=== PATIENT | male | born 1955 | race African-American/Black ===

== ENCOUNTER 2016-03-12 01:07 | Inpatient (IN) | payer BC, OTHER ==
[~2016-03-12] VITALS: Ht 170.2 cm; Wt 103.4 kg
[2016-03-12] VITALS (9 sets, daily range): BP systolic 147–172; BP diastolic 78–85; PULSE 75–93; TEMP 36.7–37.1; O2SAT 99–100; Ht 170.2 cm; Wt 103.4 kg
[~2016-03-12 01:07] MED LIST: B-COTAB18 PO; FLV1 PO; FRS/40 PO; LPT/40 PO; MAGN400T6 PO; NEBI10TA2 PO; NXM/40 PO; OMEG10007 PO; PLVUNK PO; THM100 PO; VTMD PO; vitamin b12 PO
[2016-03-12] MEDS ORDERED: DIAZEPAM 5MG TAB PO STA (01:30)
[2016-03-12] MEDS ORDERED: MULTI-VITAMIN INFUSION INJ 10 ML, THIAMINE HCL INJ 100 MG, FoLIC ACID INJ 1 MG in SODIU... IV ONE ×2 (01:45→03:34)
--- NOTE | 2016-03-12 01:51 | EMERGENCY ROOM VISIT NOTE ---
History Report prepared by Brian: Sumanth Duggan Under the Supervision of: Dr. Chantelle Almaguer M.D. First contact with patient: 01:16 Chief Complaint: HYPERGLYCEMIA Stated Complaint: BLOOD SUGAR OUT OF CONTROL -390 Nursing Triage Summary: Patient c/o hyperglycemia that began yesterday. States blood sugars have been in the 300's. Denies any recent illness. History of Present Illness The patient is a 60 year old male who presents to the Emergency Room with complaints of worsening hyperglycemia starting yesterday. The patient states that earlier in the day his glucose level was 219, and then prior to arrival it was around 319. The patient states that he feels shaky, cold, and he vomited. The patient denies any fevers or being sick recently. The patient states that yesterday he was drinking alcohol, and stopped to go to bed. He states that today he has not had any alcohol today. The patient states that he drinks every day and has for many years. The patient denies smoking. The patient states that his blood sugar is usually around 140 two hours after eating. The patient states that the last time he had an alcoholic beverage was yesterday afternoon. He states that he drinks about a fifth of vodka per day as well as some wine. The patient denies any history of seizures. Source of History: patient Onset: yesterday Position: other (global) Quality: other (hyperglycemia) Timing: worsening Associated Symptoms: + chills, + vomiting Note: Associated symptoms: Shaking Review of Systems See HPI for pertinent positives & negatives. A total of 10 systems reviewed and were otherwise negative. Past Medical & Surgical Medical Problems: (1) Atherosclerosis [place] Arteries Extremities Unspec (2) Diab Ayla Wo Compl, Type Ii Or Unspec Type, Uncontrolled (3) Hyperlipidemia Nec/Nos (4) Hypertension Nos Family History No pertinent family history Social History Smoking Status: Never Smoker Alcohol Use: heavy Drug Use: none Marital Status: Occupation Status: employed Current/Historical Medications Scheduled Atorvastatin (Lipitor), 40 MG PO DAILY B-Complex Vitamins (Vitamin B Complex), 1 TAB PO DAILY Chlordiazepoxide (Librium), 25 MG PO UD Clopidogrel (Plavix), 75 MG PO DAILY Cyanocobalamin (Vitamin B-12), 5,000 MCG PO DAILY Ergocalciferol (Vitamin D), 1 CAP PO WK Esomeprazole Magnesium (Nexium), 40 MG PO DAILY Folic Acid (Folic Acid), 1 MG PO QAM Krill Oil (Krill Oil [place]-3), 1 CAP PO DAILY Liraglutide (Victoza), 1.2 UNITS SQ DAILY Magnesium Oxide (Mag-Ox), 400 MG PO DAILY Nebivolol Hcl (Bystolic), 10 MG PO DAILY Nifedipine Ext Rel (Procardia Xl Ext Rel), 30 MG PO DAILY Pancrelipase (Lipase-Protease- (Creon), 1 CAP PO QID Pioglitazone Hcl (Pioglitazone Hcl), 15 MG PO DAILY Thiamine HCl (Vitamin B-1), 100 MG PO QAM Zinc Gluconate (Zinc Gluconate), 50 MGPE PO DAILY Allergies Coded Allergies: No Known Allergies (Verified , 03/12/16) Physical Exam Vital Signs Date Time Temp Pulse Resp B/P Pulse Ox O2 Delivery O2 Flow Rate FiO2 03/12/16 03:24 92 18 146/76 100 Room Air 03/12/16 02:17 95 16 146/77 100 Room Air 03/12/16 01:53 108 03/12/16 01:10 36.9 98 18 175/94 96 Room Air Physical Exam Vital signs reviewed. General: Overall Tremors. Well-appearing male, in no significant distress. HEENT: Dry Mucous membranes. No scleral icterus, PERRLA, neck supple. Atraumatic. Cardiovascular: Regular rate and rhythm, no extra sounds. Pulmonary: Clear to auscultation bilaterally, normal work of breathing. Abdomen: Soft, nontender, nondistended, positive bowel sounds. Musculoskeletal: Atraumatic, no peripheral edema. Neurologic: Patient awake alert and oriented x 3, full strength in all 4 extremities. Cranial nerves 2 through 12 grossly intact. Skin: Warm, dry, no rash Medical Decision & Procedures Laboratory Results Test 03/12/16 01:53 03/12/16 02:18 Prothrombin Time 12.0 SECONDS (9.0-12.0) Prothromb Time International Ratio 1.1 (0.9-1.1) Activated Partial Thromboplast Time 28.7 SECONDS (21.0-31.0) Partial Thromboplastin Ratio 1.1 Estimated Average Glucose 134 mg/dl Hemoglobin A1c 6.3 % (4.5-5.6) Hemoglobin A1c Pathologist Comment Direct Bilirubin 0.2 mg/dl (0-0.2) Ethyl Alcohol mg/dL < 3.0 mg/dl (0-3) Urine RBC 0-4 /hpf (0-4) Urine WBC 1-5 /hpf (0-5) Urine Epithelial Cells 5-10 /lpf (0-5) Urine Calcium Oxalate Crystals PRESENT (NONE PRSENT) Urine Bacteria NEG (NEG) Laboratory results per my review. Medications Administered Medications (Trade) Dose Ordered Sig/Giuseppe Route Start Time Stop Time Status Last Admin Dose Admin Diazepam 10 mg 10 mg NOW STAT PO 03/12/16 01:30 03/12/16 01:32 DC 03/12/16 01:40 10 MG Multivitamins 10 ml/Thiamine HCl 100 mg/Folic Acid 1 mg/Sodium Chloride 1,011.2 ml @ 300 mls/ hr Q3H23M ONCE IV 03/12/16 01:45 03/12/16 05:07 DC 03/12/16 01:54 300 MLS/HR Sodium Chloride (Nss 1000ml) 1,000 ml @ 125 mls/hr Q8H IV 03/12/16 03:34 03/13/16 16:11 DC 03/13/16 04:01 125 MLS/HR ECG Indication: other (hyperglycemia) Rate (beats per minute): 98 Rhythm: normal sinus Findings: no acute ischemic change, left axis deviation, no ectopy ED Course 0116: Past medical records reviewed. The patient was evaluated in room A2. A complete history and physical examination was performed. 0130: Diazepam 10mg PO 0145: Multivitamins 10 ml/ Thiamine HCl 100mg/ Folic Acid 1mg/ Sodium Chloride 0303: I discussed the patient's case with Dr. Mitchell. He is going to evaluate the patient for further treatment. Medical Decision Differential diagnosis: mood disorder, infection, hypoglycemia, electrolyte abnormalities, cardiac sources, intracerebral event, toxicologic, neurologic, as well as others were entertained. This pt was evaluated and lab work was drawn. 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 Pt indicates that he drinks alcohol heavily (>a fifth of vodka daily) and did not drink over the last 24 hours. He was found to be shaking and tachycardic/mildly hypertensive. He was given 10 mg of oral valium with some improvement. Given that the pt is withdrawing with severe symptoms, he was hydrated with a banana bag. Lab work reveals a hyperglycemia and renal insufficiency of 2.7. He was d/w the hospitalist for further management. Consults Time Called: [phone] Consulting Physician: Dr. Mitchell Returned Call: 030 I discussed the patient's case with Dr. Mitchell. He is going to evaluate the patient for further treatment. Impression Primary Impression: Alcohol withdrawal Additional Impressions: Hyperglycemia Renal insufficiency Scribe Attestation The scribe's documentation has been prepared under my direction and personally reviewed by me in its entirety. I confirm that the note above accurately reflects all work, treatment, procedures, and medical decision making performed by me. Departure Information Dispostion Being Evaluated By Hospitalist Prescriptions Chlordiazepoxide (Librium) 25 Mg Cap 25 MG PO UD, #21 CAP ONLY TO BE TAKEN IF NOT DRINKING!!! ONE PILL TWICE A DAY FOR ONE WEEK THEN ONE PILL A NIGHT UNTIL FINISHED Prov: Familia Brothers M.D. 03/13/16 Referrals Donavan Vera M.D. (PCP) Problem Qualifiers Primary Impression: Alcohol withdrawal Complication of substance-induced condition: uncomplicated Qualified Codes: F10.230 - Alcohol dependence with withdrawal, uncomplicated
[2016-03-12] MEDS ORDERED: CLOP1TAB15 PO (02:18)
[2016-03-12] MEDS ORDERED: KRIL1CAP7 PO (02:22)
[2016-03-12] MEDS ORDERED: CYAN10005 PO (02:23)
[2016-03-12 02:25] LABS: BASO % 0.4 %; BASO ABS # 0.04 K/uL (0-0.2); COMPLETE YES; EOS % 0.1 %; HEMATOCRIT 30.6 % (42-52); IG% 0.2 %; LYMPH % 16.1 %; LYMPH ABS # 1.58 K/uL (1.2-3.4); MEAN CELL VOLUME 94.7 fL (80-100); MEAN CORPUSCULAR HEMOGLOBIN 33.1 pg (25-34); MEAN PLATELET VOLUME 10.1 fL (7.4-10.4); MONO % 9.2 %; PLATELET COUNT 182 K/uL (130-400); RED BLOOD COUNT 3.23 M/uL (4.7-6.1); WHITE BLOOD COUNT 9.82 K/uL (4.8-10.8)
[2016-03-12] MEDS ORDERED: PIOG1TAB25 PO (02:25)
[2016-03-12] MEDS ORDERED: NIFE30TA83 PO (02:25)
[2016-03-12 02:26] LABS: MANUAL MICROSCOPIC REQUIRED? YES; URINE APPEARANCE SL CLOUDY (CLEAR); URINE BILIRUBIN NEG (NEG); URINE COLOR YELLOW; URINE NITRITE NEG (NEG); URINE SPECIFIC GRAVITY >= 1.030 (1.000-1.030); UROBILINOGEN NEG (NEG)
[2016-03-12] MEDS ORDERED: LIRA18IN SQ (02:27)
[2016-03-12] MEDS ORDERED: PANC24002 PO (02:27)
[2016-03-12 02:30] LABS: REVIEW REQ? NO
[2016-03-12] MEDS ORDERED: [UNRECOGNIZED DRUG - CODE] PO (02:30)
[2016-03-12] MEDS ORDERED: MAGN400T7 PO (02:30)
[2016-03-12] MEDS ORDERED: ZINC50TA4 PO (02:32)
[2016-03-12 02:33] LABS: URINE RBC 0-4 /hpf (0-4)
[2016-03-12 02:34] LABS: INR 1.1 (0.9-1.1); PARTIAL THROMBOPLASTIN RATIO 1.1
[2016-03-12 02:34] LABS: URINE BACTERIA NEG (NEG); ZZUR CULT IF INDIC CLEAN CATCH NO
[2016-03-12 02:44] LABS: BUN/CREATININE RATIO 13.7 (10-20); CALCIUM 9.3 mg/dl (8.5-10.1); CREATININE 2.7 mg/dl (0.60-1.40)
[2016-03-12] MEDS ORDERED: MAGN400T6 PO (02:44)
[2016-03-12] MEDS ORDERED: CYAN1SUB12 PO (02:46)
[2016-03-12] MEDS ORDERED: CHLORDIAZEPOXIDE 25 MG CAP PO ONE (03:45)
[2016-03-12] MEDS ORDERED: ONDANSETRON INJ 2 MG/ML 2 ML VIAL IV PRN (03:45)
[2016-03-12] MEDS ORDERED: LORAZEPAM 2 MG/ML 1 ML VIAL IV PRN (03:45)
[2016-03-12] MEDS ORDERED: POLYETHYLENE (MIRALAX) 17 GM PACK PO PRN (03:45)
[2016-03-12] MEDS ORDERED: ACETAMINOPHEN 325 MG TAB PO PRN (03:45)
[2016-03-12] MEDS ORDERED: ALUMINUM/MAGNESIUM/SIMETH (MAALOX MAX) 30 ML UDC PO PRN (03:45)
[2016-03-12] MEDS ORDERED: MAGNESIUM HYDROXIDE SUSP 30 ML UDC PO PRN (03:45)
--- NOTE | 2016-03-12 04:42 | History and Physical ---
History & Physical Date & Time of Service: Mar 12, 2016 at 04:24 Chief Complaint: Blood Sugar Out Of Control -390 Primary Care Physician: Donavan Vera M.D. History of Present Illness Source: patient Mr Mahesh Penny is a 60 year old male with type 2 diabetes mellitus and alcoholism who initially presented with hyperglycemia and alcohol withdrawal. He reports this has happened to him multiple times before and he is upset about how it is happening again. He reports he drinks a fifth of a pint of vodka daily , with occasional wine, and his last drink was the evening of 03/10/16. He reports after he stopped drinking his sugars were elevated, and throughout the day they were 319 and 390. This made him very anxious. He reports he thinks it may be because his diet is poor. He is only awake 4am-3pm on a general day and has about 2 meals per day. He feels that being on Victoza is dangerous for him since he does not eat enough for the medication to work effectively. He also reports in December he stayed indoors for 2 weeks and was not eating or drinking at all. He reports he is not good at speaking to people and so initially does not want to see psychiatry tonight. 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 Not and does not have children. Smoking Status: Never Smoker Drug Use: none Marital Status: Housing status: lives alone Occupational Status: retired Immunizations History of Tetanus Vaccine?: Unknown History of Pneumococcal: No History of Hepatitis B Vaccine: PT IS UNSURE OF DATE Multi-Drug Resistant Organisms History of MDRO: No Allergies Coded Allergies: No Known Allergies (Verified , 03/12/16) Home Medications Scheduled Atorvastatin (Lipitor), 40 MG PO DAILY B-Complex Vitamins (Vitamin B Complex), 1 TAB PO DAILY Clopidogrel (Plavix), 75 MG PO DAILY Cyanocobalamin (Vitamin B-12), 5,000 MCG PO DAILY Ergocalciferol (Vitamin D), 1 CAP PO WK Esomeprazole Magnesium (Nexium), 40 MG PO DAILY Folic Acid (Folic Acid), 1 MG PO QAM Furosemide (Lasix), 40 MG PO DAILY Krill Oil (Krill Oil [place]-3), 1 CAP PO DAILY Liraglutide (Victoza), 1.2 UNITS SQ DAILY Magnesium Oxide (Mag-Ox), 400 MG PO DAILY Nebivolol Hcl (Bystolic), 10 MG PO DAILY Nifedipine Ext Rel (Procardia Xl Ext Rel), 30 MG PO DAILY Pancrelipase (Lipase-Protease- (Creon), 1 CAP PO QID Pioglitazone Hcl (Pioglitazone Hcl), 15 MG PO DAILY Thiamine HCl (Vitamin B-1), 100 MG PO QAM Zinc Gluconate (Zinc Gluconate), 50 MGPE PO DAILY Review of Systems See HPI for pertinent positives & negatives. A total of 10 systems reviewed and were otherwise negative. Physical Exam Vital Signs Date Time Temp Pulse Resp B/P Pulse Ox O2 Delivery O2 Flow Rate FiO2 03/12/16 04:11 36.9 77 18 157/84 95 03/12/16 04:10 77 18 157/84 95 Room Air 03/12/16 03:24 92 18 146/76 100 Room Air 03/12/16 02:17 95 16 146/77 100 Room Air 03/12/16 01:53 108 03/12/16 01:10 36.9 98 18 175/94 96 Room Air General Appearance: WD/WN, + mild distress (tremulous, tearful) Head: normocephalic, atraumatic Eyes: PERRL ENT: hearing grossly normal Neck: supple, no JVD Respiratory/Chest: lungs clear, normal breath sounds, no respiratory distress Cardiovascular: regular rate, rhythm, no murmur, normal peripheral pulses Abdomen/GI: normal bowel sounds, non tender, soft Back: no CVA tenderness, no muscle spasm Extremities/Musculoskelatal: no calf tenderness, no pedal edema Neurologic/Psych: alert, + depressed affect Skin: no rash Diagnostics Laboratory Results Results Past 24 Hours Test 03/12/16 01:24 03/12/16 01:53 03/12/16 02:18 03/12/16 03:34 Range/Units Bedside Glucose 292 70-99 mg/dl White Blood Count 9.82 4.8-10.8 K/uL Red Blood Count 3.23 4.7-6.1 M/uL Hemoglobin 10.7 14.0-18.0 g/dL Hematocrit 30.6 42-52 % Mean Corpuscular Volume 94.7 80-100 fL Mean Corpuscular Hemoglobin 33.1 25-34 pg Mean Corpuscular Hemoglobin Concent 35.0 32-36 g/dl Platelet Count 182 130-400 K/uL Mean Platelet Volume 10.1 7.4-10.4 fL Neutrophils (%) (Auto) 74.0 % Lymphocytes (%) (Auto) 16.1 % Monocytes (%) (Auto) 9.2 % Eosinophils (%) (Auto) 0.1 % Basophils (%) (Auto) 0.4 % Neutrophils # (Auto) 7.27 1.4-6.5 K/uL Lymphocytes # (Auto) 1.58 1.2-3.4 K/uL Monocytes # (Auto) 0.90 0.11-0.59 K/uL Eosinophils # (Auto) 0.01 0-0.5 K/uL Basophils # (Auto) 0.04 0-0.2 K/uL RDW Standard Deviation 54.7 36.4-46.3 fL RDW Coefficient of Variation 15.7 11.5-14.5 % Immature Granulocyte % (Auto) 0.2 % Immature Granulocyte # (Auto) 0.02 0.00-0.02 K/uL Prothrombin Time 12.0 9.0-12.0 SECONDS Prothromb Time International Ratio 1.1 0.9-1.1 Activated Partial Thromboplast Time 28.7 21.0-31.0 SECONDS Partial Thromboplastin Ratio 1.1 Sodium Level 139 136-145 mmol/L Potassium Level 5.0 3.5-5.1 mmol/L Chloride Level 102 98-107 mmol/L Carbon Dioxide Level 23 21-32 mmol/L Anion Gap 14.0 3-11 mmol/L Blood Urea Nitrogen 37 7-18 mg/dl Creatinine 2.70 0.60-1.40 mg/dl Est Creatinine Clear Calc Drug Dose 33.0 ml/min Estimated GFR () 28.2 Estimated GFR (Non- 24.3 BUN/Creatinine Ratio 13.7 10-20 Random Glucose 274 70-99 mg/dl Calcium Level 9.3 8.5-10.1 mg/dl Total Bilirubin 0.7 0.2-1 mg/dl Direct Bilirubin 0.2 0-0.2 mg/dl Aspartate Amino Transf (AST/SGOT) 72 15-37 U/L Alanine Aminotransferase (ALT/SGPT) 48 12-78 U/L Alkaline Phosphatase 106 45-117 U/L Total Protein 8.5 6.4-8.2 gm/dl Albumin 4.2 3.4-5.0 gm/dl Ethyl Alcohol mg/dL < 3.0 0-3 mg/dl Urine Color YELLOW Urine Appearance SL CLOUDY CLEAR Urine pH 5.0 4.5-7.5 Urine Specific [place] >= 1.030 1.000-1.030 Urine Protein 2+ NEG Urine Glucose (UA) NEG NEG Urine Ketones TRACE NEG Urine Occult Blood NEG NEG Urine Nitrite NEG NEG Urine Bilirubin NEG NEG Urine Urobilinogen NEG NEG Urine Leukocyte Esterase NEG NEG Urine RBC 0-4 0-4 /hpf Urine WBC 1-5 0-5 /hpf Urine Epithelial Cells 5-10 0-5 /lpf Urine Calcium Oxalate Crystals PRESENT NONE PRSENT Urine Bacteria NEG NEG Impression Assessment and Plan 60 yo M with alcoholism who presents with mild hyperglycemia, and alcohol withdrawal. Alcohol withdrawal: - Librium 25mg now, then 25mg BID onwards - Banana bag and IV fluids - Ativan 1mg q4h for alcohol withdrawal symptoms Hyperglycemia - BSG AC & HS - Aim for glc 140-180, sliding scale - Hold pioglitazone and Victoza WILLIAM - Fluid rehydration - Monitor PRP Hyperlipidemia - Continue statin CAD - Continue aspirin Depression - Would consider referral to psych / outpatient therapy if pt agreeable to this. Seems depressed/has a social phobia. Level of Care Telemetry Resuscitation Status FULL RESUSCITATION VTE Prophylaxis VTE Risk Assessment Done? Y/N: Yes Risk Level: Moderate Given or contraindicated: SCD's Resident Tracking Resident Involvement: Resident Care Provided Care Provided: Adult [facility] Medicine Assessment and Plan Attending Addendum: I have seen and examined this patient, have directed their medical care, supervised the medical microbiologist ,and agree with the H&P as noted above. History of Present Illness: The patient is a 60-year-old male presents to the emergency department with elevated blood sugars up to a high of 390, and shakes to supplement to be able to use his Victoza. He reports that he usually drinks a pint of vodka daily, with occasional wine, but has not had anything to drink for 24 hours. This has happened to him in the past, and he is very anxious and shaky at this time. His eating pattern is irregular, and his awake time during the day is usually 4 AM to 3 PM. Review of Systems: The patient denies chest pain, palpitations, shortness of breath, cough, lower extremity swelling, vision change, hearing change, sore throat, fevers, chills, sweats, weight change, fatigue, nausea, vomiting, abdominal pain, pelvic pain, blood in urine or stool, lightheadedness, dizziness, headache, memory loss, rash, abnormal bruising or bleeding, imbalance, focal or generalized weakness, arthralgias or myalgias, back or neck pain, night sweats, or allergy symptoms. He does report dysuria and urinary frequency and urgency. The review of systems is otherwise negative other than for that already noted above, and at least 10 systems have been reviewed. Physical Exam: The patient is awake, well-developed and adequately nourished, alert and oriented 3, normocephalic and atraumatic, appears anxious and has tremors. HEENT--PERRL, EOMI, mucous membranes moist, and oropharynx normal. Neck--supple, no JVD or bruits, thyroid normal, trachea midline, no adenopathy. Heart--normal S1 and S2, no extra beats, no murmurs, rubs or gallops. Lungs--clear bilaterally with good air movement, no respiratory distress, no accessory muscle use. Abdomen--normal bowel sounds and soft, nontender and nondistended, no hernias or masses, no organomegaly. Extremities--no cyanosis, clubbing or edema. There are good distal pulses b/l. Dermatologic--normal skin turgor, normal color, warm and dry, no abnormal lymph nodes, no rash. Neurologic--cranial nerves II through XII grossly intact, motor and sensory examination normal, with intermittent shakes and tremors. Rheumatologic--normal range of motion, nontender, muscles and joints. Psychiatric--anxious. Assessment and Plan: Diabetes mellitus with hyperglycemia associated with alcohol withdrawal-- place patient on Accu-Cheks before meals and at bedtime with NovoLog coverage. Will hold both pioglitazone and Victoza. Alcohol withdrawal--give Librium 25 mg by mouth now, then 25 mg by mouth twice a day. Continue banana bag every a.m., follow with normal saline with potassium. Have Available Ativan 1 mg IV to 4 hours when necessary for significant alcohol withdrawal symptoms. Chronic renal failure--creatinine has been roughly this range for the past few years. We will review records to see if he has had a renal ultrasound done, and consider a 24-hour urine study done for protein at some point. As above will hold pioglitazone. We'll check a serial PRP and magnesium. Coronary artery disease/hypertension/CHF-- continue clopidogrel 75 mg by mouth daily, Bystolic 10 mg by mouth daily. Hold Lasix 40 mg by mouth daily. Hold nifedipine extended release 30 mg by mouth daily. Hyperlipidemia-- continue atorvastatin 40 mg by mouth daily. Depression--he is advised to allow us to contact psychiatry for him. Malabsorption syndrome/exocrine pancreatic insufficiency--continue Creon 2 capsules by mouth 4 times a day. GERD--change Nexium 40 mg by mouth daily to pantoprazole 40 mg by mouth daily.
[2016-03-12 04:46] LABS: URINE APPEARANCE CLEAR (CLEAR); URINE BILIRUBIN NEG (NEG); URINE COLOR YELLOW; URINE EPITHELIAL CELL AUTO 20-30 /lpf (0-5); URINE NITRITE NEG (NEG); URINE PH 5.5 (4.5-7.5); URINE SPECIFIC GRAVITY 1.011 (1.000-1.030); UROBILINOGEN NEG (NEG); ZZUR CULT IF INDIC CLEAN CATCH NO
[2016-03-12 04:48] LABS: MANUAL MICROSCOPIC REQUIRED? NO; REVIEW REQ? NO
[2016-03-12] MEDS ORDERED: GLUCOSE 10 TABS/TUBE PO PRN (05:00)
[2016-03-12] MEDS ORDERED: GLUCAGON FOR INJ 1 MG VIAL SQ PRN (05:00)
[2016-03-12] MEDS ORDERED: DEXTROSE 50% 50 ML SYR IV PRN (05:00)
[2016-03-12] MEDS ORDERED: GLUCOSE 40% GEL 15 GM TUBE PO PRN (05:00)
[2016-03-12] MEDS ORDERED: LORAZEPAM INJ 1 MG in SYRINGE 0.5 ML IV PRN (05:00)
[2016-03-12 05:14] LABS: BENZODIAZEPINE, URINE NEG (NEG); COCAINE,URINE NEG (NEG); PHENCYCLIDINE, URINE NEG (NEG)
[2016-03-12 06:33] LABS: ESTIMATED AVERAGE GLUCOSE 134 mg/dl
[2016-03-12 07:14] LABS: HA1C FLAG Variant Hgb (Normal)
[2016-03-12] MEDS: SODIUM CHLORIDE 0.9% 1000ML 1,000 ML IV SCH ×3 (07:42→20:25)
[2016-03-12] MEDS: CHLORDIAZEPOXIDE 25 MG CAP PO SCH ×2 (08:42→21:06)
[2016-03-12] MEDS: MAGNESIUM OXIDE 400 MG TAB PO SCH (08:42)
[2016-03-12] MEDS: CYANOCOBALAMIN 500 MCG TAB (VIT B-12) PO SCH (08:42)
[2016-03-12] MEDS: NEBIVOLOL HCL 5 MG TAB PO SCH (08:43)
[2016-03-12] MEDS: PANTOprazole SOD 40 MG TAB PO SCH (08:43)
[2016-03-12] MEDS: VITAMIN B COMPLEX TAB PO SCH (08:43)
[2016-03-12] MEDS: PANCREAZE (LIPASE 10,500U) CAP PO SCH ×4 (08:43→21:07)
[2016-03-12] MEDS: THIAMINE HCL 100 MG TAB PO SCH (08:43)
[2016-03-12] MEDS: OMEGA-3 (PURIFIED FISH OIL) 1 GM CAP PO SCH (08:43)
[2016-03-12] MEDS: CLOPIDOGREL BISULFATE 75 MG TAB PO SCH (08:43)
[2016-03-12] MEDS: INSULIN ASPART 100 UNITS/ML 3 ML PEN SC SCH ×4 (08:49→21:45)
[2016-03-12] MEDS ORDERED: ATORVASTATIN 20 MG TAB PO SCH (09:00)
[2016-03-12] MEDS ORDERED: FUROSEMIDE 40 MG TAB PO SCH (09:00)
[2016-03-12] MEDS ORDERED: NIFEdipine 30 MG CR TAB PO SCH (09:00)
[2016-03-12] MEDS ORDERED: NURSING VERBAL MED ORDER ONE (09:00)
--- NOTE | 2016-03-12 15:46 | Progress Note ---
Subjective Date of Service: Mar 12, 2016. Subjective pt is pleasant and less shakey, does not feel steady on his feet with librium and lives alone, does not feel ready to go home Problem List Medical Problems: (1) Alcohol withdrawal Status: Acute (2) Hyperglycemia Status: Acute (3) Renal insufficiency Status: Acute Review of Systems Constitutional: No chills, No fever Respiratory: No cough, No shortness of breath Cardiac: No chest pain, No edema Abdomen: No diarrhea, No nausea, No pain, No vomiting Male : No dysuria, No urinary frequency Neurologic: + balance problems, + weakness Psychiatric: + anxiety, + depression symptoms, + substance abuse Objective Vital Signs Date Time Temp Pulse Resp B/P Pulse Ox O2 Delivery O2 Flow Rate FiO2 03/12/16 07:11 36.7 81 20 149/78 100 Room Air 03/12/16 05:00 36.7 93 16 159/81 100 Room Air 03/12/16 04:11 36.9 77 18 157/84 95 03/12/16 04:10 77 18 157/84 95 Room Air 03/12/16 03:24 92 18 146/76 100 Room Air 03/12/16 02:17 95 16 146/77 100 Room Air 03/12/16 01:53 108 03/12/16 01:10 36.9 98 18 175/94 96 Room Air Physical Exam General Appearance: WD/WN, + mild distress Neck: supple, no JVD Respiratory/Chest: chest non-tender, lungs clear, normal breath sounds Cardiovascular: regular rate, rhythm, no murmur Abdomen: normal bowel sounds, non tender, soft Extremities: no pedal edema, no calf tenderness Neurologic/Psychiatric: alert, oriented x 3 Laboratory Results Last 24 Hours Test 03/12/16 01:24 03/12/16 01:53 03/12/16 02:18 03/12/16 04:15 Bedside Glucose 292 mg/dl White Blood Count 9.82 K/uL Red Blood Count 3.23 M/uL Hemoglobin 10.7 g/dL Hematocrit 30.6 % Mean Corpuscular Volume 94.7 fL Mean Corpuscular Hemoglobin 33.1 pg Mean Corpuscular Hemoglobin Concent 35.0 g/dl Platelet Count 182 K/uL Mean Platelet Volume 10.1 fL Neutrophils (%) (Auto) 74.0 % Lymphocytes (%) (Auto) 16.1 % Monocytes (%) (Auto) 9.2 % Eosinophils (%) (Auto) 0.1 % Basophils (%) (Auto) 0.4 % Neutrophils # (Auto) 7.27 K/uL Lymphocytes # (Auto) 1.58 K/uL Monocytes # (Auto) 0.90 K/uL Eosinophils # (Auto) 0.01 K/uL Basophils # (Auto) 0.04 K/uL RDW Standard Deviation 54.7 fL RDW Coefficient of Variation 15.7 % Immature Granulocyte % (Auto) 0.2 % Immature Granulocyte # (Auto) 0.02 K/uL Prothrombin Time 12.0 SECONDS Prothromb Time International Ratio 1.1 Activated Partial Thromboplast Time 28.7 SECONDS Partial Thromboplastin Ratio 1.1 Sodium Level 139 mmol/L Potassium Level 5.0 mmol/L Chloride Level 102 mmol/L Carbon Dioxide Level 23 mmol/L Anion Gap 14.0 mmol/L Blood Urea Nitrogen 37 mg/dl Creatinine 2.70 mg/dl Est Creatinine Clear Calc Drug Dose 33.0 ml/min Estimated GFR () 28.2 Estimated GFR (Non- 24.3 BUN/Creatinine Ratio 13.7 Random Glucose 274 mg/dl Estimated Average Glucose 134 mg/dl Hemoglobin A1c 6.3 % Calcium Level 9.3 mg/dl Total Bilirubin 0.7 mg/dl Direct Bilirubin 0.2 mg/dl Aspartate Amino Transf (AST/SGOT) 72 U/L Alanine Aminotransferase (ALT/SGPT) 48 U/L Alkaline Phosphatase 106 U/L Total Protein 8.5 gm/dl Albumin 4.2 gm/dl Ethyl Alcohol mg/dL < 3.0 mg/dl Urine Color YELLOW YELLOW Urine Appearance SL CLOUDY CLEAR Urine pH 5.0 5.5 Urine Specific [place] >= 1.030 1.011 Urine Protein 2+ TRACE Urine Glucose (UA) NEG NEG Urine Ketones TRACE NEG Urine Occult Blood NEG NEG Urine Nitrite NEG NEG Urine Bilirubin NEG NEG Urine Urobilinogen NEG NEG Urine Leukocyte Esterase NEG NEG Urine RBC 0-4 /hpf Urine WBC 1-5 /hpf Urine Epithelial Cells 5-10 /lpf Urine Calcium Oxalate Crystals PRESENT Urine Bacteria NEG Urine WBC (Auto) 1-5 /hpf Urine RBC (Auto) 0-4 /hpf Urine Hyaline Casts (Auto) 5-10 /lpf Urine Epithelial Cells (Auto) 20-30 /lpf Urine Bacteria (Auto) NEG Urine Opiates Screen NEG Urine Methadone, Qualitative NEG Urine Barbiturates NEG Urine Phencyclidine (PCP) Level NEG Ur Amphetamine/Methamphetamine NEG MDMA (Ecstasy) Screen NEG Urine Benzodiazepines Screen NEG Urine Cocaine Metabolite NEG Urine Marijuana (THC) NEG Test 03/12/16 05:13 Assessment and Plan 60 yo M with alcoholism who presents with alcohol withdrawal and poorly controlled diabetes, has significant psychiatrical social phobia and medicine misuse Alcohol withdrawal: 25mg BID onwards, consider CWSS protocol, prn ativan - Banana bag and IV fluids - will again offer psyche Poorly controlled diabetes - BSG AC & HS, SSI - Aim for glc 140-180, sliding scale - Hold pioglitazone and Victoza WILLIAM /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
[2016-03-12] MEDS ORDERED: ATORVASTATIN 40 MG TAB PO SCH (21:00)
[2016-03-13] VITALS (7 sets, daily range): BP systolic 147–167; BP diastolic 76–88; PULSE 66–72; TEMP 36.4–36.7; O2SAT 93–100
[2016-03-13] MEDS: SODIUM CHLORIDE 0.9% 1000ML 1,000 ML IV SCH ×2 (04:01→11:34)
[2016-03-13] MEDS: INSULIN ASPART 100 UNITS/ML 3 ML PEN SC SCH ×2 (06:30→12:54)
[2016-03-13 07:51] LABS: BASO % 0.5 %; BASO ABS # 0.02 K/uL (0-0.2); COMPLETE YES; EOS % 2.1 %; HEMATOCRIT 27.4 % (42-52); IG% 0.3 %; LYMPH ABS # 1.35 K/uL (1.2-3.4); MEAN CELL VOLUME 95.5 fL (80-100); MEAN CORPUSCULAR HEMOGLOBIN 32.8 pg (25-34); MEAN CORPUSCULAR HGB CONC 34.3 g/dl (32-36); MEAN PLATELET VOLUME 9.7 fL (7.4-10.4); MONO % 10.1 %; PLATELET COUNT 83 K/uL (130-400); PLT ESTIMATE DECREASED; RED BLOOD COUNT 2.87 M/uL (4.7-6.1); WHITE BLOOD COUNT 3.75 K/uL (4.8-10.8)
[2016-03-13 07:55] LABS: ALB/GLOB RATIO 0.9 (0.9-2); BUN/CREATININE RATIO 12.8 (10-20); CALCIUM 8.3 mg/dl (8.5-10.1); CREATININE 1.8 mg/dl (0.60-1.40); POTASSIUM 4.3 mmol/L (3.5-5.1)
[2016-03-13] MEDS: PANCREAZE (LIPASE 10,500U) CAP PO SCH ×2 (09:00→12:36)
[2016-03-13] MEDS ORDERED: PIOGLITAZONE TAB 15 MG TAB PO SCH (09:00)
[2016-03-13] MEDS: CLOPIDOGREL BISULFATE 75 MG TAB PO SCH (09:11)
[2016-03-13] MEDS: CYANOCOBALAMIN 500 MCG TAB (VIT B-12) PO SCH (09:11)
[2016-03-13] MEDS: THIAMINE HCL 100 MG TAB PO SCH (09:11)
[2016-03-13] MEDS: VITAMIN B COMPLEX TAB PO SCH (09:12)
[2016-03-13] MEDS: MAGNESIUM OXIDE 400 MG TAB PO SCH (09:12)
[2016-03-13] MEDS: OMEGA-3 (PURIFIED FISH OIL) 1 GM CAP PO SCH (09:12)
[2016-03-13] MEDS: NEBIVOLOL HCL 5 MG TAB PO SCH (09:13)
[2016-03-13] MEDS: PANTOprazole SOD 40 MG TAB PO SCH (09:14)
[2016-03-13] MEDS: CHLORDIAZEPOXIDE 25 MG CAP PO SCH (09:15)
[2016-03-13] MEDS ORDERED: CHLO25CA10 PO (09:20)
--- NOTE | 2016-03-13 09:22 | Discharge Instructions ---
Discharge Instructions Admission Reason for Admission: Alcohol Withdrawal Discharge Discharge Diagnosis / Problem: SHAKING, UNCONTROLLED DIABETES, ALCOHOL USE Discharge Goals Goal(s): Diagnostic testing, Therapeutic intervention Activity Recommendations Activity Limitations: resume your previous activity . Current Hospital Diet Patient's current hospital diet: Diabetes Type 2 Diet Discharge Diet Recommended Diet: Diabetes Type 2 Diet Pending Studies Studies pending at discharge: no Laboratory Results Hemoglobin A1c Test 03/12/16 01:53 Range/Units Estimated Average Glucose 134 mg/dl Hemoglobin A1c 6.3 H 4.5-5.6 % Medical Emergencies . Who to Call and When: Medical Emergencies: If at any time you feel your situation is an emergency, please call 911 immediately. . Non-Emergent Contact Non-Emergency issues call your: Primary Care Provider (DR CRUZ) Call Non-Emergent contact if: temperature is above 101 . . "Provider Documentation" section prepared by Familia Brothers. VTE Core Measure Inpt VTE Proph given/why not?: SCD's
--- NOTE | 2016-03-13 16:12 | Discharge Summary ---
Discharge Summary Admission Date: Mar 12, 2016 at 03:42 Discharge Date: Mar 13, 2016 Discharge Disposition: Home Principal Diagnosis: poor diabetic control, alcohol withdrawal Immunizations: History of Tetanus Vaccine?: Unknown History of Pneumococcal: No History of Hepatitis B Vaccine: PT IS UNSURE OF DATE Medication Reconciliation New Medications: Chlordiazepoxide (Librium) 25 Mg Cap 25 MG PO UD, #21 CAP ONLY TO BE TAKEN IF NOT DRINKING!!! ONE PILL TWICE A DAY FOR ONE WEEK THEN ONE PILL A NIGHT UNTIL FINISHED Continued Medications: Atorvastatin (Lipitor) 40 Mg Tab 40 MG PO DAILY, TAB B-Complex Vitamins (Vitamin B Complex) 1 Tab Tab 1 TAB PO DAILY Clopidogrel (Plavix) 75 Mg Tab 75 MG PO DAILY, TAB Cyanocobalamin (Vitamin B-12) 2,500 Mcg Sub 5000 MCG PO DAILY Ergocalciferol (Vitamin D) 50,000 Interunit Cap 1 CAP PO WK take on mondays Esomeprazole Magnesium (Nexium) 40 Mg Capcr 40 MG PO DAILY Folic Acid (Folic Acid) 1 Mg Tab 1 MG PO QAM, #30 TAB Krill Oil (Krill Oil [place]-3) 1 Cap Cap 1 CAP PO DAILY Liraglutide (Victoza) 18 Mg/3 Ml Inj 1.2 UNITS SQ DAILY Magnesium Oxide (Mag-Ox) 400 Mg Tab 400 MG PO DAILY Nebivolol Hcl (Bystolic) 10 Mg Tab 10 MG PO DAILY Nifedipine Ext Rel (Procardia Xl Ext Rel) 30 Mg Tabcr 30 MG PO DAILY Pancrelipase (Lipase-Protease- (Creon) 1 Cap Cap 1 CAP PO QID Pioglitazone Hcl (Pioglitazone Hcl) 15 Mg Tab 15 MG PO DAILY Thiamine HCl (Vitamin B-1) 100 Mg Tab 100 MG PO QAM, #30 TAB Zinc Gluconate (Zinc Gluconate) 50 Mg Tab 50 MGPE PO DAILY Discontinued Medications: Furosemide (Lasix) 40 Mg Tab 40 MG PO DAILY, TAB Discharge Exam Review of Systems: Constitutional: No chills, No fever Respiratory: No cough, No shortness of breath, No sputum Cardiovascular: No chest pain, No orthopnea Abdomen: No diarrhea, No nausea, No pain, No vomiting Genitourinary - Male: No dysuria, No hematuria Physical Exam: General Appearance: WD/WN, no apparent distress Neck: supple, no JVD Respiratory/Chest: chest non-tender, lungs clear, normal breath sounds Cardiovascular: regular rate, rhythm, no murmur Abdomen / GI: normal bowel sounds, non tender, soft Neurologic/Psychiatric: alert, oriented x 3 Hospital Course 60 yo M with alcoholism who presents with alcohol withdrawal and poorly controlled diabetes, has significant psychiatrical social phobia and medicine misuse Alcohol withdrawal: was councelled to stop, given taper of librium follow up appointment made with DR leonard 03/14 at 2 pm no further shaking Poorly controlled diabetes, more short term poor control as A1C is good at 6.3, counselled on need for good diet control also resume pioglitazone and Victoza WILLIAM /ckd 3-4 much improved will stop lasix CAD aspirin and statin for risk modification Total Time Spent: Greater than 30 minutes This includes examination of the patient, discharge planning, medication reconciliation, and communication with other providers. Discharge Instructions Please refer to the electronic Patient Visit Report (Discharge Instructions) for additional information.
== END 2016-03-13 16:11 | disposition home or self-care (01) | DRG 897 ==
LOC: ENRESERVTM → ENRESERVDT → C.EDB 01:09 → C.MED 03:42
PROVIDERS: ADMIT Hospitalist; ATTEND Internal Medicine
DX: F10.239 Alcohol dependence with withdrawal, unspecified (principal); N17.9 Acute kidney failure, unspecified; K90.9 Intestinal malabsorption, unspecified; E78.5 Hyperlipidemia, unspecified; E11.65 Type 2 diabetes mellitus with hyperglycemia; N18.3 Chronic kidney disease, stage 3 (moderate); I25.10 Atherosclerotic heart disease of native coronary artery without angina pectoris; F32.9 Major depressive disorder, single episode, unspecified; I10 Essential (primary) hypertension; I70.209 Unspecified atherosclerosis of native arteries of extremities, unspecified extremity; Z79.899 Other long term (current) drug therapy; Z79.02 Long term (current) use of antithrombotics/antiplatelets

== ENCOUNTER → 2016-03-21 | Outpatient (CLI) | payer OTHER ==
[~2016-03-21] MED LIST changes: +CHLO25CA10 PO; +CLOP1TAB15 PO; +CYAN1SUB12 PO; -FRS/40 PO; +KRIL1CAP7 PO; +LIRA18IN SQ; +NIFE30TA83 PO; -OMEG10007 PO; +PANC24002 PO; +PIOG1TAB25 PO; -PLVUNK PO; +ZINC50TA4 PO; -vitamin b12 PO
[2016-03-21 18:32] LABS: BLOOD UREA NITROGEN 26 mg/dl (7-18); BUN/CREATININE RATIO 15.1 (10-20); CALCIUM 9.2 mg/dl (8.5-10.1); CARBON DIOXIDE 23 mmol/L (21-32); CHLORIDE 110 mmol/L (98-107); GLUCOSE 85 mg/dl (70-99); POTASSIUM 4.2 mmol/L (3.5-5.1); SODIUM 144 mmol/L (136-145)
== END | disposition home or self-care (01) ==
LOC: C.LAB 16:52
PROVIDERS: ATTEND Family Medicine
DX: E11.9 Type 2 diabetes mellitus without complications (principal)

== ENCOUNTER → 2016-08-28 | Outpatient (CLI) | payer OTHER ==
[2016-08-28 18:44] LABS: BASO % 0.6 %; BASO ABS # 0.04 K/uL (0-0.2); COMPLETE YES; EOS % 0.6 %; HEMATOCRIT 30.9 % (42-52); IG% 0.2 %; LYMPH ABS # 1.59 K/uL (1.2-3.4); MEAN CELL VOLUME 95.4 fL (80-100); MEAN CORPUSCULAR HEMOGLOBIN 33.3 pg (25-34); MEAN PLATELET VOLUME 10.1 fL (7.4-10.4); MONO % 7.7 %; NEUT % 66.9 %; PLATELET COUNT 145 K/uL (130-400); RED BLOOD COUNT 3.24 M/uL (4.7-6.1); WHITE BLOOD COUNT 6.63 K/uL (4.8-10.8)
[2016-08-28 18:52] LABS: INR 1.1 (0.9-1.1); PARTIAL THROMBOPLASTIN RATIO 1.1; PROTHROMBIN TIME (PATIENT) 11.7 SECONDS (9.0-12.0)
[2016-08-28 19:03] LABS: ALT/SGPT 44 U/L (12-78); BLOOD UREA NITROGEN 47 mg/dl (7-18); BUN/CREATININE RATIO 21.5 (10-20); C-REACTIVE PROTEIN < 0.29 mg/dl (0-0.29); CALCIUM 9.4 mg/dl (8.5-10.1); CARBON DIOXIDE 18 mmol/L (21-32); CHLORIDE 107 mmol/L (98-107); CHOLESTEROL 170 mg/dl (0-200); CHOLESTEROL/HDL RATIO 1.3; GLUCOSE 116 mg/dl (70-99); HDL CHOLESTEROL 129 mg/dl; PHOSPHORUS 3.7 mg/dl (2.5-4.9); POTASSIUM 3.7 mmol/L (3.5-5.1); SODIUM 138 mmol/L (136-145); TRIGLYCERIDES 515 mg/dl (0-150); URIC ACID 9.2 mg/dl (2.6-7.2)
[2016-08-28 19:04] LABS: ESTIMATED AVERAGE GLUCOSE 126 mg/dl
[2016-08-28 19:09] LABS: HA1C FLAG Peak Unknown (Normal)
[2016-08-28 19:13] LABS: ALB/GLOB RATIO 0.8 (0.9-2); ALKALINE PHOSPHATASE 76 U/L (45-117); AST/SGOT 55 U/L (15-37)
== END | disposition home or self-care (01) ==
LOC: C.LAB 17:28
PROVIDERS: ATTEND Family Medicine
DX: R73.09 Other abnormal glucose (principal); E55.9 Vitamin D deficiency, unspecified; D51.9 Vitamin B12 deficiency anemia, unspecified; T14.8 Other injury of unspecified body region; X58.XXXA Exposure to other specified factors, initial encounter

== ENCOUNTER → 2016-09-04 | Outpatient (CLI) | payer OTHER ==
--- NOTE | 2016-09-04 09:57 | DIAGNOSTIC IMAGING REPORT ---
VENOUS DOPPLER LWR EXT BILA CLINICAL HISTORY: 60 years-old Male presenting with BILATERAL LEG SWELLING. TECHNIQUE: Real-time grayscale and color and spectral Doppler ultrasound imaging of the veins of the bilateral lower extremities was performed. Compression and augmentation were also utilized. COMPARISON: 2013. FINDINGS: Right: Common femoral vein: Patent. Femoral vein: Patent. Greater saphenous vein: Patent. Popliteal vein: Patent. Calf veins: Patent. Left: Common femoral vein: Patent. Femoral vein: Patent. Greater saphenous vein: Patent. Popliteal vein: Patent. Calf veins: Patent. Other: None. IMPRESSION: No evidence of deep venous thrombosis in the bilateral lower extremities. Electronically signed by: Artem Mendosa M.D. 09/04/2016 9:56 AM Dictated Date/Time: 09/04/2016 9:54 AM
== END | disposition home or self-care (01) ==
LOC: C.ULTR 09:17
PROVIDERS: ATTEND Family Medicine
DX: M79.89 Other specified soft tissue disorders (principal)

== ENCOUNTER → 2016-10-17 | Outpatient (CLI) | payer OTHER ==
[~2016-10-17] MED LIST changes: -CHLO25CA10 PO
--- NOTE | 2016-10-17 13:56 | DIAGNOSTIC IMAGING REPORT ---
ARTERIAL DOPPLER ULTRASOUND LOWER EXTREMITIES BILATERAL CLINICAL HISTORY: Peripheral vascular disease with foot pain. COMPARISON STUDY: 02/01/2009 FINDINGS: Brachial arm systolic pressures are 138 mmHg on the right and 1 year 45 mmHg on the left. Posterior tibial systolic pressures are 1 to 54 mmHg in the right and 1 to 57 mmHg on the left. Dorsalis pedis systolic pressures are 1 64 mmHg on the right and 1 to 53 mmHg on the left. These measurements indicate normal bilateral ankle arm indices of 1.1. There is triphasic flow within the right common femoral, superficial femoral, and popliteal arteries. There is triphasic flow within the proximal posterior tibial artery. There is triphasic flow within the peroneal artery. There is triphasic flow within the right anterior tibial artery. There is triphasic flow within the left common femoral, superficial femoral, and popliteal arteries. There is triphasic flow within the posterior tibial artery, peroneal artery, and anterior tibial artery. No high velocity jets are visualized within either lower extremity. IMPRESSION: No evidence of lower extremity arterial stenosis. Electronically signed by: Clint Nava M.D. 10/17/2016 1:55 PM Dictated Date/Time: 10/17/2016 1:52 PM
== END | disposition home or self-care (01) ==
LOC: C.ULTR 12:09
PROVIDERS: ATTEND Family Medicine
DX: I73.9 Peripheral vascular disease, unspecified (principal); M79.673 Pain in unspecified foot

== ENCOUNTER → 2017-02-05 | Outpatient (CLI) | payer OTHER ==
[2017-02-05 17:00] LABS: BASO % 0.3 %; BASO ABS # 0.02 K/uL (0-0.2); COMPLETE YES; EOS % 0.9 %; HEMATOCRIT 28.7 % (42-52); IG% 0.3 %; LYMPH % 20.1 %; LYMPH ABS # 1.38 K/uL (1.2-3.4); MEAN CORPUSCULAR HEMOGLOBIN 32.8 pg (25-34); MEAN CORPUSCULAR HGB CONC 32.8 g/dl (32-36); MEAN PLATELET VOLUME 10.5 fL (7.4-10.4); MONO % 7.7 %; NEUT % 70.7 %; PLATELET COUNT 148 K/uL (130-400); RED BLOOD COUNT 2.87 M/uL (4.7-6.1); WHITE BLOOD COUNT 6.85 K/uL (4.8-10.8)
[2017-02-05 17:32] LABS: ALT/SGPT 35 U/L (12-78); AST/SGOT 45 U/L (15-37); BLOOD UREA NITROGEN 19 mg/dl (7-18); BUN/CREATININE RATIO 10.1 (10-20); CALCIUM 9.1 mg/dl (8.5-10.1); CARBON DIOXIDE 21 mmol/L (21-32); CHLORIDE 111 mmol/L (98-107); CHOLESTEROL 180 mg/dl (0-200); CREATININE 1.84 mg/dl (0.60-1.40); GLUCOSE 114 mg/dl (70-99); POTASSIUM 4.1 mmol/L (3.5-5.1); SODIUM 139 mmol/L (136-145); TRIGLYCERIDES 141 mg/dl (0-150); URIC ACID 5.4 mg/dl (2.6-7.2); VERY LOW DENSITY LIPOPROT CALC 28 mg/dl
[2017-02-05 17:44] LABS: ALB/GLOB RATIO 0.8 (0.9-2); ALKALINE PHOSPHATASE 95 U/L (45-117); CHOLESTEROL/HDL RATIO 1.7; HDL CHOLESTEROL 104 mg/dl; LDL CHOLESTEROL CALCULATED 48 mg/dl; TOTAL IRON BINDING CAPACITY 292 mcg/dl (250-450)
[2017-02-06 06:27] LABS: ESTIMATED AVERAGE GLUCOSE 111 mg/dl
[2017-02-06 06:35] LABS: HA1C FLAG Peak Unknown (Normal)
== END ==
LOC: C.LAB 15:46
PROVIDERS: ATTEND Family Medicine
DX: E88.81 Metabolic syndrome and other insulin resistance (principal); E55.9 Vitamin D deficiency, unspecified; D51.9 Vitamin B12 deficiency anemia, unspecified; R53.83 Other fatigue

== ENCOUNTER 2018-11-19 13:27 | Inpatient (IN) ==
[2018-11-19 14:21] LABS: Basophils # (auto) 0.02 K/uL (0-0.2); Basophils % (auto) 0.2 %; Eosinophils # (auto) 0.03 K/uL (0-0.5); Eosinophils % (auto) 0.3 %; Hematocrit (blood only) 30.1 % (42-52); Hemoglobin 10.6 g/dL (14.0-18.0); Immature Granulocytes # (auto) 0.03 K/uL (0.00-0.02); Immature Granulocytes % (auto) 0.3 %; Lymphocytes # (auto) 0.69 K/uL (1.2-3.4); Lymphocytes % (auto) 7.9 %; Mean Corpuscular Hgb Conc 35.2 g/dL (32-36); Mean Corpuscular Volume 96.5 fL (80-100); Mean Platelet Volume 10.3 fL (7.4-10.4); Monocytes # (auto) 0.75 K/uL (0.11-0.59); Monocytes % (auto) 8.6 %; Neutrophils # (auto) 7.21 K/uL (1.4-6.5); Neutrophils % (auto) 82.7 %; Platelet Count 123 K/uL (130-400); RDW Coefficient of Variation 15.5 % (11.5-14.5); RDW Standard Deviation 54.2 fL (36.4-46.3); Red Blood Count 3.12 M/uL (4.7-6.1); White Blood Count 8.73 K/uL (4.8-10.8)
--- NOTE | 2018-11-19 14:29 | XRay Report ---
XR chest 1V portable CLINICAL HISTORY: weakness COMPARISON STUDY: Chest radiograph and chest CT October 25, 2018. FINDINGS: Lung volumes are normal. Lungs are clear. There is no pneumothorax or pleural effusion. Car diac size is normal. Mediastinal contours are normal. There is no evidence for pulmonary edema. Mild elevation of the right hemidiaphragm is unchanged. IMPRESSION: No acute cardiopulmonary findings. Electronically signed by: Geovani Rushing M.D. 11/19/2018 2:27 PM
[2018-11-19 14:37] LABS: Alanine Aminotransferase 41 U/L (12-78); Albumin Level 3.8 gm/dl (3.4-5.0); Aspartate Aminotransferase 51 U/L (15-37); BUN Creatinine Ratio 22.8 (10-20); Blood Urea Nitrogen 59 mg/dl (7-18); Calcium 9.7 mg/dl (8.5-10.1); Carbon Dioxide 19 mmol/L (21-32); Chloride 107 mmol/L (98-107); Est GFR (African American) 29.2; Est GFR (Non-African American) 25.2; Glucose 185 mg/dl (70-99); Magnesium 1.7 mg/dl (1.8-2.4); Potassium 4.7 mmol/L (3.5-5.1); Sodium 137 mmol/L (136-145)
[2018-11-19] MEDS ORDERED: MAGNESIUM SULFATE / D5W 1 GM/100 ML BAG IV ONE (14:39)
[2018-11-19 14:48] LABS: Albumin Globulin Ratio 0.8 (0.9-2); Alkaline Phosphatase 120 U/L (45-117); Globulin 4.6 gm/dl (2.5-4.0); Total Protein 8.4 gm/dl (6.4-8.2); Troponin I < 0.015 ng/ml (0-0.045)
[2018-11-19] MEDS ORDERED: SODIUM CHLORIDE 0.9% 1000ML 500 ML IV ONE (14:53)
[2018-11-19 15:01] LABS: T4 Free Thyroxine 1.02 ng/dl (0.8-1.6)
[2018-11-19 15:51] LABS: Appearance Urine Clear (Clear); Bilirubin Urine Negative (Negative); Blood Urine Negative (Negative); Color Urine Yellow; Glucose Urine UA Negative (Negative); Ketones Urine Trace (Negative); Leukocyte Esterase Urine Negative (Negative); Nitrite Urine Negative (Negative); Protein Urine Negative (Negative); Specific Gravity Urine 1.019 (1.000-1.030); Urobilinogen Urine Negative (Negative)
--- NOTE | 2018-11-19 16:01 | Magnetic Resonance Report ---
MR cervical spine wo con CLINICAL HISTORY: 63 years-old Male presenting with arm numbness, pain while bending the neck, electr ic shock sensations during movement, neg ct scan. TECHNIQUE: Multisequence, multiplanar MR imaging of the cervical spine was performed without the use of intravenous contrast. IV contrast: None. COMPARISON: CT from 10/25/2018. FINDINGS: Localizer images: Unremarkable. Straightening of normal cervical lordosis likely due to multilevel degenerative changes. Trace sixto listhesis of C3 on C4 and retrolisthesis of C4 on C5 and C5 on C6. Vertebral bodies maintain a normal bone marrow signal intensity. Mild height loss of C5 and C6 is likely on a degenerative and osteopen ic basis. Diffuse intervertebral disc desiccation with multilevel disc osteophyte complexes. Degenera tive changes further detail below: C2-3: No significant spinal canal and neural foraminal narrowing. C3-4: Disc osteophyte complex and ligamentum flavum thickening severely efface the ventral and dorsal thecal sac and flatten the spinal cord. The lateral recesses are slightly spared. Uncovertebral hype rtrophy results in moderate bilateral neural foraminal narrowing. C4-5: Disc osteophyte complex and ligamentum flavum thickening moderately effaces the ventral and alissa kristine thecal sac and mildly flatten the spinal cord. Lateral recesses are slightly spared. Uncovertebra l hypertrophy results in moderate right and moderate to severe left neural foraminal narrowing. C5-6: Disc osteophyte complex mildly effaces the ventral thecal sac and slightly contours the left an terolateral aspect of the spinal cord. Uncovertebral hypertrophy results in mild to moderate left mg ral foraminal narrowing. C6-7: Disc osteophyte complex minimally effaces the ventral thecal sac without impact on the spinal c ord. No significant neural foraminal narrowing. C7-T1: Mild left neural foraminal narrowing. No spinal canal narrowing. Spinal cord demonstrates abnormal signal subtly at C3-4 through C4-5. This is observed most focally a t C4. No evidence of myelomalacia. The cord is not significantly expanded. Craniocervical junction no rmal. No epidural collection. No paraspinal muscle edema. No prevertebral edema. Remaining visualized soft tissues within normal limits. IMPRESSION: 1. Severe spinal canal stenosis at C3-4 and moderate spinal canal stenosis at C4-5. 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 Neurosurgical or orthopedic consultation to be considered. 2. Multilevel degenerative changes with multilevel neural foraminal narrowing as detailed above most severe at C4-5. The report will be called/faxed according to standard departmental protocol. Electronically signed by: Artem Mendosa M.D. 11/19/2018 3:59 PM
--- NOTE | 2018-11-19 16:34 | Magnetic Resonance Report ---
LUMBAR SPINE MRI HISTORY: leg pain, legs numb, weak, falling TECHNIQUE: Multiplanar multisequence MRI of the lumbar spine was performed without the use of contras t. COMPARISON: None. FINDINGS: For the purpose of the report the L5-S1 disc space will be located on axial image 23 of 25. No fracture or subluxation. Disc spaces are relatively preserved. Mild disc desiccation at L5-S1. The conus terminates at the L1 level. Paraspinal soft tissues are unremarkable. Epidural lipomatosis at the L5 and S1 levels. L1-L2: No significant central canal or neural foraminal narrowing. L2-L3: No significant central canal or neural foraminal narrowing. L3-L4: No significant central canal or neural foraminal narrowing. L4-L5: Moderate to severe central canal narrowing due to the epidural lipomatosis. No significant mg ral foraminal narrowing. Mild facet osteoarthritis. L5-S1: Moderate to severe central canal narrowing due to the epidural lipomatosis. No significant mg ral foraminal narrowing. There are moderate facet degenerative changes at this level. IMPRESSION: 1. Epidural lipomatosis within the lower lumbar spine resulting in moderate to severe central canal n arrowing at L4-L5 and L5-S1. 2. No disc herniations. 3. Mild to moderate facet osteoarthritis within the lower lumbar spine. Electronically signed by: Hardik Vitale M.D. 11/19/2018 4:32 PM
[2018-11-19] MEDS ORDERED: DEXAMETHASONE **PF** INJ 10 MG/ML VIAL IV ONE (16:54)
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
[2018-11-19] MEDS ORDERED: SODIUM CHLORIDE 0.9% 1000ML 1,000 ML IV SCH (19:50)
[2018-11-19] MEDS ORDERED: LORazepam 1 MG/2 ML VIAL IV PRN (19:52)
[2018-11-19] MEDS ORDERED: LORazepam 1 MG TAB PO PRN (19:52)
[2018-11-19] MEDS ORDERED: MULTI-VITAMIN INFUSION 10 ML, THIAMINE HCL 100 MG, FOLIC ACID 1 MG in SODIUM CHLORIDE 0... IV ONE (20:15)
[2018-11-19] MEDS ORDERED: PHARMACY GLYCEMIC MGMT CONSULT PRN (20:41)
[2018-11-19 20:45] LABS: Partial Thromboplastin Ratio 0.9; Partial Thromboplastin Time 23.4 Seconds (21.0-31.0); Prothrombin Time 10.4 Seconds (9.0-12.0)
[2018-11-19] MEDS ORDERED: CARBOHYDRATES FOR HYPOGLYCEMIA PO PRN (20:45)
[2018-11-19] MEDS ORDERED: GLUCOSE 40% GEL 15 GM TUBE PO PRN (20:45)
[2018-11-19] MEDS ORDERED: GLUCAGON FOR INJ 1 MG VIAL IM PRN (20:45)
[2018-11-19] MEDS ORDERED: GLUCOSE 10 TABS/TUBE PO PRN (20:45)
[2018-11-19] MEDS ORDERED: INSULIN GLARGINE SOLOSTAR 100 UNITS/ML 3 ML PEN SC ONE (20:45)
[2018-11-19] MEDS ORDERED: PANTOprazole 40 MG TAB PO SCH (21:00)
[2018-11-19] MEDS: allopurinoL 100 MG TAB PO SCH (21:32)
[2018-11-19] MEDS: MAGNESIUM OXIDE 400 MG TAB PO SCH (21:32)
[2018-11-19] MEDS: FOLIC ACID 1 MG TAB PO SCH (21:32)
[2018-11-19] MEDS: NIFEdipine EXTENDED REL 30 MG TABCR PO SCH (21:32)
[2018-11-19] MEDS: THIAMINE HCL 100 MG TAB PO SCH (21:33)
[2018-11-19] MEDS: ZINC SULFATE 220 MG CAPSULE PO SCH (21:33)
[2018-11-19] MEDS: OMEGA-3 (PURIFIED FISH OIL) 1 GM CAP PO SCH (21:33)
[2018-11-19] MEDS: NEBIVOLOL HCL 5 MG TAB PO SCH (21:34)
[2018-11-19] MEDS: FERROUS SULFATE 325 MG TAB PO SCH (21:34)
[2018-11-19] MEDS: VITAMIN B COMPLEX TAB PO SCH (21:34)
[2018-11-19] MEDS: CYANOCOBALAMIN (VITAMIN B-12) 2,500 MCG TAB.SUBL SL SCH (21:34)
[2018-11-19] MEDS: FUROSEMIDE 40 MG TAB PO SCH (21:38)
[2018-11-19] MEDS: INSULIN ASPART 100 UNITS/ML 3 ML PEN SC SCH (21:44)
[2018-11-19] MEDS ORDERED: Nursing to Pharmacy Communication ONE (23:09)
[2018-11-20 00:20] LABS: Amphetamines+Metham, Urine Neg (Neg); Barbiturates, Urine Neg (Neg); Benzodiazepine, Urine Neg (Neg); Cocaine, Urine Neg (Neg); MDMA (Ecstacy), Urine Neg (Neg); Methadone, Urine Neg (Neg); Opiate, Urine Neg (Neg); Phencyclidine, Urine Neg (Neg)
[2018-11-20] MEDS: INSULIN ASPART 100 UNITS/ML 3 ML PEN SC SCH ×7 (00:36→21:12)
[2018-11-20] MEDS: DEXAMETHASONE SOD PHOSPHATE 6 MG in SYRINGE 0 ML IV SCH ×4 (00:55→17:26)
[2018-11-20] MEDS ORDERED: Nursing to Pharmacy Communication ONE (04:22)
[2018-11-20 06:50] LABS: Hemoglobin 9.8 g/dL (14.0-18.0); Immature Granulocytes # (auto) 0.01 K/uL (0.00-0.02); Immature Granulocytes % (auto) 0.3 %; Lymphocytes # (auto) 0.34 K/uL (1.2-3.4); Lymphocytes % (auto) 9.7 %; Mean Corpuscular Hemoglobin 33.1 pg (25-34); Mean Corpuscular Hgb Conc 33.8 g/dL (32-36); Mean Platelet Volume 10.3 fL (7.4-10.4); Monocytes # (auto) 0.04 K/uL (0.11-0.59); Monocytes % (auto) 1.1 %; Neutrophils # (auto) 3.13 K/uL (1.4-6.5); Neutrophils % (auto) 88.9 %; Platelet Count 86 K/uL (130-400); Platelet Estimate Decreased (Normal); RDW Coefficient of Variation 15.7 % (11.5-14.5); RDW Standard Deviation 55.4 fL (36.4-46.3); Red Blood Count 2.96 M/uL (4.7-6.1); White Blood Count 3.52 K/uL (4.8-10.8)
[2018-11-20 07:05] LABS: Albumin Level 3.4 gm/dl (3.4-5.0); BUN Creatinine Ratio 25.8 (10-20); Calcium 9.3 mg/dl (8.5-10.1); Creatinine Clr Calc Pharmacy 41.5 ml/min; Est GFR (African American) 38.3; Est GFR (Non-African American) 33.1; Magnesium 1.9 mg/dl (1.8-2.4); Potassium 4.4 mmol/L (3.5-5.1)
[2018-11-20 07:09] LABS: Albumin Globulin Ratio 0.8 (0.9-2); Bilirubin,Total 0.7 mg/dl (0.2-1); Globulin 4.4 gm/dl (2.5-4.0); Total Protein 7.8 gm/dl (6.4-8.2)
[2018-11-20 07:31] LABS: Estimated Average Glucose 120 mg/dl; Hemoglobin A1C 5.8 % (4.5-5.6)
[2018-11-20] MEDS ORDERED: INSULIN GLARGINE SOLOSTAR 100 UNITS/ML 3 ML PEN SC ONE ×4 (08:00→12:15)
[2018-11-20] MEDS ORDERED: LORazepam 1 MG TAB PO STA (08:31)
[2018-11-20] MEDS ORDERED: GABAPENTIN 1200MG ALCOHOL WITHDRAWAL LOAD PO STA (08:51)
[2018-11-20] MEDS ORDERED: LORazepam 0.5 MG TAB PO PRN (08:51)
[2018-11-20] MEDS ORDERED: GABAPENTIN 600 MG TAB PO SCH (09:00)
[2018-11-20] MEDS ORDERED: INFLUENZA ADMINISTRATION CHARGE ONE (09:00)
[2018-11-20] MEDS ORDERED: INFLUENZA VIRUS QUAD VACCINE 0.5 ML SYR IM ONE (09:00)
--- NOTE | 2018-11-20 10:52 | Pharmacy Report ---
Glycemic Control Consultation - Date of Service November 20, 2018 - Scope Scope: Glycemic Pharmacist consulted by Dr Arrieta on 11/19/18 for glycemic control and to write orders per [facility] inpatient glycemic control protocol - Objective Weight: 107 kg Accuchecks BSG (last 24hrs): 11/19/18 11/19/18 11/20/18 14:10 21:11 00:07 Glucose 185 H POC Glucose 201 H 234 H 11/20/18 11/20/18 11/20/18 03:58 05:47 08:02 Glucose 140 H POC Glucose 126 H 167 H Laboratory Data (last 24hrs): 11/19/18 11/20/18 14:10 05:47 Potassium 4.7 4.4 Carbon Dioxide 19 L 19 L Anion Gap 12.0 H 10.0 Creatinine 2.58 H 2.06 H D Est Cr Clr Drug Dosing Not Reportable 41.5 HbA1c: Hemoglobin A1c 5.8 % (4.5-5.6) H 11/20/18 05:47 * However, this result is likely somewhat unreliable d/t CKD and anemia (altered RBC turnover rate) - Recent Pertinent Medications Outpatient Anti-diabetic Regimen: * Actos Risk Factors for Insulin Resistance: * Steroids * Diet - Assessment & Plan Assessment & Plan: ASSESSMENT: * 63yo T2DM male admitted with spinal stenosis. * Pt initiated on high dose IV steroids with dexamethasone 6mg IV Q6hrs --> sevre steroid induced hyperglycemia likely to occur, especially once diet resumed (currently NPO) * Pt is maintained on oral antidiabetic agents as an outpatient * Oral agents are not recommended for inpatient use d/t drug interactions, changing PO intake, and difficulty titrating for acute hyper/hypoglycemia. ADA recommends re-initiating outpatient oral agents 1-2 days prior to discharge if/when appropriate if they were held on admission. * Will hold oral agents for admission and utilize SQ basal bolus insulin regimen which is the recommended regimen for inpatient glycemic control. * Will initiate moderate/high stress weight based insulin dosing for steroids and titrate based on BSG trends. PLAN FOR INPATIENT GLYCEMIC CONTROL: * Holding outpatient oral diabetes medications * Basal insulin * Lantus 26 units SQ x 1 dose given last evening, then Lantus 18 units SQ BID * Once diet resumed, may have to increase to 26 units SQ BID- will dose per scale for hyperglycemia * Bolus insulin * NovoLog per scale ACHS or Q6hrs while NPO * Goal Range: Low 110 mg/dL - High 140 mg/dL * Correction Factor: 20 mg/dL/unit * Nutritional / Prandial insulin per carb ratio of 1 unit per 7 grams CHO consumed * Please note that the plan above was derived based on current level of insulin resistance and hospital stress. These recommendations are appropriate for inpatient admission only. Plan of care upon discharge will need to be reassessed to avoid potential outpatient hypo/hyperglycemia. Thank you.
--- NOTE | 2018-11-20 13:41 | Hospitalist Progress Note ---
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 Gutierres for any recommendations (2) Upper extremity weakness: due to Cervical spine follow up Dr. Gutierres recommendation (3) Extremity numbness: As above (4) Lumbar spinal stenosis: c/o neuropathy in feet, difficulty walking due to the numbness no issues with strength continue Decadron IV will check Vitamin B12 level in the AM consult Dr Gutierres (5) Hypomagnesemia: resolved (6) Chronic renal insufficiency, stage IV (severe): Avoid nephrotoxic agents, and monitor daily creatinine and GFR. Cr stable at 2.0, dose medications appropriately electrolytes stable (7) Alcohol withdrawal: patient drinks 1 liter of hard liquor a day Neurontin loading dose and taper ordered Ativan 0.5mg PO PRN for anxiety/agitation (8) Diabetes: Glycemic control per pharmacy close monitoring of sugars given Decadron (9) Pancytopenia: most likely due to alcohol abuse monitor daily on folate and thiamine Subjective patient feeling anxious this morning admits to drinking at least a pint of hard liquour every night, goes through half a gallon every three days drinks every night, has rarely gone without drinking his strength is good in his upper and lower extremities this morning his main complaint is numbness in his hands, numbness in feet and legs, up to his knee on right side he is having difficult time ambulating due to the numbness reviewed labs, has pancytopenia Cr is 2.0 but stable, at baseline reviewed imaging, severe cervical spinal stenosis and some lumbar stenosis as well Review of Systems Review of Systems: All systems reviewed & are unremarkable except as noted in HPI & below Constitutional: no fever, no chills and no sweats Respiratory: no cough and no dyspnea Cardiovascular: no chest pain and no edema Gastrointestinal: no abdominal pain, no nausea, no vomiting, no constipation and no diarrhea/loose stools Genitourinary: no dysuria and no difficulty urinating Musculoskeletal: + joint pain (neck pain) Neurologic: + gait abnormality, + unsteadiness, + generalized weakness and + numbness (feet, fingers bilaterally, leg, more pronounced on the right side); no headache(s) and no confusion Psychiatric: + irritability, + anxiety and + substance abuse (alcohol) Physical Exam Constitutional: WD/WN, vitals as above Eyes: PERRL, conjunctivae normal, anicteric sclerae ENMT: external ear and nose normal, oropharynx normal Neck: trachea midline, no thyromegaly Respiratory: normal respiratory effort, lungs clear to auscultation Cardiovascular: RRR, no murmur, no edema Gastrointestinal (Abdomen): normal bowel sounds, soft, nontender, no hepatosplenomegaly Musculoskeletal: no cyanosis or clubbing, extremities motor strength 5/5 Skin: no rashes, warm and dry Neurologic: PERRL, EOMI, accommodation nl, no face palsy, no dysarthria CN's II-XI intact bilaterally and deep tendon reflexes 2+ bilaterally; no focal motor deficits Motor/Sensory: + sensory deficit (decreased sensation in feet, lower legs) Psychiatric: A+Ox3, euthymic affect Lymphatic: no cervical or axillary lymphadenopathy Results & Data Vital Signs (Past 12 Hours) Vital Signs Temp Pulse Pulse Resp BP Pulse Ox 11/20/18 11:26 36.8 C 63 19 126/60 100 11/20/18 09:16 58 L 11/20/18 07:09 36.8 C 60 18 138/72 100 11/20/18 03:59 36.9 C 56 L 18 144/72 H 100 Laboratory Results Laboratory Results - last 24 hr 11/19/18 11/19/18 11/19/18 14:10 14:10 14:10 WBC 8.73 RBC 3.12 L Hgb 10.6 L Hct 30.1 L MCV 96.5 MCH 34.0 MCHC 35.2 RDW Std Deviation 54.2 H RDW Coeff of [place] 15.5 H Plt Count 123 L MPV 10.3 Immature Gran % (Auto) 0.3 Neut % (Auto) 82.7 Lymph % (Auto) 7.9 Delta % (Auto) 8.6 Eos % (Auto) 0.3 Baso % (Auto) 0.2 Immature Gran # (Auto) 0.03 H Neut # (Auto) 7.21 H Lymph # (Auto) 0.69 L Delta # (Auto) 0.75 H Eos # (Auto) 0.03 Baso # (Auto) 0.02 Platelet Estimate PT INR APTT PTT Ratio Sodium 137 Potassium 4.7 Chloride 107 Carbon Dioxide 19 L Anion Gap 12.0 H BUN 59 H Creatinine 2.58 H Est Cr Clr Drug Dosing Not Reportable Est GFR ( Amer) 29.2 Est GFR (Non-Af Amer) 25.2 BUN/Creatinine Ratio 22.8 H Glucose 185 H POC Glucose Estimat Average Glucose Hemoglobin A1c Hgb A1c Pathologist Com Calcium 9.7 Magnesium 1.7 L Total Bilirubin 1.0 AST 51 H ALT 41 Alkaline Phosphatase 120 H Troponin I < 0.015 NT-Pro-B Natriuret Pep Total Protein 8.4 H Albumin 3.8 Globulin 4.6 H Albumin/Globulin Ratio 0.8 L Triglycerides Cholesterol LDL Cholesterol, Calc VLDL Cholesterol, Calc HDL Cholesterol Cholesterol/HDL Ratio Folate TSH 4.570 H Free T4 1.02 Urine Color Urine Appearance Urine pH Ur Specific [place] Urine Protein Urine Glucose (UA) Urine Ketones Urine Blood Urine Nitrite Urine Bilirubin Urine Urobilinogen Ur Leukocyte Esterase Urine Opiates Screen Ur Methadone, Qual Urine Barbiturates Ur Phencyclidine (PCP) U Amphetamin/Meth Scrn MDMA (Ecstasy) Screen U Benzodiazepines Scrn Ur Cocaine Metabolite U Marijuana (THC) Screen Ethyl Alcohol mg/dL < 3.0 11/19/18 11/19/18 11/19/18 15:00 20:12 20:12 WBC RBC Hgb Hct MCV MCH MCHC RDW Std Deviation RDW Coeff of [place] Plt Count MPV Immature Gran % (Auto) Neut % (Auto) Lymph % (Auto) Delta % (Auto) Eos % (Auto) Baso % (Auto) Immature Gran # (Auto) Neut # (Auto) Lymph # (Auto) Delta # (Auto) Eos # (Auto) Baso # (Auto) Platelet Estimate PT 10.4 INR 1.0 APTT 23.4 PTT Ratio 0.9 Sodium Potassium Chloride Carbon Dioxide Anion Gap BUN Creatinine Est Cr Clr Drug Dosing Est GFR ( Amer) Est GFR (Non-Af Amer) BUN/Creatinine Ratio Glucose POC Glucose Estimat Average Glucose Hemoglobin A1c Hgb A1c Pathologist Com Calcium Magnesium Total Bilirubin AST ALT Alkaline Phosphatase Troponin I NT-Pro-B Natriuret Pep Total Protein Albumin Globulin Albumin/Globulin Ratio Triglycerides Cholesterol LDL Cholesterol, Calc VLDL Cholesterol, Calc HDL Cholesterol Cholesterol/HDL Ratio Folate > 24.00 TSH Free T4 Urine Color Yellow Urine Appearance Clear Urine pH 5.0 Ur Specific [place] 1.019 Urine Protein Negative Urine Glucose (UA) Negative Urine Ketones Trace H Urine Blood Negative Urine Nitrite Negative Urine Bilirubin Negative Urine Urobilinogen Negative Ur Leukocyte Esterase Negative Urine Opiates Screen Ur Methadone, Qual Urine Barbiturates Ur Phencyclidine (PCP) U Amphetamin/Meth Scrn MDMA (Ecstasy) Screen U Benzodiazepines Scrn Ur Cocaine Metabolite U Marijuana (THC) Screen Ethyl Alcohol mg/dL 11/19/18 11/19/18 11/19/18 21:11 21:43 23:55 WBC RBC Hgb Hct MCV MCH MCHC RDW Std Deviation RDW Coeff of [place] Plt Count MPV Immature Gran % (Auto) Neut % (Auto) Lymph % (Auto) Delta % (Auto) Eos % (Auto) Baso % (Auto) Immature Gran # (Auto) Neut # (Auto) Lymph # (Auto) Delta # (Auto) Eos # (Auto) Baso # (Auto) Platelet Estimate PT INR APTT PTT Ratio Sodium Potassium Chloride Carbon Dioxide Anion Gap BUN Creatinine Est Cr Clr Drug Dosing Est GFR ( Amer) Est GFR (Non-Af Amer) BUN/Creatinine Ratio Glucose POC Glucose 201 H Estimat Average Glucose Hemoglobin A1c Hgb A1c Pathologist Com Calcium Magnesium Total Bilirubin AST ALT Alkaline Phosphatase Troponin I NT-Pro-B Natriuret Pep 1739 H Total Protein Albumin Globulin Albumin/Globulin Ratio Triglycerides Cholesterol LDL Cholesterol, Calc VLDL Cholesterol, Calc HDL Cholesterol Cholesterol/HDL Ratio Folate TSH Free T4 Urine Color Urine Appearance Urine pH Ur Specific [place] Urine Protein Urine Glucose (UA) Urine Ketones Urine Blood Urine Nitrite Urine Bilirubin Urine Urobilinogen Ur Leukocyte Esterase Urine Opiates Screen Neg Ur Methadone, Qual Neg Urine Barbiturates Neg Ur Phencyclidine (PCP) Neg U Amphetamin/Meth Scrn Neg MDMA (Ecstasy) Screen Neg U Benzodiazepines Scrn Neg Ur Cocaine Metabolite Neg U Marijuana (THC) Screen Neg Ethyl Alcohol mg/dL 11/20/18 11/20/18 11/20/18 00:07 03:58 05:47 WBC 3.52 L D RBC 2.96 L Hgb 9.8 L Hct 29.0 L MCV 98.0 MCH 33.1 MCHC 33.8 RDW Std Deviation 55.4 H RDW Coeff of [place] 15.7 H Plt Count 86 L MPV 10.3 Immature Gran % (Auto) 0.3 Neut % (Auto) 88.9 Lymph % (Auto) 9.7 Delta % (Auto) 1.1 Eos % (Auto) 0.0 Baso % (Auto) 0.0 Immature Gran # (Auto) 0.01 Neut # (Auto) 3.13 Lymph # (Auto) 0.34 L Delta # (Auto) 0.04 L Eos # (Auto) 0.00 Baso # (Auto) 0.00 Platelet Estimate Decreased L PT INR APTT PTT Ratio Sodium Potassium Chloride Carbon Dioxide Anion Gap BUN Creatinine Est Cr Clr Drug Dosing Est GFR ( Amer) Est GFR (Non-Af Amer) BUN/Creatinine Ratio Glucose POC Glucose 234 H 126 H Estimat Average Glucose Hemoglobin A1c Hgb A1c Pathologist Com Calcium Magnesium Total Bilirubin AST ALT Alkaline Phosphatase Troponin I NT-Pro-B Natriuret Pep Total Protein Albumin Globulin Albumin/Globulin Ratio Triglycerides Cholesterol LDL Cholesterol, Calc VLDL Cholesterol, Calc HDL Cholesterol Cholesterol/HDL Ratio Folate TSH Free T4 Urine Color Urine Appearance Urine pH Ur Specific [place] Urine Protein Urine Glucose (UA) Urine Ketones Urine Blood Urine Nitrite Urine Bilirubin Urine Urobilinogen Ur Leukocyte Esterase Urine Opiates Screen Ur Methadone, Qual Urine Barbiturates Ur Phencyclidine (PCP) U Amphetamin/Meth Scrn MDMA (Ecstasy) Screen U Benzodiazepines Scrn Ur Cocaine Metabolite U Marijuana (THC) Screen Ethyl Alcohol mg/dL 11/20/18 11/20/18 11/20/18 05:47 05:47 08:02 WBC RBC Hgb Hct MCV MCH MCHC RDW Std Deviation RDW Coeff of [place] Plt Count MPV Immature Gran % (Auto) Neut % (Auto) Lymph % (Auto) Delta % (Auto) Eos % (Auto) Baso % (Auto) Immature Gran # (Auto) Neut # (Auto) Lymph # (Auto) Delta # (Auto) Eos # (Auto) Baso # (Auto) Platelet Estimate PT INR APTT PTT Ratio Sodium 141 Potassium 4.4 Chloride 112 H Carbon Dioxide 19 L Anion Gap 10.0 BUN 53 H Creatinine 2.06 H D Est Cr Clr Drug Dosing 41.5 Est GFR ( Amer) 38.3 Est GFR (Non-Af Amer) 33.1 BUN/Creatinine Ratio 25.8 H Glucose 140 H POC Glucose 167 H Estimat Average Glucose 120 Hemoglobin A1c 5.8 H Hgb A1c Pathologist Com Calcium 9.3 Magnesium 1.9 Total Bilirubin 0.7 AST 43 H ALT 35 Alkaline Phosphatase 110 Troponin I NT-Pro-B Natriuret Pep Total Protein 7.8 Albumin 3.4 Globulin 4.4 H Albumin/Globulin Ratio 0.8 L Triglycerides 57 Cholesterol 189 LDL Cholesterol, Calc 67 VLDL Cholesterol, Calc 11 HDL Cholesterol 111 Cholesterol/HDL Ratio 2 Folate TSH Free T4 Urine Color Urine Appearance Urine pH Ur Specific [place] Urine Protein Urine Glucose (UA) Urine Ketones Urine Blood Urine Nitrite Urine Bilirubin Urine Urobilinogen Ur Leukocyte Esterase Urine Opiates Screen Ur Methadone, Qual Urine Barbiturates Ur Phencyclidine (PCP) U Amphetamin/Meth Scrn MDMA (Ecstasy) Screen U Benzodiazepines Scrn Ur Cocaine Metabolite U Marijuana (THC) Screen Ethyl Alcohol mg/dL 11/20/18 11/20/18 11:22 11:24 WBC RBC Hgb Hct MCV MCH MCHC RDW Std Deviation RDW Coeff of [place] Plt Count MPV Immature Gran % (Auto) Neut % (Auto) Lymph % (Auto) Delta % (Auto) Eos % (Auto) Baso % (Auto) Immature Gran # (Auto) Neut # (Auto) Lymph # (Auto) Delta # (Auto) Eos # (Auto) Baso # (Auto) Platelet Estimate PT INR APTT PTT Ratio Sodium Potassium Chloride Carbon Dioxide Anion Gap BUN Creatinine Est Cr Clr Drug Dosing Est GFR ( Amer) Est GFR (Non-Af Amer) BUN/Creatinine Ratio Glucose POC Glucose 321 H* 284 H Estimat Average Glucose Hemoglobin A1c Hgb A1c Pathologist Com Calcium Magnesium Total Bilirubin AST ALT Alkaline Phosphatase Troponin I NT-Pro-B Natriuret Pep Total Protein Albumin Globulin Albumin/Globulin Ratio Triglycerides Cholesterol LDL Cholesterol, Calc VLDL Cholesterol, Calc HDL Cholesterol Cholesterol/HDL Ratio Folate TSH Free T4 Urine Color Urine Appearance Urine pH Ur Specific [place] Urine Protein Urine Glucose (UA) Urine Ketones Urine Blood Urine Nitrite Urine Bilirubin Urine Urobilinogen Ur Leukocyte Esterase Urine Opiates Screen Ur Methadone, Qual Urine Barbiturates Ur Phencyclidine (PCP) U Amphetamin/Meth Scrn MDMA (Ecstasy) Screen U Benzodiazepines Scrn Ur Cocaine Metabolite U Marijuana (THC) Screen Ethyl Alcohol mg/dL Diagnostic Findings MRI cervical spine IMPRESSION: 1. Severe spinal canal stenosis at C3-4 and moderate spinal canal stenosis at C4-5. 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 Neurosurgical or orthopedic consultation to be considered. 2. Multilevel degenerative changes with multilevel neural foraminal narrowing as detailed above most severe at C4-5. MRI lumbar spine IMPRESSION: 1. Epidural lipomatosis within the lower lumbar spine resulting in moderate to severe central canal narrowing at L4-L5 and L5-S1. 2. No disc herniations. 3. Mild to moderate facet osteoarthritis within the lower lumbar spine. Medications Administered Current Inpatient Medications Allopurinol (Zyloprim) 100 mg PO HS [facility] Stop: 12/19/18 20:59 Last Admin: 11/19/18 21:32 Dose: 100 mg Documented by: Baclofen (Lioresal) 10 mg PO TID PRN PRN Reason: spasm Stop: 12/19/18 19:51 Last Admin: 11/20/18 00:00 Dose: 10 mg Documented by: Cyanocobalamin (Vitamin B-12) 5,000 mcg SL HS [facility] Stop: 12/19/18 20:59 Last Admin: 11/19/18 21:34 Dose: 5,000 mcg Documented by: Dextrose (Dextrose 50%) 25 - 50 ml IV UD PRN; Protocol PRN Reason: Hypoglycemia Protocol Stop: 12/19/18 20:44 Ferrous Sulfate (Feosol) 325 mg PO [facility] Stop: 12/19/18 20:59 Last Admin: 11/19/18 21:34 Dose: 325 mg Documented by: Fish Oil (Rake-3 (Purified Fish Oil)) 1 gm PO HS [facility] Stop: 12/19/18 20:59 Last Admin: 11/19/18 21:33 Dose: 1 gm Documented by: Folic Acid (Folvite) 1 mg PO [facility] Stop: 12/19/18 20:59 Last Admin: 11/19/18 21:32 Dose: 1 mg Documented by: Furosemide (Lasix) 40 mg PO [facility] Stop: 12/19/18 20:59 Last Admin: 11/19/18 21:38 Dose: 40 mg Documented by: Gabapentin (Neurontin) 600 mg PO Q12H [facility] Stop: 11/22/18 20:52 Gabapentin (Neurontin) 600 mg PO Q24H [facility] Stop: 11/23/18 20:52 Gabapentin (Neurontin) 600 mg PO Q6H [facility] Stop: 11/20/18 20:52 Gabapentin (Neurontin) 600 mg PO Q8H [facility] Stop: 11/21/18 20:52 Glucagon (Glucagen) 1 mg IM UD PRN; Protocol PRN Reason: Hypoglycemia Protocol Stop: 12/19/18 20:44 Glucose (Glucose 40%) 15 - 30 gm PO UD PRN; Protocol PRN Reason: Hypoglycemia Protocol Stop: 12/19/18 20:44 Glucose (Dex4 Glucose) 4 - 8 tabs PO UD PRN; Protocol PRN Reason: Hypoglycemia Protocol Stop: 12/19/18 20:44 Dexamethasone Sodium Phosphate (6 mg/ Syringe) 1.5 mls @ 1 mls/min IV Q6 [facility] Stop: 12/20/18 00:00 Last Admin: 11/20/18 12:26 Dose: 1 mls/min Documented by: Insulin Aspart (Novolog Flexpen) 0 units SC ACHS [facility]; Protocol Stop: 12/20/18 08:29 Last Admin: 11/20/18 12:25 Dose: 22 units Documented by: Insulin Aspart (Novolog Flexpen) 0 units SC TODAY@0000,0400 [facility]; Protocol Stop: 11/21/18 04:01 Insulin Glargine (Lantus Solostar Pen) 26 units SC BID [facility]; Protocol Stop: 12/20/18 20:59 Lorazepam (Ativan) 0.5 mg PO Q8 PRN PRN Reason: Anxiety Stop: 12/20/18 08:50 Magnesium Oxide (Mag-Ox) 400 mg PO HS [facility] Stop: 12/19/18 20:59 Last Admin: 11/19/18 21:32 Dose: 400 mg Documented by: Miscellaneous (Carbohydrates For Hypoglycemia) 15 - 30 gm PO UD PRN PRN Reason: Hypoglycemia Treatment Stop: 12/19/18 20:44 Miscellaneous Information (Consult Glycemic Management Pharmacy) 1 ea N/A UD PRN PRN Reason: Consult Stop: 12/19/18 20:40 Nebivolol (Bystolic) 10 mg PO HS [facility] Stop: 12/19/18 20:59 Last Admin: 11/19/18 21:34 Dose: 10 mg Documented by: Nifedipine (Procardia Xl) 30 mg PO HS [facility] Stop: 12/19/18 20:59 Last Admin: 11/19/18 21:32 Dose: 30 mg Documented by: Oxycodone/Acetaminophen (Percocet 5mg/325mg) 1 tab PO Q4H PRN PRN Reason: Pain Stop: 12/03/18 19:51 Last Admin: 11/20/18 00:00 Dose: 1 tab Documented by: Thiamine HCl (Vitamin B-1) 100 mg PO [facility] Stop: 12/19/18 20:59 Last Admin: 11/19/18 21:33 Dose: 100 mg Documented by: Vitamin B Complex (Vitamin B Complex) 1 tab PO [facility] Stop: 12/19/18 20:59 Last Admin: 11/19/18 21:34 Dose: 1 tab Documented by: Zinc Sulfate (Zinc Sulfate) 220 mg PO [facility] Stop: 12/19/18 20:59 Last Admin: 11/19/18 21:33 Dose: 220 mg Documented by: PG Care Time/CCT Total # of Minutes Spent Total Time Spent with Patient: Total time spent is greater than 50% in coordination of care (as documented) at patient's floor/unit and/or counseling patient: (1) Lumbar spinal stenosis Neurogenic claudication status: unspecified Qualified Code(s): M48.061 - Spinal stenosis, lumbar region without neurogenic claudication
[2018-11-20] MEDS: GABAPENTIN 600 MG TAB PO SCH ×2 (15:51→20:15)
[2018-11-20] MEDS ORDERED: INSULIN GLARGINE SOLOSTAR 100 UNITS/ML 3 ML PEN SC SCH ×2 (16:30→21:00)
[2018-11-20] MEDS: THIAMINE HCL 100 MG TAB PO SCH (20:13)
[2018-11-20] MEDS: MAGNESIUM OXIDE 400 MG TAB PO SCH (20:13)
[2018-11-20] MEDS: allopurinoL 100 MG TAB PO SCH (20:13)
[2018-11-20] MEDS: CYANOCOBALAMIN (VITAMIN B-12) 2,500 MCG TAB.SUBL SL SCH (20:13)
[2018-11-20] MEDS: ZINC SULFATE 220 MG CAPSULE PO SCH (20:13)
[2018-11-20] MEDS: FUROSEMIDE 40 MG TAB PO SCH (20:14)
[2018-11-20] MEDS: FOLIC ACID 1 MG TAB PO SCH (20:14)
[2018-11-20] MEDS: VITAMIN B COMPLEX TAB PO SCH (20:14)
[2018-11-20] MEDS: NIFEdipine EXTENDED REL 30 MG TABCR PO SCH (20:14)
[2018-11-20] MEDS: OMEGA-3 (PURIFIED FISH OIL) 1 GM CAP PO SCH (20:14)
[2018-11-20] MEDS: NEBIVOLOL HCL 5 MG TAB PO SCH (20:15)
[2018-11-20] MEDS: FERROUS SULFATE 325 MG TAB PO SCH (20:15)
[2018-11-20] MEDS ORDERED: INSULIN ASPART 100 UNITS/ML 3 ML PEN SC SCH (20:45)
[2018-11-20] MEDS: INSULIN GLARGINE SOLOSTAR 100 UNITS/ML 3 ML PEN SC SCH (21:11)
[2018-11-20] MEDS: BACLOFEN 10 MG TAB PO PRN ×2 (23:05)
[2018-11-20] MEDS: OXYCODONE/ACETAMINOPHEN 5mg/325mg TAB PO PRN ×2 (23:05)
[2018-11-21] MEDS: DEXAMETHASONE SOD PHOSPHATE 6 MG in SYRINGE 0 ML IV SCH ×5 (00:50→23:36)
[2018-11-21] MEDS: INSULIN ASPART 100 UNITS/ML 3 ML PEN SC SCH ×6 (00:54→21:16)
[2018-11-21] MEDS: GABAPENTIN 600 MG TAB PO SCH ×3 (04:41→21:10)
[2018-11-21 06:40] LABS: Hematocrit (blood only) 29.5 % (42-52); Hemoglobin 9.8 g/dL (14.0-18.0); Mean Corpuscular Hemoglobin 32.8 pg (25-34); Mean Corpuscular Hgb Conc 33.2 g/dL (32-36); Mean Corpuscular Volume 98.7 fL (80-100); RDW Coefficient of Variation 15.6 % (11.5-14.5); Red Blood Count 2.99 M/uL (4.7-6.1); White Blood Count 6.82 K/uL (4.8-10.8)
[2018-11-21 06:44] LABS: Mean Platelet Volume 10.4 fL (7.4-10.4); Platelet Count 88 K/uL (130-400)
[2018-11-21 07:13] LABS: Immature Granulocytes # (auto) 0.02 K/uL (0.00-0.02); Immature Granulocytes % (auto) 0.3 %; Lymphocytes # (auto) 0.43 K/uL (1.2-3.4); Lymphocytes % (auto) 6.3 %; Monocytes # (auto) 0.27 K/uL (0.11-0.59); Neutrophils % (auto) 89.4 %
[2018-11-21 07:17] LABS: Albumin Level 3.3 gm/dl (3.4-5.0); BUN Creatinine Ratio 27.4 (10-20); Calcium 9.1 mg/dl (8.5-10.1); Creatinine Clr Calc Pharmacy 42.7 ml/min; Est GFR (African American) 39.9; Est GFR (Non-African American) 34.5; Potassium 4.4 mmol/L (3.5-5.1)
[2018-11-21 07:20] LABS: Albumin Globulin Ratio 0.8 (0.9-2); Bilirubin,Total 0.6 mg/dl (0.2-1); Globulin 4.2 gm/dl (2.5-4.0); Total Protein 7.5 gm/dl (6.4-8.2)
[2018-11-21] MEDS: INSULIN GLARGINE SOLOSTAR 100 UNITS/ML 3 ML PEN SC SCH ×2 (08:23→21:16)
[2018-11-21] MEDS ORDERED: INSULIN GLARGINE SOLOSTAR 100 UNITS/ML 3 ML PEN SC SCH (09:00)
--- NOTE | 2018-11-21 10:47 | Pharmacy Report ---
Pharmacy Glycemic Short Note 2 - Date of Service November 21, 2018 - Glycemic Short BSG Results (Last 24 hours): 11/20/18 11/20/18 11/20/18 11:22 11:24 16:22 Glucose POC Glucose 321 H* 284 H 255 H 11/20/18 11/20/18 11/21/18 20:04 23:55 04:18 Glucose POC Glucose 195 H 76 151 H 11/21/18 11/21/18 06:04 07:23 Glucose 151 H POC Glucose 157 H OUTPATIENT ANTIDIABETIC REGIMEN: * Actos 15mg PO daily ASSESSMENT: * 63yo T2DM male admitted with spinal stenosis. * Pt initiated on high dose IV steroids with dexamethasone 6mg IV Q6hrs --> severe steroid induced hyperglycemia now that diet resumed * Holding outpatient Actos for admission and using weight based, high stress SQ basal bolus insulin regimen for steroid induced hyperglycemia * Pt received 128 units of insulin over the past 24hrs * 70 units of Lantus + 58 units of NovoLog * BSGs ranging 76-321 mg/dl * AM fasting BSG = 157 mg/dl this morning, Lantus should be at steady state today since patient has received 4+ doses. Additional loading dose of Lantus given yesterday to help cover RTC dosing of DXM. No additional loading dose needed today, therefore, will continue with Lantus 26 units SQ BID * Expect total daily dose today to be ~ 100-120 units/day. * Lantus will need DC and NovoLog parameters adjusted if/when DXM DC. PLAN FOR INPATIENT GLYCEMIC CONTROL: * Hold outpatient oral diabetes medications * Basal insulin * Lantus 26 units SQ BID * Bolus insulin * NovoLog per scale ACHS or Q6hrs while NPO * Goal Range: Low 110 mg/dL - High 140 mg/dL * Correction Factor: 15 mg/dL/unit * Nutritional / Prandial insulin per carb ratio of 1 unit per 5 grams CHO consumed
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
--- NOTE | 2018-11-21 11:55 | Anesthesiology Consultation ---
Date of Service November 21, 2018 Assessment & Plan (1) Encounter for pre-operative examination: Chart Review Chart Review: Pending: Refer to Additional Notes / Consult section (Pending medical clearance 2/2 DT precautions) Consults Requested none Proposed Anesthesia Risk / Benefits Reviewed With: PT / POA / Parent / Guardian, Accepts Plan and Informed Consent Obtained History Height/Weight Height: 5 ft 6 in Weight: 105.7 kg Allergies Allergy/AdvReac Type Severity Reaction Status Date / Time No Known Allergies Allergy Verified 11/19/18 14:43 Medications Home Medications Medication Instructions Recorded Confirmed Last Taken allopurinol [Zyloprim] 100 mg PO HS 02/03/18 11/19/18 11/18/18 clopidogrel [Plavix] 75 mg PO HS 02/03/18 11/19/18 11/18/18 cyanocobalamin (vitamin B-12) 5,000 mcg SUBLINGUAL HS 02/03/18 11/19/18 11/18/18 [Vitamin B-12] esomeprazole magnesium [Nexium] 40 mg PO HS 02/03/18 11/19/18 11/18/18 folic acid 1 mg PO HS 02/03/18 11/19/18 11/18/18 furosemide [Lasix] 40 mg PO HS 02/03/18 11/19/18 11/18/18 magnesium oxide 400 mg PO HS 02/03/18 11/19/18 11/18/18 nebivolol [Bystolic] 10 mg PO HS 02/03/18 11/19/18 11/18/18 nifedipine [Procardia XL] 30 mg PO HS 02/03/18 11/19/18 11/18/18 omega [id number]-fish oil [[place]-3] 1 tab PO HS 02/03/18 11/19/18 11/18/18 pioglitazone [Actos] 15 mg PO HS 02/03/18 11/19/18 11/18/18 thiamine HCl (vitamin B1) 100 mg PO HS 02/03/18 11/19/18 11/18/18 vitamin B complex 1 tab PO HS 02/03/18 11/19/18 11/18/18 zinc 50 mg PO HS 02/03/18 11/19/18 11/18/18 ferrous sulfate ER 250 mg (50 mg 250 mg PO HS tab 09/20/18 11/19/1819 iron) tablet,extended release ibuprofen 600 mg PO Q6H PRN 11/19/18 11/19/18 11/18/18 Active Medications Generic Name Dose Route Start Last Admin Trade Name Yonathan PRN Reason Stop Dose Admin Allopurinol 100 mg 11/19/18 21:00 11/20/18 20:13 Zyloprim PO 12/19/18 20:59 100 mg HS GUILLE Administration Baclofen 10 mg 11/19/18 19:52 11/20/18 23:05 Lioresal PO 12/19/18 19:51 10 mg TID PRN Administration spasm Cyanocobalamin 5,000 mcg 11/19/18 21:00 11/20/18 20:13 Vitamin B-12 SL 12/19/18 20:59 5,000 mcg HS GUILLE Administration Ferrous Sulfate 325 mg 11/19/18 21:00 11/20/18 20:15 Feosol PO 12/19/18 20:59 325 mg HS GUILLE Administration Fish Oil 1 gm 11/19/18 21:00 11/20/18 20:14 [place]-3 (Purified Fish Oil) PO 12/19/18 20:59 1 gm HS GUILLE Administration Folic Acid 1 mg 11/19/18 21:00 11/20/18 20:14 Folvite PO 12/19/18 20:59 1 mg HS GUILLE Administration Furosemide 40 mg 11/19/18 21:00 11/20/18 20:14 Lasix PO 12/19/18 20:59 40 mg HS GUILLE Administration Gabapentin 600 mg 11/21/18 04:51 11/21/18 04:41 Neurontin PO 11/21/18 20:52 600 mg Q8H GUILLE Administration Dexamethasone Sodium Phosphate 1.5 mls @ 1 mls/min 11/20/18 00:00 11/21/18 06:23 6 mg/ Syringe IV 12/20/18 00:00 1 mls/min Q6 GUILLE Administration Insulin Aspart 0 units 11/20/18 08:30 11/21/18 08:22 Novolog Flexpen SC 12/20/18 08:29 11 units ACHS GUILLE Administration Protocol Insulin Glargine 26 units 11/20/18 21:00 11/21/18 08:23 Lantus Solostar Pen SC 12/20/18 20:59 26 units BID GUILLE Administration Protocol Magnesium Oxide 400 mg 11/19/18 21:00 11/20/18 20:13 Mag-Ox PO 12/19/18 20:59 400 mg HS GUILLE Administration Nebivolol 10 mg 11/19/18 21:00 11/20/18 20:15 Bystolic PO 12/19/18 20:59 10 mg HS GUILLE Administration Nifedipine 30 mg 11/19/18 21:00 11/20/18 20:14 Procardia Xl PO 12/19/18 20:59 30 mg HS GUILLE Administration Oxycodone/Acetaminophen 1 tab 11/19/18 19:52 11/20/18 23:05 Percocet 5mg/325mg PO 12/03/18 19:51 1 tab Q4H PRN Administration Pain Thiamine HCl 100 mg 11/19/18 21:00 11/20/18 20:13 Vitamin B-1 PO 12/19/18 20:59 100 mg HS GUILLE Administration Vitamin B Complex 1 tab 11/19/18 21:00 11/20/18 20:14 Vitamin B Complex PO 12/19/18 20:59 1 tab HS GUILLE Administration Zinc Sulfate 220 mg 11/19/18 21:00 11/20/18 20:13 Zinc Sulfate PO 12/19/18 20:59 220 mg HS GUILLE Administration Past Medical History Medical History WILLIAM (acute kidney injury) (Resolved) Abdominal pain (Resolved) Alcohol withdrawal (Resolved) Ambulatory dysfunction (Resolved 02/14/14) Anemia (Resolved) Bilateral leg pain (Resolved) D-dimer, elevated (Resolved) Diabetes (Chronic) Diverticulitis (Resolved) Foot pain (Resolved) Hyperglycemia (Resolved) Hyperkalemia (Resolved) Renal failure (Resolved) Renal insufficiency (Resolved) Thrombocytopenia Exercise / Class Metabolic Activity III < 4 Walking/Shop/Light housework Past Family History Family History Other No pertinent family history Past Surgical History Surgical History History of esophagogastroduodenoscopy (EGD) S/P colonoscopy No pertinent past surgical history Past Anesthesia History No Hx of Anesthesia Complications and No Family Hx of Anesthesia Complications History of PONV No Hx of PONV and No Hx of Motion Sickness Social History Smoking Status: Former smoker Do You Dip or Chew Tobacco: No Hx Alcohol Use: Yes Alcohol type: beer, wine and hard liquor alcohol intake frequency: 3 or more drinks per day Hx Substance Use: No Physical Exam Vital Signs Last Vital Signs Temp 97.9 F 11/21/18 07:24 Pulse 57 L 11/21/18 07:26 Resp 18 11/21/18 07:24 BP 140/75 11/21/18 07:24 Pulse Ox 100 11/21/18 07:24 ENMT Mouth: no dentition abnormality Thyromental Distance: > or= 3.5 Finger Breadths Mallampati Class: III Neck + limited neck extension Respiratory normal respiratory effort Auscultation: lungs clear to auscultation bilaterally Cardiovascular Rate/Rhythm: regular rate and regular rhythm Testing Laboratory Results 11/21/18 06:04 11/21/18 06:04 PT 10.4 Seconds (9.0-12.0) 11/19/18 20:12 INR 1.0 (0.9-1.1) 11/19/18 20:12 APTT 23.4 Seconds (21.0-31.0) 11/19/18 20:12 Hemoglobin A1c 5.8 % (4.5-5.6) H 11/20/18 05:47 Urine Color Yellow 11/19/18 15:00 Urine Appearance Clear (Clear) 11/19/18 15:00 Urine pH 5.0 (4.5-7.5) 11/19/18 15:00 Ur Specific [place] 1.019 (1.000-1.030) 11/19/18 15:00 Urine Protein Negative (Negative) 11/19/18 15:00 Urine Glucose (UA) Negative (Negative) 11/19/18 15:00 Urine Ketones Trace (Negative) H 11/19/18 15:00 Urine Nitrite Negative (Negative) 11/19/18 15:00 Ur Leukocyte Esterase Negative (Negative) 11/19/18 15:00 11/21/18 11/21/18 11/20/18 07:23 04:18 23:55 POC Glucose 157 H 151 H 76 Electrocardiogram Date: 11/19/18 Normal sinus rhythm, rat 61 bpm Left axis deviation Abnormal ECG When compared with ECG of 25-OCT-2018 09:31, No significant change was found Confirmed by Сергей Lua ([id number]) on 11/19/2018 6:48:47 PM Chest X-Ray Date: 11/19/18 Findings: + NAD Other Testing Cervical MRI 11/19/18 IMPRESSION: 1. Severe spinal canal stenosis at C3-4 and moderate spinal canal stenosis at C4-5. 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 Neurosurgical or orthopedic consultation to be considered. 2. Multilevel degenerative changes with multilevel neural foraminal narrowing as detailed above most severe at C4-5.
--- NOTE | 2018-11-21 12:03 | Hospitalist Progress Note ---
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 Gutierres, he needs C4 corpectomy during this admission and then rehab will take some time to determine how much function he will regain plan for OR on Thursday 11/23 risk stratification for surgery two big risk factors are CKD stage IV and alcohol abuse Cr is at baseline for him at 1.9, has been stable for three days drinks 1 pint a day, no signs of DT's at this time, on Neurontin taper EKG with normal sinus rhythm, no known heart history, will check routine echo tomorrow CXR normal no arrhythmia on monitor, plan to move to surgical floor tomorrow will consult anesthesia to see him pre-operatively to plan for proper management (2) Upper extremity weakness: due to C4 spinal stenosis plan for OR on Thursday for corpectomy (3) Extremity numbness: As above (4) Alcohol withdrawal: patient drinks 1 liter of hard liquor a day Neurontin loading dose and taper ordered Ativan 0.5mg PO PRN for anxiety/agitation patient is doing well thus far, no signs of severe withdrawal, no DT's mental status is clear today, minimal agitation should observe today and tomorrow to ensure he does not go into DT's would be safe for OR on Thursday (5) Lumbar spinal stenosis: c/o neuropathy in feet, difficulty walking due to the numbness no issues with strength continue Decadron IV Vitamin B12 level is > 2000 no immediate needs for lumbar surgery at this time, C4 level is priority (6) Chronic renal insufficiency, stage IV (severe): Avoid nephrotoxic agents, and monitor daily creatinine and GFR. Cr stable at 1.9, dose medications appropriately electrolytes stable (7) Pancytopenia: most likely due to alcohol abuse monitor daily on folate and thiamine WBC is 6, Hb 9.8 and platelets acceptable for surgery at 88k (8) Diabetes: Glycemic control per pharmacy close monitoring of sugars given Decadron (9) Hypomagnesemia: resolved Subjective patient feeling more rested and "better nourished" this morning still no change in his neck pain, arm weakness, numbness in hands and feet/legs long talk about symptoms and how surgery will likely be indicated d/w Dr. Gutierres, patient needs corpectomy at C4 level, his spinal cord is showing edema discussed timing of surgery given his heavy alcohol use patient did well yesterday and is stable this morning, feel like we should observe him today and tomorrow if no full blown DT's by tomorrow then could likely get anesthesia and surgery on Thursday patient is tolerating Neurontin taper, using Ativan PRN reviewed labs, WBC normal 6k, Hb 9.8, platelets 88k Cr stable at 1.99, electrolytes normal vitamin B12 is > 2000 Review of Systems Review of Systems: All systems reviewed & are unremarkable except as noted in HPI & below Musculoskeletal: + joint pain (neck pain) Neurologic: + gait abnormality, + unsteadiness, + generalized weakness and + numbness (feet, fingers bilaterally, leg, more pronounced on the right side); no headache(s) and no confusion Psychiatric: + irritability, + anxiety and + substance abuse (alcohol) Physical Exam Constitutional: WD/WN, vitals as above Eyes: PERRL, conjunctivae normal, anicteric sclerae ENMT: external ear and nose normal, oropharynx normal Neck: trachea midline, no thyromegaly Respiratory: normal respiratory effort, lungs clear to auscultation Cardiovascular: RRR, no murmur, no edema Gastrointestinal (Abdomen): normal bowel sounds, soft, nontender, no hepatosplenomegaly Musculoskeletal: no cyanosis or clubbing, extremities motor strength 5/5 Skin: no rashes, warm and dry Neurologic: PERRL, EOMI, accommodation nl, no face palsy, no dysarthria CN's II-XI intact bilaterally and deep tendon reflexes 2+ bilaterally; no focal motor deficits Motor/Sensory: + sensory deficit (decreased sensation in feet, lower legs) Psychiatric: A+Ox3, euthymic affect Lymphatic: no cervical or axillary lymphadenopathy Results & Data Vital Signs (Past 12 Hours) Vital Signs Temp Pulse Pulse Resp BP Pulse Ox 11/21/18 07:26 57 L 11/21/18 07:24 36.6 C 69 18 140/75 100 11/21/18 04:27 36.7 C 56 L 19 148/76 H 99 Laboratory Results Laboratory Results - last 24 hr 11/20/18 11/20/18 11/20/18 16:22 20:04 23:55 WBC RBC Hgb Hct MCV MCH MCHC RDW Std Deviation RDW Coeff of [place] Plt Count MPV Immature Gran % (Auto) Neut % (Auto) Lymph % (Auto) [place] % (Auto) Eos % (Auto) Baso % (Auto) Immature Gran # (Auto) Neut # (Auto) Lymph # (Auto) [place] # (Auto) Eos # (Auto) Baso # (Auto) Sodium Potassium Chloride Carbon Dioxide Anion Gap BUN Creatinine Est Cr Clr Drug Dosing Est GFR ( Amer) Est GFR (Non-Af Amer) BUN/Creatinine Ratio Glucose POC Glucose 255 H 195 H 76 Calcium Total Bilirubin AST ALT Alkaline Phosphatase Total Protein Albumin Globulin Albumin/Globulin Ratio Vitamin B12 11/21/18 11/21/18 11/21/18 04:18 06:04 06:04 WBC 6.82 RBC 2.99 L Hgb 9.8 L Hct 29.5 L MCV 98.7 MCH 32.8 MCHC 33.2 RDW Std Deviation 56.0 H RDW Coeff of [place] 15.6 H Plt Count 88 L MPV 10.4 Immature Gran % (Auto) 0.3 Neut % (Auto) 89.4 Lymph % (Auto) 6.3 [place] % (Auto) 4.0 Eos % (Auto) 0.0 Baso % (Auto) 0.0 Immature Gran # (Auto) 0.02 Neut # (Auto) 6.10 Lymph # (Auto) 0.43 L [place] # (Auto) 0.27 Eos # (Auto) 0.00 Baso # (Auto) 0.00 Sodium 139 Potassium 4.4 Chloride 110 H Carbon Dioxide 20 L Anion Gap 9.0 BUN 55 H Creatinine 1.99 H Est Cr Clr Drug Dosing 42.7 Est GFR ( Amer) 39.9 Est GFR (Non-Af Amer) 34.5 BUN/Creatinine Ratio 27.4 H Glucose 151 H POC Glucose 151 H Calcium 9.1 Total Bilirubin 0.6 AST 41 H ALT 35 Alkaline Phosphatase 101 Total Protein 7.5 Albumin 3.3 L Globulin 4.2 H Albumin/Globulin Ratio 0.8 L Vitamin B12 11/21/18 11/21/18 06:04 07:23 WBC RBC Hgb Hct MCV MCH MCHC RDW Std Deviation RDW Coeff of [place] Plt Count MPV Immature Gran % (Auto) Neut % (Auto) Lymph % (Auto) [place] % (Auto) Eos % (Auto) Baso % (Auto) Immature Gran # (Auto) Neut # (Auto) Lymph # (Auto) [place] # (Auto) Eos # (Auto) Baso # (Auto) Sodium Potassium Chloride Carbon Dioxide Anion Gap BUN Creatinine Est Cr Clr Drug Dosing Est GFR ( Amer) Est GFR (Non-Af Amer) BUN/Creatinine Ratio Glucose POC Glucose 157 H Calcium Total Bilirubin AST ALT Alkaline Phosphatase Total Protein Albumin Globulin Albumin/Globulin Ratio Vitamin B12 > 2000 H Medications Administered Current Inpatient Medications Allopurinol (Zyloprim) 100 mg PO [facility] Stop: 12/19/18 20:59 Last Admin: 11/20/18 20:13 Dose: 100 mg Documented by: Baclofen (Lioresal) 10 mg PO TID PRN PRN Reason: spasm Stop: 12/19/18 19:51 Last Admin: 11/20/18 23:05 Dose: 10 mg Documented by: Cyanocobalamin (Vitamin B-12) 5,000 mcg SL GUILLE Stop: 12/19/18 20:59 Last Admin: 11/20/18 20:13 Dose: 5,000 mcg Documented by: Dextrose (Dextrose 50%) 25 - 50 ml IV UD PRN; Protocol PRN Reason: Hypoglycemia Protocol Stop: 12/19/18 20:44 Ferrous Sulfate (Feosol) 325 mg PO [facility] Stop: 12/19/18 20:59 Last Admin: 11/20/18 20:15 Dose: 325 mg Documented by: Fish Oil ([place]-3 (Purified Fish Oil)) 1 gm PO GUILLE Stop: 12/19/18 20:59 Last Admin: 11/20/18 20:14 Dose: 1 gm Documented by: Folic Acid (Folvite) 1 mg PO [facility] Stop: 12/19/18 20:59 Last Admin: 11/20/18 20:14 Dose: 1 mg Documented by: Furosemide (Lasix) 40 mg PO [facility] Stop: 12/19/18 20:59 Last Admin: 11/20/18 20:14 Dose: 40 mg Documented by: Gabapentin (Neurontin) 600 mg PO Q12H GUILLE Stop: 11/22/18 20:52 Gabapentin (Neurontin) 600 mg PO Q24H GUILLE Stop: 11/23/18 20:52 Gabapentin (Neurontin) 600 mg PO Q8H GUILLE Stop: 11/21/18 20:52 Last Admin: 11/21/18 04:41 Dose: 600 mg Documented by: Glucagon (Glucagen) 1 mg IM UD PRN; Protocol PRN Reason: Hypoglycemia Protocol Stop: 12/19/18 20:44 Glucose (Glucose 40%) 15 - 30 gm PO UD PRN; Protocol PRN Reason: Hypoglycemia Protocol Stop: 12/19/18 20:44 Glucose (Dex4 Glucose) 4 - 8 tabs PO UD PRN; Protocol PRN Reason: Hypoglycemia Protocol Stop: 12/19/18 20:44 Dexamethasone Sodium Phosphate (6 mg/ Syringe) 1.5 mls @ 1 mls/min IV Q6 GUILLE Stop: 12/20/18 00:00 Last Admin: 11/21/18 06:23 Dose: 1 mls/min Documented by: Insulin Aspart (Novolog Flexpen) 0 units SC ACHS [facility]; Protocol Stop: 12/20/18 08:29 Last Admin: 11/21/18 08:22 Dose: 11 units Documented by: Insulin Glargine (Lantus Solostar Pen) 26 units SC BID GUILLE; Protocol Stop: 12/20/18 20:59 Last Admin: 11/21/18 08:23 Dose: 26 units Documented by: Lorazepam (Ativan) 0.5 mg PO Q8 PRN PRN Reason: Anxiety Stop: 12/20/18 08:50 Magnesium Oxide (Mag-Ox) 400 mg PO [facility] Stop: 12/19/18 20:59 Last Admin: 11/20/18 20:13 Dose: 400 mg Documented by: Miscellaneous (Carbohydrates For Hypoglycemia) 15 - 30 gm PO UD PRN PRN Reason: Hypoglycemia Treatment Stop: 12/19/18 20:44 Miscellaneous Information (Consult Glycemic Management Pharmacy) 1 ea N/A UD PRN PRN Reason: Consult Stop: 12/19/18 20:40 Nebivolol (Bystolic) 10 mg PO HS [facility] Stop: 12/19/18 20:59 Last Admin: 11/20/18 20:15 Dose: 10 mg Documented by: Nifedipine (Procardia Xl) 30 mg PO HS [facility] Stop: 12/19/18 20:59 Last Admin: 11/20/18 20:14 Dose: 30 mg Documented by: Oxycodone/Acetaminophen (Percocet 5mg/325mg) 1 tab PO Q4H PRN PRN Reason: Pain Stop: 12/03/18 19:51 Last Admin: 11/20/18 23:05 Dose: 1 tab Documented by: Thiamine HCl (Vitamin B-1) 100 mg PO HS [facility] Stop: 12/19/18 20:59 Last Admin: 11/20/18 20:13 Dose: 100 mg Documented by: Vitamin B Complex (Vitamin B Complex) 1 tab PO [facility] Stop: 12/19/18 20:59 Last Admin: 11/20/18 20:14 Dose: 1 tab Documented by: Zinc Sulfate (Zinc Sulfate) 220 mg PO [facility] Stop: 12/19/18 20:59 Last Admin: 11/20/18 20:13 Dose: 220 mg Documented by: PG Care Time/CCT Total # of Minutes Spent Total Time Spent with Patient: Total time spent is greater than 50% in coordination of care (as documented) at patient's floor/unit and/or counseling patient: (1) Lumbar spinal stenosis Neurogenic claudication status: unspecified Qualified Code(s): M48.061 - Spinal stenosis, lumbar region without neurogenic claudication
[2018-11-21] MEDS ORDERED: PERFLUTREN LIPID MICROSPHERE (DEFINITY) IV ONE (14:44)
[2018-11-21] MEDS: NEBIVOLOL HCL 5 MG TAB PO SCH (21:10)
[2018-11-21] MEDS: FUROSEMIDE 40 MG TAB PO SCH (21:11)
[2018-11-21] MEDS: FOLIC ACID 1 MG TAB PO SCH (21:11)
[2018-11-21] MEDS: MAGNESIUM OXIDE 400 MG TAB PO SCH (21:11)
[2018-11-21] MEDS: FERROUS SULFATE 325 MG TAB PO SCH (21:11)
[2018-11-21] MEDS: NIFEdipine EXTENDED REL 30 MG TABCR PO SCH (21:12)
[2018-11-21] MEDS: VITAMIN B COMPLEX TAB PO SCH (21:12)
[2018-11-21] MEDS: OMEGA-3 (PURIFIED FISH OIL) 1 GM CAP PO SCH (21:12)
[2018-11-21] MEDS: THIAMINE HCL 100 MG TAB PO SCH (21:13)
[2018-11-21] MEDS: allopurinoL 100 MG TAB PO SCH (21:13)
[2018-11-21] MEDS: ZINC SULFATE 220 MG CAPSULE PO SCH (21:13)
[2018-11-21] MEDS: CYANOCOBALAMIN (VITAMIN B-12) 2,500 MCG TAB.SUBL SL SCH (21:13)
[2018-11-21] MEDS: OXYCODONE/ACETAMINOPHEN 5mg/325mg TAB PO PRN (21:13)
[2018-11-21] MEDS: BACLOFEN 10 MG TAB PO PRN (21:46)
[2018-11-22] MEDS: BACLOFEN 10 MG TAB PO PRN ×2 (03:43→21:36)
[2018-11-22] MEDS: OXYCODONE/ACETAMINOPHEN 5mg/325mg TAB PO PRN ×2 (03:43→21:36)
[2018-11-22 05:39] LABS: Hematocrit (blood only) 32.1 % (42-52); Hemoglobin 10.7 g/dL (14.0-18.0); Immature Granulocytes # (auto) 0.03 K/uL (0.00-0.02); Immature Granulocytes % (auto) 0.4 %; Lymphocytes # (auto) 0.53 K/uL (1.2-3.4); Lymphocytes % (auto) 7.1 %; Mean Corpuscular Hemoglobin 32.9 pg (25-34); Mean Corpuscular Hgb Conc 33.3 g/dL (32-36); Mean Corpuscular Volume 98.8 fL (80-100); Mean Platelet Volume 10.8 fL (7.4-10.4); Monocytes # (auto) 0.34 K/uL (0.11-0.59); Monocytes % (auto) 4.6 %; Neutrophils # (auto) 6.54 K/uL (1.4-6.5); Neutrophils % (auto) 87.9 %; Platelet Count 104 K/uL (130-400); RDW Coefficient of Variation 15.5 % (11.5-14.5); Red Blood Count 3.25 M/uL (4.7-6.1); White Blood Count 7.44 K/uL (4.8-10.8)
[2018-11-22] MEDS: DEXAMETHASONE SOD PHOSPHATE 6 MG in SYRINGE 0 ML IV SCH ×3 (05:52→18:42)
[2018-11-22 06:07] LABS: Albumin Level 3.2 gm/dl (3.4-5.0); BUN Creatinine Ratio 29.2 (10-20); Calcium 8.8 mg/dl (8.5-10.1); Est GFR (African American) 42.5; Est GFR (Non-African American) 36.7; Potassium 4.8 mmol/L (3.5-5.1)
[2018-11-22 06:09] LABS: Albumin Globulin Ratio 0.7 (0.9-2); Bilirubin,Total 0.7 mg/dl (0.2-1); Globulin 4.4 gm/dl (2.5-4.0); Total Protein 7.6 gm/dl (6.4-8.2)
[2018-11-22] MEDS: GABAPENTIN 600 MG TAB PO SCH ×2 (08:15→21:32)
[2018-11-22] MEDS ORDERED: INSULIN GLARGINE SOLOSTAR 100 UNITS/ML 3 ML PEN SC ONE (09:00)
--- NOTE | 2018-11-22 09:32 | Hospitalist Progress Note ---
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 Numbness in right hand, digits 3-5 * MRI shows severe spinal stenosis with cord edema at level of C4 * Decadron 6mg IV q6 * Risk Stratification- CKD IV and EtOH abuse- patient states last drink would have been last thursday (11/19)- typically drinks 1 pint/day hard liquor. No DTs currently. EKG with NSR. ECHO LVEF 55-60%, no wall motion abnormalities or evidence of right heart strain * Dr. Gutierres to take patient to OR tomorrow or Thursday (11/24) for C4 corpectomy and then rehab following (2) Lumbar spinal stenosis: * Neuropathy in feet, difficulty walking due to the numbness. No decreased strength. * Continue Decadron IV * Vitamin B12 level is > 2000 * No immediate needs for lumbar surgery at this time, C4 level is priority (3) Upper extremity weakness: * See above- due to C4 spinal stenosis * Plan for OR on Thursday/Thursday for corpectomy with Dr. Gutierres (4) Alcohol withdrawal: * patient drinks 1 liter of hard liquor a day * Neurontin loading dose and taper ordered- 600mg BID currently, will transition to 600mg Q24 on 11/23 * Ativan 0.5mg PO PRN for anxiety/agitation * Patient is doing well thus far, no signs of severe withdrawal, no DT's- mental status is clear, without agitation--> may proceed to OR. (5) Extremity numbness: * As above (6) Chronic renal insufficiency, stage IV (severe): * Avoid nephrotoxic agents, and monitor daily creatinine and GFR. * Cr stable at 1.89, dose medications appropriately * Without electrolyte abnormality on BMP this AM * Will continue to monitor (7) Pancytopenia: * Improving- most likely due to alcohol abuse * monitor daily * on folate and thiamine * WBC is 7.4, Hb 10.7, platelets 189--> acceptable for surgery (8) Diabetes: * Excellent control as outpatient- most recent A1c this admission of 5.8 * Close monitoring of sugars given Decadron--> glycemic control per pharmacy (9) Hypomagnesemia: * Resolved (10) DVT prophylaxis: SCDs Dispo: OR tomorrow or Thursday with Dr. Gutierres--> then rehab Supervising Physician Co-Signing Physician Notes Attending Attestation: Chart reviewed in detail, care plan d/w PA Dariana Moreland. I agree w/ the adan components of her documentation. 63yo male with C4 myelopathy. Presented with b/l upper extremity weakness as well as b/l LE weakness and numbness. Seen by Dr Gutierres - plan for OR tomorrow for corpectomy at C4. From cardiopulmonary standpoint he appears optimized for the OR. Continue IV steroids in meantime. Has h/o significant etoh intake - alcohol withdrawal precautions in place. Pancytopenia could be 2nd to etoh intake. NPO after MN tonight for likely OR tomorrow. Nelson Rodrigues MD Subjective Patient evaluated at bedside this morning. Patient resting comfortably in bed, eating breakfast. He states he continues to have lower extremitity numbness, tingling and pain that he describes as "fireworks fizzling out." He states the pain is a little less than yesterday after receiving Neurotin. He continues to have neck and arm pain, and states he is unable to raise his arms above his head. He states he was seen over the weekend by Dr. Gutierres and Dr. Edmondson and was told he will have surgery this week and will be on clear liquids after surgery. On admission, he admits he did have some agitation when he was NPO for 24 hours initially. He has not been able to have a bowel movement since thursday, and he states he typically has 2-3 loose stools per day at home. He has been passing flatus. No loss of bowel or bladder function. He denies any diaphoresis, palpitations, increased anxiety or agitation. Denies chest pain, shortness of breath, headache, blurred vision, fever, chills, dysuria. Review of Systems Review of Systems: All systems reviewed & are unremarkable except as noted in HPI & below Musculoskeletal: + joint pain (neck pain) Neurologic: + gait abnormality, + unsteadiness, + generalized weakness and + numbness (feet, fingers bilaterally, leg, more pronounced on the right side); no headache(s) and no confusion Psychiatric: + anxiety (decreasing) and + substance abuse (alcohol) Physical Exam Constitutional: WD/WN, vitals as above well developed Eyes: PERRL, conjunctivae normal, anicteric sclerae ENMT: external ear and nose normal, oropharynx normal Neck: trachea midline, no thyromegaly Respiratory: normal respiratory effort, lungs clear to auscultation Cardiovascular: RRR, no murmur, no edema Vessels: no JVD Gastrointestinal (Abdomen): normal bowel sounds, soft, nontender, no hepatosplenomegaly Musculoskeletal: no cyanosis or clubbing, extremities motor strength 5/5 Skin: no rashes, warm and dry Neurologic: PERRL, EOMI, accommodation nl, no face palsy, no dysarthria CN's II-XI intact bilaterally, deep tendon reflexes 2+ bilaterally and moves all extremities; no focal motor deficits Motor/Sensory: + sensory deficit (decreased sensation in feet, lower legs. ) Also, decreased sensation R hand digits 3-5 Psychiatric: A+Ox3, euthymic affect Lymphatic: no cervical or axillary lymphadenopathy Results & Data Vital Signs (Past 12 Hours) Vital Signs Temp Pulse Resp BP Pulse Ox 11/22/18 06:54 36.6 C 51 L 18 155/81 H 99 11/22/18 03:40 36.8 C 53 L 16 150/80 H 98 11/22/18 00:12 36.9 C 51 L 16 159/87 H 100 Laboratory Results 11/22/18 11/22/18 11/22/18 Range/Units 08:09 04:56 04:56 WBC 7.44 (4.8-10.8) K/uL RBC 3.25 L (4.7-6.1) M/uL Hgb 10.7 L (14.0-18.0) g/dL Hct 32.1 L (42-52) % MCV 98.8 (80-100) fL MCH 32.9 (25-34) pg MCHC 33.3 (32-36) g/dL RDW Std Deviation 56.0 H (36.4-46.3) fL RDW Coeff of Clyde 15.5 H (11.5-14.5) % Plt Count 104 L (130-400) K/uL MPV 10.8 H (7.4-10.4) fL Immature Gran % (Auto) 0.4 % Neut % (Auto) 87.9 % Lymph % (Auto) 7.1 % Person % (Auto) 4.6 % Eos % (Auto) 0.0 % Baso % (Auto) 0.0 % Immature Gran # (Auto) 0.03 H (0.00-0.02) K/uL Neut # (Auto) 6.54 H (1.4-6.5) K/uL Lymph # (Auto) 0.53 L (1.2-3.4) K/uL Person # (Auto) 0.34 (0.11-0.59) K/uL Eos # (Auto) 0.00 (0-0.5) K/uL Baso # (Auto) 0.00 (0-0.2) K/uL Sodium 138 (136-145) mmol/L Potassium 4.8 (3.5-5.1) mmol/L Chloride 107 (98-107) mmol/L Carbon Dioxide 21 (21-32) mmol/L Anion Gap 10.0 (3-11) BUN 55 H (7-18) mg/dl Creatinine 1.89 H (0.6-1.4) mg/dl Est Cr Clr Drug Dosing 45.0 ml/min Est GFR ( Amer) 42.5 Est GFR (Non-Af Amer) 36.7 BUN/Creatinine Ratio 29.2 H (10-20) Glucose 189 H (70-99) mg/dl POC Glucose 145 H (70-99) Calcium 8.8 (8.5-10.1) mg/dl Total Bilirubin 0.7 (0.2-1) mg/dl AST 62 H (15-37) U/L ALT 49 (12-78) U/L Alkaline Phosphatase 100 (45-117) U/L Total Protein 7.6 (6.4-8.2) gm/dl Albumin 3.2 L (3.4-5.0) gm/dl Globulin 4.4 H (2.5-4.0) gm/dl Albumin/Globulin Ratio 0.7 L (0.9-2) Vitamin B12 (211-911) pg/ml 11/21/18 11/21/18 11/21/18 Range/Units 20:28 17:12 12:44 WBC (4.8-10.8) K/uL RBC (4.7-6.1) M/uL Hgb (14.0-18.0) g/dL Hct (42-52) % MCV (80-100) fL MCH (25-34) pg MCHC (32-36) g/dL RDW Std Deviation (36.4-46.3) fL RDW Coeff of Clyde (11.5-14.5) % Plt Count (130-400) K/uL MPV (7.4-10.4) fL Immature Gran % (Auto) % Neut % (Auto) % Lymph % (Auto) % Person % (Auto) % Eos % (Auto) % Baso % (Auto) % Immature Gran # (Auto) (0.00-0.02) K/uL Neut # (Auto) (1.4-6.5) K/uL Lymph # (Auto) (1.2-3.4) K/uL Person # (Auto) (0.11-0.59) K/uL Eos # (Auto) (0-0.5) K/uL Baso # (Auto) (0-0.2) K/uL Sodium (136-145) mmol/L Potassium (3.5-5.1) mmol/L Chloride (98-107) mmol/L Carbon Dioxide (21-32) mmol/L Anion Gap (3-11) BUN (7-18) mg/dl Creatinine (0.6-1.4) mg/dl Est Cr Clr Drug Dosing ml/min Est GFR ( Amer) Est GFR (Non-Af Amer) BUN/Creatinine Ratio (10-20) Glucose (70-99) mg/dl POC Glucose 127 H 108 H 91 (70-99) Calcium (8.5-10.1) mg/dl Total Bilirubin (0.2-1) mg/dl AST (15-37) U/L ALT (12-78) U/L Alkaline Phosphatase (45-117) U/L Total Protein (6.4-8.2) gm/dl Albumin (3.4-5.0) gm/dl Globulin (2.5-4.0) gm/dl Albumin/Globulin Ratio (0.9-2) Vitamin B12 (211-911) pg/ml 11/21/18 Range/Units 06:04 WBC (4.8-10.8) K/uL RBC (4.7-6.1) M/uL Hgb (14.0-18.0) g/dL Hct (42-52) % MCV (80-100) fL MCH (25-34) pg MCHC (32-36) g/dL RDW Std Deviation (36.4-46.3) fL RDW Coeff of Clyde (11.5-14.5) % Plt Count (130-400) K/uL MPV (7.4-10.4) fL Immature Gran % (Auto) % Neut % (Auto) % Lymph % (Auto) % Person % (Auto) % Eos % (Auto) % Baso % (Auto) % Immature Gran # (Auto) (0.00-0.02) K/uL Neut # (Auto) (1.4-6.5) K/uL Lymph # (Auto) (1.2-3.4) K/uL Person # (Auto) (0.11-0.59) K/uL Eos # (Auto) (0-0.5) K/uL Baso # (Auto) (0-0.2) K/uL Sodium (136-145) mmol/L Potassium (3.5-5.1) mmol/L Chloride (98-107) mmol/L Carbon Dioxide (21-32) mmol/L Anion Gap (3-11) BUN (7-18) mg/dl Creatinine (0.6-1.4) mg/dl Est Cr Clr Drug Dosing ml/min Est GFR ( Amer) Est GFR (Non-Af Amer) BUN/Creatinine Ratio (10-20) Glucose (70-99) mg/dl POC Glucose (70-99) Calcium (8.5-10.1) mg/dl Total Bilirubin (0.2-1) mg/dl AST (15-37) U/L ALT (12-78) U/L Alkaline Phosphatase (45-117) U/L Total Protein (6.4-8.2) gm/dl Albumin (3.4-5.0) gm/dl Globulin (2.5-4.0) gm/dl Albumin/Globulin Ratio (0.9-2) Vitamin B12 > 2000 H (211-911) pg/ml PG Care Time/CCT Total # of Minutes Spent Total Time Spent with Patient: Total time spent is greater than 50% in coordination of care (as documented) at patient's floor/unit and/or counseling patient: (1) Lumbar spinal stenosis Neurogenic claudication status: unspecified Qualified Code(s): M48.061 - Spinal stenosis, lumbar region without neurogenic claudication
[2018-11-22] MEDS: INSULIN ASPART 100 UNITS/ML 3 ML PEN SC SCH ×4 (09:40→21:43)
[2018-11-22] MEDS: INSULIN GLARGINE SOLOSTAR 100 UNITS/ML 3 ML PEN SC SCH ×2 (09:41→21:42)
[2018-11-22] MEDS ORDERED: DOCUSATE SODIUM 100 MG CAP PO ONE (11:13)
--- NOTE | 2018-11-22 11:51 | Pharmacy Report ---
Pharmacy Glycemic Short Note 2 - Date of Service November 22, 2018 - Glycemic Short BSG Results (Last 24 hours): 11/21/18 11/21/18 11/21/18 12:44 17:12 20:28 Glucose POC Glucose 91 108 H 127 H 11/22/18 11/22/18 04:56 08:09 Glucose 189 H POC Glucose 145 H OUTPATIENT ANTIDIABETIC REGIMEN: * Actos 15mg PO daily ASSESSMENT: 11/22 * Mr. Penny received 78 units of insulin yesterday * 44 units of basal * 34 units of bolus * This is compared to the prior day in which he received 128 units of insulin * He remains on Decadron 6 mg IV q6h, with plans for OR tomorrow for a cervical corpectomy of C4 * Est TDD remains at ~100 units/day. His fasting BSG was elevated this AM due to a reduced dose of Lantus given last evening for BSG below ordered goal. * Will plan to add back the 6 units of missed Lantus this AM and then resume scheduled BID dosing tonight. Will adjust parameters to provide lower dose for NPO status tomorrow, but allow for full dose if BSGs remain elevated by this evening. Goal is for perioperative BSG control, with BSGs < 150 mg/dL. * Pre-lunch BSG today is artificially high, as AM Novolog not given until 0940 11/21 * 63yo T2DM male admitted with spinal stenosis. * Pt initiated on high dose IV steroids with dexamethasone 6mg IV Q6hrs --> severe steroid induced hyperglycemia now that diet resumed * Holding outpatient Actos for admission and using weight based, high stress SQ basal bolus insulin regimen for steroid induced hyperglycemia * Pt received 128 units of insulin over the past 24hrs * 70 units of Lantus + 58 units of NovoLog * BSGs ranging 76-321 mg/dl * AM fasting BSG = 157 mg/dl this morning, Lantus should be at steady state today since patient has received 4+ doses. Additional loading dose of Lantus given yesterday to help cover RTC dosing of DXM. No additional loading dose needed today, therefore, will continue with Lantus 26 units SQ BID * Expect total daily dose today to be ~ 100-120 units/day. * Lantus will need DC and NovoLog parameters adjusted if/when DXM DC. PLAN FOR INPATIENT GLYCEMIC CONTROL: * Continue to hold outpatient oral diabetes medications * Basal insulin * Lantus 34 units x 1 this AM (adding total short from last night's dose to estimated requirement of 26 units), then * Lantus BID per the following scale: * 12 units for BSG < 110 (50% reduction for NPO status) * 18 units for BSG 110 - 180 (30% reduction for NPO status) * 26 units for BSG > 180 (full dose if BSGs remain elevated) * Bolus insulin - no change but add overnight check * NovoLog per scale ACHS or Q6hrs while NPO + 0200 check * Goal Range: Low 110 mg/dL - High 140 mg/dL * Correction Factor: 15 mg/dL/unit * Nutritional / Prandial insulin per carb ratio of 1 unit per 5 grams CHO consumed Discharge Recommendations: * Patient's A1c = 5.8% on 11/20/18 * However, this result is likely somewhat unreliable in ESRD patients d/t interactions between the A1c analyzing technique and high levels of urea in ESRD, reduced RBC life span, iron deficiency anemia, and EPO administration. HbA1c > 7.5% in ESRD patient may overestimate the extent of hyperglycemia in ESRD patients. * Recommend to continue oral agent on discharge, unless patient experiencing hypoglycemia as an outpatient
--- NOTE | 2018-11-22 14:06 | Orthopedic Progress Note ---
Date of Service November 22, 2018 Assessment & Plan (1) Myelopathy concurrent with and due to spinal stenosis of cervical region: At this time we will make him n.p.o. at midnight and plan for surgery tomorrow morning. He appears not to be going through any signs or symptoms of alcohol withdrawal. Subsequently feel it is safe to proceed. Patient understands and agrees. Present on Admission?: Yes Subjective Patient still struggling with significant weakness affecting upper and lower extremities as well as numbness and tingling. Not gotten worse since his visit. He feels that he is not struggling with any symptoms of alcohol withdrawal at this time. Physical Exam Physical Exam: Physical exam essentially unchanged. He is alert and oriented. Does not appear to be having any tremors. Results & Data Vital Signs (Past 12 Hours) Vital Signs Temp Pulse Resp BP Pulse Ox 11/22/18 10:56 36.6 C 52 L 18 158/75 H 100 11/22/18 06:54 36.6 C 51 L 18 155/81 H 99 11/22/18 03:40 36.8 C 53 L 16 150/80 H 98
[2018-11-22] MEDS: FERROUS SULFATE 325 MG TAB PO SCH (21:32)
[2018-11-22] MEDS: NEBIVOLOL HCL 5 MG TAB PO SCH (21:32)
[2018-11-22] MEDS: allopurinoL 100 MG TAB PO SCH (21:32)
[2018-11-22] MEDS: FOLIC ACID 1 MG TAB PO SCH (21:33)
[2018-11-22] MEDS: OMEGA-3 (PURIFIED FISH OIL) 1 GM CAP PO SCH (21:34)
[2018-11-22] MEDS: FUROSEMIDE 40 MG TAB PO SCH (21:34)
[2018-11-22] MEDS: MAGNESIUM OXIDE 400 MG TAB PO SCH (21:34)
[2018-11-22] MEDS: VITAMIN B COMPLEX TAB PO SCH (21:35)
[2018-11-22] MEDS: CYANOCOBALAMIN (VITAMIN B-12) 2,500 MCG TAB.SUBL SL SCH (21:35)
[2018-11-22] MEDS: NIFEdipine EXTENDED REL 30 MG TABCR PO SCH (21:35)
[2018-11-22] MEDS: ZINC SULFATE 220 MG CAPSULE PO SCH (21:35)
[2018-11-22] MEDS: THIAMINE HCL 100 MG TAB PO SCH (21:35)
[2018-11-23] MEDS: DEXAMETHASONE SOD PHOSPHATE 6 MG in SYRINGE 0 ML IV SCH ×3 (00:02→22:37)
[2018-11-23] MEDS ORDERED: INSULIN ASPART 100 UNITS/ML 3 ML PEN SC ONE (02:00)
[2018-11-23] MEDS: DEXTROSE 50% 50 ML SYRINGE IV PRN ×2 (02:10→06:30)
[2018-11-23] MEDS ORDERED: Nursing to Pharmacy Communication ONE (02:28)
[2018-11-23] MEDS: D5NSS + 20MEQ KCL 20 MEQ/1,000 ML BAG IV SCH ×2 (04:01→16:30)
[2018-11-23] MEDS: OXYCODONE/ACETAMINOPHEN 5mg/325mg TAB PO PRN (04:06)
[2018-11-23] MEDS: BACLOFEN 10 MG TAB PO PRN (04:06)
[2018-11-23] MEDS: INSULIN ASPART 100 UNITS/ML 3 ML PEN SC SCH ×4 (06:14→22:59)
[2018-11-23 06:32] LABS: Hematocrit (blood only) 34.6 % (42-52); Mean Corpuscular Hemoglobin 33.8 pg (25-34); Mean Corpuscular Hgb Conc 34.7 g/dL (32-36); Mean Corpuscular Volume 97.5 fL (80-100); Mean Platelet Volume 10.6 fL (7.4-10.4); Platelet Count 113 K/uL (130-400); RDW Coefficient of Variation 15.1 % (11.5-14.5); Red Blood Count 3.55 M/uL (4.7-6.1); White Blood Count 10.93 K/uL (4.8-10.8)
[2018-11-23 07:07] LABS: BUN Creatinine Ratio 30.2 (10-20); Calcium 8.8 mg/dl (8.5-10.1); Creatinine Clr Calc Pharmacy 43.2 ml/min; Est GFR (African American) 40.4; Est GFR (Non-African American) 34.9; Potassium 4.5 mmol/L (3.5-5.1)
[2018-11-23 08:42] LABS: Albumin Level 3.4 gm/dl (3.4-5.0); Bilirubin Direct 0.2 mg/dl (0-0.2); Bilirubin,Total 0.5 mg/dl (0.2-1); Total Protein 7.9 gm/dl (6.4-8.2)
--- NOTE | 2018-11-23 09:55 | Hospitalist Progress Note ---
Date of Service November 23, 2018 Assessment & Plan (1) Cervical spinal stenosis: * POD #0 s/p C4 corpectomy with Dr. Gutierres- patient with extended length of anethesia, narcan x 4, ABG with evidence of CO2 narcosis related to prolonged anesthesia/procedure * BP stable, 121/81, HR stable at 57. Patient currently requiring diya hugger for hypothermia s/p surgery, T 34.7 * EBL 50cc * Will continue to monitor labs, electrolyte, monitor for DTs, etc * Cervical spine pain- patient with intact bank sales and service manager strength bilaterally, however is only able to abduct bilateral arms to shoulder height, without ability to raise above head. Numbness in right hand, digits 3-5 * MRI shows severe spinal stenosis with cord edema at level of C4 * Decadron 6mg IV q6 * Risk Stratification- CKD IV and EtOH abuse- patient states last drink would have been last thursday (11/19)- typically drinks 1 pint/day hard liquor. No DTs currently. * EKG with NSR. * ECHO LVEF 55-60%, no wall motion abnormalities or evidence of right heart strain * Post-op and pain management per ortho (2) Lumbar spinal stenosis: * Neuropathy in feet, difficulty walking due to the numbness. * Continue Decadron IV * Vitamin B12 level is > 2000 * No immediate needs for lumbar surgery at this time, C4 level is priority at this time. (3) Upper extremity weakness: * See above- due to C4 spinal stenosis (4) Alcohol withdrawal: * Patient drinks 1 liter of hard liquor a day * Neurontin loading dose and taper ordered- 600mg BID initially--> transitioned to 600mg Q24 on 11/23 * Ativan 0.5mg PO PRN for anxiety/agitation * Patient is doing well thus far, no signs of severe withdrawal, no DT's- mental status is clear, without agitation (5) Extremity numbness: * As above (6) Chronic renal insufficiency, stage IV (severe): * Avoid nephrotoxic agents, and monitor daily creatinine and GFR. * Cr stable at 1.97, dose medications appropriately * Without electrolyte abnormality on BMP this AM * Will continue to monitor (7) Pancytopenia: * Improving- most likely due to alcohol abuse * monitor daily * on folate and thiamine * WBC is 10.93, Hb 12.0, platelets 113--> acceptable for surgery * WBC elevated likely from Decadron 6mg IV Q6 (8) Diabetes: * Well controlled as outpatient, however patient with CKD- most recent A1c this admission of 5.8 * Close monitoring of sugars given Decadron--> glycemic control per pharmacy (9) Hypomagnesemia: * Resolved * Mag 1.7 on admission 11/19. Replaced and repeat mag 1.9 on 11/20 (10) DVT prophylaxis: SCDs Supervising Physician Co-Signing Physician Notes Attending Attestation: Pt seen/examined, chart reviewed (including post-op events in PACU), care plan d/w KANDACE Moreland. I agree w/ the adan components of her documentation. I saw the patient post-op on the orthopedic floor. He was very sedated. He would wake briefly to his name being called, utter a few incomprehensible words, and then quickly fall back asleep. BSG was checked and was high. STAT VBG with significant acidosis. During my assessment he was having apneas. I discussed his care with Ms Moreland - we transferred him to PCU, gave fluid bolus, placed him on BIPAP, and obtained serial labs. Night-time MD was made aware of this situation and status. exam: gen - obese, lethargic, altered pupils - 2mm b/l and reactive neck - in c-collar heart - RRR, s1 s2 lungs - decreased BS bases, apneas at times abd - mildly distended, BS+, NT ext - no edema blood gases from today reviewed pH 7.19 (ABG, done in PACU prior to transfer to floor) pH 7.26 (VBG - done on ortho floor) Cr 2.1 Hb 10.3 A/P: 1. new-onset encephalopathy - metabolic (acidosis), toxic (narcotics, anesthesia, etc) etiologies. 2. acute hypoxic and hypercarbic post-op pulmonary insufficiency - multifactorial - place on BIPAP, serial VBG. This should improve with resolution of his acidosis. Likely has underlying CHANDLER. 3. C4 cervical spine stenosis with myelopathy - s/p C4 corpectomy (see full op note). 4. metabolic acidosis in setting of surgery today - moderate/severe acidosis. Pt's apneas will make this worse. BIPAP will assist with ventilatory status. Serial labs. 5. hypotension - fluid bolus now, place on PCU/telemetry. 6. h/o alcohol abuse 7. obesity with BMI >35 8. minimal acute kidney injury in setting of CKD stage 3 - perioperative WILLIAM - fluids, supportive care, fix acidosis. critical care time - 60 minutes, including treatment of #1, #2, #4, #5, #8 (BIPAP institution, fluid bolus, serial labs, etc) - multiple issues that were life-threatening patient transferred to PCU due to these post-op issues Nelson Rodrigues MD Subjective Attempted to see patient this morning, however patient was already taken to OR by 8am. Attempted to see patient at noon, however patient still in OR. Attempted to see patient upon return from PACU, however patient extremely sedated and unable to answer questions at this time. Of note, patient was given Narcan x 4 after anethesia. Review of Systems Review of Systems: Unobtainable due to reduced consciousness Physical Exam Constitutional: WD/WN, vitals as above well developed Eyes: PERRL, conjunctivae normal, anicteric sclerae ENMT: external ear and nose normal, oropharynx normal Neck: trachea midline, no thyromegaly Respiratory: normal respiratory effort, lungs clear to auscultation Cardiovascular: Rate/Rhythm: + bradycardic Heart Sounds: normal S1, normal S2 and + gallop (S4) Vessels: no JVD Gastrointestinal (Abdomen): Inspection/Auscultation: abdomen normal to inspection and + hypoactive bowel sounds Skin: no rashes, warm and dry Neurologic: PERRL, EOMI, accommodation nl, no face palsy, no dysarthria CN's II-XI intact bilaterally, deep tendon reflexes 2+ bilaterally and moves all extremities; no focal motor deficits Motor/Sensory: + sensory deficit (decreased sensation in feet, lower legs. ) Decreased bank sales and service manager strength b/l UE. Decreased strength b/l LE, R>L. Sensory deficit of b/l UE and LE. B/l Raul signs Psychiatric: A+Ox3, euthymic affect Lymphatic: no cervical or axillary lymphadenopathy Results & Data Vital Signs (Past 12 Hours) Vital Signs Temp Pulse Resp BP Pulse Ox 11/23/18 08:06 36.3 C L 48 L 18 153/85 H 100 11/23/18 00:07 36.5 C 51 L 16 124/75 100 Laboratory Results 11/23/18 11/23/18 11/23/18 Range/Units 06:51 06:24 06:21 WBC (4.8-10.8) K/uL RBC (4.7-6.1) M/uL Hgb (14.0-18.0) g/dL Hct (42-52) % MCV (80-100) fL MCH (25-34) pg MCHC (32-36) g/dL RDW Std Deviation (36.4-46.3) fL RDW Coeff of Clyde (11.5-14.5) % Plt Count (130-400) K/uL MPV (7.4-10.4) fL Sodium (136-145) mmol/L Potassium (3.5-5.1) mmol/L Chloride (98-107) mmol/L Carbon Dioxide (21-32) mmol/L Anion Gap (3-11) BUN (7-18) mg/dl Creatinine (0.6-1.4) mg/dl Est Cr Clr Drug Dosing ml/min Est GFR ( Amer) Est GFR (Non-Af Amer) BUN/Creatinine Ratio (10-20) Glucose (70-99) mg/dl POC Glucose 107 H 62 L* (70-99) Calcium (8.5-10.1) mg/dl Total Bilirubin 0.5 (0.2-1) mg/dl Direct Bilirubin 0.2 (0-0.2) mg/dl AST 95 H (15-37) U/L ALT 70 (12-78) U/L Alkaline Phosphatase 108 (45-117) U/L Total Protein 7.9 (6.4-8.2) gm/dl Albumin 3.4 (3.4-5.0) gm/dl 11/23/18 11/23/18 11/23/18 Range/Units 06:21 06:21 05:52 WBC 10.93 H (4.8-10.8) K/uL RBC 3.55 L (4.7-6.1) M/uL Hgb 12.0 L (14.0-18.0) g/dL Hct 34.6 L (42-52) % MCV 97.5 (80-100) fL MCH 33.8 (25-34) pg MCHC 34.7 (32-36) g/dL RDW Std Deviation 54.0 H (36.4-46.3) fL RDW Coeff of [place]de 15.1 H (11.5-14.5) % Plt Count 113 L (130-400) K/uL MPV 10.6 H (7.4-10.4) fL Sodium 138 (136-145) mmol/L Potassium 4.5 (3.5-5.1) mmol/L Chloride 107 (98-107) mmol/L Carbon Dioxide 22 (21-32) mmol/L Anion Gap 9.0 (3-11) BUN 60 H (7-18) mg/dl Creatinine 1.97 H (0.6-1.4) mg/dl Est Cr Clr Drug Dosing 43.2 ml/min Est GFR ( Amer) 40.4 Est GFR (Non-Af Amer) 34.9 BUN/Creatinine Ratio 30.2 H (10-20) Glucose 73 (70-99) mg/dl POC Glucose 65 L* (70-99) Calcium 8.8 (8.5-10.1) mg/dl Total Bilirubin (0.2-1) mg/dl Direct Bilirubin (0-0.2) mg/dl AST (15-37) U/L ALT (12-78) U/L Alkaline Phosphatase (45-117) U/L Total Protein (6.4-8.2) gm/dl Albumin (3.4-5.0) gm/dl 11/23/18 11/23/18 11/23/18 Range/Units 05:51 03:14 02:25 WBC (4.8-10.8) K/uL RBC (4.7-6.1) M/uL Hgb (14.0-18.0) g/dL Hct (42-52) % MCV (80-100) fL MCH (25-34) pg MCHC (32-36) g/dL RDW Std Deviation (36.4-46.3) fL RDW Coeff of [place]de (11.5-14.5) % Plt Count (130-400) K/uL MPV (7.4-10.4) fL Sodium (136-145) mmol/L Potassium (3.5-5.1) mmol/L Chloride (98-107) mmol/L Carbon Dioxide (21-32) mmol/L Anion Gap (3-11) BUN (7-18) mg/dl Creatinine (0.6-1.4) mg/dl Est Cr Clr Drug Dosing ml/min Est GFR ( Amer) Est GFR (Non-Af Amer) BUN/Creatinine Ratio (10-20) Glucose (70-99) mg/dl POC Glucose 63 L* 85 148 H (70-99) Calcium (8.5-10.1) mg/dl Total Bilirubin (0.2-1) mg/dl Direct Bilirubin (0-0.2) mg/dl AST (15-37) U/L ALT (12-78) U/L Alkaline Phosphatase (45-117) U/L Total Protein (6.4-8.2) gm/dl Albumin (3.4-5.0) gm/dl 11/23/18 11/23/18 11/22/18 Range/Units 02:07 02:05 20:57 WBC (4.8-10.8) K/uL RBC (4.7-6.1) M/uL Hgb (14.0-18.0) g/dL Hct (42-52) % MCV (80-100) fL MCH (25-34) pg MCHC (32-36) g/dL RDW Std Deviation (36.4-46.3) fL RDW Coeff of Clyde (11.5-14.5) % Plt Count (130-400) K/uL MPV (7.4-10.4) fL Sodium (136-145) mmol/L Potassium (3.5-5.1) mmol/L Chloride (98-107) mmol/L Carbon Dioxide (21-32) mmol/L Anion Gap (3-11) BUN (7-18) mg/dl Creatinine (0.6-1.4) mg/dl Est Cr Clr Drug Dosing ml/min Est GFR ( Amer) Est GFR (Non-Af Amer) BUN/Creatinine Ratio (10-20) Glucose (70-99) mg/dl POC Glucose 30 L* 30 L* 263 H (70-99) Calcium (8.5-10.1) mg/dl Total Bilirubin (0.2-1) mg/dl Direct Bilirubin (0-0.2) mg/dl AST (15-37) U/L ALT (12-78) U/L Alkaline Phosphatase (45-117) U/L Total Protein (6.4-8.2) gm/dl Albumin (3.4-5.0) gm/dl 11/22/18 11/22/18 11/22/18 Range/Units 17:20 12:01 11:59 WBC (4.8-10.8) K/uL RBC (4.7-6.1) M/uL Hgb (14.0-18.0) g/dL Hct (42-52) % MCV (80-100) fL MCH (25-34) pg MCHC (32-36) g/dL RDW Std Deviation (36.4-46.3) fL RDW Coeff of Clyde (11.5-14.5) % Plt Count (130-400) K/uL MPV (7.4-10.4) fL Sodium (136-145) mmol/L Potassium (3.5-5.1) mmol/L Chloride (98-107) mmol/L Carbon Dioxide (21-32) mmol/L Anion Gap (3-11) BUN (7-18) mg/dl Creatinine (0.6-1.4) mg/dl Est Cr Clr Drug Dosing ml/min Est GFR ( Amer) Est GFR (Non-Af Amer) BUN/Creatinine Ratio (10-20) Glucose (70-99) mg/dl POC Glucose 208 H 248 H 242 H (70-99) Calcium (8.5-10.1) mg/dl Total Bilirubin (0.2-1) mg/dl Direct Bilirubin (0-0.2) mg/dl AST (15-37) U/L ALT (12-78) U/L Alkaline Phosphatase (45-117) U/L Total Protein (6.4-8.2) gm/dl Albumin (3.4-5.0) gm/dl Diagnostic Findings ECHO 11/21/18 Interpretation Summary Study was technically difficult There is mild concentric left ventricular hypertrophy Left ventricular systolic function is normal (Ejection Fraction 55-60%) No significant valvular disease Compared to echocardiogram from 2013, no significant change PG Care Time/CCT Total # of Minutes Spent Total Time Spent with Patient: Total time spent is greater than 50% in coordination of care (as documented) at patient's floor/unit and/or counseling patient: Critical Care Time: Yes Total Critical Care Time: 60 (1) Lumbar spinal stenosis Neurogenic claudication status: unspecified Qualified Code(s): M48.061 - Spinal stenosis, lumbar region without neurogenic claudication
--- NOTE | 2018-11-23 10:03 | History & Physical Bridge Note ---
Date of Service November 23, 2018 History & Physical Bridge Note I have examined the patient, reviewed the History & Physical and in the interval since the performance of the History & Physical I have noted the following changes of clinical significance: no changes noted
[2018-11-23] MEDS ORDERED: GLYCOPYRROLATE 0.2 MG/ML VIAL ONE (10:09)
[2018-11-23] MEDS ORDERED: NEOSTIGMINE METHYLSULFATE 1 MG/ML 10ML VIAL ONE (10:09)
[2018-11-23] MEDS ORDERED: LIDOCAINE HCL 2% 2 ML VIAL/AMP(20MG/ML) INFIL ONE (10:09)
[2018-11-23] MEDS ORDERED: ONDANSETRON INJ 2 MG/ML 2 ML VIAL ONE (10:09)
[2018-11-23] MEDS ORDERED: DEXAMETHASONE SOD INJ 4 MG/ML VIAL ONE (10:09)
[2018-11-23] MEDS ORDERED: PROPOFOL IV EMULSION 10 MG/ML 20 ML VIAL IV ONE (10:09)
[2018-11-23] MEDS ORDERED: fentaNYL citrate 100 MCG/2 ML VIAL ONE ×2 (10:11→12:40)
[2018-11-23] MEDS ORDERED: MIDAZOLAM HCL 1 MG/ML 2ML VIAL ONE (10:11)
[2018-11-23] MEDS ORDERED: BACITRACIN INJ 50,000 UNIT VIAL ONE (10:12)
[2018-11-23] MEDS ORDERED: CEFAZOLIN 2000MG 2,000 MG/15 ML SYR IV ONE (10:32)
[2018-11-23] MEDS ORDERED: CEFAZOLIN 2,000 MG/15 ML IV PUSH IV ONE (10:37)
[2018-11-23] MEDS ORDERED: ONDANSETRON INJ 2 MG/ML 2 ML VIAL IV PRN ×2 (10:40→12:49)
[2018-11-23] MEDS ORDERED: ATROPINE SULFATE 0.1 MG/ML 10ML SYR IV PRN (10:40)
[2018-11-23] MEDS ORDERED: ePHEDrine sulfate 50 MG/ML AMP IV PRN (10:40)
[2018-11-23] MEDS ORDERED: fentaNYL citrate 100 MCG/2 ML VIAL IV PRN (10:40)
[2018-11-23] MEDS ORDERED: HYDROmorphone INJ 2 MG/ML SYR/VIAL ONE (11:07)
[2018-11-23] MEDS ORDERED: FLOSEAL HEMOSTATIC MATRIX 10ML TOP ONE (11:31)
[2018-11-23] MEDS ORDERED: SUGAMMADEX SODIUM 200 MG/2 ML VIAL IV ONE (12:34)
--- NOTE | 2018-11-23 12:47 | Operative Report ---
Post Operative Report Pre & Post Diagnosis Operation Date: 11/22/18 07:50 <No data on this case meets the specified criteria> Operation Date: 11/23/18 10:00 Pre-Op Diagnosis: Cervical spinal stenosis with cord edema and myeloradiculopathy. Post-Op Diagnosis: Same I personally identified the patient: Yes Procedure Operation Date: 11/22/18 07:50 <No data on this case meets the specified criteria> Operation Date: 11/23/18 10:00 Actual Procedures #1 anterior cervical corpectomy of C4 with bilateral foraminotomies. #2 anterior cervical arthrodesis C3-C5. #3 placement of peek cage 27 mm in height from C3-C5. #4 placement of locally harvested morselized autograft combined with DBM in the interbody cage. #5 application of petit plate and screws from C3-C5. Surgeon Gautam Gutierres, Bar Helper None Estimated Blood Loss 50 Findings See Below The patient is 5 foot 6 inches tall weighing over 105 kg with a BMI in excess of 37. The patient's significant body habitus did add marked technical difficulty both with patient positioning and surgical procedure adding at least 50% increase in operative time. Specimens None Indications This is a 63-year-old male who presents the hospital with the above-mentioned diagnosis. Due to his alcohol abuse history we had to postpone surgery at least 3 days to ensure you did not go into withdrawal. Once he was cleared from medicine we underwent proceed with surgery. Description of Procedure Patient was met with identified and informed consent obtained. Patient was then taken to the operative suite underwent intubation placed in supine position Brody kson table with head Small ingot header. All bony prominences well-padded eyes inspected to ensure no external pressure placed upon them. Anterior cervical spine was then prepped and draped in normal sterile fashion. The assistance of fluoroscopy identified the C4 vertebral body and a transverse incision was placed along the right anterior aspect of the cervical spine overlying this region. Sharp dissection with the assistance of bipolar electrocautery was performed down to and exposing the anterior cervical spine from C3-C5. Self-retaining retractors placed. Then performed a complete discectomy C3-4 out to the uncovertebral joints bilaterally followed by C4-5. [place] distracting pins were then placed in C3 and C5 distract across the see for vertebral body. A complete corpectomy was then performed including removal of all posterior annular fibers longitudinal ligament bilateral foraminotomies performed at each level. After addressing severe stenosis the endplates were burred to subcortical bleeding bone and a 27 mm peek cage filled with locally harvested morselized autograft and DBM tapped in position. Distraction apparatus was removed and a petit plate and screws applied with the assistance of fluoroscopy. The incision was then copiously irrigated explored to ensure no damage to surrounding structures remaining bleeding. A 10 round NATALIA drain inserted. Incision was then closed with 2 Vicryl in a fashion of 4 Monocryl for final skin closure. Steri-Strip sterile dressing was placed. Patient will continue PACU stable condition. Please note spinal cord monitoring was utilized that the procedure no changes noted. I attest to the content of the Intraoperative Record and any orders documented therein. Any exceptions are noted below.
[2018-11-23] MEDS ORDERED: DO NOT ADMINISTER PNEUMOCOCCAL VACCINE PRN (12:49)
[2018-11-23] MEDS ORDERED: TRAMADOL HCL 50 MG TABLET PO PRN (12:49)
[2018-11-23] MEDS ORDERED: FAMOTIDINE 20 MG TAB PO PRN (12:49)
[2018-11-23] MEDS ORDERED: LORazepam 0.5 MG TAB PO PRN (12:49)
[2018-11-23] MEDS ORDERED: SOD PHOSPHATE/SOD BIPHOSPHATE ENEMA 132 ML BTL PR PRN (12:49)
[2018-11-23] MEDS ORDERED: LORazepam 0.5 MG/1 ML VIAL IV PRN (12:49)
[2018-11-23] MEDS ORDERED: PROMETHAZINE HCL 12.5 MG in SODIUM CHLORIDE 0.9% 50 ML IV PRN (12:49)
[2018-11-23] MEDS ORDERED: MAGNESIUM HYDROXIDE SUSP 30 ML UDC PO PRN (12:49)
[2018-11-23] MEDS ORDERED: ACETAMINOPHEN 1,000 MG/100 ML VIAL IV PRN (12:49)
[2018-11-23] MEDS ORDERED: ACETAMINOPHEN 500 MG TAB PO PRN (12:49)
[2018-11-23] MEDS ORDERED: DEXAMETHASONE SOD PHOSPHATE 8 MG in SYRINGE 0 ML IV PRN (12:49)
[2018-11-23] MEDS ORDERED: ALUMINUM/MAGNESIUM SUSP 30 ML UDC PO PRN (12:49)
[2018-11-23] MEDS ORDERED: DO NOT ADMINISTER FLU VACCINE PRN (12:49)
[2018-11-23] MEDS ORDERED: METOCLOPRAMIDE HCL INJ 5 MG/ML 2 ML VIAL IV PRN (12:49)
[2018-11-23] MEDS ORDERED: RACEPINEPHRINE 2.25% NEBU SOLN 0.5 ML VIAL INH PRN (12:49)
[2018-11-23] MEDS ORDERED: HYDROmorphone INJ 0.5 MG/0.5 ML SYR IV PRN (12:49)
[2018-11-23] MEDS ORDERED: ONDANSETRON 4 MG TAB PO PRN (12:49)
[2018-11-23] MEDS ORDERED: DEXAMETHASONE SOD PHOSPHATE 6 MG in SYRINGE 0 ML IV SCH (13:00)
--- NOTE | 2018-11-23 13:41 | Fluoroscopy Report ---
FL cervical 2-3V CLINICAL HISTORY: ACDF C4 CORPECTOMY COMPARISON STUDY: None FLUOROSCOPY TIME: 8 seconds. NUMBER OF FLUOROSCOPIC IMAGES: 2 FINDINGS: 2 intraoperative fluoroscopic spot images reveal postsurgical changes of a C4 corpectomy wi th anterior metallic plate fixation. IMPRESSION: Intraoperative fluoroscopic spot images revealing postsurgical changes of a C4 corpectom y and anterior fixation. Electronically signed by: Clint Nava M.D. 11/23/2018 1:40 PM
[2018-11-23] MEDS ORDERED: NALOXONE HCL IV STA (14:36)
[2018-11-23] MEDS ORDERED: SODIUM CHLORIDE 0.9% IV STA (14:36)
[2018-11-23] MEDS: NALOXONE HCL 0.4 MG/1 ML VIAL/CARP IV PRN ×4 (14:39→14:57)
--- NOTE | 2018-11-23 15:14 | Pharmacy Report ---
Pharmacy Glycemic Short Note 2 - Date of Service November 23, 2018 - Glycemic Short BSG Results (Last 24 hours): 11/22/18 11/22/18 11/23/18 17:20 20:57 02:05 Glucose POC Glucose 208 H 263 H 30 L* 11/23/18 11/23/18 11/23/18 02:07 02:25 03:14 Glucose POC Glucose 30 L* 148 H 85 11/23/18 11/23/18 11/23/18 05:51 05:52 06:21 Glucose 73 POC Glucose 63 L* 65 L* 11/23/18 11/23/18 11/23/18 06:24 06:51 10:09 Glucose POC Glucose 62 L* 107 H 138 H 11/23/18 13:04 Glucose POC Glucose 143 H OUTPATIENT ANTIDIABETIC REGIMEN: * Actos 15mg PO daily ASSESSMENT: 11/23 * Patient received a total of 114 units of insulin yesterday; 60 units basal and 54 units bolus. * Overnight, patient was found unresponsive by nurse; 0200 BSG check was only 30. Patient was treated per hypoglycemia protocol and BSGs were upto 73 with AM labs. Unclear reason for this hypoglycemic episode since patient had been trending high all of yesterday. Yesterday, fasting BSG was at 145 and post- prandial BSGs all above 200. * Patient was ordered NPO after midnight for spine surgery this AM. BSGs have slowly trended up to 143 this afternoon. * Lantus dose was put on hold today AM and will be resumed at HS based on a scale. * Clear liquid diet ordered post-op; therefore CR loosened to 7 (based on weight and stress of 2). * Patient continues on Decadron 6 mg IV q6h, but he received an 8 mg IV dose in the OR today and did not get the noon dose of 6 mg. 11/22 * Mr. Penny received 78 units of insulin yesterday * 44 units of basal * 34 units of bolus * This is compared to the prior day in which he received 128 units of insulin * He remains on Decadron 6 mg IV q6h, with plans for OR tomorrow for a cervical corpectomy of C4 * Est TDD remains at ~100 units/day. His fasting BSG was elevated this AM due to a reduced dose of Lantus given last evening for BSG below ordered goal. * Will plan to add back the 6 units of missed Lantus this AM and then resume scheduled BID dosing tonight. Will adjust parameters to provide lower dose for NPO status tomorrow, but allow for full dose if BSGs remain elevated by this evening. Goal is for perioperative BSG control, with BSGs < 150 mg/dL. * Pre-lunch BSG today is artificially high, as AM Novolog not given until 0940 11/21 * 63yo T2DM male admitted with spinal stenosis. * Pt initiated on high dose IV steroids with dexamethasone 6mg IV Q6hrs --> severe steroid induced hyperglycemia now that diet resumed * Holding outpatient Actos for admission and using weight based, high stress SQ basal bolus insulin regimen for steroid induced hyperglycemia * Pt received 128 units of insulin over the past 24hrs * 70 units of Lantus + 58 units of NovoLog * BSGs ranging 76-321 mg/dl * AM fasting BSG = 157 mg/dl this morning, Lantus should be at steady state today since patient has received 4+ doses. Additional loading dose of Lantus given yesterday to help cover RTC dosing of DXM. No additional loading dose needed today, therefore, will continue with Lantus 26 units SQ BID * Expect total daily dose today to be ~ 100-120 units/day. * Lantus will need DC and NovoLog parameters adjusted if/when DXM DC. PLAN FOR INPATIENT GLYCEMIC CONTROL: * Continue to hold outpatient oral diabetes medications * Basal insulin * Lantus held this AM due to hypoglycemia. * Lantus HS per the following scale: * 12 units for BSG < 110 * 18 units for BSG 110 - 180 * 26 units for BSG > 180 * Bolus insulin - loosened CR, and add overnight check * NovoLog per scale ACHS or Q6hrs while NPO + 0200 check * Goal Range: Low 110 mg/dL - High 140 mg/dL * Correction Factor: 15 mg/dL/unit * Nutritional / Prandial insulin per carb ratio of 1 unit per 7 grams CHO consumed Discharge Recommendations: * Patient's A1c = 5.8% on 11/20/18 * However, this result is likely somewhat unreliable in ESRD patients d/t interactions between the A1c analyzing technique and high levels of urea in ESRD, reduced RBC life span, iron deficiency anemia, and EPO administration. HbA1c > 7.5% in ESRD patient may overestimate the extent of hyperglycemia in ESRD patients. * Recommend to continue oral agent on discharge, unless patient experiencing hypoglycemia as an outpatient
[2018-11-23 15:27] LABS: Base Excess ABG -9.2 mEq/L (-9-1.8); HCO3 ABG 19 mmol/L (19-24); PCO2 ABG 51 mmHg (35-46); PO2 ABG 62 mm/Hg (80-95)
--- NOTE | 2018-11-23 15:32 | Anesthesiology Progress Note ---
Date of Service November 23, 2018 Subjective Pt had prolonged recover in PACU. pt was not responding to stimuli and requirin g an oral airway for over an hour, Pt was breathing at 6 times a minute. pupils were dialated and sluggish. VSS. pt give four doses of narcan for a total of .16 of narcan. on the fourth dose, pt awoke and was responsive. pt has progressed in his responses to Physical Exam Vital Signs: Last Vital Signs Temp 36.3 C L 11/23/18 13:03 Pulse 58 L 11/23/18 15:20 Resp 16 11/23/18 15:20 BP 122/78 11/23/18 15:20 Pulse Ox 100 11/23/18 15:20 Results & Data Medications Administered Allopurinol (Zyloprim) 100 mg PO [facility] Stop: 12/19/18 20:59 Last Admin: 11/22/18 21:32 Dose: 100 mg Documented by: [id number] Admin: 11/21/18 21:13 Dose: 100 mg Documented by: [id number] Admin: 11/20/18 20:13 Dose: 100 mg Documented by: [id number] Admin: 11/19/18 21:32 Dose: 100 mg Documented by: [id number] Baclofen (Lioresal) 10 mg PO TID PRN PRN Reason: spasm Stop: 12/19/18 19:51 Last Admin: 11/23/18 04:06 Dose: 10 mg Documented by: [id number] Admin: 11/22/18 21:36 Dose: 10 mg Documented by: [id number] Admin: 11/22/18 03:43 Dose: 10 mg Documented by: [id number] Admin: 11/21/18 21:46 Dose: 10 mg Documented by: [id number] Admin: 11/20/18 23:05 Dose: 10 mg Documented by: [id number] Admin: 11/20/18 00:00 Dose: 10 mg Documented by: [id number] Cyanocobalamin (Vitamin B-12) 5,000 mcg SL [facility] Stop: 12/19/18 20:59 Last Admin: 11/22/18 21:35 Dose: 5,000 mcg Documented by: [id number] Admin: 11/21/18 21:13 Dose: 5,000 mcg Documented by: [id number] Admin: 11/20/18 20:13 Dose: 5,000 mcg Documented by: [id number] Admin: 11/19/18 21:34 Dose: 5,000 mcg Documented by: [id number] Dextrose (Dextrose 50%) 25 - 50 ml IV UD PRN; Protocol PRN Reason: Hypoglycemia Protocol Stop: 12/19/18 20:44 Last Admin: 11/23/18 06:30 Dose: 25 ml Documented by: [id number] Admin: 11/23/18 02:10 Dose: 50 ml Documented by: [id number] Ferrous Sulfate (Feosol) 325 mg PO [facility] Stop: 12/19/18 20:59 Last Admin: 11/22/18 21:32 Dose: 325 mg Documented by: [id number] Admin: 11/21/18 21:11 Dose: 325 mg Documented by: [id number] Admin: 11/20/18 20:15 Dose: 325 mg Documented by: [id number] Admin: 11/19/18 21:34 Dose: 325 mg Documented by: [id number] Fish Oil (Grampian-3 (Purified Fish Oil)) 1 gm PO [facility] Stop: 12/19/18 20:59 Last Admin: 11/22/18 21:34 Dose: 1 gm Documented by: [id number] Admin: 11/21/18 21:12 Dose: 1 gm Documented by: [id number] Admin: 11/20/18 20:14 Dose: 1 gm Documented by: [id number] Admin: 11/19/18 21:33 Dose: 1 gm Documented by: [id number] Folic Acid (Folvite) 1 mg PO [facility] Stop: 12/19/18 20:59 Last Admin: 11/22/18 21:33 Dose: 1 mg Documented by: [id number] Admin: 11/21/18 21:11 Dose: 1 mg Documented by: [id number] Admin: 11/20/18 20:14 Dose: 1 mg Documented by: [id number] Admin: 11/19/18 21:32 Dose: 1 mg Documented by: [id number] Furosemide (Lasix) 40 mg PO [facility] Stop: 12/19/18 20:59 Last Admin: 11/22/18 21:34 Dose: 40 mg Documented by: [id number] Admin: 11/21/18 21:11 Dose: 40 mg Documented by: [id number] Admin: 11/20/18 20:14 Dose: 40 mg Documented by: [id number] Admin: 11/19/18 21:38 Dose: 40 mg Documented by: [id number] Glucose (Glucose 40%) 15 - 30 gm PO UD PRN; Protocol PRN Reason: Hypoglycemia Protocol Stop: 12/19/18 20:44 Last Admin: 11/23/18 06:03 Dose: 15 gm Documented by: [id number] Dexamethasone Sodium Phosphate (6 mg/ Syringe) 1.5 mls @ 1 mls/min IV Q6 [facility] Stop: 12/20/18 00:00 Last Admin: 11/23/18 06:03 Dose: 1 mls/min Documented by: [id number] Admin: 11/23/18 00:02 Dose: 1 mls/min Documented by: [id number] Admin: 11/22/18 18:42 Dose: 1 mls/min Documented by: [id number] Admin: 11/22/18 12:23 Dose: 1 mls/min Documented by: [id number] Admin: 11/22/18 05:52 Dose: 1 mls/min Documented by: [id number] Admin: 11/21/18 23:36 Dose: 1 mls/min Documented by: [id number] Admin: 11/21/18 18:42 Dose: 1 mls/min Documented by: [id number] Admin: 11/21/18 12:52 Dose: 1 mls/min Documented by: [id number] Admin: 11/21/18 06:23 Dose: 1 mls/min Documented by: [id number] Admin: 11/21/18 00:50 Dose: 1 mls/min Documented by: [id number] Admin: 11/20/18 17:26 Dose: 1 mls/min Documented by: [id number] Admin: 11/20/18 12:26 Dose: 1 mls/min Documented by: [id number] Admin: 11/20/18 06:34 Dose: 1 mls/min Documented by: [id number] Admin: 11/20/18 00:55 Dose: 1 mls/min Documented by: [id number] Potassium Chloride/Dextrose/Sod Cl (D5nss + 20meq Kcl) 20 meq in 1,000 mls @ 100 mls/hr IV .Q10H [facility] Stop: 11/24/18 03:59 Last Admin: 11/23/18 04:01 Dose: 100 mls/hr Documented by: [id number] Magnesium Oxide (Mag-Ox) 400 mg PO HS [facility] Stop: 12/19/18 20:59 Last Admin: 11/22/18 21:34 Dose: 400 mg Documented by: [id number] Admin: 11/21/18 21:11 Dose: 400 mg Documented by: [id number] Admin: 11/20/18 20:13 Dose: 400 mg Documented by: [id number] Admin: 11/19/18 21:32 Dose: 400 mg Documented by: [id number] Naloxone HCl (Narcan) 0.1 mg IV Q5M PRN PRN Reason: Oversedation/respiratory dep Stop: 12/23/18 12:48 Last Admin: 11/23/18 14:57 Dose: 0.04 mg Documented by: [id number] Admin: 11/23/18 14:47 Dose: 0.04 mg Documented by: [id number] Admin: 11/23/18 14:43 Dose: 0.04 mg Documented by: [id number] Admin: 11/23/18 14:39 Dose: 0.04 mg Documented by: [id number] Nebivolol (Bystolic) 10 mg PO [facility] Stop: 12/19/18 20:59 Last Admin: 11/22/18 21:32 Dose: 10 mg Documented by: [id number] Admin: 11/21/18 21:10 Dose: 10 mg Documented by: [id number] Admin: 11/20/18 20:15 Dose: 10 mg Documented by: [id number] Admin: 11/19/18 21:34 Dose: 10 mg Documented by: [id number] Nifedipine (Procardia Xl) 30 mg PO [facility] Stop: 12/19/18 20:59 Last Admin: 11/22/18 21:35 Dose: 30 mg Documented by: [id number] Admin: 11/21/18 21:12 Dose: 30 mg Documented by: [id number] Admin: 11/20/18 20:14 Dose: 30 mg Documented by: [id number] Admin: 11/19/18 21:32 Dose: 30 mg Documented by: [id number] Oxycodone/Acetaminophen (Percocet 5mg/325mg) 1 tab PO Q4H PRN PRN Reason: Pain Stop: 12/03/18 19:51 Last Admin: 11/23/18 04:06 Dose: 1 tab Documented by: [id number] Admin: 11/22/18 21:36 Dose: 1 tab Documented by: [id number] Admin: 11/22/18 03:43 Dose: 1 tab Documented by: [id number] Admin: 11/21/18 21:13 Dose: 1 tab Documented by: [id number] Admin: 11/20/18 23:05 Dose: 1 tab Documented by: [id number] Admin: 11/20/18 00:00 Dose: 1 tab Documented by: [id number] Thiamine HCl (Vitamin B-1) 100 mg PO HS [facility] Stop: 12/19/18 20:59 Last Admin: 11/22/18 21:35 Dose: 100 mg Documented by: [id number] Admin: 11/21/18 21:13 Dose: 100 mg Documented by: [id number] Admin: 11/20/18 20:13 Dose: 100 mg Documented by: [id number] Admin: 11/19/18 21:33 Dose: 100 mg Documented by: [id number] Vitamin B Complex (Vitamin B Complex) 1 tab PO HS [facility] Stop: 12/19/18 20:59 Last Admin: 11/22/18 21:35 Dose: 1 tab Documented by: [id number] Admin: 11/21/18 21:12 Dose: 1 tab Documented by: [id number] Admin: 11/20/18 20:14 Dose: 1 tab Documented by: [id number] Admin: 11/19/18 21:34 Dose: 1 tab Documented by: [id number] Zinc Sulfate (Zinc Sulfate) 220 mg PO HS [facility] Stop: 12/19/18 20:59 Last Admin: 11/22/18 21:35 Dose: 220 mg Documented by: [id number] Admin: 11/21/18 21:13 Dose: 220 mg Documented by: [id number] Admin: 11/20/18 20:13 Dose: 220 mg Documented by: [id number] Admin: 11/19/18 21:33 Dose: 220 mg Documented by: [id number]
[2018-11-23 15:35] LABS: Allen Test POS (Pos); pH ABG 7.19 (7.35-7.45)
--- NOTE | 2018-11-23 15:36 | Anesthesiology Progress Note ---
Date of Service November 23, 2018 Anesthesia Post Procedure Vital Signs Vital Signs: Temp Pulse Pulse Resp BP Pulse Ox 11/23/18 15:20 58 L 16 122/78 100 11/23/18 15:10 55 L 16 127/77 100 11/23/18 15:00 71 15 111/77 98 11/23/18 14:50 59 L 14 117/63 96 11/23/18 14:40 59 L 14 113/61 97 11/23/18 14:30 54 L 14 105/56 L 99 11/23/18 14:20 53 L 14 109/57 L 99 11/23/18 14:10 55 L 14 104/55 L 95 11/23/18 14:00 54 L 15 105/56 L 95 11/23/18 13:50 53 L 15 108/50 L 96 11/23/18 13:40 52 L 15 100/52 L 94 11/23/18 13:30 52 L 15 101/52 L 93 11/23/18 13:20 52 L 14 102/55 L 94 11/23/18 13:10 51 L 12 113/61 94 11/23/18 13:03 36.3 C L 56 L 12 120/71 95 11/23/18 10:34 36.6 C 50 L 20 131/83 100 11/23/18 08:06 36.3 C L 48 L 18 153/85 H 100 11/23/18 00:07 36.5 C 51 L 16 124/75 100 Pain Intensity Neck: Pain Intensity: 6 Bilateral Foot: Pain Intensity: 6 Transfer of Care Handoff Completed per policy Notes Mental Status: alert / awake / arousable, participated in evaluation and see notes below Patient Amnestic to Procedure: Yes Nausea / Vomiting: adequately controlled Pain: adequately controlled Airway Patency, RR, SpO2: stable & adequate BP & HR: stable & adequate Hydration State: stable & adequate Anesthetic Complications: no major complications apparent and Pt Satisfied with anesthetic care Notes: pt had prolonged sedation in pacu. he required narcan four doses for a total of .16 mg. pt is alert an answering questions. pt can feel every extremity. Blood gas revealed elevated CO2. pt was CO2 narcosis. pt ok to go to floor
[2018-11-23] MEDS: LACTATED RINGER'S 1,000 ML IV SCH ×2 (18:56→22:12)
[2018-11-23 19:54] LABS: Base Excess VBG -7.9 mEq/L; Oxygen Saturation VBG 95.7 %; pH VBG 7.26 (7.36-7.41)
[2018-11-23 20:01] LABS: Hematocrit (blood only) 30.9 % (42-52); Hemoglobin 10.3 g/dL (14.0-18.0); Mean Corpuscular Hemoglobin 32.8 pg (25-34); Mean Corpuscular Hgb Conc 33.3 g/dL (32-36); Mean Corpuscular Volume 98.4 fL (80-100); Mean Platelet Volume 10.7 fL (7.4-10.4); Platelet Count 130 K/uL (130-400); RDW Coefficient of Variation 15.1 % (11.5-14.5); RDW Standard Deviation 54.1 fL (36.4-46.3); Red Blood Count 3.14 M/uL (4.7-6.1); White Blood Count 13.01 K/uL (4.8-10.8)
[2018-11-23 20:06] LABS: BUN Creatinine Ratio 26.5 (10-20); Calcium 8.1 mg/dl (8.5-10.1); Creatinine Clr Calc Pharmacy 39.2 ml/min; Magnesium 1.8 mg/dl (1.8-2.4); Potassium 4.8 mmol/L (3.5-5.1)
[2018-11-23] MEDS: CEFAZOLIN 2000MG 2,000 MG/15 ML SYR IV SCH (20:15)
[2018-11-23] MEDS ORDERED: SODIUM CHLORIDE 0.9% 1000ML 500 ML IV ONE (20:15)
[2018-11-23] MEDS ORDERED: GABAPENTIN 600 MG TAB PO SCH (20:51)
[2018-11-23] MEDS ORDERED: INSULIN GLARGINE SOLOSTAR 100 UNITS/ML 3 ML PEN SC SCH (21:00)
[2018-11-23 22:38] LABS: Oxygen Saturation VBG 87.3 %; pH VBG 7.33 (7.36-7.41)
[2018-11-23] MEDS: FUROSEMIDE 40 MG TAB PO SCH (22:50)
[2018-11-23] MEDS: NIFEdipine EXTENDED REL 30 MG TABCR PO SCH (22:50)
[2018-11-23] MEDS: NEBIVOLOL HCL 5 MG TAB PO SCH (22:51)
[2018-11-23] MEDS: DOCUSATE SODIUM/SENNA 50/8.6MG TAB PO SCH (22:56)
[2018-11-23] MEDS: ZINC SULFATE 220 MG CAPSULE PO SCH (22:56)
[2018-11-23] MEDS: allopurinoL 100 MG TAB PO SCH (22:56)
[2018-11-23] MEDS: VITAMIN B COMPLEX TAB PO SCH (22:57)
[2018-11-23] MEDS: CYANOCOBALAMIN (VITAMIN B-12) 2,500 MCG TAB.SUBL SL SCH (22:57)
[2018-11-23] MEDS: OMEGA-3 (PURIFIED FISH OIL) 1 GM CAP PO SCH (22:57)
[2018-11-23] MEDS: THIAMINE HCL 100 MG TAB PO SCH (22:58)
[2018-11-23] MEDS: FOLIC ACID 1 MG TAB PO SCH (22:58)
[2018-11-23] MEDS: FERROUS SULFATE 325 MG TAB PO SCH (22:58)
[2018-11-23] MEDS: MAGNESIUM OXIDE 400 MG TAB PO SCH (22:58)
[2018-11-24] MEDS ORDERED: INSULIN ASPART 100 UNITS/ML 3 ML PEN SC SCH (02:00)
[2018-11-24] MEDS: CEFAZOLIN 2000MG 2,000 MG/15 ML SYR IV SCH (03:00)
[2018-11-24 06:23] LABS: Eosinophils # (auto) 0.01 K/uL (0-0.5); Eosinophils % (auto) 0.1 %; Hematocrit (blood only) 31.3 % (42-52); Hemoglobin 10.3 g/dL (14.0-18.0); Immature Granulocytes # (auto) 0.02 K/uL (0.00-0.02); Immature Granulocytes % (auto) 0.2 %; Lymphocytes # (auto) 1.03 K/uL (1.2-3.4); Mean Corpuscular Hemoglobin 32.4 pg (25-34); Mean Corpuscular Hgb Conc 32.9 g/dL (32-36); Mean Corpuscular Volume 98.4 fL (80-100); Mean Platelet Volume 10.5 fL (7.4-10.4); Monocytes # (auto) 1.28 K/uL (0.11-0.59); Monocytes % (auto) 11.2 %; Neutrophils # (auto) 9.08 K/uL (1.4-6.5); Neutrophils % (auto) 79.5 %; Platelet Count 107 K/uL (130-400); RDW Coefficient of Variation 15.2 % (11.5-14.5); RDW Standard Deviation 54.6 fL (36.4-46.3); Red Blood Count 3.18 M/uL (4.7-6.1); White Blood Count 11.42 K/uL (4.8-10.8)
[2018-11-24 06:31] LABS: INR 1.1 (0.9-1.1); Prothrombin Time 10.9 Seconds (9.0-12.0)
[2018-11-24 07:01] LABS: BUN Creatinine Ratio 24.2 (10-20); Bilirubin Direct 0.2 mg/dl (0-0.2); Creatinine Clr Calc Pharmacy 32.4 ml/min; Est GFR (Non-African American) 24.2; Magnesium 1.9 mg/dl (1.8-2.4); Potassium 4.1 mmol/L (3.5-5.1)
[2018-11-24 07:03] LABS: Bilirubin,Total 0.3 mg/dl (0.2-1); Total Protein 6.7 gm/dl (6.4-8.2)
[2018-11-24] MEDS: INSULIN ASPART 100 UNITS/ML 3 ML PEN SC SCH ×4 (08:56→20:47)
[2018-11-24] MEDS: OXYCODONE HCL IR 5 MG TAB (IMMEDIATE RELEASE) PO PRN ×2 (09:06→23:33)
[2018-11-24] MEDS: POLYETHYLENE (MIRALAX) 17 GM PACK PO SCH ×3 (09:07→23:28)
--- NOTE | 2018-11-24 09:16 | Orthopedic Progress Note ---
Date of Service November 24, 2018 Assessment & Plan (1) Cervical spinal stenosis: Patient's leg symptoms could very much be due to his significant spinal stenosis in the lumbar region. Very pleased with the progress of his upper extremities. We will allow him to remove the collar when eating. I encouraged him to get to the chair as much as possible and will initiate occupational and physical therapy today. Hopefully he will be able to get to the orthopedic floor when medically stable. Present on Admission?: Yes Subjective Patient feels his arm symptoms are improved. Describing continued numbness and tingling to the bilateral lower extremities. He feels he is swallowing well. He does has no hoarseness. Physical Exam Physical Exam: On exam he is in bed. He has improved strength testing upper extremities. He appears comfortable. Results & Data Vital Signs (Past 12 Hours) Vital Signs Temp Pulse Pulse Resp BP BP Pulse Ox 11/24/18 08:00 36.2 C L 53 L 19 135/76 98 11/24/18 07:23 54 L 16 100 11/24/18 05:19 36.6 C 57 L 18 125/63 100 11/24/18 03:46 36.6 C 61 20 119/69 98 11/24/18 03:00 64 18 96 11/24/18 01:30 36.5 C 64 20 125/62 100 11/24/18 00:05 67 11/23/18 23:19 36.4 C L 51 L 18 123/75 100 11/23/18 23:10 63 16 100 11/23/18 21:19 36.5 C 83 16 138/80 100
--- NOTE | 2018-11-24 11:50 | Hospitalist Progress Note ---
Date of Service November 24, 2018 Assessment & Plan (1) Cervical spinal stenosis: * POD #1 s/p C4 corpectomy with Dr. Gutierres- MRI with evidence of sever spinal stenosis with cord edema at C4 on admission--> patient with extended length of anesthesia, Narcan x 4, ABG with evidence of CO2 narcosis related to prolonged anesthesia/procedure. EBL 50cc. Improving turning machine set up operator strength UE bilaterally. Improved sensation in digits 3-5, and increased ROM b/l UE * Telemetry transfer last night for metabolic acidosis, lethargic after procedure- abg * telemetry unremarkable overnight/today- NSR 50-70s * BPs borderline last evening- evening bystolic, nifedipine and lasix were held * Patient with WILLIAM this morning- CKD IV- Nephrology consult- appreciate input- patient with hx prerenal azotemia * Weight increase 8lb since yesterday- patient without dyspnea, increased extremity edema - patient weighed in bed on third floor, ?accuracy, also- output decreased recorded, however not consistently measured * Decadron 6mg IV q6 * Post-op and pain management per ortho * Patient to be transferred back to Med/Surg this afternoon (2) [id number] kidney injury: * WILLIAM following surgery- creatinine now increased to 2.97 * Patient sees Dr. Murphy as an outpatient for CKD IV, GFR typically ~33-40 at baseline, currently 28.0 on morning labs--> consult Nephrology- appreciate input * Avoid nephrotoxic agents, and monitor daily creatinine and GFR. Renally dose medications * Urine studies pending- UA, Urine Osm, Urine Na * Repeat chemistry in AM to continue to monitor (3) Metabolic acidosis: * Upon re-evaluation after surgery evening of 11/23, patient hypothemic- improved with bear hugger. Patient continuing to be lethargic, borderline hypotensive, with periods of apnea. Patient with CO2 narcosis post- operatively, with pCO2 elevated at 51 on ABG in PACU. Received Narcan x 4. Per conversation last evening with Dr. Gutierres, patient able to be placed on BiPAP if deemed necessary s/p ACDF. * Patient transferred to Telemetry for monitoring last evening (11/23) * Stat vBG, BMP, CBC, Mag - pH 7.26, pCO2 42, pO2 85, O2 sat 95.7, hemoglobin 12-->10.3, chloride 109, creat bumped from 1.97 to 2.17, Mag 1.8. 500cc bolus given for borderline BP. Lasix, BP meds held last night. * Repeat VBG improved- pH 7.33, pCO2 36, HCO3 18---> patient did not end up needing to be placed on BiPAP * Lactic 1.8- could possibly have been elevated prior and trending down * Labs this morning with WILLIAM- Creat increased to 2.97 * Will continue to monitor labs in AM (4) Lumbar spinal stenosis: * Neuropathy in feet, difficulty walking due to the numbness. * Continue Decadron IV * Vitamin B12 level is > 2000 * No immediate needs for lumbar surgery at this time, C4 level is priority at this time. * Still has significant deficits- may be permanent at this point (5) Chronic renal insufficiency, stage IV (severe): * See above * Baseline GFR over the past year between 32-42 * Nephrology Consult- appreciate input (6) Upper extremity weakness: * Improving strength and ROM * See above- due to C4 spinal stenosis (7) Alcohol withdrawal: * Stable * Patient drinks 1 liter of hard liquor a day * Neurontin loading dose and taper ordered- 600mg BID initially--> transitioned to 600mg Q24 on 11/23- continued at this time * Ativan 0.5mg PO PRN for anxiety/agitation * Patient is doing well thus far, no signs of severe withdrawal, no DT's- mental status is clear, without agitation * Patient with increasing tingling/numbness b/l LE-- due to acute kidney injury, patient will remain on daily vs BID dosing at this time (8) Extremity numbness: * As above (9) Pancytopenia: * Stable- most likely due to alcohol abuse * monitor daily * on folate and thiamine * WBC 11.42, Hb 10.3, platelets 108 * WBC elevated likely from Decadron 6mg IV Q6 (10) Diabetes: * Well controlled as outpatient, however patient with CKD- most recent A1c this admission of 5.8 * Close monitoring of sugars given Decadron--> glycemic control per pharmacy (11) Hypomagnesemia: * Resolved * Mag 1.7 on admission 11/19. Replaced and repeat mag 1.9 on 11/20 * Repeat mag wnl (12) DVT prophylaxis: Thigh SCDs Supervising Physician Co-Signing Physician Notes Attending Attestation: Pt seen/examined, chart reviewed, care plan d/w KANDACE Moreland. I agree w/ the adan components of her documentation. Patient doing MUCH better today. Awake, alert, no dyspnea/cough/chest pain/abd pain. Tele stable overnight. Has improved strength in arms today. VSS, afebrile gen - obese, a/o x 3 neck - in c-collar heart - RRR, s1 s2, no murmur lungs - CTA b/l abd - soft ext - no edema neuro - b/l arm abduction modestly improved from preop exams; ankle dorsiflexion/plantarflexion also improved Cr now 2.67 A/P: 1. toxic/metabolic encephalopathy - resolved. 2. acute hypoxic and hypercarbic post-op pulmonary insufficiency - multifactorial - resolved with BIPAP overnight. 3. C4 cervical spine stenosis with myelopathy - POD #1, s/p C4 corpectomy - management per Dr Gutierres. 4. metabolic acidosis - resolved. 5. hypotension - resolved. 6. h/o alcohol abuse - no evidence of DTs. 7. obesity with BMI >35 8. acute kidney injury in setting of CKD stage 3 - agree with nephrology consultation. supportive care. avoid nephrotoxic agents. serial BMPs. Nelson Rodrigues MD Subjective Patient evaluated this morning at bedside. Concerns regarding not receiving all of his medication last night, as nifedipine, nebivolol and lasix were held last night for hypotension. Denies any difficulty swallowing. Tolerating diet. No BM today, however had one with colace Thursday. No abdominal pain. Passing flatus. Did have some yellow sputum production this morning, which is new since his hospitalization. Still having pain in bilateral lower extremities, described as "it feels like I'm wearing a glove and you're touching the outside." Denies any difficulty breathing, shortness of breath, chest pain, dizziness, fever, chills, dysuria, n/v/d. Review of Systems Review of Systems: All systems reviewed & are unremarkable except as noted in HPI & below Eyes: no diplopia and no eye pain Respiratory: + change in sputum (yellow); no cough and no wheezing Cardiovascular: no chest pain, no dyspnea on exertion, no palpitations and no edema Gastrointestinal: no abdominal pain, no nausea, no vomiting and no constipation Genitourinary: no dysuria, no urinary frequency and no hematuria Neurologic: + gait abnormality, + unsteadiness, + generalized weakness and + numbness (feet and legs bilaterally, more pronounced on the right side); no headache(s) and no confusion ROM improved UE bilaterally. Shoulder abduction and flexion to ninety degrees. [employer]icer [employer] strength improved bilaterally. Decreased strength bilateral LE, dorsiflexion/plantar flexion, decreased sensation to sharp, pressure. Psychiatric: + substance abuse (alcohol) Physical Exam Constitutional: WD/WN, vitals as above well developed Eyes: PERRL, conjunctivae normal, anicteric sclerae ENMT: external ear and nose normal, oropharynx normal Neck: trachea midline, no thyromegaly Respiratory: normal respiratory effort, lungs clear to auscultation Cardiovascular: RRR, no murmur, no edema Rate/Rhythm: + bradycardic Heart Sounds: normal S1 and normal S2 Vessels: no JVD Gastrointestinal (Abdomen): normal bowel sounds, soft, nontender, no hepatosplenomegaly Inspection/Auscultation: abdomen normal to inspection and + hypoactive bowel sounds Musculoskeletal: no cyanosis or clubbing, extremities motor strength 5/5 Skin: no rashes, warm and dry Neurologic: PERRL, EOMI, accommodation nl, no face palsy, no dysarthria CN's II-XI intact bilaterally, deep tendon reflexes 2+ bilaterally and moves all extremities; no focal motor deficits Motor/Sensory: + sensory deficit (decreased sensation in feet, lower legs. ) Psychiatric: A+Ox3, euthymic affect Lymphatic: no cervical or axillary lymphadenopathy Results & Data Vital Signs (Past 12 Hours) Vital Signs Temp Pulse Pulse Resp BP Pulse Ox 11/24/18 10:57 54 L 16 100 11/24/18 10:22 36.5 C 56 L 18 127/68 100 11/24/18 10:11 55 L 11/24/18 08:00 36.2 C L 53 L 19 135/76 98 11/24/18 07:23 54 L 16 100 11/24/18 05:19 36.6 C 57 L 18 125/63 100 11/24/18 03:46 36.6 C 61 20 119/69 98 11/24/18 03:00 64 18 96 11/24/18 01:30 36.5 C 64 20 125/62 100 11/24/18 00:05 67 Laboratory Results 11/24/18 11/24/18 11/24/18 Range/Units 11:28 07:28 05:52 WBC 11.42 H (4.8-10.8) K/uL RBC 3.18 L (4.7-6.1) M/uL Hgb 10.3 L (14.0-18.0) g/dL Hct 31.3 L (42-52) % MCV 98.4 (80-100) fL MCH 32.4 (25-34) pg MCHC 32.9 (32-36) g/dL RDW Std Deviation 54.6 H (36.4-46.3) fL RDW Coeff of Clyde 15.2 H (11.5-14.5) % Plt Count 107 L (130-400) K/uL MPV 10.5 H (7.4-10.4) fL Immature Gran % (Auto) 0.2 % Neut % (Auto) 79.5 % Lymph % (Auto) 9.0 % [place] % (Auto) 11.2 % Eos % (Auto) 0.1 % Baso % (Auto) 0.0 % Immature Gran # (Auto) 0.02 (0.00-0.02) K/uL Neut # (Auto) 9.08 H (1.4-6.5) K/uL Lymph # (Auto) 1.03 L (1.2-3.4) K/uL [place] # (Auto) 1.28 H (0.11-0.59) K/uL Eos # (Auto) 0.01 (0-0.5) K/uL Baso # (Auto) 0.00 (0-0.2) K/uL PT (9.0-12.0) Seconds INR (0.9-1.1) ABG pH (7.35-7.45) ABG pCO2 (35-46) mmHg ABG pO2 (80-95) mm/Hg ABG HCO3 (19-24) mmol/L ABG O2 Saturation (90-95) % ABG Base Excess (-9-1.8) mEq/L Frank Test (Pos) VBG pH (7.36-7.41) VBG pCO2 (38-50) mmHg VBG pO2 mmHg VBG HCO3 mmol/L VBG O2 Saturation % VBG Base Excess mEq/L Barometric Pressure mm/Hg Oxygen Given Sodium (136-145) mmol/L Potassium (3.5-5.1) mmol/L Chloride (98-107) mmol/L Carbon Dioxide (21-32) mmol/L Anion Gap (3-11) BUN (7-18) mg/dl Creatinine (0.6-1.4) mg/dl Est Cr Clr Drug Dosing ml/min Est GFR ( Amer) Est GFR (Non-Af Amer) BUN/Creatinine Ratio (10-20) Glucose (70-99) mg/dl POC Glucose 92 73 (70-99) Lactate (0.4-2.0) mmol/L Calcium (8.5-10.1) mg/dl Magnesium (1.8-2.4) mg/dl Total Bilirubin (0.2-1) mg/dl Direct Bilirubin (0-0.2) mg/dl AST (15-37) U/L ALT (12-78) U/L Alkaline Phosphatase (45-117) U/L Total Protein (6.4-8.2) gm/dl Albumin (3.4-5.0) gm/dl 11/24/18 11/24/18 11/24/18 Range/Units 05:52 05:52 01:54 WBC (4.8-10.8) K/uL RBC (4.7-6.1) M/uL Hgb (14.0-18.0) g/dL Hct (42-52) % MCV (80-100) fL MCH (25-34) pg MCHC (32-36) g/dL RDW Std Deviation (36.4-46.3) fL RDW Coeff of Clyde (11.5-14.5) % Plt Count (130-400) K/uL MPV (7.4-10.4) fL Immature Gran % (Auto) % Neut % (Auto) % Lymph % (Auto) % [place] % (Auto) % Eos % (Auto) % Baso % (Auto) % Immature Gran # (Auto) (0.00-0.02) K/uL Neut # (Auto) (1.4-6.5) K/uL Lymph # (Auto) (1.2-3.4) K/uL [place] # (Auto) (0.11-0.59) K/uL Eos # (Auto) (0-0.5) K/uL Baso # (Auto) (0-0.2) K/uL PT 10.9 (9.0-12.0) Seconds INR 1.1 (0.9-1.1) ABG pH (7.35-7.45) ABG pCO2 (35-46) mmHg ABG pO2 (80-95) mm/Hg ABG HCO3 (19-24) mmol/L ABG O2 Saturation (90-95) % ABG Base Excess (-9-1.8) mEq/L Frank Test (Pos) VBG pH (7.36-7.41) VBG pCO2 (38-50) mmHg VBG pO2 mmHg VBG HCO3 mmol/L VBG O2 Saturation % VBG Base Excess mEq/L Barometric Pressure mm/Hg Oxygen Given Sodium 138 (136-145) mmol/L Potassium 4.1 (3.5-5.1) mmol/L Chloride 109 H (98-107) mmol/L Carbon Dioxide 18 L (21-32) mmol/L Anion Gap 10.0 (3-11) BUN 65 H (7-18) mg/dl Creatinine 2.67 H D (0.6-1.4) mg/dl Est Cr Clr Drug Dosing 32.4 ml/min Est GFR ( Amer) 28.0 Est GFR (Non-Af Amer) 24.2 BUN/Creatinine Ratio 24.2 H (10-20) Glucose 108 H (70-99) mg/dl POC Glucose 95 (70-99) Lactate (0.4-2.0) mmol/L Calcium 8.0 L (8.5-10.1) mg/dl Magnesium 1.9 (1.8-2.4) mg/dl Total Bilirubin 0.3 (0.2-1) mg/dl Direct Bilirubin 0.2 (0-0.2) mg/dl AST 59 H (15-37) U/L ALT 52 (12-78) U/L Alkaline Phosphatase 91 (45-117) U/L Total Protein 6.7 (6.4-8.2) gm/dl Albumin 3.0 L (3.4-5.0) gm/dl 11/23/18 11/23/18 11/23/18 Range/Units 22:28 22:16 20:30 WBC (4.8-10.8) K/uL RBC (4.7-6.1) M/uL Hgb (14.0-18.0) g/dL Hct (42-52) % MCV (80-100) fL MCH (25-34) pg MCHC (32-36) g/dL RDW Std Deviation (36.4-46.3) fL RDW Coeff of Clyde (11.5-14.5) % Plt Count (130-400) K/uL MPV (7.4-10.4) fL Immature Gran % (Auto) % Neut % (Auto) % Lymph % (Auto) % [place] % (Auto) % Eos % (Auto) % Baso % (Auto) % Immature Gran # (Auto) (0.00-0.02) K/uL Neut # (Auto) (1.4-6.5) K/uL Lymph # (Auto) (1.2-3.4) K/uL [place] # (Auto) (0.11-0.59) K/uL Eos # (Auto) (0-0.5) K/uL Baso # (Auto) (0-0.2) K/uL PT (9.0-12.0) Seconds INR (0.9-1.1) ABG pH (7.35-7.45) ABG pCO2 (35-46) mmHg ABG pO2 (80-95) mm/Hg ABG HCO3 (19-24) mmol/L ABG O2 Saturation (90-95) % ABG Base Excess (-9-1.8) mEq/L Frank Test (Pos) VBG pH 7.33 L (7.36-7.41) VBG pCO2 36 L (38-50) mmHg VBG pO2 54 mmHg VBG HCO3 18 mmol/L VBG O2 Saturation 87.3 % VBG Base Excess -7.0 mEq/L Barometric Pressure 738.3 mm/Hg Oxygen Given Sodium (136-145) mmol/L Potassium (3.5-5.1) mmol/L Chloride (98-107) mmol/L Carbon Dioxide (21-32) mmol/L Anion Gap (3-11) BUN (7-18) mg/dl Creatinine (0.6-1.4) mg/dl Est Cr Clr Drug Dosing ml/min Est GFR ( Amer) Est GFR (Non-Af Amer) BUN/Creatinine Ratio (10-20) Glucose (70-99) mg/dl POC Glucose 164 H (70-99) Lactate 1.8 (0.4-2.0) mmol/L Calcium (8.5-10.1) mg/dl Magnesium (1.8-2.4) mg/dl Total Bilirubin (0.2-1) mg/dl Direct Bilirubin (0-0.2) mg/dl AST (15-37) U/L ALT (12-78) U/L Alkaline Phosphatase (45-117) U/L Total Protein (6.4-8.2) gm/dl Albumin (3.4-5.0) gm/dl 11/23/18 11/23/18 11/23/18 Range/Units 19:35 19:35 19:35 WBC 13.01 H (4.8-10.8) K/uL RBC 3.14 L (4.7-6.1) M/uL Hgb 10.3 L (14.0-18.0) g/dL Hct 30.9 L (42-52) % MCV 98.4 (80-100) fL MCH 32.8 (25-34) pg MCHC 33.3 (32-36) g/dL RDW Std Deviation 54.1 H (36.4-46.3) fL RDW Coeff of Clyde 15.1 H (11.5-14.5) % Plt Count 130 (130-400) K/uL MPV 10.7 H (7.4-10.4) fL Immature Gran % (Auto) % Neut % (Auto) % Lymph % (Auto) % [place] % (Auto) % Eos % (Auto) % Baso % (Auto) % Immature Gran # (Auto) (0.00-0.02) K/uL Neut # (Auto) (1.4-6.5) K/uL Lymph # (Auto) (1.2-3.4) K/uL [place] # (Auto) (0.11-0.59) K/uL Eos # (Auto) (0-0.5) K/uL Baso # (Auto) (0-0.2) K/uL PT (9.0-12.0) Seconds INR (0.9-1.1) ABG pH (7.35-7.45) ABG pCO2 (35-46) mmHg ABG pO2 (80-95) mm/Hg ABG HCO3 (19-24) mmol/L ABG O2 Saturation (90-95) % ABG Base Excess (-9-1.8) mEq/L Frank Test (Pos) VBG pH 7.26 L (7.36-7.41) VBG pCO2 42 (38-50) mmHg VBG pO2 85 mmHg VBG HCO3 19 mmol/L VBG O2 Saturation 95.7 % VBG Base Excess -7.9 mEq/L Barometric Pressure 737.8 mm/Hg Oxygen Given Sodium 139 (136-145) mmol/L Potassium 4.8 (3.5-5.1) mmol/L Chloride 109 H (98-107) mmol/L Carbon Dioxide 19 L (21-32) mmol/L Anion Gap 11.0 (3-11) BUN 58 H (7-18) mg/dl Creatinine 2.17 H (0.6-1.4) mg/dl Est Cr Clr Drug Dosing 39.2 ml/min Est GFR ( Amer) 36.0 Est GFR (Non-Af Amer) 31.0 BUN/Creatinine Ratio 26.5 H (10-20) Glucose 254 H (70-99) mg/dl POC Glucose (70-99) Lactate (0.4-2.0) mmol/L Calcium 8.1 L (8.5-10.1) mg/dl Magnesium 1.8 (1.8-2.4) mg/dl Total Bilirubin (0.2-1) mg/dl Direct Bilirubin (0-0.2) mg/dl AST (15-37) U/L ALT (12-78) U/L Alkaline Phosphatase (45-117) U/L Total Protein (6.4-8.2) gm/dl Albumin (3.4-5.0) gm/dl 11/23/18 11/23/18 Range/Units 18:12 15:08 WBC (4.8-10.8) K/uL RBC (4.7-6.1) M/uL Hgb (14.0-18.0) g/dL Hct (42-52) % MCV (80-100) fL MCH (25-34) pg MCHC (32-36) g/dL RDW Std Deviation (36.4-46.3) fL RDW Coeff of Clyde (11.5-14.5) % Plt Count (130-400) K/uL MPV (7.4-10.4) fL Immature Gran % (Auto) % Neut % (Auto) % Lymph % (Auto) % [place] % (Auto) % Eos % (Auto) % Baso % (Auto) % Immature Gran # (Auto) (0.00-0.02) K/uL Neut # (Auto) (1.4-6.5) K/uL Lymph # (Auto) (1.2-3.4) K/uL [place] # (Auto) (0.11-0.59) K/uL Eos # (Auto) (0-0.5) K/uL Baso # (Auto) (0-0.2) K/uL PT (9.0-12.0) Seconds INR (0.9-1.1) ABG pH 7.19 L* (7.35-7.45) ABG pCO2 51 H (35-46) mmHg ABG pO2 62 L (80-95) mm/Hg ABG HCO3 19 (19-24) mmol/L ABG O2 Saturation 87.0 L (90-95) % ABG Base Excess -9.2 L (-9-1.8) mEq/L Frank Test POS (Pos) VBG pH (7.36-7.41) VBG pCO2 (38-50) mmHg VBG pO2 mmHg VBG HCO3 mmol/L VBG O2 Saturation % VBG Base Excess mEq/L Barometric Pressure 737.6 mm/Hg Oxygen Given ROOM AIR Sodium (136-145) mmol/L Potassium (3.5-5.1) mmol/L Chloride (98-107) mmol/L Carbon Dioxide (21-32) mmol/L Anion Gap (3-11) BUN (7-18) mg/dl Creatinine (0.6-1.4) mg/dl Est Cr Clr Drug Dosing ml/min Est GFR ( Amer) Est GFR (Non-Af Amer) BUN/Creatinine Ratio (10-20) Glucose (70-99) mg/dl POC Glucose 241 H (70-99) Lactate (0.4-2.0) mmol/L Calcium (8.5-10.1) mg/dl Magnesium (1.8-2.4) mg/dl Total Bilirubin (0.2-1) mg/dl Direct Bilirubin (0-0.2) mg/dl AST (15-37) U/L ALT (12-78) U/L Alkaline Phosphatase (45-117) U/L Total Protein (6.4-8.2) gm/dl Albumin (3.4-5.0) gm/dl PG Care Time/CCT Total # of Minutes Spent Total Time Spent with Patient: Total time spent is greater than 50% in coordination of care (as documented) at patient's floor/unit and/or counseling patient: (1) Lumbar spinal stenosis Neurogenic claudication status: unspecified Qualified Code(s): M48.061 - Spinal stenosis, lumbar region without neurogenic claudication
--- NOTE | 2018-11-24 12:39 | Pharmacy Report ---
Pharmacy Glycemic Short Note 2 - Date of Service November 24, 2018 - Glycemic Short BSG Results (Last 24 hours): 11/23/18 11/23/18 11/23/18 13:04 15:18 18:12 Glucose POC Glucose 143 H 212 H 241 H 11/23/18 11/23/18 11/24/18 19:35 22:16 01:54 Glucose 254 H POC Glucose 164 H 95 11/24/18 11/24/18 11/24/18 05:52 07:28 11:28 Glucose 108 H POC Glucose 73 92 OUTPATIENT ANTIDIABETIC REGIMEN: * Actos 15mg PO daily ASSESSMENT: 11/24 * Patient received only 9 units of insulin yesterday, with fasting and post prandial BSGs extremely well controlled today * Of note, dextrose containing fluids were discontinued in addition to steroids. It appears the patient received a total of 14 mg of dex yesterday * Patient's renal function significantly declined today and may be further contributing to lower blood sugars * No basal insulin was given this morning and will place a conservative lantus scale on for this evening. 11/23 * Patient received a total of 114 units of insulin yesterday; 60 units basal and 54 units bolus. * Overnight, patient was found unresponsive by nurse; 0200 BSG check was only 30. Patient was treated per hypoglycemia protocol and BSGs were upto 73 with AM labs. Unclear reason for this hypoglycemic episode since patient had been trending high all of yesterday. Yesterday, fasting BSG was at 145 and post- prandial BSGs all above 200. * Patient was ordered NPO after midnight for spine surgery this AM. BSGs have slowly trended up to 143 this afternoon. * Lantus dose was put on hold today AM and will be resumed at HS based on a scale. * Clear liquid diet ordered post-op; therefore CR loosened to 7 (based on weight and stress of 2). * Patient continues on Decadron 6 mg IV q6h, but he received an 8 mg IV dose in the OR today and did not get the noon dose of 6 mg. 11/22 * Mr. Penny received 78 units of insulin yesterday * 44 units of basal * 34 units of bolus * This is compared to the prior day in which he received 128 units of insulin * He remains on Decadron 6 mg IV q6h, with plans for OR tomorrow for a cervical corpectomy of C4 * Est TDD remains at ~100 units/day. His fasting BSG was elevated this AM due to a reduced dose of Lantus given last evening for BSG below ordered goal. * Will plan to add back the 6 units of missed Lantus this AM and then resume scheduled BID dosing tonight. Will adjust parameters to provide lower dose for NPO status tomorrow, but allow for full dose if BSGs remain elevated by this evening. Goal is for perioperative BSG control, with BSGs < 150 mg/dL. * Pre-lunch BSG today is artificially high, as AM Novolog not given until 0940 11/21 * 63yo T2DM male admitted with spinal stenosis. * Pt initiated on high dose IV steroids with dexamethasone 6mg IV Q6hrs --> severe steroid induced hyperglycemia now that diet resumed * Holding outpatient Actos for admission and using weight based, high stress SQ basal bolus insulin regimen for steroid induced hyperglycemia * Pt received 128 units of insulin over the past 24hrs * 70 units of Lantus + 58 units of NovoLog * BSGs ranging 76-321 mg/dl * AM fasting BSG = 157 mg/dl this morning, Lantus should be at steady state today since patient has received 4+ doses. Additional loading dose of Lantus given yesterday to help cover RTC dosing of DXM. No additional loading dose needed today, therefore, will continue with Lantus 26 units SQ BID * Expect total daily dose today to be ~ 100-120 units/day. * Lantus will need DC and NovoLog parameters adjusted if/when DXM DC. PLAN FOR INPATIENT GLYCEMIC CONTROL: * Continue to hold outpatient oral diabetes medications * Basal insulin * Lantus held this AM * Lantus HS per the following scale: * 0 units if BSG 180 or less * 10 units for BSG > 180 * Bolus insulin - loosened CR, and add overnight check * NovoLog per scale ACHS or Q6hrs while NPO + 0200 check * Goal Range: Low 110 mg/dL - High 140 mg/dL * Correction Factor: 20 mg/dL/unit * Nutritional / Prandial insulin per carb ratio of 1 unit per 7 grams CHO consumed Discharge Recommendations: * Patient's A1c = 5.8% on 11/20/18 * However, this result is likely somewhat unreliable in ESRD patients d/t interactions between the A1c analyzing technique and high levels of urea in ESRD, reduced RBC life span, iron deficiency anemia, and EPO administration. HbA1c > 7.5% in ESRD patient may overestimate the extent of hyperglycemia in ESRD patients. * Recommend to continue oral agent on discharge, unless patient experiencing hypoglycemia as an outpatient
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
--- NOTE | 2018-11-24 14:43 | Anesthesiology Progress Note ---
Date of Service November 24, 2018 Anesthesia Post Procedure Vital Signs Vital Signs: Temp Pulse Pulse Pulse Resp BP BP 11/24/18 13:19 58 L 58 L 19 11/24/18 12:34 36.8 C 57 L 18 137/78 11/24/18 10:57 54 L 16 11/24/18 10:22 36.5 C 56 L 18 127/68 11/24/18 10:11 55 L 11/24/18 08:00 36.2 C L 53 L 19 135/76 11/24/18 07:23 54 L 16 11/24/18 05:19 36.6 C 57 L 18 125/63 11/24/18 03:46 36.6 C 61 20 119/69 11/24/18 03:00 64 18 11/24/18 01:30 36.5 C 64 20 125/62 11/24/18 00:05 67 11/23/18 23:19 36.4 C L 51 L 18 123/75 11/23/18 23:10 63 16 11/23/18 21:19 36.5 C 83 16 138/80 11/23/18 20:25 36.6 C 71 14 103/67 11/23/18 19:45 73 18 11/23/18 19:23 36.5 C 65 16 98/56 L 11/23/18 19:11 36.5 C 11/23/18 19:08 36.5 C 11/23/18 18:25 35.9 C L 66 12 101/64 11/23/18 17:02 34.7 C L 57 L 14 121/81 11/23/18 16:45 34.7 C L 11/23/18 16:30 34.7 C L 60 16 131/74 11/23/18 16:15 51 L 16 123/63 11/23/18 16:00 55 L 16 109/62 11/23/18 15:50 36.4 C L 52 L 16 119/69 11/23/18 15:40 57 L 16 142/78 H 11/23/18 15:30 59 L 16 121/76 11/23/18 15:20 58 L 16 122/78 11/23/18 15:10 55 L 16 127/77 11/23/18 15:00 71 15 111/77 11/23/18 14:50 59 L 14 117/63 Pulse Ox 11/24/18 13:19 98 11/24/18 12:34 100 11/24/18 10:57 100 11/24/18 10:22 100 11/24/18 10:11 11/24/18 08:00 98 11/24/18 07:23 100 11/24/18 05:19 100 11/24/18 03:46 98 11/24/18 03:00 96 11/24/18 01:30 100 11/24/18 00:05 11/23/18 23:19 100 11/23/18 23:10 100 11/23/18 21:19 100 11/23/18 20:25 98 11/23/18 19:45 98 11/23/18 19:23 97 11/23/18 19:11 11/23/18 19:08 11/23/18 18:25 96 11/23/18 17:02 100 11/23/18 16:45 11/23/18 16:30 94 11/23/18 16:15 95 11/23/18 16:00 97 11/23/18 15:50 100 11/23/18 15:40 99 11/23/18 15:30 97 11/23/18 15:20 100 11/23/18 15:10 100 11/23/18 15:00 98 11/23/18 14:50 96 Pain Intensity Neck: Pain Intensity: 6 Bilateral Foot: Pain Intensity: 6 Notes Mental Status: alert / awake / arousable and participated in evaluation Patient Amnestic to Procedure: Yes Nausea / Vomiting: adequately controlled Pain: adequately controlled Airway Patency, RR, SpO2: stable & adequate BP & HR: stable & adequate Hydration State: stable & adequate Anesthetic Complications: no major complications apparent
[2018-11-24] MEDS: ZINC SULFATE 220 MG CAPSULE PO SCH (20:38)
[2018-11-24] MEDS: NIFEdipine EXTENDED REL 30 MG TABCR PO SCH (20:39)
[2018-11-24] MEDS: CYANOCOBALAMIN (VITAMIN B-12) 2,500 MCG TAB.SUBL SL SCH (20:39)
[2018-11-24] MEDS: VITAMIN B COMPLEX TAB PO SCH (20:39)
[2018-11-24] MEDS: FUROSEMIDE 40 MG TAB PO SCH (20:40)
[2018-11-24] MEDS: OMEGA-3 (PURIFIED FISH OIL) 1 GM CAP PO SCH (20:40)
[2018-11-24] MEDS: NEBIVOLOL HCL 5 MG TAB PO SCH (20:40)
[2018-11-24] MEDS: THIAMINE HCL 100 MG TAB PO SCH (20:40)
[2018-11-24] MEDS: FERROUS SULFATE 325 MG TAB PO SCH (20:40)
[2018-11-24] MEDS: MAGNESIUM OXIDE 400 MG TAB PO SCH (20:40)
[2018-11-24] MEDS: FOLIC ACID 1 MG TAB PO SCH (20:40)
[2018-11-24] MEDS: DOCUSATE SODIUM/SENNA 50/8.6MG TAB PO SCH (20:41)
[2018-11-24] MEDS: allopurinoL 100 MG TAB PO SCH (20:42)
[2018-11-24] MEDS ORDERED: INSULIN GLARGINE SOLOSTAR 100 UNITS/ML 3 ML PEN SC SCH (21:00)
[2018-11-24] MEDS: BACLOFEN 10 MG TAB PO PRN (23:33)
[2018-11-25 03:00] LABS: Appearance Urine Clear (Clear); Bilirubin Urine Negative (Negative); Blood Urine Negative (Negative); Color Urine Yellow; Glucose Urine UA Negative (Negative); Ketones Urine Negative (Negative); Leukocyte Esterase Urine Negative (Negative); Nitrite Urine Negative (Negative); Protein Urine Negative (Negative); Specific Gravity Urine 1.013 (1.000-1.030); Urobilinogen Urine Negative (Negative)
[2018-11-25 05:35] LABS: Hematocrit (blood only) 30.7 % (42-52); Hemoglobin 10.4 g/dL (14.0-18.0); Mean Corpuscular Hemoglobin 33.5 pg (25-34); Mean Corpuscular Hgb Conc 33.9 g/dL (32-36); Mean Platelet Volume 10.6 fL (7.4-10.4); Nucleated RBC # (auto) 0.02 K/uL (0-0); Nucleated RBC % (auto) 0.2 %; Platelet Count 101 K/uL (130-400); RDW Coefficient of Variation 15.4 % (11.5-14.5); RDW Standard Deviation 55.4 fL (36.4-46.3); White Blood Count 8.55 K/uL (4.8-10.8)
[2018-11-25 05:56] LABS: Calcium 8.3 mg/dl (8.5-10.1); Creatinine Clr Calc Pharmacy 33.6 ml/min; Est GFR (African American) 29.2; Est GFR (Non-African American) 25.2; Magnesium 2.1 mg/dl (1.8-2.4); Potassium 4.7 mmol/L (3.5-5.1)
[2018-11-25 05:59] LABS: Albumin Globulin Ratio 0.8 (0.9-2); Bilirubin,Total 0.6 mg/dl (0.2-1); Globulin 3.9 gm/dl (2.5-4.0); Total Protein 6.9 gm/dl (6.4-8.2)
[2018-11-25] MEDS: OXYCODONE HCL IR 5 MG TAB (IMMEDIATE RELEASE) PO PRN (06:27)
[2018-11-25] MEDS: BACLOFEN 10 MG TAB PO PRN (06:28)
[2018-11-25] MEDS: POLYETHYLENE (MIRALAX) 17 GM PACK PO SCH ×2 (06:33→12:32)
[2018-11-25] MEDS: INSULIN ASPART 100 UNITS/ML 3 ML PEN SC SCH ×4 (08:53→20:33)
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
--- NOTE | 2018-11-25 10:05 | Pharmacy Report ---
Pharmacy Glycemic Short Note 2 - Date of Service November 25, 2018 - Glycemic Short BSG Results (Last 24 hours): 11/24/18 11/24/18 11/24/18 11:28 17:32 20:37 Glucose POC Glucose 92 153 H 104 H 11/25/18 11/25/18 05:02 08:20 Glucose 83 POC Glucose 71 OUTPATIENT ANTIDIABETIC REGIMEN: * Actos 15mg PO daily ASSESSMENT: 11/25 * Mr. Penny received NO basal and only 6 units of prandial insulin yesterday. Last dose of basal was 11/22 PM. * BSGs have ranged from 71-153 mg/dL * SCr remains elevated, so this most likely explains reduced insulin needs without the Decadron and IVF on board as well * Diet has been advanced so anticipating that BSGs may increase with this * In light of BSGs remaining on lower end of goal range and significant low a few days ago, will loosen Novolog parameters. These were loosened this AM and pre-lunch remains at only 83 mg/dL. Will plan to loosen further. * Since he has gone without basal for a few days and bolus requirements are so low, will remove basal dose altogether 11/24 * Patient received only 9 units of insulin yesterday, with fasting and post prandial BSGs extremely well controlled today * Of note, dextrose containing fluids were discontinued in addition to steroids. It appears the patient received a total of 14 mg of dex yesterday * Patient's renal function significantly declined today and may be further contributing to lower blood sugars * No basal insulin was given this morning and will place a conservative lantus scale on for this evening. 11/23 * Patient received a total of 114 units of insulin yesterday; 60 units basal and 54 units bolus. * Overnight, patient was found unresponsive by nurse; 0200 BSG check was only 30. Patient was treated per hypoglycemia protocol and BSGs were upto 73 with AM labs. Unclear reason for this hypoglycemic episode since patient had been trending high all of yesterday. Yesterday, fasting BSG was at 145 and post- prandial BSGs all above 200. * Patient was ordered NPO after midnight for spine surgery this AM. BSGs have slowly trended up to 143 this afternoon. * Lantus dose was put on hold today AM and will be resumed at HS based on a scale. * Clear liquid diet ordered post-op; therefore CR loosened to 7 (based on weight and stress of 2). * Patient continues on Decadron 6 mg IV q6h, but he received an 8 mg IV dose in the OR today and did not get the noon dose of 6 mg. 11/22 * Mr. Penny received 78 units of insulin yesterday * 44 units of basal * 34 units of bolus * This is compared to the prior day in which he received 128 units of insulin * He remains on Decadron 6 mg IV q6h, with plans for OR tomorrow for a cervical corpectomy of C4 * Est TDD remains at ~100 units/day. His fasting BSG was elevated this AM due to a reduced dose of Lantus given last evening for BSG below ordered goal. * Will plan to add back the 6 units of missed Lantus this AM and then resume scheduled BID dosing tonight. Will adjust parameters to provide lower dose for NPO status tomorrow, but allow for full dose if BSGs remain elevated by this evening. Goal is for perioperative BSG control, with BSGs < 150 mg/dL. * Pre-lunch BSG today is artificially high, as AM Novolog not given until 0940 11/21 * 63yo T2DM male admitted with spinal stenosis. * Pt initiated on high dose IV steroids with dexamethasone 6mg IV Q6hrs --> severe steroid induced hyperglycemia now that diet resumed * Holding outpatient Actos for admission and using weight based, high stress SQ basal bolus insulin regimen for steroid induced hyperglycemia * Pt received 128 units of insulin over the past 24hrs * 70 units of Lantus + 58 units of NovoLog * BSGs ranging 76-321 mg/dl * AM fasting BSG = 157 mg/dl this morning, Lantus should be at steady state today since patient has received 4+ doses. Additional loading dose of Lantus given yesterday to help cover RTC dosing of DXM. No additional loading dose needed today, therefore, will continue with Lantus 26 units SQ BID * Expect total daily dose today to be ~ 100-120 units/day. * Lantus will need DC and NovoLog parameters adjusted if/when DXM DC. PLAN FOR INPATIENT GLYCEMIC CONTROL: * Continue to hold outpatient oral diabetes medications * Discontinue basal insulin order * Bolus insulin - loosen all parameters * NovoLog per scale ACHS or Q6hrs while NPO * Goal Range: Low 120 mg/dL - High 150 mg/dL * Correction Factor: 30 mg/dL/unit * Nutritional / Prandial insulin per carb ratio of 1 unit per 10 grams CHO consumed Discharge Recommendations: * Patient's A1c = 5.8% on 11/20/18 * However, this result is likely somewhat unreliable in ESRD patients d/t interactions between the A1c analyzing technique and high levels of urea in ESRD, reduced RBC life span, iron deficiency anemia, and EPO administrat ion. HbA1c > 7.5% in ESRD patient may overestimate the extent of hyperglycemia in ESRD patients. * Recommend to continue oral agent on discharge, unless patient experiencing hypoglycemia as an outpatient
[2018-11-25] MEDS ORDERED: bisacodyL 10 MG SUPP PR PRN (12:49)
--- NOTE | 2018-11-25 13:00 | Orthopedic Progress Note ---
Date of Service November 25, 2018 Assessment & Plan (1) Cervical spinal stenosis: This time we will continue physical therapy and hope for rehab placement the next day or so. Present on Admission?: Yes Subjective Arm and leg symptoms improving. He is swallowing well. Pain well controlled. Physical Exam Physical Exam: Exam is in the chair at the bedside. He has improved grasp bilaterally. Still weakness to the deltoids and biceps. He has been ambulating with assistance. Results & Data Vital Signs (Past 12 Hours) Vital Signs Temp Pulse Resp BP Pulse Ox 11/25/18 07:34 36.4 C L 60 15 135/80 100 11/25/18 07:26 56 L 16 95 11/25/18 03:50 68 16 96 11/25/18 03:30 36.9 C 144/82 H
--- NOTE | 2018-11-25 15:42 | Nephrology Progress Note ---
Date of Service November 25, 2018 Assessment & Plan (1) Dugvh-wh-hftrjon kidney injury: Nonoliguric. Clinically consistent with ATN. Urine studies bland and acellular. Baseline creatinine 1.7-2. creatinine slightly improved today. Metabolic profile is otherwise acceptable. Patient's volume status Remained euvolemic. Medications are appropriate for kidney function. We will continue with close perspective monitoring. Document accurate I/O's. Repeat metabolic profile tomorrow morning. Additional renal imaging deferred at this time pending follow-up evaluation. (2) Alcohol withdrawal: Is being maintained on thiamine and folate. Diet is being advanced as tolerated. Metabolic profile will be closely monitored including magnesium and phosphorus. Patient is on a protocol with benzodiazepines as needed for evidence of withdrawal. He states his last drink was on November 19. (3) Hypomagnesemia: (4) Cervical spinal stenosis: (5) Lumbar spinal stenosis: (6) Pancytopenia: Subjective No acute events overnight. Mahesh was seen and evaluated in his hospital room this morning. He was out of bed ambulating to the bathroom. Overall felt well. He is swallowing without difficulty. Appetite is reported as good. He is drinking plenty of fluids. He denies significant pain Review of Systems Review of Systems: All systems reviewed & are unremarkable except as noted in HPI & below Physical Exam Constitutional: + obese; no acute distress Eyes: no conjunctival abnormality and no scleral abnormality ENMT: Mouth: no oral mucosal abnormality and oral mucous membranes not dry Neck: trachea midline and + thick neck Respiratory: normal respiratory effort Auscultation: lungs clear to auscultation bilaterally Cardiovascular: Rate/Rhythm: + bradycardic Heart Sounds: normal S1 and normal S2 Extremities: + edema (Trace dependent) Gastrointestinal (Abdomen): Percussion/Palpation: abdomen soft; abdomen nontender Musculoskeletal: Extremities: no cyanosis and no clubbing Skin: normal turgor; no rashes Neurologic: Motor/Sensory: no tremor and no asterixis Results & Data Vital Signs (Past 12 Hours) Vital Signs Temp Pulse Pulse Resp BP Pulse Ox 11/25/18 15:35 36.4 C L 58 L 16 152/83 H 100 11/25/18 11:15 58 L 16 98 11/25/18 07:34 36.4 C L 60 15 135/80 100 11/25/18 07:26 56 L 16 95 11/25/18 03:50 68 16 96 Laboratory Results Laboratory Results - last 24 hr 11/24/18 11/24/18 11/25/18 17:32 20:37 02:44 WBC RBC Hgb Hct MCV MCH MCHC RDW Std Deviation RDW Coeff of Clyde Plt Count MPV Absolute Nucleated RBC Nucleated RBC % (auto) Sodium Potassium Chloride Carbon Dioxide Anion Gap BUN Creatinine Est Cr Clr Drug Dosing Est GFR ( Amer) Est GFR (Non-Af Amer) BUN/Creatinine Ratio Glucose POC Glucose 153 H 104 H Calcium Phosphorus Magnesium Total Bilirubin AST ALT Alkaline Phosphatase Total Protein Albumin Globulin Albumin/Globulin Ratio Urine Color Urine Appearance Urine pH Ur Specific [place] Urine Protein Urine Glucose (UA) Urine Ketones Urine Blood Urine Nitrite Urine Bilirubin Urine Urobilinogen Ur Leukocyte Esterase Urine Osmolality 353 L Ur Random Sodium 11/25/18 11/25/18 11/25/18 02:44 02:44 05:02 WBC 8.55 RBC 3.10 L Hgb 10.4 L Hct 30.7 L MCV 99.0 MCH 33.5 MCHC 33.9 RDW Std Deviation 55.4 H RDW Coeff of Clyde 15.4 H Plt Count 101 L MPV 10.6 H Absolute Nucleated RBC 0.02 H Nucleated RBC % (auto) 0.2 Sodium Potassium Chloride Carbon Dioxide Anion Gap BUN Creatinine Est Cr Clr Drug Dosing Est GFR ( Amer) Est GFR (Non-Af Amer) BUN/Creatinine Ratio Glucose POC Glucose Calcium Phosphorus Magnesium Total Bilirubin AST ALT Alkaline Phosphatase Total Protein Albumin Globulin Albumin/Globulin Ratio Urine Color Yellow Urine Appearance Clear Urine pH 5.0 Ur Specific [place] 1.013 Urine Protein Negative Urine Glucose (UA) Negative Urine Ketones Negative Urine Blood Negative Urine Nitrite Negative Urine Bilirubin Negative Urine Urobilinogen Negative Ur Leukocyte Esterase Negative Urine Osmolality Ur Random Sodium 80 11/25/18 11/25/18 11/25/18 05:02 05:02 08:20 WBC RBC Hgb Hct MCV MCH MCHC RDW Std Deviation RDW Coeff of Clyde Plt Count MPV Absolute Nucleated RBC Nucleated RBC % (auto) Sodium 139 Potassium 4.7 Chloride 110 H Carbon Dioxide 22 Anion Gap 7.0 BUN 65 H Creatinine 2.58 H Est Cr Clr Drug Dosing 33.6 Est GFR ( Amer) 29.2 Est GFR (Non-Af Amer) 25.2 BUN/Creatinine Ratio 25.0 H Glucose 83 POC Glucose 71 Calcium 8.3 L Phosphorus 4.1 Magnesium 2.1 Total Bilirubin 0.6 AST 77 H ALT 47 Alkaline Phosphatase 92 Total Protein 6.9 Albumin 3.0 L Globulin 3.9 Albumin/Globulin Ratio 0.8 L Urine Color Urine Appearance Urine pH Ur Specific [place] Urine Protein Urine Glucose (UA) Urine Ketones Urine Blood Urine Nitrite Urine Bilirubin Urine Urobilinogen Ur Leukocyte Esterase Urine Osmolality Ur Random Sodium 11/25/18 12:26 WBC RBC Hgb Hct MCV MCH MCHC RDW Std Deviation RDW Coeff of Clyde Plt Count MPV Absolute Nucleated RBC Nucleated RBC % (auto) Sodium Potassium Chloride Carbon Dioxide Anion Gap BUN Creatinine Est Cr Clr Drug Dosing Est GFR ( Amer) Est GFR (Non-Af Amer) BUN/Creatinine Ratio Glucose POC Glucose 83 Calcium Phosphorus Magnesium Total Bilirubin AST ALT Alkaline Phosphatase Total Protein Albumin Globulin Albumin/Globulin Ratio Urine Color Urine Appearance Urine pH Ur Specific [place] Urine Protein Urine Glucose (UA) Urine Ketones Urine Blood Urine Nitrite Urine Bilirubin Urine Urobilinogen Ur Leukocyte Esterase Urine Osmolality Ur Random Sodium PG Care Time/CCT Total # of Minutes Spent Total Time Spent with Patient: Total time spent is greater than 50% in coordination of care (as documented) at patient's floor/unit and/or counseling patient: (1) Lumbar spinal stenosis Neurogenic claudication status: unspecified Qualified Code(s): M48.061 - Spinal stenosis, lumbar region without neurogenic claudication
[2018-11-25] MEDS: FOLIC ACID 1 MG TAB PO SCH (20:26)
[2018-11-25] MEDS: FERROUS SULFATE 325 MG TAB PO SCH (20:26)
[2018-11-25] MEDS: NEBIVOLOL HCL 5 MG TAB PO SCH (20:26)
[2018-11-25] MEDS: NIFEdipine EXTENDED REL 30 MG TABCR PO SCH (20:27)
[2018-11-25] MEDS: FUROSEMIDE 40 MG TAB PO SCH (20:27)
[2018-11-25] MEDS: CYANOCOBALAMIN (VITAMIN B-12) 2,500 MCG TAB.SUBL SL SCH (20:27)
[2018-11-25] MEDS: THIAMINE HCL 100 MG TAB PO SCH (20:27)
[2018-11-25] MEDS: allopurinoL 100 MG TAB PO SCH (20:27)
[2018-11-25] MEDS: MAGNESIUM OXIDE 400 MG TAB PO SCH (20:27)
[2018-11-25] MEDS: ZINC SULFATE 220 MG CAPSULE PO SCH (20:27)
[2018-11-25] MEDS: VITAMIN B COMPLEX TAB PO SCH (20:28)
[2018-11-25] MEDS: DOCUSATE SODIUM/SENNA 50/8.6MG TAB PO SCH (20:28)
[2018-11-25] MEDS: OMEGA-3 (PURIFIED FISH OIL) 1 GM CAP PO SCH (20:28)
[2018-11-26] MEDS: BACLOFEN 10 MG TAB PO PRN (05:39)
[2018-11-26] MEDS: OXYCODONE HCL IR 5 MG TAB (IMMEDIATE RELEASE) PO PRN (05:39)
[2018-11-26 05:58] LABS: Hematocrit (blood only) 29.8 % (42-52); Mean Corpuscular Hgb Conc 33.6 g/dL (32-36); Mean Corpuscular Volume 98.3 fL (80-100); Mean Platelet Volume 10.9 fL (7.4-10.4); Platelet Count 103 K/uL (130-400); RDW Coefficient of Variation 15.3 % (11.5-14.5); Red Blood Count 3.03 M/uL (4.7-6.1); White Blood Count 7.91 K/uL (4.8-10.8)
[2018-11-26 06:33] LABS: BUN Creatinine Ratio 25.8 (10-20); Calcium 8.3 mg/dl (8.5-10.1); Creatinine Clr Calc Pharmacy 37.7 ml/min; Est GFR (African American) 33.7; Est GFR (Non-African American) 29.1; Magnesium 1.9 mg/dl (1.8-2.4); Potassium 4.6 mmol/L (3.5-5.1)
[2018-11-26 06:38] LABS: Albumin Globulin Ratio 0.8 (0.9-2); Bilirubin,Total 0.8 mg/dl (0.2-1); Globulin 3.8 gm/dl (2.5-4.0); Phosphorus 2.9 mg/dl (2.5-4.9); Total Protein 6.8 gm/dl (6.4-8.2)
[2018-11-26] MEDS: INSULIN ASPART 100 UNITS/ML 3 ML PEN SC SCH ×4 (08:35→20:48)
[2018-11-26] MEDS ORDERED: INSULIN GLARGINE SOLOSTAR 100 UNITS/ML 3 ML PEN SC SCH (09:00)
--- NOTE | 2018-11-26 10:06 | Pharmacy Report ---
Pharmacy Glycemic Short Note 2 - Date of Service November 26, 2018 - Glycemic Short BSG Results (Last 24 hours): 11/25/18 11/25/18 11/25/18 12:26 17:07 20:32 Glucose POC Glucose 83 90 188 H 11/26/18 04:48 Glucose 194 H POC Glucose OUTPATIENT ANTIDIABETIC REGIMEN: * Actos 15mg PO daily ASSESSMENT: 11/26 * Patient received 11 units of insulin yesterday, all of this being prandial/correctional insulin * BSGs stayed < 100 mg/dL until HS and then increased to > 180 mg/dL at HS and on PRP this AM. Surprisingly, his POC before breakfast was down to 133 mg/dL withOUT any basal or additional correction given overnight. His body's production of basal insulin remains adequate. * Postprandial BSGs well controlled for the most part yesterday but has dropped to 68 mg/dL after breakfast covered this AM. * He continues to require minimal insulin, even with increased po intake and slowly improving renal function 11/25 * Mr. Penny received NO basal and only 6 units of prandial insulin yesterday. Last dose of basal was 11/22 PM. * BSGs have ranged from 71-153 mg/dL * SCr remains elevated, so this most likely explains reduced insulin needs without the Decadron and IVF on board as well * Diet has been advanced so anticipating that BSGs may increase with this * In light of BSGs remaining on lower end of goal range and significant low a few days ago, will loosen Novolog parameters. These were loosened this AM and pre-lunch remains at only 83 mg/dL. Will plan to loosen further. * Since he has gone without basal for a few days and bolus requirements are so low, will remove basal dose altogether 11/24 * Patient received only 9 units of insulin yesterday, with fasting and post prandial BSGs extremely well controlled today * Of note, dextrose containing fluids were discontinued in addition to steroids. It appears the patient received a total of 14 mg of dex yesterday * Patient's renal function significantly declined today and may be further contributing to lower blood sugars * No basal insulin was given this morning and will place a conservative lantus scale on for this evening. 11/23 * Patient received a total of 114 units of insulin yesterday; 60 units basal and 54 units bolus. * Overnight, patient was found unresponsive by nurse; 0200 BSG check was only 30. Patient was treated per hypoglycemia protocol and BSGs were upto 73 with AM labs. Unclear reason for this hypoglycemic episode since patient had been trending high all of yesterday. Yesterday, fasting BSG was at 145 and post- prandial BSGs all above 200. * Patient was ordered NPO after midnight for spine surgery this AM. BSGs have slowly trended up to 143 this afternoon. * Lantus dose was put on hold today AM and will be resumed at HS based on a scale. * Clear liquid diet ordered post-op; therefore CR loosened to 7 (based on weight and stress of 2). * Patient continues on Decadron 6 mg IV q6h, but he received an 8 mg IV dose in the OR today and did not get the noon dose of 6 mg. 11/22 * Mr. Penny received 78 units of insulin yesterday * 44 units of basal * 34 units of bolus * This is compared to the prior day in which he received 128 units of insulin * He remains on Decadron 6 mg IV q6h, with plans for OR tomorrow for a cervical corpectomy of C4 * Est TDD remains at ~100 units/day. His fasting BSG was elevated this AM due to a reduced dose of Lantus given last evening for BSG below ordered goal. * Will plan to add back the 6 units of missed Lantus this AM and then resume scheduled BID dosing tonight. Will adjust parameters to provide lower dose for NPO status tomorrow, but allow for full dose if BSGs remain elevated by this evening. Goal is for perioperative BSG control, with BSGs < 150 mg/dL. * Pre-lunch BSG today is artificially high, as AM Novolog not given until 0940 11/21 * 63yo T2DM male admitted with spinal stenosis. * Pt initiated on high dose IV steroids with dexamethasone 6mg IV Q6hrs --> severe steroid induced hyperglycemia now that diet resumed * Holding outpatient Actos for admission and using weight based, high stress SQ basal bolus insulin regimen for steroid induced hyperglycemia * Pt received 128 units of insulin over the past 24hrs * 70 units of Lantus + 58 units of NovoLog * BSGs ranging 76-321 mg/dl * AM fasting BSG = 157 mg/dl this morning, Lantus should be at steady state today since patient has received 4+ doses. Additional loading dose of Lantus given yesterday to help cover RTC dosing of DXM. No additional loading dose needed today, therefore, will continue with Lantus 26 units SQ BID * Expect total daily dose today to be ~ 100-120 units/day. * Lantus will need DC and NovoLog parameters adjusted if/when DXM DC. PLAN FOR INPATIENT GLYCEMIC CONTROL: * Continue to hold outpatient oral diabetes medications * Continue to hold off on resuming any basal until BSGs consistently > 180 mg/dL * Bolus insulin - loosen CF/CR * NovoLog per scale ACHS or Q6hrs while NPO * Goal Range: Low 120 mg/dL - High 150 mg/dL * Correction Factor: 35 mg/dL/unit * Nutritional / Prandial insulin per carb ratio of 1 unit per 15 grams CHO consumed Discharge Recommendations: * Patient's A1c = 5.8% on 11/20/18 * However, this result is likely somewhat unreliable in ESRD patients d/t interactions between the A1c analyzing technique and high levels of urea in ESRD, reduced RBC life span, iron deficiency anemia, and EPO administration. HbA1c > 7.5% in ESRD patient may overestimate the extent of hyperglycemia in ESRD patients. * Recommend to continue oral agent on discharge, unless patient experiencing hypoglycemia as an outpatient
--- NOTE | 2018-11-26 12:08 | Hospitalist Progress Note ---
Date of Service November 26, 2018 Assessment & Plan (1) Cervical spinal stenosis: * POD #3 s/p C4 corpectomy with Dr. Gutierres- MRI with evidence of sever spinal stenosis with cord edema at C4 on admission--> patient with extended length of anesthesia, Narcan x 4, ABG with evidence of CO2 narcosis related to prolonged anesthesia/procedure. EBL 50cc. 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 Improved sensation in digits 3-5, and increased ROM b/l UE * Strength & ROM Improving- pain management per ortho * PT/OT- rec SNF * CM - PASSR sent to [facility] --> Patient possible discharge tomorrow (2) Zjlni-bj-agrrglj kidney injury: * Improving - Creat 2.29 today *Baseline Cr 1.7-2.0 * WILLIAM following surgery with creatinine 2.97, 2.67, 2.58. Nephrotoxic agents avoided. Medications renally dosed when appropriate.- Follows with Dr. Jeffrey mendez for CKD IV. * Nephrology on consult- Likely ATN postoperatively in the setting of patient with underlying CKD IV. Volume status stable at this time. * Sodium, potassium, mag, phos wnl -- phos did drop to 2.9 though, will continue to monitor * Urine studies pending- UA without signs of infection, blood. Urine OSM 353. Urine sodium 80. * Repeat chemistry in AM (3) Metabolic acidosis: * Resolved - Likely ATN postoperatively in the setting of patient with underlying CKD IV * Will continue to monitor electrolytes Course: * Evening of 11/23 (POD #0) patient hypothemic- improved with bear hugger. Patient continuing to be lethargic, borderline hypotensive, with periods of apnea. Patient with CO2 narcosis post-operatively, with pCO2 elevated at 51 on ABG in PACU. Received Narcan x 4. * Patient transferred to Telemetry for monitoring 11/23: Stat vBG, BMP, CBC, Mag - pH 7.26, pCO2 42, pO2 85, O2 sat 95.7, hemoglobin 12-->10.3, chloride 109, creat bumped from 1.97 to 2.17, Mag 1.8. 500cc bolus given for borderline BP. Lasix, BP meds held at that time. Repeat VBG improved- pH 7.33, pCO2 36, HCO3 18---> patient did not end up needing to be placed on BiPAP. Lactic 1.8- could possibly have been elevated prior and trending down (4) Lumbar spinal stenosis: * Stable- symptoms improving-- patient with decreased numbness/tingling of b/l LE * Neuropathy in feet, improved ability to walk with walker- will need rehab at discharge * Vitamin B12 level is > 2000 * No immediate needs for lumbar surgery at this time (5) Chronic renal insufficiency, stage IV (severe): * See above * Baseline creatinine 1.7-2. (6) Alcohol withdrawal: * Stable * Patient drinks 1 liter of hard liquor a day- last drink November 19 * Neurontin loading dose and taper ordered- 600mg BID initially--> transitioned to 600mg Q24 on 11/23- continued at this time * Ativan 0.5mg PO PRN for anxiety/agitation * Patient is doing well thus far, no signs of severe withdrawal, no DT's- mental status is clear, without agitation * Patient with decreased tingling/numbness b/l LE-- due to acute kidney injury, patient will remain on daily vs BID dosing at this time (7) Pancytopenia: * Stable--> likely secondary to alcohol abuse. Continue thiamine and folate. * WBC 7.91, H/H 10.0/29.8, platelets 103 * Repeat CBC in AM (8) Diabetes: * Well controlled as outpatient, however patient with CKD- most recent A1c this admission of 5.8 * Outpatient pioglitazone held during admission, patient's sugars continue to be managed by pharmacy * SSI (9) Hypomagnesemia: * Stable * Mag 1.7 on admission 11/19. Replaced. repeat mag 1.9 on 11/20 * Repeat mag wnl today, 2.9- lower end of normal-- will continue to monitor (10) Hypertension: * Stable * Patient's BP meds held x 1 for borderline hypotension s/p surgery * Slightly elevated at 158/82 * Continue bystolic, nifedipine, lasix * Will continue to monitor (11) DVT prophylaxis: Thigh SCDs Dispo: per CM, patient accepted at [facility] ===> d/c Thursday or Thursday pending insurance authorization via wheelchair van Supervising Physician Co-Signing Physician Notes Attending Attestation: Chart reviewed in detail, care plan d/w KANDACE Moreland. I agree w/ the adan components of her documentation. POD #3 - C4 corpectomy for C4 myelopathy. Vitals and labs stable. Creatinine continues to improve. PT, OT. Dispo planning - excellent rehab candidate. Still no evidence of etoh withdrawal. Nelson Rodrigues MD Subjective Patient evaluated this morning in chair. Appetite good. Decreased discomfort with swallowing. Occasional sputum production, however less in quantity and is now more clear in color. Patient states he is upset with overnight staff due to whether he was allowed to have his MJ collar off or not and per patient, nursing refused to call Dr. Gutierres. After conversation with Dr. Gutierres this morning, patient feels much better. Improved sensation and mobility in his feet today. Review of Systems Review of Systems: Constitutional: Denies fever, weight loss, cold or heat intolerance, weakness. HEENT: Denies headaches, lightheadedness, acute visual changes, double vision, light sensitivity or syncope, tinnitus, epistaxis, hoarseness, or dysphagia. Pulmonary: Cough+ Sputum- clear. Denies shortness of breath, dyspnea on exertion, pain with inspiration, or hemoptysis. Cardiovascular: Denies chest pain, palpitations, syncope, edema. GI: + BM yesterday morning, normal in color and consistency. Denies abdominal pain, nausea, vomiting, diarrhea, melena, hematochezia. : Denies urgency, frequency, hematuria. MSK/Neuro: Some numbness and tingling b/l LE, however improved from yesterday. Feet continue to have numbness bilaterally. ROM improving b/l UE. 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 Skin: Warm and dry. Psychiatric: + substance abuse (alcohol- last drink Nov 19) Physical Exam Constitutional: WD/WN, vitals as above well developed Eyes: PERRL, conjunctivae normal, anicteric sclerae ENMT: external ear and nose normal, oropharynx normal Neck: trachea midline, no thyromegaly Respiratory: normal respiratory effort, lungs clear to auscultation Cardiovascular: Rate/Rhythm: regular rhythm and + bradycardic Heart Sounds: normal S1 and normal S2 Vessels: no JVD Gastrointestinal (Abdomen): normal bowel sounds, soft, nontender, no hepatosplenomegaly Inspection/Auscultation: abdomen normal to inspection and + hypoactive bowel sounds Musculoskeletal: no cyanosis or clubbing, extremities motor strength 5/5 Skin: no rashes, warm and dry Neurologic: PERRL, EOMI, accommodation nl, no face palsy, no dysarthria CN's II-XI intact bilaterally, deep tendon reflexes 2+ bilaterally and moves all extremities; no focal motor deficits Motor/Sensory: + sensory deficit (decreased sensation in feet, lower legs. ) Psychiatric: A+Ox3, euthymic affect Lymphatic: no cervical or axillary lymphadenopathy Results & Data Vital Signs (Past 12 Hours) Vital Signs Temp Pulse Pulse Resp BP Pulse Ox 11/26/18 11:29 58 L 16 98 11/26/18 07:32 36.5 C 53 L 16 158/82 H 100 11/26/18 07:30 56 L 16 100 11/26/18 02:07 36.8 C 87 20 144/71 H 96 Laboratory Results 11/26/18 11/26/18 11/26/18 Range/Units 12:40 04:48 04:48 WBC 7.91 (4.8-10.8) K/uL RBC 3.03 L (4.7-6.1) M/uL Hgb 10.0 L (14.0-18.0) g/dL Hct 29.8 L (42-52) % MCV 98.3 (80-100) fL MCH 33.0 (25-34) pg MCHC 33.6 (32-36) g/dL RDW Std Deviation 54.0 H (36.4-46.3) fL RDW Coeff of Clyde 15.3 H (11.5-14.5) % Plt Count 103 L (130-400) K/uL MPV 10.9 H (7.4-10.4) fL Sodium 137 (136-145) mmol/L Potassium 4.6 (3.5-5.1) mmol/L Chloride 108 H (98-107) mmol/L Carbon Dioxide 21 (21-32) mmol/L Anion Gap 8.0 (3-11) BUN 59 H (7-18) mg/dl Creatinine 2.29 H (0.6-1.4) mg/dl Est Cr Clr Drug Dosing 37.7 ml/min Est GFR ( Amer) 33.7 Est GFR (Non-Af Amer) 29.1 BUN/Creatinine Ratio 25.8 H (10-20) Glucose 194 H (70-99) mg/dl POC Glucose 80 (70-99) Calcium 8.3 L (8.5-10.1) mg/dl Phosphorus 2.9 D (2.5-4.9) mg/dl Magnesium 1.9 (1.8-2.4) mg/dl Total Bilirubin 0.8 (0.2-1) mg/dl AST 71 H (15-37) U/L ALT 49 (12-78) U/L Alkaline Phosphatase 108 (45-117) U/L Total Protein 6.8 (6.4-8.2) gm/dl Albumin 3.0 L (3.4-5.0) gm/dl Globulin 3.8 (2.5-4.0) gm/dl Albumin/Globulin Ratio 0.8 L (0.9-2) 11/25/18 11/25/18 Range/Units 20:32 17:07 WBC (4.8-10.8) K/uL RBC (4.7-6.1) M/uL Hgb (14.0-18.0) g/dL Hct (42-52) % MCV (80-100) fL MCH (25-34) pg MCHC (32-36) g/dL RDW Std Deviation (36.4-46.3) fL RDW Coeff of Clyde (11.5-14.5) % Plt Count (130-400) K/uL MPV (7.4-10.4) fL Sodium (136-145) mmol/L Potassium (3.5-5.1) mmol/L Chloride (98-107) mmol/L Carbon Dioxide (21-32) mmol/L Anion Gap (3-11) BUN (7-18) mg/dl Creatinine (0.6-1.4) mg/dl Est Cr Clr Drug Dosing ml/min Est GFR ( Amer) Est GFR (Non-Af Amer) BUN/Creatinine Ratio (10-20) Glucose (70-99) mg/dl POC Glucose 188 H 90 (70-99) Calcium (8.5-10.1) mg/dl Phosphorus (2.5-4.9) mg/dl Magnesium (1.8-2.4) mg/dl Total Bilirubin (0.2-1) mg/dl AST (15-37) U/L ALT (12-78) U/L Alkaline Phosphatase (45-117) U/L Total Protein (6.4-8.2) gm/dl Albumin (3.4-5.0) gm/dl Globulin (2.5-4.0) gm/dl Albumin/Globulin Ratio (0.9-2) PG Care Time/CCT Total # of Minutes Spent Total Time Spent with Patient: Total time spent is greater than 50% in coord ination of care (as documented) at patient's floor/unit and/or counseling patient: (1) Lumbar spinal stenosis Neurogenic claudication status: unspecified Qualified Code(s): M48.061 - Spinal stenosis, lumbar region without neurogenic claudication
--- NOTE | 2018-11-26 13:32 | Orthopedic Progress Note ---
Date of Service November 26, 2018 Assessment & Plan (1) Myelopathy concurrent with and due to spinal stenosis of cervical region: Plan at this time patient is allowed to remove his collar when eating and when in bed. All other times he must have in place. We are hoping for rehab/snf placement soon. Present on Admission?: Yes Subjective Patient's arm symptoms and leg symptoms are improving. He is swallowing without difficulty. He is somewhat agitated today regarding the events that occurred last evening regarding his cervical collar. Physical Exam Physical Exam: On exam he is in the chair at the bedside. Collar is in place. He has reasonable grasp bilaterally but weakness to the biceps and deltoids bilaterally. Results & Data Vital Signs (Past 12 Hours) Vital Signs Temp Pulse Pulse Resp BP Pulse Ox 11/26/18 11:29 58 L 16 98 11/26/18 07:32 36.5 C 53 L 16 158/82 H 100 11/26/18 07:30 56 L 16 100 11/26/18 02:07 36.8 C 87 20 144/71 H 96
--- NOTE | 2018-11-26 18:39 | Nephrology Progress Note ---
Date of Service November 26, 2018 Assessment & Plan (1) [id number]-[id number] kidney injury: Nonoliguric. Clinically consistent with ATN. Urine studies bland and acellular. Baseline creatinine 1.7-2. creatinine slightly improved today. Metabolic profile is otherwise acceptable. Patient's volume status remains euvolemic. Medications are appropriate for kidney function. We will continue with close perspective monitoring. Document accurate I/O's. Repeat metabolic profile tomorrow morning. Additional renal imaging deferred at this time pending follow-up evaluation. (2) Alcohol withdrawal: (3) Hypomagnesemia: (4) Cervical spinal stenosis: (5) Lumbar spinal stenosis: (6) Pancytopenia: Subjective No acute events overnight. He is drinking plenty of fluids. He denies significant pain Review of Systems Review of Systems: All systems reviewed & are unremarkable except as noted in HPI & below Physical Exam Constitutional: + obese; no acute distress Eyes: no conjunctival abnormality and no scleral abnormality ENMT: Mouth: no oral mucosal abnormality and oral mucous membranes not dry Neck: trachea midline and + thick neck Respiratory: normal respiratory effort Auscultation: lungs clear to auscultation bilaterally Cardiovascular: Rate/Rhythm: + bradycardic Heart Sounds: normal S1 and normal S2 Extremities: + edema (Trace dependent) Gastrointestinal (Abdomen): Percussion/Palpation: abdomen soft; abdomen nontender Musculoskeletal: Extremities: no cyanosis and no clubbing Skin: normal turgor; no rashes Neurologic: Motor/Sensory: no tremor and no asterixis Results & Data Vital Signs (Past 12 Hours) Vital Signs Temp Pulse Pulse Resp BP Pulse Ox 11/26/18 15:56 78 18 97 11/26/18 15:22 36.6 C 61 16 137/79 100 11/26/18 15:17 61 61 H 98 11/26/18 11:29 58 L 16 98 11/26/18 07:32 36.5 C 53 L 16 158/82 H 100 11/26/18 07:30 56 L 16 100 Laboratory Results Laboratory Results - last 24 hr 11/25/18 11/26/18 11/26/18 20:32 04:48 04:48 WBC 7.91 RBC 3.03 L Hgb 10.0 L Hct 29.8 L MCV 98.3 MCH 33.0 MCHC 33.6 RDW Std Deviation 54.0 H RDW Coeff of Clyde 15.3 H Plt Count 103 L MPV 10.9 H Sodium 137 Potassium 4.6 Chloride 108 H Carbon Dioxide 21 Anion Gap 8.0 BUN 59 H Creatinine 2.29 H Est Cr Clr Drug Dosing 37.7 Est GFR ( Amer) 33.7 Est GFR (Non-Af Amer) 29.1 BUN/Creatinine Ratio 25.8 H Glucose 194 H POC Glucose 188 H Calcium 8.3 L Phosphorus 2.9 D Magnesium 1.9 Total Bilirubin 0.8 AST 71 H ALT 49 Alkaline Phosphatase 108 Total Protein 6.8 Albumin 3.0 L Globulin 3.8 Albumin/Globulin Ratio 0.8 L 11/26/18 11/26/18 11/26/18 08:24 12:24 12:40 WBC RBC Hgb Hct MCV MCH MCHC RDW Std Deviation RDW Coeff of Clyde Plt Count MPV Sodium Potassium Chloride Carbon Dioxide Anion Gap BUN Creatinine Est Cr Clr Drug Dosing Est GFR ( Amer) Est GFR (Non-Af Amer) BUN/Creatinine Ratio Glucose POC Glucose 133 H 68 L* 80 Calcium Phosphorus Magnesium Total Bilirubin AST ALT Alkaline Phosphatase Total Protein Albumin Globulin Albumin/Globulin Ratio 11/26/18 17:10 WBC RBC Hgb Hct MCV MCH MCHC RDW Std Deviation RDW Coeff of Clyde Plt Count MPV Sodium Potassium Chloride Carbon Dioxide Anion Gap BUN Creatinine Est Cr Clr Drug Dosing Est GFR ( Amer) Est GFR (Non-Af Amer) BUN/Creatinine Ratio Glucose POC Glucose 163 H Calcium Phosphorus Magnesium Total Bilirubin AST ALT Alkaline Phosphatase Total Protein Albumin Globulin Albumin/Globulin Ratio PG Care Time/CCT Total # of Minutes Spent Total Time Spent with Patient: Total time spent is greater than 50% in coordination of care (as documented) at patient's floor/unit and/or counseling patient: (1) Lumbar spinal stenosis Neurogenic claudication status: unspecified Qualified Code(s): M48.061 - Spinal stenosis, lumbar region without neurogenic claudication
[2018-11-26] MEDS: OMEGA-3 (PURIFIED FISH OIL) 1 GM CAP PO SCH (20:40)
[2018-11-26] MEDS: allopurinoL 100 MG TAB PO SCH (20:40)
[2018-11-26] MEDS: NIFEdipine EXTENDED REL 30 MG TABCR PO SCH (20:40)
[2018-11-26] MEDS: NEBIVOLOL HCL 5 MG TAB PO SCH (20:40)
[2018-11-26] MEDS: CYANOCOBALAMIN (VITAMIN B-12) 2,500 MCG TAB.SUBL SL SCH (20:40)
[2018-11-26] MEDS: THIAMINE HCL 100 MG TAB PO SCH (20:41)
[2018-11-26] MEDS: FOLIC ACID 1 MG TAB PO SCH (20:41)
[2018-11-26] MEDS: ZINC SULFATE 220 MG CAPSULE PO SCH (20:41)
[2018-11-26] MEDS: VITAMIN B COMPLEX TAB PO SCH (20:41)
[2018-11-26] MEDS: MAGNESIUM OXIDE 400 MG TAB PO SCH (20:41)
[2018-11-26] MEDS: FUROSEMIDE 40 MG TAB PO SCH (20:42)
[2018-11-26] MEDS: FERROUS SULFATE 325 MG TAB PO SCH (20:43)
[2018-11-26] MEDS: DOCUSATE SODIUM/SENNA 50/8.6MG TAB PO SCH (20:44)
[2018-11-27] MEDS: BACLOFEN 10 MG TAB PO PRN ×2 (01:48→21:01)
[2018-11-27] MEDS: OXYCODONE HCL IR 5 MG TAB (IMMEDIATE RELEASE) PO PRN ×2 (01:48→20:50)
[2018-11-27 07:06] LABS: Hematocrit (blood only) 30.3 % (42-52); Hemoglobin 10.3 g/dL (14.0-18.0); Mean Corpuscular Volume 97.1 fL (80-100); Mean Platelet Volume 10.8 fL (7.4-10.4); Platelet Count 125 K/uL (130-400); RDW Coefficient of Variation 15.1 % (11.5-14.5); RDW Standard Deviation 53.4 fL (36.4-46.3); Red Blood Count 3.12 M/uL (4.7-6.1); White Blood Count 9.98 K/uL (4.8-10.8)
[2018-11-27 08:02] LABS: BUN Creatinine Ratio 25.9 (10-20); Calcium 8.7 mg/dl (8.5-10.1); Creatinine Clr Calc Pharmacy 46.8 ml/min; Est GFR (African American) 44.8; Est GFR (Non-African American) 38.6; Magnesium 1.9 mg/dl (1.8-2.4); Phosphorus 2.8 mg/dl (2.5-4.9)
[2018-11-27] MEDS: INSULIN ASPART 100 UNITS/ML 3 ML PEN SC SCH ×4 (08:28→20:50)
--- NOTE | 2018-11-27 09:20 | Hospitalist Progress Note ---
Date of Service November 27, 2018 Assessment & Plan (1) Cervical spinal stenosis: * POD #4 s/p C4 corpectomy with Dr. Guteirres- MRI with evidence of sever spinal stenosis with cord edema at C4 on admission--> patient with extended length of anesthesia, Narcan x 4, ABG with evidence of CO2 narcosis related to prolonged anesthesia/procedure. EBL 50cc. Improving field hand strength UE bilaterally. Improved sensation in digits 3-5, and increased ROM b/l UE * Strength & ROM Improving- pain management per ortho * PT/OT- rec SNF * CM - PASSR sent to [facility] --> insurance auth denied- [id number] requested for appeal-- awaiting return call * patient with significant myelopathy, unsafe at home alone, unsteady gait d/t lower extremity numbness/tingling secondary to lumbar stenosis (2) Fizom-qh-ggjtqve kidney injury: * Resolved - Creat 1.81 * Baseline Cr 1.7-2.0 * Course: WILLIAM following surgery with creatinine 2.97, 2.67, 2.58. Nephrotoxic agents avoided. Medications renally dosed when appropriate.- Follows with Dr. Jeffrey mendez for CKD IV. Likely ATN postoperatively in the setting of patient with underlying CKD IV. Volume status stable at this time. Sodium, potassium, mag, phos wnl. * Urine studies pending- UA without signs of infection, blood. Urine OSM 353. Urine sodium 80. * Continue to monitor (3) Hypertension: * Stable * Patient's BP meds held x 1 for borderline hypotension s/p surgery * Currently slightly elevated at 156/76 * Continue bystolic, nifedipine, lasix for now- - may need to consider increasing nifedipine, given patient on bystolic and HRs bradycardic, or change scheduling of medications as patient takes all three in the evening * Will continue to monitor (4) Lumbar spinal stenosis: * Stable- symptoms improving-- patient with decreased numbness/tingling of b/l LE * Neuropathy in feet, improved ability to walk with walker AND assistance- will need rehab at discharge * Vitamin B12 level is > 2000 * No immediate needs for lumbar surgery at this time (5) Metabolic acidosis: * Resolved - Likely ATN postoperatively in the setting of patient with underlying CKD IV * Will continue to monitor electrolytes Course: * Evening of 11/23 (POD #0) patient hypothemic- improved with bear hugger. Patient continuing to be lethargic, borderline hypotensive, with periods of apnea. Patient with CO2 narcosis post-operatively, with pCO2 elevated at 51 on ABG in PACU. Received Narcan x 4. * Patient transferred to Telemetry for monitoring 11/23: Stat vBG, BMP, CBC, Mag - pH 7.26, pCO2 42, pO2 85, O2 sat 95.7, hemoglobin 12-->10.3, chloride 109, creat bumped from 1.97 to 2.17, Mag 1.8. 500cc bolus given for borderline BP. Lasix, BP meds held at that time. Repeat VBG improved- pH 7.33, pCO2 36, HCO3 18---> patient did not end up needing to be placed on BiPAP. Lactic 1.8- could possibly have been elevated prior and trending down (6) Chronic renal insufficiency, stage IV (severe): * See above * Baseline creatinine 1.7-2. (7) Alcohol withdrawal: * Stable * Patient drinks 1 liter of hard liquor a day- last drink November 19 * Neurontin loading dose and taper ordered- 600mg BID initially--> transitioned to 600mg Q24 on 11/23- continued at this time * Ativan 0.5mg PO PRN for anxiety/agitation * Patient is doing well thus far, no signs of severe withdrawal, no DT's- mental status is clear, without agitation * Patient with decreased tingling/numbness b/l LE-- due to acute kidney injury, patient will remain on daily vs BID dosing at this time (8) Pancytopenia: * Improved * Likely secondary to alcohol abuse - continue thiamine and folate. * WBC 9.98, H/H 10.3/30.3, platelets 178 (9) Diabetes: * Stable * Controlled as outpatient, however patient with CKD- most recent A1c this admission of 5.8 * Outpatient pioglitazone held during admission, patient's sugars continue to be managed by pharmacy * SSI (10) Hypomagnesemia: * Stable * Mag 1.7 on admission 11/19. Replaced. repeat mag 1.9 on 11/20 * Mag continues to be stable at 1.9 (11) DVT prophylaxis: Thigh SCDs Dispo: per CM, patient accepted at [facility] ===> insurance authorization denied-- [id number] requested as patient stable for discharge (12) Acute pulmonary insufficiency following nonthoracic surgery: (13) Acute kidney injury: Supervising Physician Co-Signing Physician Notes Attending Attestation: Pt seen/examined, chart reviewed in detail, care plan d/w KANDACE Moreland. I agree w/ the adan components of her documentation. POD #4 - C4 corpectomy for C4 myelopathy. He had no complaints during my visit today. Feeling good. vitals stable creatinine 1.8 today gen - NAD neck - c-collar in place heart - RRR lungs - CTA b/l abd - soft ext - no edema neuro - strength abduction and extension of arms/shoulders IMPROVED from my prior exam; dorsiflexion/plantarflexion of feet/ankles also improved Overall patient is stable and improving. Unfortunately patient was DENIED SNF placement for rehab. I believe patient is UNSAFE to return home at this time. Ms Moreland requested [id number] with medical laboratory technicians at insurance co - awaiting call back. Of note- PT documentation from 11/27 showing 40% functional disability at this time. Nelson Rodrigues MD Subjective Patient evaluated at bedside this morning. He states he is doing much better. Swallowing well, good appetite. Moving bowels. Numbness/tingling in lower extremities still present, but improving. States he is tolerating ambulation with walker, but requiring assistance for gait instability. Discussion with patient had regarding need for [id number] with his insurance company due to denied insurance auth for SNF. Review of Systems Review of Systems: Constitutional: Denies fever, weight loss, cold or heat intolerance, weakness. HEENT: Denies headaches, lightheadedness, acute visual changes, double vision, light sensitivity or syncope, tinnitus, epistaxis, hoarseness, or dysphagia. Pulmonary: Minimal cough, improved. Occasional clear sputum. Denies shortness of breath, dyspnea on exertion, pain with inspiration, or hemoptysis. Cardiovascular: Denies chest pain, palpitations, syncope, edema. GI: Denies abdominal pain, n/v/d, melena, hematochezia. : Denies urgency, frequency, hematuria. MSK/Neuro: Some numbness and tingling b/l LE, tolerable. Able to ambulate with walker and assistance. ROM improving b/l UE. Film Composer strength 5/5. Skin: Warm and dry. Psychiatric: + substance abuse (alcohol- last drink Nov 19) Physical Exam Constitutional: WD/WN, vitals as above well developed Eyes: PERRL, conjunctivae normal, anicteric sclerae ENMT: external ear and nose normal, oropharynx normal Neck: trachea midline, no thyromegaly Respiratory: normal respiratory effort, lungs clear to auscultation Cardiovascular: Rate/Rhythm: regular rhythm and + bradycardic Heart Sounds: normal S1 and normal S2 Vessels: no JVD Extremities: + edema (trace) Gastrointestinal (Abdomen): normal bowel sounds, soft, nontender, no hepatosplenomegaly Inspection/Auscultation: abdomen normal to inspection and + hypoactive bowel sounds Musculoskeletal: no cyanosis or clubbing, extremities motor strength 5/5 Skin: no rashes, warm and dry Neurologic: PERRL, EOMI, accommodation nl, no face palsy, no dysarthria CN's II-XI intact bilaterally, deep tendon reflexes 2+ bilaterally and moves all extremities; no focal motor deficits Motor/Sensory: + sensory deficit (decreased sensation in feet) Psychiatric: A+Ox3, euthymic affect Lymphatic: no cervical or axillary lymphadenopathy Results & Data Vital Signs (Past 12 Hours) Vital Signs Temp Pulse Pulse Resp BP Pulse Ox 11/27/18 07:50 36.8 C 57 L 15 156/76 H 100 11/27/18 07:38 81 19 96 11/27/18 03:57 54 L 157/80 H 11/27/18 03:31 60 18 99 11/27/18 01:52 54 L 164/82 H 11/26/18 23:10 36.6 C 55 L 18 166/90 H 100 11/26/18 23:04 67 16 100 Laboratory Results 11/27/18 11/27/18 11/27/18 Range/Units 08:09 05:04 05:04 WBC 9.98 (4.8-10.8) K/uL RBC 3.12 L (4.7-6.1) M/uL Hgb 10.3 L (14.0-18.0) g/dL Hct 30.3 L (42-52) % MCV 97.1 (80-100) fL MCH 33.0 (25-34) pg MCHC 34.0 (32-36) g/dL RDW Std Deviation 53.4 H (36.4-46.3) fL RDW Coeff of Clyde 15.1 H (11.5-14.5) % Plt Count 125 L (130-400) K/uL MPV 10.8 H (7.4-10.4) fL Sodium 136 (136-145) mmol/L Potassium 5.0 (3.5-5.1) mmol/L Chloride 107 (98-107) mmol/L Carbon Dioxide 22 (21-32) mmol/L Anion Gap 7.0 (3-11) BUN 47 H (7-18) mg/dl Creatinine 1.81 H D (0.6-1.4) mg/dl Est Cr Clr Drug Dosing 46.8 ml/min Est GFR ( Amer) 44.8 Est GFR (Non-Af Amer) 38.6 BUN/Creatinine Ratio 25.9 H (10-20) Glucose 178 H (70-99) mg/dl POC Glucose 166 H (70-99) Calcium 8.7 (8.5-10.1) mg/dl Phosphorus 2.8 (2.5-4.9) mg/dl Magnesium 1.9 (1.8-2.4) mg/dl Specimen Hemolysis 11/26/18 11/26/18 11/26/18 Range/Units 20:13 17:10 12:40 WBC (4.8-10.8) K/uL RBC (4.7-6.1) M/uL Hgb (14.0-18.0) g/dL Hct (42-52) % MCV (80-100) fL MCH (25-34) pg MCHC (32-36) g/dL RDW Std Deviation (36.4-46.3) fL RDW Coeff of Clyde (11.5-14.5) % Plt Count (130-400) K/uL MPV (7.4-10.4) fL Sodium (136-145) mmol/L Potassium (3.5-5.1) mmol/L Chloride (98-107) mmol/L Carbon Dioxide (21-32) mmol/L Anion Gap (3-11) BUN (7-18) mg/dl Creatinine (0.6-1.4) mg/dl Est Cr Clr Drug Dosing ml/min Est GFR ( Amer) Est GFR (Non-Af Amer) BUN/Creatinine Ratio (10-20) Glucose (70-99) mg/dl POC Glucose 191 H 163 H 80 (70-99) Calcium (8.5-10.1) mg/dl Phosphorus (2.5-4.9) mg/dl Magnesium (1.8-2.4) mg/dl Specimen Hemolysis 11/26/18 11/26/18 Range/Units 12:24 08:24 WBC (4.8-10.8) K/uL RBC (4.7-6.1) M/uL Hgb (14.0-18.0) g/dL Hct (42-52) % MCV (80-100) fL MCH (25-34) pg MCHC (32-36) g/dL RDW Std Deviation (36.4-46.3) fL RDW Coeff of Clyde (11.5-14.5) % Plt Count (130-400) K/uL MPV (7.4-10.4) fL Sodium (136-145) mmol/L Potassium (3.5-5.1) mmol/L Chloride (98-107) mmol/L Carbon Dioxide (21-32) mmol/L Anion Gap (3-11) BUN (7-18) mg/dl Creatinine (0.6-1.4) mg/dl Est Cr Clr Drug Dosing ml/min Est GFR ( Amer) Est GFR (Non-Af Amer) BUN/Creatinine Ratio (10-20) Glucose (70-99) mg/dl POC Glucose 68 L* 133 H (70-99) Calcium (8.5-10.1) mg/dl Phosphorus (2.5-4.9) mg/dl Magnesium (1.8-2.4) mg/dl Specimen Hemolysis PG Care Time/CCT Total # of Minutes Spent Total Time Spent with Patient: Total time spent is greater than 50% in coordination of care (as documented) at patient's floor/unit and/or counseling patient: (1) Lumbar spinal stenosis Neurogenic claudication status: unspecified Qualified Code(s): M48.061 - Spinal stenosis, lumbar region without neurogenic claudication
--- NOTE | 2018-11-27 12:05 | Nephrology Progress Note ---
Date of Service November 27, 2018 Assessment & Plan (1) [id number] kidney injury: Nonoliguric. Clinically consistent with ATN. Urine studies bland and acellular. Baseline creatinine 1.7-2. Creatinine has improved to 1.8 milligram/deciliter today. Metabolic profile is otherwise acceptable. Patient's volume status remains euvolemic. Medications are appropriate for kidney function. We will continue with close perspective monitoring. Repeat metabolic profile tomorrow morning. Additional renal imaging deferred at this time pending follow-up evaluation. (2) Alcohol withdrawal: (3) Hypomagnesemia: (4) Cervical spinal stenosis: (5) Lumbar spinal stenosis: (6) Pancytopenia: Subjective No acute events overnight. He is drinking plenty of fluids. He denies significant pain. Mahesh was seen and evaluated while resting in his bedside chair this morning. He continues to hope that there will be availability for discharge to rehab. In the interim, he is eating and drinking well. His pain is under reasonable control. Kidney function continues to improve. Review of Systems Review of Systems: All systems reviewed & are unremarkable except as noted in HPI & below Physical Exam Constitutional: + obese; no acute distress Eyes: no conjunctival abnormality and no scleral abnormality ENMT: Mouth: no oral mucosal abnormality and oral mucous membranes not dry Neck: trachea midline and + thick neck Respiratory: normal respiratory effort Auscultation: lungs clear to auscultation bilaterally Cardiovascular: Rate/Rhythm: + bradycardic Heart Sounds: normal S1 and normal S2 Extremities: + edema (Trace dependent) Gastrointestinal (Abdomen): Percussion/Palpation: abdomen soft; abdomen nontender Musculoskeletal: Extremities: no cyanosis and no clubbing Skin: normal turgor; no rashes Neurologic: Motor/Sensory: no tremor and no asterixis Results & Data Vital Signs (Past 12 Hours) Vital Signs Temp Pulse Pulse Resp BP Pulse Ox 11/27/18 11:48 71 97 11/27/18 07:50 36.8 C 57 L 15 156/76 H 100 11/27/18 07:38 81 19 96 11/27/18 03:57 54 L 157/80 H 11/27/18 03:31 60 18 99 11/27/18 01:52 54 L 164/82 H Laboratory Results Laboratory Results - last 24 hr 11/26/18 11/26/18 11/26/18 08:24 12:24 12:40 WBC RBC Hgb Hct MCV MCH MCHC RDW Std Deviation RDW Coeff of Clyde Plt Count MPV Sodium Potassium Chloride Carbon Dioxide Anion Gap BUN Creatinine Est Cr Clr Drug Dosing Est GFR ( Amer) Est GFR (Non-Af Amer) BUN/Creatinine Ratio Glucose POC Glucose 133 H 68 L* 80 Calcium Phosphorus Magnesium Specimen Hemolysis 11/26/18 11/26/18 11/27/18 17:10 20:13 05:04 WBC 9.98 RBC 3.12 L Hgb 10.3 L Hct 30.3 L MCV 97.1 MCH 33.0 MCHC 34.0 RDW Std Deviation 53.4 H RDW Coeff of Clyde 15.1 H Plt Count 125 L MPV 10.8 H Sodium Potassium Chloride Carbon Dioxide Anion Gap BUN Creatinine Est Cr Clr Drug Dosing Est GFR ( Amer) Est GFR (Non-Af Amer) BUN/Creatinine Ratio Glucose POC Glucose 163 H 191 H Calcium Phosphorus Magnesium Specimen Hemolysis 11/27/18 11/27/18 05:04 08:09 WBC RBC Hgb Hct MCV MCH MCHC RDW Std Deviation RDW Coeff of Clyde Plt Count MPV Sodium 136 Potassium 5.0 Chloride 107 Carbon Dioxide 22 Anion Gap 7.0 BUN 47 H Creatinine 1.81 H D Est Cr Clr Drug Dosing 46.8 Est GFR ( Amer) 44.8 Est GFR (Non-Af Amer) 38.6 BUN/Creatinine Ratio 25.9 H Glucose 178 H POC Glucose 166 H Calcium 8.7 Phosphorus 2.8 Magnesium 1.9 Specimen Hemolysis PG Care Time/CCT Total # of Minutes Spent Total Time Spent with Patient: Total time spent is greater than 50% in coordination of care (as documented) at patient's floor/unit and/or counseling patient: (1) Lumbar spinal stenosis Neurogenic claudication status: unspecified Qualified Code(s): M48.061 - Spinal stenosis, lumbar region without neurogenic claudication
[2018-11-27] MEDS: FERROUS SULFATE 325 MG TAB PO SCH (20:46)
[2018-11-27] MEDS: NEBIVOLOL HCL 5 MG TAB PO SCH (20:46)
[2018-11-27] MEDS: MAGNESIUM OXIDE 400 MG TAB PO SCH (20:47)
[2018-11-27] MEDS: FUROSEMIDE 40 MG TAB PO SCH (20:47)
[2018-11-27] MEDS: FOLIC ACID 1 MG TAB PO SCH (20:47)
[2018-11-27] MEDS: OMEGA-3 (PURIFIED FISH OIL) 1 GM CAP PO SCH (20:48)
[2018-11-27] MEDS: NIFEdipine EXTENDED REL 30 MG TABCR PO SCH (20:48)
[2018-11-27] MEDS: DOCUSATE SODIUM/SENNA 50/8.6MG TAB PO SCH (20:48)
[2018-11-27] MEDS: VITAMIN B COMPLEX TAB PO SCH (20:49)
[2018-11-27] MEDS: THIAMINE HCL 100 MG TAB PO SCH (20:49)
[2018-11-27] MEDS: ZINC SULFATE 220 MG CAPSULE PO SCH (20:49)
[2018-11-27] MEDS: allopurinoL 100 MG TAB PO SCH (20:49)
[2018-11-27] MEDS: CYANOCOBALAMIN (VITAMIN B-12) 2,500 MCG TAB.SUBL SL SCH (20:49)
[2018-11-28 05:42] LABS: Hematocrit (blood only) 29.9 % (42-52); Mean Corpuscular Hemoglobin 32.8 pg (25-34); Mean Corpuscular Hgb Conc 33.4 g/dL (32-36); Mean Platelet Volume 10.8 fL (7.4-10.4); Platelet Count 139 K/uL (130-400); RDW Coefficient of Variation 15.1 % (11.5-14.5); RDW Standard Deviation 53.7 fL (36.4-46.3); Red Blood Count 3.05 M/uL (4.7-6.1); White Blood Count 9.15 K/uL (4.8-10.8)
[2018-11-28] MEDS: OXYCODONE HCL IR 5 MG TAB (IMMEDIATE RELEASE) PO PRN (06:05)
[2018-11-28 06:16] LABS: Albumin Level 2.9 gm/dl (3.4-5.0); BUN Creatinine Ratio 24.1 (10-20); Calcium 8.6 mg/dl (8.5-10.1); Creatinine Clr Calc Pharmacy 48.1 ml/min; Est GFR (African American) 46.3; Magnesium 1.9 mg/dl (1.8-2.4); Potassium 4.4 mmol/L (3.5-5.1)
[2018-11-28 06:17] LABS: Phosphorus 2.7 mg/dl (2.5-4.9)
[2018-11-28] MEDS: INSULIN ASPART 100 UNITS/ML 3 ML PEN SC SCH ×4 (08:27→21:12)
--- NOTE | 2018-11-28 09:36 | Hospitalist Progress Note ---
Date of Service November 28, 2018 Assessment & Plan (1) Cervical spinal stenosis: * Improving * POD #5 s/p C4 corpectomy with Dr. Gutierres- MRI with evidence of sever spinal stenosis with cord edema at C4 on admission--> patient with extended length of anesthesia, Narcan x 4, ABG with evidence of CO2 narcosis related to prolonged anesthesia/procedure. EBL 50cc. Improving chair mender strength UE bilaterally. Improved sensation in digits 3-5, and increased ROM b/l UE * Strength & ROM Improving- pain management per ortho * PT/OT- rec SNF placement * CM - PASSR sent to [facility] --> insurance auth denied- [id number] requested for appeal -->patient with significant myelopathy, unsafe at home, lives alone, unsteady gait d/t lower extremity numbness/tingling secondary to lumbar stenosis-- still awaiting [id number] at this time, likely will not hear back until Thursday. Patient unsafe to return home. (2) Xkfiq-uc-ojwjmsw kidney injury: * Resolved - Creat 1.76 today * Baseline Cr 1.7-2.0 * Course: WILLIAM following surgery with creatinine 2.97, 2.67, 2.58. Nephrotoxic agents avoided. Medications renally dosed when appropriate.- Follows with Dr. Jeffrey mendez for CKD IV. Likely ATN postoperatively in the setting of patient with underlying CKD IV. Volume status stable at this time. Sodium, potassium, mag, phos wnl. * Urine studies pending- UA without signs of infection, blood. Urine OSM 353. Urine sodium 80. (3) Hypertension: * Elevated currently-- * Patient's BP meds held x 1 for borderline hypotension s/p surgery. * BP 145/79 last evening--> elevated at 163/77 this morning, asymptomatic -- may need to consider increasing nifedipine, given patient on bystolic and HRs bradycardic, or change scheduling of medications as patient takes all three in the evening * Will continue to monitor (4) Lumbar spinal stenosis: * Stable- symptoms improving-- patient with decreased numbness/tingling of b/l LE * Neuropathy in feet, improved ability to walk with walker AND assistance- will need rehab at discharge * Vitamin B12 level is > 2000 * No immediate needs for lumbar surgery at this time (5) Metabolic acidosis: * Resolved - Likely ATN postoperatively in the setting of patient with underlying CKD IV- will continue to monitor electrolytes Course: * Evening of 11/23 (POD #0) patient hypothermic- improved with bear hugger. Patient continuing to be lethargic, borderline hypotensive, with periods of apnea. Patient with CO2 narcosis post-operatively, with pCO2 elevated at 51 on ABG in PACU. Received Narcan x 4. * Patient transferred to Telemetry for monitoring 11/23: Stat vBG, BMP, CBC, Mag - pH 7.26, pCO2 42, pO2 85, O2 sat 95.7, hemoglobin 12-->10.3, chloride 109, creat bumped from 1.97 to 2.17, Mag 1.8. 500cc bolus given for borderline BP. Lasix, BP meds held at that time. Repeat VBG improved- pH 7.33, pCO2 36, HCO3 18---> patient did not end up needing to be placed on BiPAP. Lactic 1.8- could possibly have been elevated prior and trending down (6) Chronic renal insufficiency, stage IV (severe): * See above * Baseline creatinine 1.7-2. (7) Alcohol withdrawal: * Stable * Patient drinks 1 liter of hard liquor a day- last drink November 19 * Neurontin loading dose and taper ordered- 600mg BID initially--> transitioned to 600mg Q24 on 11/23- continued at this time * Ativan 0.5mg PO PRN for anxiety/agitation * Patient is doing well thus far, no signs of severe withdrawal, no DT's- mental status is clear, without agitation * Patient with decreased tingling/numbness b/l LE-- due to acute kidney injury, patient will remain on daily vs BID dosing at this time (8) Pancytopenia: * Improved * Likely secondary to alcohol abuse - continue thiamine and folate. * WBC 9.15, H/H 10.0/29.9, platelets 139 (9) Diabetes: * Stable- SSI insulin while inpatient. On pioglitazone as outpatient, with most recent A1c 5.8 this admission. (10) Hypomagnesemia: * Resolved -- Mag 1.7 on admission 11/19. Replaced. repeat mag 1.9 on 11/20 * Mag continues to be stable at 1.9 (11) DVT prophylaxis: Thigh SCDs Dispo: per CM, patient accepted at [facility] ===> insurance authorization denied-- [id number] requested 11/27 as patient requiring inpatient rehab to safely become more independent prior to return home-- likely no return call until Thursday Supervising Physician Co-Signing Physician Notes Attending Attestation: Chart reviewed in detail, care plan d/w PA Dariana Moreland. I agree w/ the adan components of her documentation. POD #5 - C4 corpectomy for C4 myelopathy. Vitals/labs stable. Cr 1.7 -- WILLIAM resolved. Unfortunately patient was DENIED SNF placement for rehab. I agree with Merly and Dr Gutierres that patient is UNSAFE to return home at this time. Ms Moreland requested [id number] with medical device sales at insurance co - STILL awaiting call back. PT/OT notes continue to document functional losses that are large, and patient himself does not feel comfortable being at home alone (he has no children or family that could help him). Await return call from insurance company to discuss [id number]. Nelson Rodrigues MD Subjective Patient evaluated at bedside this morning. States he is feeling well, still has unsteadiness with walking, but continues to use a walker with some improvement. He states he has been drinking and eating without difficulty and would like to try a more regular diet at this time. He states he had two formed BM since yesterday, normal color and consistency. He denies any chest pain, shortness of breath, abdominal pain, n/v/d, fever, chills. Discussion with patient about awaiting call for [id number] to appeal insurance denial for inpatient rehab. Patient is hopeful for inpatient rehab to work on increasing strength and gait upon discharge as he is unable to ambulate without assistance to perform his daily activities. Discussed elevated BP with patient- he denies any headache, visual changes, chest pain, urinary symptoms at this time. Review of Systems Review of Systems: Constitutional: Denies fever, weight loss, cold or heat intolerance, weakness. HEENT: Denies headaches, lightheadedness, acute visual changes, double vision, light sensitivity or syncope, tinnitus, epistaxis, hoarseness, or dysphagia. Pulmonary: Minimal cough, improved. Occasional clear sputum. Denies shortness of breath, dyspnea on exertion, pain with inspiration, or hemoptysis. Cardiovascular: Denies chest pain, palpitations, syncope, edema. GI: Denies abdominal pain, n/v/d, melena, hematochezia. BM x 2 , normal color and consistency : Denies urgency, frequency, hematuria. MSK/Neuro: Some numbness and tingling b/l LE, tolerable. Able to ambulate with walker and assistance, still unsteady gait. ROM improving b/l UE. Metal Miner strength 5/5. Skin: Warm and dry. Physical Exam Physical Exam: Constitutional: WD/WN, vitals as above Eyes :PERRL, conjunctivae normal, anicteric sclerae ENMT: external ear and nose normal, oropharynx normal. MJ Collar in place. Trachea midline. Respiratory: Normal respiratory effort, lungs clear to auscultation bilaterally. Cardiovascular: No JVD noted. Bradycardic, regular rhythm. S1S2, without murmur. Trace edema b/l LE GI: +BS, abdomen obese, soft, nontender to palpation. No hepatosplenomegaly noted. Musculoskeletal: no cyanosis or clubbing. Metal Miner strength 5/5. Decreased but improving strength b/l deltoids/bicep/triceps Neurologic: PERRL, EOMI, accommodation nl, no face palsy, no dysarthria. CN's II-XI intact bilaterally, deep tendon reflexes 2+ bilaterally and moves all extremities; no focal motor deficits Motor/Sensory: + sensory deficit (decreased sensation in feet) Psychiatric: A+Ox3, cooperative Results & Data Vital Signs (Past 12 Hours) Vital Signs Temp Pulse Pulse Resp BP Pulse Ox 11/28/18 07:50 53 L 16 95 11/28/18 07:37 36.8 C 58 L 16 163/77 H 100 11/28/18 03:15 56 L 16 100 11/28/18 00:00 64 16 100 11/27/18 23:10 36.8 C 63 18 163/61 H 100 Laboratory Results 11/28/18 11/28/18 11/28/18 Range/Units 08:01 05:25 05:25 WBC 9.15 (4.8-10.8) K/uL RBC 3.05 L (4.7-6.1) M/uL Hgb 10.0 L (14.0-18.0) g/dL Hct 29.9 L (42-52) % MCV 98.0 (80-100) fL MCH 32.8 (25-34) pg MCHC 33.4 (32-36) g/dL RDW Std Deviation 53.7 H (36.4-46.3) fL RDW Coeff of Clyde 15.1 H (11.5-14.5) % Plt Count 139 (130-400) K/uL MPV 10.8 H (7.4-10.4) fL Sodium 137 (136-145) mmol/L Potassium 4.4 (3.5-5.1) mmol/L Chloride 108 H (98-107) mmol/L Carbon Dioxide 21 (21-32) mmol/L Anion Gap 8.0 (3-11) BUN 42 H (7-18) mg/dl Creatinine 1.76 H (0.6-1.4) mg/dl Est Cr Clr Drug Dosing 48.1 ml/min Est GFR ( Amer) 46.3 Est GFR (Non-Af Amer) 40.0 BUN/Creatinine Ratio 24.1 H (10-20) Glucose 139 H (70-99) mg/dl POC Glucose 132 H (70-99) Calcium 8.6 (8.5-10.1) mg/dl Phosphorus 2.7 (2.5-4.9) mg/dl Magnesium 1.9 (1.8-2.4) mg/dl Albumin 2.9 L (3.4-5.0) gm/dl 11/27/18 11/27/18 11/27/18 Range/Units 20:17 17:17 12:28 WBC (4.8-10.8) K/uL RBC (4.7-6.1) M/uL Hgb (14.0-18.0) g/dL Hct (42-52) % MCV (80-100) fL MCH (25-34) pg MCHC (32-36) g/dL RDW Std Deviation (36.4-46.3) fL RDW Coeff of Clyde (11.5-14.5) % Plt Count (130-400) K/uL MPV (7.4-10.4) fL Sodium (136-145) mmol/L Potassium (3.5-5.1) mmol/L Chloride (98-107) mmol/L Carbon Dioxide (21-32) mmol/L Anion Gap (3-11) BUN (7-18) mg/dl Creatinine (0.6-1.4) mg/dl Est Cr Clr Drug Dosing ml/min Est GFR ( Amer) Est GFR (Non-Af Amer) BUN/Creatinine Ratio (10-20) Glucose (70-99) mg/dl POC Glucose 184 H 205 H 118 H (70-99) Calcium (8.5-10.1) mg/dl Phosphorus (2.5-4.9) mg/dl Magnesium (1.8-2.4) mg/dl Albumin (3.4-5.0) gm/dl PG Care Time/CCT Total # of Minutes Spent Total Time Spent with Patient: Total time spent is greater than 50% in coordination of care (as documented) at patient's floor/unit and/or counseling patient: (1) Lumbar spinal stenosis Neurogenic claudication status: unspecified Qualified Code(s): M48.061 - Spinal stenosis, lumbar region without neurogenic claudication
--- NOTE | 2018-11-28 10:55 | Orthopedic Progress Note ---
Date of Service November 28, 2018 Assessment & Plan (1) Myelopathy concurrent with and due to spinal stenosis of cervical region: Patient is doing steadily improving. He is swallowing well. No hoarseness. He is obviously neurologically limited. He had significant compression of the spinal cord with edema. He clearly would benefit from inpatient rehab for both occupational and physical therapy as he does live alone. This is the only way to safely allow him to become independent to return to his home. Present on Admission?: Yes Subjective Patient is more more comfortable. He is improving steadily with his ambulation but still requires assistance and a walker. Physical Exam Physical Exam: On exam he is in a chair at the bedside. Still significant weakness to bilateral deltoids biceps and triceps. Manager Research improving. Results & Data Vital Signs (Past 12 Hours) Vital Signs Temp Pulse Pulse Resp BP Pulse Ox 11/28/18 07:50 53 L 16 95 11/28/18 07:37 36.8 C 58 L 16 163/77 H 100 11/28/18 03:15 56 L 16 100 11/28/18 00:00 64 16 100 11/27/18 23:10 36.8 C 63 18 163/61 H 100
--- NOTE | 2018-11-28 13:00 | Nephrology Progress Note ---
Date of Service November 28, 2018 Assessment & Plan (1) Wknxc-jq-[id number] kidney injury: Nonoliguric. Clinically consistent with ATN. Urine studies bland and acellular. Baseline creatinine 1.7-2. Creatinine has improved to 1.8 milligram/deciliter today and remains stable. Metabolic profile is otherwise acceptable. Patient's volume status remains euvolemic. Medications are appropriate for kidney function. No additional recommendations at this time. Nephrology will sign off. Please arrange outpatient follow-up with me in the nephrology clinic within 2 weeks of hospital discharge. (2) Alcohol withdrawal: (3) Hypomagnesemia: (4) Cervical spinal stenosis: (5) Lumbar spinal stenosis: (6) Pancytopenia: Subjective No acute events overnight. Pain well controlled. Ambulating in his hospital room. Denies any lightheadedness or dizziness. No chest pain or palpitations. Breathing comfortably. Appetite is good. Review of Systems Review of Systems: All systems reviewed & are unremarkable except as noted in HPI & below Physical Exam Constitutional: well developed; no acute distress Eyes: no scleral abnormality and no corneal abnormality ENMT: Mouth: no oral mucosal abnormality and oral mucous membranes not dry Neck: Cervical collar Respiratory: normal respiratory effort Auscultation: lungs clear to auscultation bilaterally Cardiovascular: Rate/Rhythm: regular rate Heart Sounds: normal S1 and normal S2 Extremities: no edema Musculoskeletal: Extremities: no cyanosis and no clubbing Skin: normal turgor; no lesions Neurologic: Motor/Sensory: no tremor and no asterixis Psychiatric: Orientation: alert and oriented x 3 Results & Data Vital Signs (Past 12 Hours) Vital Signs Temp Pulse Resp BP Pulse Ox 11/28/18 10:59 56 L 16 99 11/28/18 07:50 53 L 16 95 11/28/18 07:37 36.8 C 58 L 16 163/77 H 100 11/28/18 03:15 56 L 16 100 Laboratory Results Laboratory Results - last 24 hr 11/27/18 11/27/18 11/28/18 17:17 20:17 05:25 WBC RBC Hgb Hct MCV MCH MCHC RDW Std Deviation RDW Coeff of Clyde Plt Count MPV Sodium 137 Potassium 4.4 Chloride 108 H Carbon Dioxide 21 Anion Gap 8.0 BUN 42 H Creatinine 1.76 H Est Cr Clr Drug Dosing 48.1 Est GFR ( Amer) 46.3 Est GFR (Non-Af Amer) 40.0 BUN/Creatinine Ratio 24.1 H Glucose 139 H POC Glucose 205 H 184 H Calcium 8.6 Phosphorus 2.7 Magnesium 1.9 Albumin 2.9 L 11/28/18 11/28/18 11/28/18 05:25 08:01 11:55 WBC 9.15 RBC 3.05 L Hgb 10.0 L Hct 29.9 L MCV 98.0 MCH 32.8 MCHC 33.4 RDW Std Deviation 53.7 H RDW Coeff of Clyde 15.1 H Plt Count 139 MPV 10.8 H Sodium Potassium Chloride Carbon Dioxide Anion Gap BUN Creatinine Est Cr Clr Drug Dosing Est GFR ( Amer) Est GFR (Non-Af Amer) BUN/Creatinine Ratio Glucose POC Glucose 132 H 141 H Calcium Phosphorus Magnesium Albumin PG Care Time/CCT Total # of Minutes Spent Total Time Spent with Patient: Total time spent is greater than 50% in coordination of care (as documented) at patient's floor/unit and/or counseling patient: (1) Lumbar spinal stenosis Neurogenic claudication status: unspecified Qualified Code(s): M48.061 - Spinal stenosis, lumbar region without neurogenic claudication
[2018-11-28] MEDS: NEBIVOLOL HCL 5 MG TAB PO SCH (21:04)
[2018-11-28] MEDS: FERROUS SULFATE 325 MG TAB PO SCH (21:04)
[2018-11-28] MEDS: DOCUSATE SODIUM/SENNA 50/8.6MG TAB PO SCH (21:04)
[2018-11-28] MEDS: NIFEdipine EXTENDED REL 30 MG TABCR PO SCH (21:05)
[2018-11-28] MEDS: OMEGA-3 (PURIFIED FISH OIL) 1 GM CAP PO SCH (21:05)
[2018-11-28] MEDS: FUROSEMIDE 40 MG TAB PO SCH (21:05)
[2018-11-28] MEDS: MAGNESIUM OXIDE 400 MG TAB PO SCH (21:06)
[2018-11-28] MEDS: THIAMINE HCL 100 MG TAB PO SCH (21:06)
[2018-11-28] MEDS: CYANOCOBALAMIN (VITAMIN B-12) 2,500 MCG TAB.SUBL SL SCH (21:06)
[2018-11-28] MEDS: VITAMIN B COMPLEX TAB PO SCH (21:07)
[2018-11-28] MEDS: ZINC SULFATE 220 MG CAPSULE PO SCH (21:07)
[2018-11-28] MEDS: allopurinoL 100 MG TAB PO SCH (21:07)
[2018-11-28] MEDS: FOLIC ACID 1 MG TAB PO SCH (21:07)
[2018-11-29 06:28] LABS: BUN Creatinine Ratio 22.8 (10-20); Calcium 8.9 mg/dl (8.5-10.1); Creatinine Clr Calc Pharmacy 49.5 ml/min; Est GFR (Non-African American) 41.4; Magnesium 1.9 mg/dl (1.8-2.4); Potassium 4.5 mmol/L (3.5-5.1)
[2018-11-29] MEDS: OXYCODONE HCL IR 5 MG TAB (IMMEDIATE RELEASE) PO PRN (06:36)
--- NOTE | 2018-11-29 09:38 | Pharmacy Report ---
Pharmacy Glycemic Short Note 2 - Date of Service November 29, 2018 - Glycemic Short BSG Results (Last 24 hours): 11/28/18 11/28/18 11/28/18 11:55 17:10 20:39 Glucose POC Glucose 141 H 144 H 264 H 11/29/18 11/29/18 04:38 07:54 Glucose 133 H POC Glucose 134 H OUTPATIENT ANTIDIABETIC REGIMEN: * Actos 15mg PO daily ASSESSMENT: * 63yo T2DM male admitted with spinal stenosis s/p POD#6 spinal surgery * Pt has required minimal insulin since high dose IV steroids with dexamethasone 6mg IV Q6hrs d/c * Pt has been receiving ~ 11-14 units of insulin per day * 0 units of basal insulin --> not needed based on AM fasting BSGs in goal range * 11-14 units of prandial insulin only * BSGs in goal range except for HS--> suspect in between meal snacking? Hesitant to tighten regimen for one isolated event as it may be too much for other times of the day when he is in goal range. Will wait 24hrs and see if patterns develop. PLAN FOR INPATIENT GLYCEMIC CONTROL: * Continue to hold outpatient oral diabetes medications * Continue to hold off on resuming any basal until BSGs consistently > 180 mg/dL * Bolus insulin - No change * NovoLog per scale ACHS or Q6hrs while NPO * Goal Range: Low 110 mg/dL - High 150 mg/dL * Correction Factor: 35 mg/dL/unit * Nutritional / Prandial insulin per carb ratio of 1 unit per 15 grams CHO consumed Discharge Recommendations: * Patient's A1c = 5.8% on 11/20/18 * However, this result is likely somewhat unreliable in ESRD patients d/t interactions between the A1c analyzing technique and high levels of urea in ESRD, reduced RBC life span, iron deficiency anemia, and EPO administration. HbA1c > 7.5% in ESRD patient may overestimate the extent of hyperglycemia in ESRD patients. * Recommend to continue oral agent on discharge, unless patient experiencing hypoglycemia as an outpatient
[2018-11-29] MEDS: INSULIN ASPART 100 UNITS/ML 3 ML PEN SC SCH ×4 (09:41→20:52)
--- NOTE | 2018-11-29 17:57 | Hospitalist Progress Note ---
Date of Service November 29, 2018 Assessment & Plan (1) Cervical spinal stenosis: * Improving * 11/23 - s/p C4 corpectomy with Dr. Gutierres- MRI with evidence of sever spinal stenosis with cord edema at C4 on admission--> patient with extended length of anesthesia, Narcan x 4, ABG with evidence of CO2 narcosis related to prolonged anesthesia/procedure. EBL 50cc. Improving gut dropper strength UE bilaterally. Improved sensation in digits 3-5, and increased ROM b/l UE * Strength & ROM Improving- pain management per ortho * PT/OT- rec SNF placement * CM - PASSR sent to [facility] --> insurance auth denied- [id number] requested for appeal - peer to peer completed and again denied - patient appealing -->patient with significant myelopathy, unsafe at home, lives alone, unsteady gait d/t lower extremity numbness/tingling secondary to lumbar stenosis (2) [id number]-[id number]-[id number] kidney injury: * Resolved - at baseline * Baseline Cr 1.7-2.0 * Course: WILLIAM following surgery with creatinine 2.97, 2.67, 2.58. Nephrotoxic agents avoided. Medications renally dosed when appropriate.- Follows with Dr. Jeffrey mendez for CKD IV. Likely ATN postoperatively in the setting of patient with underlying CKD IV. Volume status stable at this time. Sodium, potassium, mag, phos wnl. * Urine studies- UA without signs of infection, blood. Urine OSM 353. Urine sodium 80. (3) Hypertension: * Intermittently elevated - may need to consider increasing nifedipine, given patient on bystolic and HRs bradycardic * Will continue to monitor (4) Lumbar spinal stenosis: * Stable- symptoms improving-- patient with decreased numbness/tingling of b/l LE * Neuropathy in feet, improved ability to walk with walker AND assistance- will need rehab at discharge * Vitamin B12 level is > 2000 * No immediate needs for lumbar surgery at this time (5) Metabolic acidosis: * Resolved - Likely ATN postoperatively in the setting of patient with underlying CKD IV- will continue to monitor electrolytes Course: * Evening of 11/23 (POD #0) patient hypothermic- improved with bear hugger. Patient continuing to be lethargic, borderline hypotensive, with periods of apnea. Patient with CO2 narcosis post-operatively, with pCO2 elevated at 51 on ABG in PACU. Received Narcan x 4. * Patient transferred to Telemetry for monitoring 11/23: Stat vBG, BMP, CBC, Mag - pH 7.26, pCO2 42, pO2 85, O2 sat 95.7, hemoglobin 12-->10.3, chloride 109, creat bumped from 1.97 to 2.17, Mag 1.8. 500cc bolus given for borderline BP. Lasix, BP meds held at that time. Repeat VBG improved- pH 7.33, pCO2 36, HCO3 18---> patient did not end up needing to be placed on BiPAP. Lactic 1.8- could possibly have been elevated prior and trending down (6) Chronic renal insufficiency, stage IV (severe): * See above * Baseline creatinine 1.7-2. (7) Alcohol withdrawal: * Stable * Patient drinks 1 liter of hard liquor a day- last drink November 19 * Neurontin loading dose and taper ordered- 600mg BID initially--> transitioned to 600mg Q24 on 11/23- continued at this time * Ativan 0.5mg PO PRN for anxiety/agitation * Patient is doing well thus far, no signs of severe withdrawal, no DT's- mental status is clear, without agitation * Patient with decreased tingling/numbness b/l LE-- due to acute kidney injury, patient will remain on daily vs BID dosing at this time (8) Pancytopenia: * Improved * Likely secondary to alcohol abuse - continue thiamine and folate. * WBC 9.15, H/H 10.0/29.9, platelets 139 (9) Diabetes: * Stable- SSI insulin while inpatient. On pioglitazone as outpatient, with most recent A1c 5.8 this admission. (10) Hypomagnesemia: * Resolved (11) DVT prophylaxis: Thigh SCDs Dispo: per CM, patient accepted at [facility] ===> insurance authorization denied-- [id number] 11/29 - denied - patient appealing Subjective Mr. Penny is concerned about discharge he feels he should have rehab before going home. He is having some pain in his neck and arms but otherwise has no complaints. ROS Constitutional: no chills, aches, sweats or fever Respiratory: no sob,cough, sputum, or wheezing Cardiac: no chest pain, palpitations, edema, orthopnea or lightheadedness GI: no abdominal pain, nausea, vomiting, diarrhea or constipation : no dysuria or hesitancy Extremities: no joint pain or weakness Skin: no rash All other systems reviewed and negative Physical Exam Physical Exam: General: no distress Eyes: normal inspection, PERLL Respiratory: chest non tender, clear to auscultation, normal breath sounds, no respiratory distress, no accessory muscle use Cardiac: regular rate and rhythm, no rub or gallop, no murmur, no edema, no jvd GI/: active bowel sounds, no abd pain or tenderness, soft, non distended Extremities: normal range of motion, generalized weakness in arms and legs bilaterally Neuro/Psych: alert and oriented x 3, normal mood and affect Skin: normal color, dry Results & Data Vital Signs (Past 12 Hours) Vital Signs Temp Pulse Resp BP Pulse Ox 11/29/18 16:42 36.8 C 59 L 18 138/66 100 11/29/18 15:38 56 L 16 96 11/29/18 11:01 57 L 16 97 11/29/18 07:43 58 L 16 97 11/29/18 07:01 36.9 C 54 L 16 143/79 H 100 PG Care Time/CCT Total # of Minutes Spent Total Time Spent with Patient: Total time spent is greater than 50% in coordination of care (as documented) at patient's floor/unit and/or counseling patient: (1) Lumbar spinal stenosis Neurogenic claudication status: unspecified Qualified Code(s): M48.061 - Spinal stenosis, lumbar region without neurogenic claudication
[2018-11-29] MEDS: CYANOCOBALAMIN (VITAMIN B-12) 2,500 MCG TAB.SUBL SL SCH (20:42)
[2018-11-29] MEDS: allopurinoL 100 MG TAB PO SCH (20:42)
[2018-11-29] MEDS: ZINC SULFATE 220 MG CAPSULE PO SCH (20:42)
[2018-11-29] MEDS: THIAMINE HCL 100 MG TAB PO SCH (20:42)
[2018-11-29] MEDS: NIFEdipine EXTENDED REL 30 MG TABCR PO SCH (20:42)
[2018-11-29] MEDS: FERROUS SULFATE 325 MG TAB PO SCH (20:43)
[2018-11-29] MEDS: DOCUSATE SODIUM/SENNA 50/8.6MG TAB PO SCH (20:43)
[2018-11-29] MEDS: NEBIVOLOL HCL 5 MG TAB PO SCH (20:43)
[2018-11-29] MEDS: VITAMIN B COMPLEX TAB PO SCH (20:43)
[2018-11-29] MEDS: FUROSEMIDE 40 MG TAB PO SCH (20:43)
[2018-11-29] MEDS: OMEGA-3 (PURIFIED FISH OIL) 1 GM CAP PO SCH (20:43)
[2018-11-29] MEDS: FOLIC ACID 1 MG TAB PO SCH (20:43)
[2018-11-29] MEDS: MAGNESIUM OXIDE 400 MG TAB PO SCH (20:43)
[2018-11-30] MEDS: OXYCODONE HCL IR 5 MG TAB (IMMEDIATE RELEASE) PO PRN ×2 (05:50→21:15)
[2018-11-30] MEDS: INSULIN ASPART 100 UNITS/ML 3 ML PEN SC SCH ×5 (09:24→22:33)
--- NOTE | 2018-11-30 15:36 | Hospitalist Progress Note ---
Date of Service November 30, 2018 Assessment & Plan (1) Cervical spinal stenosis: * Improving * 11/23 - s/p C4 corpectomy with Dr. Gtuierres- MRI with evidence of sever spinal stenosis with cord edema at C4 on admission--> patient with extended length of anesthesia, Narcan x 4, ABG with evidence of CO2 narcosis related to prolonged anesthesia/procedure. EBL 50cc. * Strength & ROM Improving- pain management per ortho * PT/OT- rec SNF placement * CM - PASSR sent to [facility] --> insurance auth denied- [id number] requested for appeal - peer to peer completed and again denied - patient appealing -->patient with significant myelopathy, unsafe at home, lives alone, unsteady gait d/t lower extremity numbness/tingling secondary to lumbar stenosis (2) Xnqvy-jr-iuihvcn kidney injury: * Resolved - at baseline * Baseline Cr 1.7-2.0 * Course: WILLIAM following surgery with creatinine 2.97, 2.67, 2.58. Nephrotoxic agents avoided. Medications renally dosed when appropriate.- Follows with Dr. Jeffrey mendez for CKD IV. Likely ATN postoperatively in the setting of patient with underlying CKD IV. Volume status stable at this time. Sodium, potassium, mag, phos wnl. * nephrology signed off (3) Hypertension: * Intermittently elevated, no symptoms * Will continue to monitor (4) Lumbar spinal stenosis: * Stable- symptoms improving-- patient with decreased numbness/tingling of b/l LE * Neuropathy in feet, improved ability to walk with walker AND assistance- will need rehab at discharge * Vitamin B12 level is > 2000 * No immediate needs for lumbar surgery at this time (5) Metabolic acidosis: * Resolved - Likely ATN postoperatively in the setting of patient with underlying CKD IV- will continue to monitor electrolytes Course: * Evening of 11/23 (POD #0) patient hypothermic- improved with bear hugger. Patient continuing to be lethargic, borderline hypotensive, with periods of apnea. Patient with CO2 narcosis post-operatively, with pCO2 elevated at 51 on ABG in PACU. Received Narcan x 4. * Patient transferred to Telemetry for monitoring 11/23: Stat vBG, BMP, CBC, Mag - pH 7.26, pCO2 42, pO2 85, O2 sat 95.7, hemoglobin 12-->10.3, chloride 109, creat bumped from 1.97 to 2.17, Mag 1.8. 500cc bolus given for borderline BP. Lasix, BP meds held at that time. Repeat VBG improved- pH 7.33, pCO2 36, HCO3 18---> patient did not end up needing to be placed on BiPAP. Lactic 1.8- could possibly have been elevated prior and trending down (6) Chronic renal insufficiency, stage IV (severe): * See above * Baseline creatinine 1.7-2. (7) Alcohol withdrawal: * Stable * Patient drinks 1 liter of hard liquor a day- last drink November 19 * Neurontin loading dose and taper ordered- 600mg BID initially--> transitioned to 600mg Q24 on 11/23- continued at this time * Ativan 0.5mg PO PRN for anxiety/agitation * Patient is doing well thus far, no signs of severe withdrawal, no DT's- mental status is clear, without agitation * Patient with decreased tingling/numbness b/l LE-- due to acute kidney injury, patient will remain on daily vs BID dosing at this time (8) Pancytopenia: * Improved * Likely secondary to alcohol abuse - continue thiamine and folate. * WBC 9.15, H/H 10.0/29.9, platelets 139 (9) Diabetes: * Stable- SSI insulin while inpatient. On pioglitazone as outpatient, with most recent A1c 5.8 this admission. (10) Hypomagnesemia: * Resolved (11) DVT prophylaxis: Thigh SCDs Dispo: per CM, patient accepted at [facility] ===> insurance authorization denied-- [id number] 11/29 - denied - patient appeal still processing Subjective Mr. Penny's pain is tolerable. He denies problems swallowing, eating and drinking ok. No sob or cp. ROS Constitutional: no chills, aches, sweats or fever Respiratory: no sob,cough, sputum, or wheezing Cardiac: no chest pain, palpitations, edema, orthopnea or lightheadedness GI: no abdominal pain, nausea, vomiting, diarrhea or constipation : no dysuria or hesitancy Extremities: generalized weakness Skin: no rash All other systems reviewed and negative Physical Exam Physical Exam: General: no distress Eyes: normal inspection, PERLL Respiratory: chest non tender, clear to auscultation, normal breath sounds, no respiratory distress, no accessory muscle use Cardiac: regular rate and rhythm, no rub or gallop, no murmur, no edema, no jvd GI/: active bowel sounds, no abd pain or tenderness, soft, non distended Extremities: normal range of motion, mild bilateral weakness, non tender Neuro/Psych: alert and oriented x 3, normal mood and affect Skin: normal color, dry Results & Data Vital Signs (Past 12 Hours) Vital Signs Temp Pulse Pulse Resp BP Pulse Ox 11/30/18 11:10 80 20 90 11/30/18 08:17 36.5 C 55 L 16 147/81 H 100 11/30/18 08:00 79 20 97 PG Care Time/CCT Total # of Minutes Spent Total Time Spent with Patient: Total time spent is greater than 50% in coordination of care (as documented) at patient's floor/unit and/or counseling patient: (1) Lumbar spinal stenosis Neurogenic claudication status: unspecified Qualified Code(s): M48.061 - Spinal stenosis, lumbar region without neurogenic claudication
[2018-11-30] MEDS: FERROUS SULFATE 325 MG TAB PO SCH (21:14)
[2018-11-30] MEDS: FOLIC ACID 1 MG TAB PO SCH (21:14)
[2018-11-30] MEDS: VITAMIN B COMPLEX TAB PO SCH (21:14)
[2018-11-30] MEDS: NEBIVOLOL HCL 5 MG TAB PO SCH (21:14)
[2018-11-30] MEDS: CYANOCOBALAMIN (VITAMIN B-12) 2,500 MCG TAB.SUBL SL SCH (21:14)
[2018-11-30] MEDS: THIAMINE HCL 100 MG TAB PO SCH (21:14)
[2018-11-30] MEDS: FUROSEMIDE 40 MG TAB PO SCH (21:14)
[2018-11-30] MEDS: OMEGA-3 (PURIFIED FISH OIL) 1 GM CAP PO SCH (21:14)
[2018-11-30] MEDS: allopurinoL 100 MG TAB PO SCH (21:14)
[2018-11-30] MEDS: NIFEdipine EXTENDED REL 30 MG TABCR PO SCH (21:14)
[2018-11-30] MEDS: MAGNESIUM OXIDE 400 MG TAB PO SCH (21:14)
[2018-11-30] MEDS: ZINC SULFATE 220 MG CAPSULE PO SCH (21:15)
[2018-11-30] MEDS: DOCUSATE SODIUM/SENNA 50/8.6MG TAB PO SCH (21:15)
[2018-12-01] MEDS: OXYCODONE HCL IR 5 MG TAB (IMMEDIATE RELEASE) PO PRN ×2 (03:40→13:59)
[2018-12-01] MEDS: INSULIN ASPART 100 UNITS/ML 3 ML PEN SC SCH ×2 (09:21→13:48)
--- NOTE | 2018-12-01 09:40 | Pharmacy Report ---
Pharmacy Glycemic Short Note 2 - Date of Service December 01, 2018 - Glycemic Short BSG Results (Last 24 hours): 11/30/18 11/30/18 11/30/18 11:59 17:10 21:05 POC Glucose 181 H 152 H 249 H 11/30/18 12/01/18 22:19 08:07 POC Glucose 237 H 174 H OUTPATIENT ANTIDIABETIC REGIMEN: * Actos 15mg PO daily ASSESSMENT: * 63yo T2DM male admitted with spinal stenosis s/p POD#8 spinal surgery * Pt has required minimal insulin since high dose IV steroids with dexamethasone 6mg IV Q6hrs d/c * Pt has been receiving ~ 12-16 units of insulin per day * 0 units of basal insulin --> AM fasting BSGs slightly above goal range, but likely d/t needing tighter CF and CR * Tighten CF and CR (continue tighter CR at dinnertime as highest blood sugars are before bedtime). PLAN FOR INPATIENT GLYCEMIC CONTROL: * Continue to hold outpatient oral diabetes medications * Continue to hold off on resuming any basal until BSGs consistently > 180 mg/dL * Bolus insulin - No change * NovoLog per scale ACHS or Q6hrs while NPO * Goal Range: Low 110 mg/dL - High 150 mg/dL * tighten: Correction Factor: 30 mg/dL/unit * tighten: Nutritional / Prandial insulin per carb ratio of 1 unit per 12 grams CHO consumed at all times except 1 unit per 10 grams CHO at dinnertime Discharge Recommendations: * Patient's A1c = 5.8% on 11/20/18 * However, this result is likely somewhat unreliable in ESRD patients d/t interactions between the A1c analyzing technique and high levels of urea in ESRD, reduced RBC life span, iron deficiency anemia, and EPO administration. HbA1c > 7.5% in ESRD patient may overestimate the extent of hyperglycemia in ESRD patients. * Recommend to continue oral agent on discharge, unless patient experiencing hypoglycemia as an outpatient
[2018-12-01 09:46] LABS: Hemoglobin 9.7 g/dL (14.0-18.0); Mean Corpuscular Hemoglobin 32.6 pg (25-34); Mean Corpuscular Hgb Conc 33.4 g/dL (32-36); Mean Corpuscular Volume 97.3 fL (80-100); Mean Platelet Volume 10.6 fL (7.4-10.4); Platelet Count 151 K/uL (130-400); RDW Coefficient of Variation 14.7 % (11.5-14.5); RDW Standard Deviation 52.3 fL (36.4-46.3); Red Blood Count 2.98 M/uL (4.7-6.1); White Blood Count 9.29 K/uL (4.8-10.8)
[2018-12-01 10:19] LABS: Calcium 9.2 mg/dl (8.5-10.1); Creatinine Clr Calc Pharmacy 39.6 ml/min; Est GFR (African American) 36.6; Est GFR (Non-African American) 31.6; Potassium 4.7 mmol/L (3.5-5.1)
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
== END 2018-12-01 16:00 | disposition home health service (06) | DRG 453 ==
LOC: ED 13:27 → SUATTDRO 19:03 → 2E 19:03 → 3E 11-21 10:49 → 2S 11-23 19:13 → 3E 11-24 15:23

== ENCOUNTER 2018-12-04 16:21 | Inpatient (IN) ==
[2018-12-04] MEDS ORDERED: SODIUM CHLORIDE 0.9% 500 ML IV SCH (16:30)
[2018-12-04 16:45] LABS: Hematocrit (blood only) 33.3 % (42-52); Hemoglobin 11.3 g/dL (14.0-18.0); Immature Granulocytes # (auto) 0.02 K/uL (0.00-0.02); Immature Granulocytes % (auto) 0.2 %; Lymphocytes # (auto) 0.48 K/uL (1.2-3.4); Lymphocytes % (auto) 5.2 %; Mean Corpuscular Hemoglobin 32.6 pg (25-34); Mean Corpuscular Hgb Conc 33.9 g/dL (32-36); Mean Platelet Volume 11.4 fL (7.4-10.4); Monocytes # (auto) 0.37 K/uL (0.11-0.59); Neutrophils # (auto) 8.33 K/uL (1.4-6.5); Neutrophils % (auto) 90.6 %; Platelet Count 119 K/uL (130-400); RDW Coefficient of Variation 14.2 % (11.5-14.5); RDW Standard Deviation 49.3 fL (36.4-46.3); Red Blood Count 3.47 M/uL (4.7-6.1)
[2018-12-04] MEDS ORDERED: PIPERACILL/TAZOBAC CONSULT ACTIVE PRN ×2 (16:50→18:51)
[2018-12-04] MEDS ORDERED: SODIUM CHLORIDE 0.9% 1000ML 2,000 ML IV ONE (16:50)
[2018-12-04 16:58] LABS: Appearance Urine Clear (Clear); Bilirubin Urine Negative (Negative); Blood Urine Trace (Negative); Color Urine Yellow; Glucose Urine UA 3+ (Negative); Ketones Urine 1+ (Negative); Leukocyte Esterase Urine Negative (Negative); Nitrite Urine Negative (Negative); Protein Urine 1+ (Negative); Specific Gravity Urine 1.015 (1.000-1.030); Urobilinogen Urine Negative (Negative); pH Urine 5.5 (4.5-7.5)
[2018-12-04 16:59] LABS: INR 1.3 (0.9-1.1); Prothrombin Time 12.8 Seconds (9.0-12.0)
[2018-12-04] MEDS: PIPERACILLIN/TAZOBACTAM 4.5 GM/120 ML BAG IV ONE ×2 (16:59→17:55)
[2018-12-04 17:03] LABS: Bacteria Urine Negative (Negative); Hyaline Casts Urine 0-5 /lpf (0-5); RBC Urine 0-4 /hpf (0-4); WBC Urine 0-5 /hpf (0-5)
[2018-12-04 17:06] LABS: Alanine Aminotransferase 71 U/L (12-78); Albumin Level 2.9 gm/dl (3.4-5.0); Aspartate Aminotransferase 78 U/L (15-37); BUN Creatinine Ratio 29.8 (10-20); Blood Urea Nitrogen 36 mg/dl (7-18); Calcium 9.5 mg/dl (8.5-10.1); Carbon Dioxide 17 mmol/L (21-32); Chloride 109 mmol/L (98-107); Est GFR (African American) 72.2; Est GFR (Non-African American) 62.3; Glucose 299 mg/dl (70-99); Magnesium 2.1 mg/dl (1.8-2.4); Sodium 139 mmol/L (136-145)
--- NOTE | 2018-12-04 17:12 | XRay Report ---
XR chest 1V portable CLINICAL HISTORY: weakness dyspnea COMPARISON STUDY: 11/19/2018 FINDINGS: Mild stable grade megaly. Chronic interstitial prominence left base. Lungs otherwise appear clear. IMPRESSION: Chronic change. Mild stable cardiomegaly. No acute process. The above report was generated using voice recognition software. It may contain grammatical, syntax or spelling errors. Electronically signed by: Rico Oliveira M.D. 12/04/2018 5:10 PM
[2018-12-04 17:17] LABS: Albumin Globulin Ratio 0.7 (0.9-2); Alkaline Phosphatase 157 U/L (45-117); Bilirubin,Total 1.1 mg/dl (0.2-1); Creatine Kinase 374 U/L (39-308); Globulin 4.4 gm/dl (2.5-4.0); Total Protein 7.3 gm/dl (6.4-8.2); Troponin I < 0.015 ng/ml (0-0.045)
--- NOTE | 2018-12-04 17:23 | CT Scan Report ---
CT head/brain wo con CT DOSE: 998.07 mGy.cm HISTORY: Mental status change ams TECHNIQUE: Multiaxial CT images of the head were performed without the use of intravenous contrast. A dose lowering technique was utilized adhering to the principles of ALARA. Comparison: 10/25/2018 Findings: Moderate mucosal thickening of the left maxillary as well as ethmoid sinuses. The calvarium and skull base are intact. The ventricles and sulci are within normal limits. There is no mass, cresencio capri, midline shift, or acute infarct. Impression: No acute intracranial abnormality. Moderate mucosal thickening of the ethmoid and left maxillary sinu s. The above report was generated using voice recognition software. It may contain grammatical, syntax or spelling errors. Electronically signed by: Rico Oliveira M.D. 12/04/2018 5:21 PM
--- NOTE | 2018-12-04 17:25 | CT Scan Report ---
CT cervical spine wo con CT DOSE: 355.92 mGy.cm HISTORY: Trauma. Mental status change. fall TECHNIQUE: Multiaxial CT images of the cervical spine were performed and reformatted in the sagittal and coronal plane without the use of contrast. A dose lowering technique was utilized adhering to th e principles of ALARA. COMPARISON: None. FINDINGS: Findings of an anterior corpectomy and fusion from C3 through C6. No evidence for an acute compression deformity. C1-C2 complex is intact. Prevertebral soft tissues are unremarkable. IMPRESSION: Degenerative and postoperative change. No acute process. The above report was generated using voice recognition software. It may contain grammatical, syntax or spelling errors. Electronically signed by: Rico Oliveira M.D. 12/04/2018 5:23 PM
[2018-12-04 18:00] LABS: Amphetamines+Metham, Urine Neg (Neg); Barbiturates, Urine Neg (Neg); Benzodiazepine, Urine Neg (Neg); Cocaine, Urine Neg (Neg); MDMA (Ecstacy), Urine Neg (Neg); Methadone, Urine Neg (Neg); Opiate, Urine Neg (Neg); Phencyclidine, Urine Neg (Neg)
[2018-12-04 18:01] LABS: Base Excess ABG -10.5 mEq/L (-9-1.8); HCO3 ABG 17 mmol/L (19-24); Oxygen Saturation ABG 98.6 % (90-95); PCO2 ABG 42 mmHg (35-46); PO2 ABG 136 mm/Hg (80-95); pH ABG 7.22 (7.35-7.45)
[2018-12-04 18:02] LABS: Allen Test Pos (Pos)
--- NOTE | 2018-12-04 18:44 | History & Physical Report ---
Date of Service December 04, 2018 Assessment & Plan (1) AMS (altered mental status): Multifactorial, chronic alcoholism. Rule out metabolic encephalopathy. Rule of sepsis. Neurochecks every shift. Patient started on IV Zosyn in the ER. Check blood cultures. Present on Admission?: Yes (2) Metabolic acidosis: Acidosis possibly multifactorial with dehydration, rule out sepsis, history of chronic kidney disease, history of alcoholism Present on Admission?: Yes (3) Weakness: Present on Admission?: Yes (4) Dehydration: Strict intake output. Add IV fluids. Present on Admission?: Yes (5) Acute kidney injury: Present on Admission?: Yes (6) Myelopathy concurrent with and due to spinal stenosis of cervical region: (7) Chronic renal insufficiency, stage IV (severe): May need consultation with nephrology. Present on Admission?: Yes (8) Alcohol withdrawal: Add alcohol withdrawal protocol. Continue thiamine/ folate and multivitamin supplements. Present on Admission?: Yes (9) Ambulatory dysfunction: Present on Admission?: Yes (10) Diabetes: Sliding-scale insulin per protocol Present on Admission?: Yes (11) Hypothermia: Patient put on Marcelo hugger. (12) Falls frequently: Consult physical therapy. Case management for discharge planning. Present on Admission?: Yes (13) Toxic metabolic encephalopathy: (14) Hypotension: Will hold antihypertensive medication. He is getting fluid boluses in the ER. Continue IV fluids. Monitoring intake/ output. (15) Rhabdomyolysis: Repeat CPK labs in a.m. Repeat labs in a.m. CODE STATUS full code History of Present Illness Chief Complaint: Change in mental status Primary Care Provider: Donavan Vera MD The patient is 63-year-old -Vin[place] male who was brought to the [facility] with complaints of change in mental status. Patient was recently discharged from the hospital 3 days back. Patient was earlier here with cervical myelopathy and had cervical spine surgery. He has history of alcohol withdrawal. Patient has started back drinking alcohol after he was discharged home. He was having frequent falls and has multiple bruises over the body. Today the patient was found lying on the floor. The patient himself is somewhat a poor historian due to decreased mental status. He denies any head injury. No seizures. Here in the emergency room, he was found to be hypothermic and was put on Marcelo Hugger. His blood pressure was running low normal, he is getting fluid boluses. CPK level is high at 374. Lactic acid is high at 3.0. He was started empirically on IV antibiotics/Zosyn for possible sepsis. He will be admitted to the PCU for further evaluation and management. Allergies Allergy/AdvReac Type Severity Reaction Status Date / Time No Known Allergies Allergy Verified 11/23/18 10:29 Home Medications Home Medications Medication Instructions Recorded Confirmed Type Bystolic 10 mg PO HS 02/03/18 12/04/18 History [place]-3 1 tab PO HS 02/03/18 12/04/18 History allopurinol [Zyloprim] 100 mg PO HS 02/03/18 12/04/18 History clopidogrel [Plavix] 75 mg PO HS 02/03/18 12/04/18 History cyanocobalamin (vitamin B-12) 5,000 mcg SUBLINGUAL HS 02/03/18 12/04/18 History [Vitamin B-12] esomeprazole magnesium [Nexium] 40 mg PO HS 02/03/18 12/04/18 History folic acid 1 mg PO HS 02/03/18 12/04/18 History furosemide [Lasix] 40 mg PO HS 02/03/18 12/04/18 History magnesium oxide 400 mg PO HS 02/03/18 12/04/18 History nifedipine [Procardia XL] 30 mg PO HS 02/03/18 12/04/18 History pioglitazone [Actos] 15 mg PO HS 02/03/18 12/04/18 History thiamine HCl (vitamin B1) 100 mg PO HS 02/03/18 12/04/18 History vitamin B complex 1 tab PO HS 02/03/18 12/04/18 History zinc 50 mg PO HS 02/03/18 12/04/18 History ferrous sulfate ER 250 mg (50 mg 250 mg PO HS tab 09/20/18 12/04/18 History iron) tablet,extended release Past Med/Surg History Medical History WILLIAM (acute kidney injury) (Resolved) Abdominal pain (Resolved) Alcohol withdrawal (Resolved) Ambulatory dysfunction (Resolved 02/14/14) Anemia (Resolved) Bilateral leg pain (Resolved) D-dimer, elevated (Resolved) Diabetes (Chronic) Diverticulitis (Resolved) Foot pain (Resolved) Hyperglycemia (Resolved) Hyperkalemia (Resolved) Renal failure (Resolved) Renal insufficiency (Resolved) Thrombocytopenia Surgical History History of esophagogastroduodenoscopy (EGD) No pertinent past surgical history S/P colonoscopy Family History Other No pertinent family history Social History Preferred Language: Tanzanian Communication Ability: Effective Beliefs That Will Affect Care: None marital status: / Current Living Situation: Alone current occupational status: retired Feels Safe at Home: Yes Smoking Status: Unknown if ever smoked Hx Alcohol Use: Yes Alcohol type: beer, wine and hard liquor Hx Substance Use: No Review of Systems Constitutional: + body aches, + fatigue, + malaise, + weakness and + anorexia Musculoskeletal: + muscle weakness and + body aches Integumentary: Bruises from frequent falls. + Physical Exam Physical Exam: GENERAL : Patient lethargic but arousable. Hypothermia noted EYES: No icterus, gaze conjugate NOSE: No evidence of epistaxis MOUTH: No lesions or candidiasis, mucosa moist NECK: Cervical neck collar noted LUNGS: CTA B/L, no wheezes, rales or rhonchi HEART: Regular, rate controlled ABDOMEN: Soft, NT, ND, BS Present EXTREMITIES: No LE edema, pedal pulses intact NEURO: A&OX3 , cranial nerves intact. Skin- multiple skin bruises noted particularly over left chest wall Results & Data Vital Signs (Past 12 Hours) Vital Signs Pulse Pulse Resp BP BP Pulse Ox 12/04/18 18:16 73 24 102/67 100 12/04/18 18:10 75 28 H 100 12/04/18 18:04 67 22 96/65 L 100 12/04/18 18:01 65 19 106/66 100 12/04/18 18:00 76 23 100 12/04/18 17:50 66 20 100 12/04/18 17:46 68 19 108/66 94 12/04/18 17:40 68 21 100 12/04/18 17:31 58 L 16 135/82 98 12/04/18 17:30 61 63 15 132/100 99 12/04/18 17:26 73 24 132/100 98 12/04/18 17:21 72 22 12/04/18 17:02 99 12/04/18 17:00 63 21 100 12/04/18 16:50 115 H 28 H 12/04/18 16:49 103 H 32 H 99 12/04/18 16:41 72 17 93 12/04/18 16:39 76 17 123/99 98 12/04/18 16:30 145 H 23 12/04/18 16:27 70 24 12/04/18 16:25 77 20 123/99 100 Laboratory Results 12/04/18 16:33 12/04/18 16:33 12/04/18 12/04/18 12/04/18 Range/Units 17:48 17:42 16:52 WBC (4.8-10.8) K/uL RBC (4.7-6.1) M/uL Hgb (14.0-18.0) g/dL Hct (42-52) % MCV (80-100) fL MCH (25-34) pg MCHC (32-36) g/dL RDW Std Deviation (36.4-46.3) fL RDW Coeff of Clyde (11.5-14.5) % Plt Count (130-400) K/uL MPV (7.4-10.4) fL Immature Gran % (Auto) % Neut % (Auto) % Lymph % (Auto) % [place] % (Auto) % Eos % (Auto) % Baso % (Auto) % Immature Gran # (Auto) (0.00-0.02) K/uL Neut # (Auto) (1.4-6.5) K/uL Lymph # (Auto) (1.2-3.4) K/uL [place] # (Auto) (0.11-0.59) K/uL Eos # (Auto) (0-0.5) K/uL Baso # (Auto) (0-0.2) K/uL PT (9.0-12.0) Seconds INR (0.9-1.1) ABG pH 7.22 L (7.35-7.45) ABG pCO2 42 (35-46) mmHg ABG pO2 136 H (80-95) mm/Hg ABG HCO3 17 L (19-24) mmol/L ABG O2 Saturation 98.6 H (90-95) % ABG Base Excess -10.5 L (-9-1.8) mEq/L Frank Test Pos (Pos) Barometric Pressure 731.2 mm/Hg Oxygen Given ROOM AIR Sodium (136-145) mmol/L Potassium (3.5-5.1) mmol/L Chloride (98-107) mmol/L Carbon Dioxide (21-32) mmol/L Anion Gap (3-11) BUN (7-18) mg/dl Creatinine (0.6-1.4) mg/dl Est Cr Clr Drug Dosing Est GFR ( Amer) Est GFR (Non-Af Amer) BUN/Creatinine Ratio (10-20) Glucose (70-99) mg/dl POC Glucose (70-99) Lactate (0.4-2.0) mmol/L Calcium (8.5-10.1) mg/dl Magnesium (1.8-2.4) mg/dl Total Bilirubin (0.2-1) mg/dl AST (15-37) U/L ALT (12-78) U/L Alkaline Phosphatase (45-117) U/L Ammonia (11-32) umol/L Total Creatine Kinase (39-308) U/L Troponin I (0-0.045) ng/ml Total Protein (6.4-8.2) gm/dl Albumin (3.4-5.0) gm/dl Globulin (2.5-4.0) gm/dl Albumin/Globulin Ratio (0.9-2) TSH (0.300-4.500) uIu/ml Urine Color Urine Appearance (Clear) Urine pH (4.5-7.5) Ur Specific Sayre (1.000-1.030) Urine Protein (Negative) Urine Glucose (UA) (Negative) Urine Ketones (Negative) Urine Blood (Negative) Urine Nitrite (Negative) Urine Bilirubin (Negative) Urine Urobilinogen (Negative) Ur Leukocyte Esterase (Negative) Urine RBC (0-4) /hpf Urine WBC (0-5) /hpf Ur Epithelial Cells (0-5) /lpf Urine Bacteria (Negative) Hyaline Casts (0-5) /lpf Urine Opiates Screen Neg (Neg) Ur Methadone, Qual Neg (Neg) Urine Barbiturates Neg (Neg) Ur Phencyclidine (PCP) Neg (Neg) U Amphetamin/Meth Scrn Neg (Neg) MDMA (Ecstasy) Screen Neg (Neg) U Benzodiazepines Scrn Neg (Neg) Ur Cocaine Metabolite Neg (Neg) U Marijuana (THC) Screen Neg (Neg) Ethyl Alcohol mg/dL < 3.0 (0-3) mg/dl Blood Type Antibody Screen 12/04/18 12/04/18 12/04/18 Range/Units 16:52 16:35 16:33 WBC (4.8-10.8) K/uL RBC (4.7-6.1) M/uL Hgb (14.0-18.0) g/dL Hct (42-52) % MCV (80-100) fL MCH (25-34) pg MCHC (32-36) g/dL RDW Std Deviation (36.4-46.3) fL RDW Coeff of Clyde (11.5-14.5) % Plt Count (130-400) K/uL MPV (7.4-10.4) fL Immature Gran % (Auto) % Neut % (Auto) % Lymph % (Auto) % [place] % (Auto) % Eos % (Auto) % Baso % (Auto) % Immature Gran # (Auto) (0.00-0.02) K/uL Neut # (Auto) (1.4-6.5) K/uL Lymph # (Auto) (1.2-3.4) K/uL [place] # (Auto) (0.11-0.59) K/uL Eos # (Auto) (0-0.5) K/uL Baso # (Auto) (0-0.2) K/uL PT (9.0-12.0) Seconds INR (0.9-1.1) ABG pH (7.35-7.45) ABG pCO2 (35-46) mmHg ABG pO2 (80-95) mm/Hg ABG HCO3 (19-24) mmol/L ABG O2 Saturation (90-95) % ABG Base Excess (-9-1.8) mEq/L Frank Test (Pos) Barometric Pressure mm/Hg Oxygen Given Sodium (136-145) mmol/L Potassium (3.5-5.1) mmol/L Chloride (98-107) mmol/L Carbon Dioxide (21-32) mmol/L Anion Gap (3-11) BUN (7-18) mg/dl Creatinine (0.6-1.4) mg/dl Est Cr Clr Drug Dosing Est GFR ( Amer) Est GFR (Non-Af Amer) BUN/Creatinine Ratio (10-20) Glucose (70-99) mg/dl POC Glucose 256 H (70-99) Lactate (0.4-2.0) mmol/L Calcium (8.5-10.1) mg/dl Magnesium (1.8-2.4) mg/dl Total Bilirubin (0.2-1) mg/dl AST (15-37) U/L ALT (12-78) U/L Alkaline Phosphatase (45-117) U/L Ammonia 24.0 (11-32) umol/L Total Creatine Kinase (39-308) U/L Troponin I (0-0.045) ng/ml Total Protein (6.4-8.2) gm/dl Albumin (3.4-5.0) gm/dl Globulin (2.5-4.0) gm/dl Albumin/Globulin Ratio (0.9-2) TSH (0.300-4.500) uIu/ml Urine Color Yellow Urine Appearance Clear (Clear) Urine pH 5.5 (4.5-7.5) Ur Specific Sayre 1.015 (1.000-1.030) Urine Protein 1+ H (Negative) Urine Glucose (UA) 3+ H (Negative) Urine Ketones 1+ H (Negative) Urine Blood Trace H (Negative) Urine Nitrite Negative (Negative) Urine Bilirubin Negative (Negative) Urine Urobilinogen Negative (Negative) Ur Leukocyte Esterase Negative (Negative) Urine RBC 0-4 (0-4) /hpf Urine WBC 0-5 (0-5) /hpf Ur Epithelial Cells 5-10 H (0-5) /lpf Urine Bacteria Negative (Negative) Hyaline Casts 0-5 (0-5) /lpf Urine Opiates Screen (Neg) Ur Methadone, Qual (Neg) Urine Barbiturates (Neg) Ur Phencyclidine (PCP) (Neg) U Amphetamin/Meth Scrn (Neg) MDMA (Ecstasy) Screen (Neg) U Benzodiazepines Scrn (Neg) Ur Cocaine Metabolite (Neg) U Marijuana (THC) Screen (Neg) Ethyl Alcohol mg/dL (0-3) mg/dl Blood Type Antibody Screen 12/04/18 12/04/18 12/04/18 Range/Units 16:33 16:33 16:33 WBC 9.20 (4.8-10.8) K/uL RBC 3.47 L (4.7-6.1) M/uL Hgb 11.3 L (14.0-18.0) g/dL Hct 33.3 L (42-52) % MCV 96.0 (80-100) fL MCH 32.6 (25-34) pg MCHC 33.9 (32-36) g/dL RDW Std Deviation 49.3 H (36.4-46.3) fL RDW Coeff of Clyde 14.2 (11.5-14.5) % Plt Count 119 L (130-400) K/uL MPV 11.4 H (7.4-10.4) fL Immature Gran % (Auto) 0.2 % Neut % (Auto) 90.6 % Lymph % (Auto) 5.2 % [place] % (Auto) 4.0 % Eos % (Auto) 0.0 % Baso % (Auto) 0.0 % Immature Gran # (Auto) 0.02 (0.00-0.02) K/uL Neut # (Auto) 8.33 H (1.4-6.5) K/uL Lymph # (Auto) 0.48 L (1.2-3.4) K/uL [place] # (Auto) 0.37 (0.11-0.59) K/uL Eos # (Auto) 0.00 (0-0.5) K/uL Baso # (Auto) 0.00 (0-0.2) K/uL PT (9.0-12.0) Seconds INR (0.9-1.1) ABG pH (7.35-7.45) ABG pCO2 (35-46) mmHg ABG pO2 (80-95) mm/Hg ABG HCO3 (19-24) mmol/L ABG O2 Saturation (90-95) % ABG Base Excess (-9-1.8) mEq/L Frank Test (Pos) Barometric Pressure mm/Hg Oxygen Given Sodium 139 (136-145) mmol/L Potassium 5.0 (3.5-5.1) mmol/L Chloride 109 H (98-107) mmol/L Carbon Dioxide 17 L (21-32) mmol/L Anion Gap 13.0 H (3-11) BUN 36 H (7-18) mg/dl Creatinine 1.22 (0.6-1.4) mg/dl Est Cr Clr Drug Dosing Not Reportable Est GFR ( Amer) 72.2 Est GFR (Non-Af Amer) 62.3 BUN/Creatinine Ratio 29.8 H (10-20) Glucose 299 H (70-99) mg/dl POC Glucose (70-99) Lactate (0.4-2.0) mmol/L Calcium 9.5 (8.5-10.1) mg/dl Magnesium 2.1 (1.8-2.4) mg/dl Total Bilirubin 1.1 H (0.2-1) mg/dl AST 78 H (15-37) U/L ALT 71 (12-78) U/L Alkaline Phosphatase 157 H (45-117) U/L Ammonia (11-32) umol/L Total Creatine Kinase 374 H (39-308) U/L Troponin I < 0.015 (0-0.045) ng/ml Total Protein 7.3 (6.4-8.2) gm/dl Albumin 2.9 L (3.4-5.0) gm/dl Globulin 4.4 H (2.5-4.0) gm/dl Albumin/Globulin Ratio 0.7 L (0.9-2) TSH 1.600 (0.300-4.500) uIu/ml Urine Color Urine Appearance (Clear) Urine pH (4.5-7.5) Ur Specific Sayre (1.000-1.030) Urine Protein (Negative) Urine Glucose (UA) (Negative) Urine Ketones (Negative) Urine Blood (Negative) Urine Nitrite (Negative) Urine Bilirubin (Negative) Urine Urobilinogen (Negative) Ur Leukocyte Esterase (Negative) Urine RBC (0-4) /hpf Urine WBC (0-5) /hpf Ur Epithelial Cells (0-5) /lpf Urine Bacteria (Negative) Hyaline Casts (0-5) /lpf Urine Opiates Screen (Neg) Ur Methadone, Qual (Neg) Urine Barbiturates (Neg) Ur Phencyclidine (PCP) (Neg) U Amphetamin/Meth Scrn (Neg) MDMA (Ecstasy) Screen (Neg) U Benzodiazepines Scrn (Neg) Ur Cocaine Metabolite (Neg) U Marijuana (THC) Screen (Neg) Ethyl Alcohol mg/dL (0-3) mg/dl Blood Type O Positive Antibody Screen NEGATIVE 12/04/18 12/04/18 Range/Units 16:33 16:33 WBC (4.8-10.8) K/uL RBC (4.7-6.1) M/uL Hgb (14.0-18.0) g/dL Hct (42-52) % MCV (80-100) fL MCH (25-34) pg MCHC (32-36) g/dL RDW Std Deviation (36.4-46.3) fL RDW Coeff of Clyde (11.5-14.5) % Plt Count (130-400) K/uL MPV (7.4-10.4) fL Immature Gran % (Auto) % Neut % (Auto) % Lymph % (Auto) % [place] % (Auto) % Eos % (Auto) % Baso % (Auto) % Immature Gran # (Auto) (0.00-0.02) K/uL Neut # (Auto) (1.4-6.5) K/uL Lymph # (Auto) (1.2-3.4) K/uL [place] # (Auto) (0.11-0.59) K/uL Eos # (Auto) (0-0.5) K/uL Baso # (Auto) (0-0.2) K/uL PT 12.8 H (9.0-12.0) Seconds INR 1.3 H (0.9-1.1) ABG pH (7.35-7.45) ABG pCO2 (35-46) mmHg ABG pO2 (80-95) mm/Hg ABG HCO3 (19-24) mmol/L ABG O2 Saturation (90-95) % ABG Base Excess (-9-1.8) mEq/L Frank Test (Pos) Barometric Pressure mm/Hg Oxygen Given Sodium (136-145) mmol/L Potassium (3.5-5.1) mmol/L Chloride (98-107) mmol/L Carbon Dioxide (21-32) mmol/L Anion Gap (3-11) BUN (7-18) mg/dl Creatinine (0.6-1.4) mg/dl Est Cr Clr Drug Dosing Est GFR ( Amer) Est GFR (Non-Af Amer) BUN/Creatinine Ratio (10-20) Glucose (70-99) mg/dl POC Glucose (70-99) Lactate 3.0 H* (0.4-2.0) mmol/L Calcium (8.5-10.1) mg/dl Magnesium (1.8-2.4) mg/dl Total Bilirubin (0.2-1) mg/dl AST (15-37) U/L ALT (12-78) U/L Alkaline Phosphatase (45-117) U/L Ammonia (11-32) umol/L Total Creatine Kinase (39-308) U/L Troponin I (0-0.045) ng/ml Total Protein (6.4-8.2) gm/dl Albumin (3.4-5.0) gm/dl Globulin (2.5-4.0) gm/dl Albumin/Globulin Ratio (0.9-2) TSH (0.300-4.500) uIu/ml Urine Color Urine Appearance (Clear) Urine pH (4.5-7.5) Ur Specific [place]re (1.000-1.030) Urine Protein (Negative) Urine Glucose (UA) (Negative) Urine Ketones (Negative) Urine Blood (Negative) Urine Nitrite (Negative) Urine Bilirubin (Negative) Urine Urobilinogen (Negative) Ur Leukocyte Esterase (Negative) Urine RBC (0-4) /hpf Urine WBC (0-5) /hpf Ur Epithelial Cells (0-5) /lpf Urine Bacteria (Negative) Hyaline Casts (0-5) /lpf Urine Opiates Screen (Neg) Ur Methadone, Qual (Neg) Urine Barbiturates (Neg) Ur Phencyclidine (PCP) (Neg) U Amphetamin/Meth Scrn (Neg) MDMA (Ecstasy) Screen (Neg) U Benzodiazepines Scrn (Neg) Ur Cocaine Metabolite (Neg) U Marijuana (THC) Screen (Neg) Ethyl Alcohol mg/dL (0-3) mg/dl Blood Type Antibody Screen Diagnostic Findings CT cervical spine wo con CT DOSE: 355.92 mGy.cm HISTORY: Trauma. Mental status change. fall TECHNIQUE: Multiaxial CT images of the cervical spine were performed and reformatted in the sagittal and coronal plane without the use of contrast. A dose lowering technique was utilized adhering to the principles of ALARA. COMPARISON: None. FINDINGS: Findings of an anterior corpectomy and fusion from C3 through C6. No evidence for an acute compression deformity. C1-C2 complex is intact. Prevertebral soft tissues are unremarkable. IMPRESSION: Degenerative and postoperative change. No acute process. [place], [place] [phone] CT Scan Report Patient: VALERIANO PALOMINOAdmit Date: 12/04/18 MR#: [id number]: [address] Acct ID:[id number]: [facility] Zip: [place] [address] Age: 63Location: ED Sex: M Room/Bed: Att Phy:Diagnosis: ILLNESS Otilia Phy: Donavan Vera, MDService Date: 12/04/18 Fam Phy:Interpreting Phy: Rico Oliveira MD Admit Phy: Ordering Phy: Jose L Slade D.O. cc: ~ CT head/brain wo con CT DOSE: 998.07 mGy.cm HISTORY: Mental status change ams TECHNIQUE: Multiaxial CT images of the head were performed without the use of intravenous contrast. A dose lowering technique was utilized adhering to the principles of ALARA. Comparison: 10/25/2018 Findings: Moderate mucosal thickening of the left maxillary as well as ethmoid sinuses. The calvarium and skull base are intact. The ventricles and sulci are w ithin normal limits. There is no mass, hematoma, midline shift, or acute infarct. Impression: No acute intracranial abnormality. Moderate mucosal thickening of the ethmoid and left maxillary sinus. The above report was generated using voice recognition software. It may contain grammatical, syntax or spelling errors. Electronically signed by: Rico Oliveira M.D. 12/04/2018 5:21 PM XR chest 1V portable CLINICAL HISTORY: weakness dyspnea COMPARISON STUDY: 11/19/2018 FINDINGS: Mild stable grade megaly. Chronic interstitial prominence left base. Lungs otherwise appear clear. IMPRESSION: Chronic change. Mild stable cardiomegaly. No acute process. Dictated: 12/04/181719 Transcribed: 12/04/181719 Code Status & VTE Plan Code Status Full code PG Care Time/CCT Total # of Minutes Spent Total Time Spent with Patient: Total time spent is greater than 50% in coordination of care (as documented) at patient's floor/unit and/or counseling patient: (1) Hypothermia Encounter type: initial encounter Qualified Code(s): T68.XXXA - Hypothermia, initial encounter (2) AMS (altered mental status) Altered mental status type: unspecified Qualified Code(s): R41.82 - Altered mental status, unspecified (3) Rhabdomyolysis Encounter type: initial encounter (4) Hypotension Hypotension type: hypotension due to hypovolemia Qualified Code(s): I95.89 - Other hypotension; E86.1 - Hypovolemia
--- NOTE | 2018-12-04 19:45 | Emergency Department Note ---
Entered by Maxine Dukes acting as a scribe for Jose L Slade DO History of Present Illness General Chief complaint: Altered Mental Status Stated complaint: FALL Source: EMS History of Present Illness Onset (ago): hour(s) (this morning) Location: head Pain Consistency: + other (episode) Quality: + other (altered mental status) Associated symptoms: + other (hypothermia, hyperglycemia, loss of consciousness, incoherent speech, diffuse cuts and bruises) The patient is a 63 year old male that is presenting to the Emergency Room with complaints of an episode of altered mental status and hypothermia after being found this morning by EMS. The patient is mostly incoherent and unable to provide a clear history. EMS reports that the patient was found face down in his apartment with a rectal temperature of 81F. EMS states that the patient was unresponsive when they arrived but became more responsive on route to the ED. EMS notes that there were numerous beer bottles around the apartment. EMS reports that the patient was covered in cuts and bruises with blood coming from an unknown area. EMS states that the patient normally has clear speech but appears to be speaking in tongues currently according to his neighbors. EMS states that the patient was discharged from the hospital 3 days ago with cervical stenosis and alcohol withdraw. EMS notes that the patient had not been seen since being discharged. EMS reports that the patient was found with his cervical collar next to him. EMS states that the house was a comfortable temperature when they arrived. EMS reports that the patients blood glucose is 323mg/dL and his blood pressure is 150/80 on arrival. EMS notes that the patient heart rate is in the 80-100 bpm range. EMS states that the patients neighbors deny that the patient is a known drug user. HPI and ROS are limited secondary to the patient's altered mental status. Home Medications Home Medications Medication Instructions Recorded Confirmed Type Bystolic 10 mg PO HS 02/03/18 12/04/18 History [place]-3 1 tab PO HS 02/03/18 12/04/18 History allopurinol [Zyloprim] 100 mg PO HS 02/03/18 12/04/18 History clopidogrel [Plavix] 75 mg PO HS 02/03/18 12/04/18 History cyanocobalamin (vitamin B-12) 5,000 mcg SUBLINGUAL HS 02/03/18 12/04/18 History [Vitamin B-12] esomeprazole magnesium [Nexium] 40 mg PO HS 02/03/18 12/04/18 History folic acid 1 mg PO HS 02/03/18 12/04/18 History furosemide [Lasix] 40 mg PO HS 02/03/18 12/04/18 History magnesium oxide 400 mg PO HS 02/03/18 12/04/18 History nifedipine [Procardia XL] 30 mg PO HS 02/03/18 12/04/18 History pioglitazone [Actos] 15 mg PO HS 02/03/18 12/04/18 History thiamine HCl (vitamin B1) 100 mg PO HS 02/03/18 12/04/18 History vitamin B complex 1 tab PO HS 02/03/18 12/04/18 History zinc 50 mg PO HS 02/03/18 12/04/18 History ferrous sulfate ER 250 mg (50 mg 250 mg PO HS tab 09/20/18 12/04/18 History iron) tablet,extended release Allergies Allergy/AdvReac Type Severity Reaction Status Date / Time No Known Allergies Allergy Verified 11/23/18 10:29 Past Med/Surg History Medical History WILLIAM (acute kidney injury) (Resolved) Abdominal pain (Resolved) Alcohol withdrawal (Resolved) Ambulatory dysfunction (Resolved 02/14/14) Anemia (Resolved) Bilateral leg pain (Resolved) D-dimer, elevated (Resolved) Diabetes (Chronic) Diverticulitis (Resolved) Foot pain (Resolved) Hyperglycemia (Resolved) Hyperkalemia (Resolved) Renal failure (Resolved) Renal insufficiency (Resolved) Thrombocytopenia Surgical History History of esophagogastroduodenoscopy (EGD) No pertinent past surgical history S/P colonoscopy Family History Other No pertinent family history Social History Preferred Language: Salvadorean Communication Ability: Effective Beliefs That Will Affect Care: None marital status: / Current Living Situation: Alone current occupational status: retired Feels Safe at Home: Yes Smoking Status: Unknown if ever smoked Hx Alcohol Use: Yes Alcohol type: beer, wine and hard liquor Hx Substance Use: No Review of Systems HPI and ROS are limited secondary to the patient's altered mental status. Physical Exam Vital Signs Vital Signs - 24 hr 12/04/18 16:25 12/04/18 16:27 12/04/18 16:30 Temperature Source Rectal Sepsis New/Unexplained Change in Mental Status Yes Sepsis Action Taken by Nursing No Action Required Pulse Rate 77 70 145 H Pulse Rate [Left] Pulse Rate from SpO2 Sensor Respiratory Rate 20 24 23 Respiratory Effort / Characteristics Blood Pressure 123/99 Blood Pressure [Left Arm] Blood Pressure Mean 107 Blood Pressure Mean [Left Arm] Blood Pressure Position Lying Blood Pressure Position [Left Arm] Pulse Oximetry 100 Oxygen Delivery Method Room Air 12/04/18 16:39 12/04/18 16:41 12/04/18 16:49 Temperature Source Sepsis New/Unexplained Change in Mental Status Sepsis Action Taken by Nursing Pulse Rate 76 72 103 H Pulse Rate [Left] Pulse Rate from SpO2 Sensor 83 80 Respiratory Rate 17 17 32 H Respiratory Effort / Characteristics Blood Pressure 123/99 Blood Pressure [Left Arm] Blood Pressure Mean 107 Blood Pressure Mean [Left Arm] Blood Pressure Position Blood Pressure Position [Left Arm] Pulse Oximetry 98 93 99 Oxygen Delivery Method Room Air 12/04/18 16:50 12/04/18 17:00 12/04/18 17:02 Temperature Source Sepsis New/Unexplained Change in Mental Status Sepsis Action Taken by Nursing Pulse Rate 115 H 63 Pulse Rate [Left] Pulse Rate from SpO2 Sensor 67 59 L Respiratory Rate 28 H 21 Respiratory Effort / Characteristics Blood Pressure Blood Pressure [Left Arm] Blood Pressure Mean Blood Pressure Mean [Left Arm] Blood Pressure Position Blood Pressure Position [Left Arm] Pulse Oximetry 100 99 Oxygen Delivery Method Room Air 12/04/18 17:21 12/04/18 17:26 12/04/18 17:30 Temperature Source Sepsis New/Unexplained Change in Mental Status Sepsis Action Taken by Nursing Pulse Rate 72 73 61 Pulse Rate [Left] 63 Pulse Rate from SpO2 Sensor 64 73 Respiratory Rate 22 24 15 Respiratory Effort / Characteristics Spontaneous Blood Pressure 132/100 Blood Pressure [Left Arm] 132/100 Blood Pressure Mean 110 Blood Pressure Mean [Left Arm] 110 Blood Pressure Position Blood Pressure Position [Left Arm] Lying Pulse Oximetry 98 99 Oxygen Delivery Method Room Air 12/04/18 17:31 12/04/18 17:40 12/04/18 17:46 Temperature Source Sepsis New/Unexplained Change in Mental Status Sepsis Action Taken by Nursing Pulse Rate 58 L 68 68 Pulse Rate [Left] Pulse Rate from SpO2 Sensor 74 65 53 L Respiratory Rate 16 21 19 Respiratory Effort / Characteristics Blood Pressure 135/82 108/66 Blood Pressure [Left Arm] Blood Pressure Mean 99 80 Blood Pressure Mean [Left Arm] Blood Pressure Position Blood Pressure Position [Left Arm] Pulse Oximetry 98 100 94 Oxygen Delivery Method 12/04/18 17:50 12/04/18 18:00 12/04/18 18:01 Temperature Source Sepsis New/Unexplained Change in Mental Status Sepsis Action Taken by Nursing Pulse Rate 66 76 65 Pulse Rate [Left] Pulse Rate from SpO2 Sensor 64 61 55 L Respiratory Rate 20 23 19 Respiratory Effort / Characteristics Blood Pressure 106/66 Blood Pressure [Left Arm] Blood Pressure Mean 79 Blood Pressure Mean [Left Arm] Blood Pressure Position Blood Pressure Position [Left Arm] Pulse Oximetry 100 100 100 Oxygen Delivery Method 12/04/18 18:04 12/04/18 18:10 12/04/18 18:16 Temperature Source Sepsis New/Unexplained Change in Mental Status Sepsis Action Taken by Nursing Pulse Rate 67 75 73 Pulse Rate [Left] Pulse Rate from SpO2 Sensor 60 54 L 61 Respiratory Rate 22 28 H 24 Respiratory Effort / Characteristics Blood Pressure 96/65 L 102/67 Blood Pressure [Left Arm] Blood Pressure Mean 75 78 Blood Pressure Mean [Left Arm] Blood Pressure Position Blood Pressure Position [Left Arm] Pulse Oximetry 100 100 100 Oxygen Delivery Method CONSTITUTIONAL/VITAL SIGNS: Reviewed / noted above. GENERAL: Non-toxic in appearance. INTEGUMENTARY: Cool to touch. Ecchymosis on numerous places of his body, his ext remities, and thorax regions. HEAD: Normocephalic. EYES: without scleral icterus or trauma. ENT/OROPHARYNX: clear and moist. LYMPHADENOPATHY/NECK: Is supple without lymphadenopathy or meningismus. RESPIRATORY: Lungs clear and equal. CARDIOVASCULAR: Regular rate and rhythm. GI/ABDOMEN: Soft and nontender. No organomegaly or pulsatile mass. No rebound or guarding. Normal bowel sounds. EXTREMITIES: Warm and well perfused. BACK: No CVA tenderness. NEUROLOGICAL: Speech is slurred and difficult to understand but he appears to answer the basic questions appropriately. Moves all 4 extremities to stimulus. Follows basic commands. PSYCHIATRIC: normal affect. MUSCULOSKELETAL: Normally developed with good muscle tone. Course 1621: The patient was evaluated in room B01. A complete history and physical examination was performed. 1759: I reevaluated the patient at this time. The patient's speech has become more coherent since his arrival. The nursing staff is still unable to get a rectal temperature on the patient at this time. The patient states that he is unsure what happened. He states that he is feeling better after being warmed. He is unable to lift his legs from the bed. 1814: I discussed the patients case with Dr. Moore [facility], who will evaluate the patient for further management and care. 1820: Upon reevaluation, the patient is resting comfortably. I discussed laboratory and radiographic results with the patient. He verbalized agreement of the treatment plan. The patient will be evaluated for further management and care. Administered Medications Discontinued Medications Sodium Chloride (Nss) 500 mls @ 999 mls/hr IV .Q31M GUILLE Stop: 12/04/18 17:00 Last Infusion: 12/04/18 17:32 Dose: 0 mls/hr Documented by: [id number] Admin: 12/04/18 16:57 Dose: 999 mls/hr Documented by: [id number] Sodium Chloride (Nss 1000ml) 2,000 mls @ 999 mls/hr IV .Q2H1M ONE Stop: 12/04/18 18:50 Last Infusion: 12/04/18 19:03 Dose: 0 mls/hr Documented by: [id number] Admin: 12/04/18 16:57 Dose: 999 mls/hr Documented by: [id number] Piperacillin Sod/Tazobactam Sod (Zosyn) 4.5 gm in 120 mls @ 240 mls/hr IV NOW ONE Stop: 12/04/18 17:19 Last Infusion: 12/04/18 18:22 Dose: 0 mls/hr Documented by: [id number] Admin: 12/04/18 17:55 Dose: 240 mls/hr Documented by: [id number] Medical Decision Making Differential Diagnosis Differential diagnoses includes but is not limited to toxic, metabolic, infectious, traumatic, cardiac, neurologic, hematologic, psychiatric and inflammatory etiologies. Medical Records Attestation: I reviewed the patient's medical records. Home Medications Current Medication List: was personally reviewed by me Laboratory Data Attestation: I reviewed the patient's lab results. Result diagrams: 12/04/18 16:33 12/04/18 16:33 Lab Results 12/04/18 12/04/1819 Range/Units 16:33 16:33 16:33 WBC (4.8-10.8) K/uL RBC (4.7-6.1) M/uL Hgb (14.0-18.0) g/dL Hct (42-52) % MCV (80-100) fL MCH (25-34) pg MCHC (32-36) g/dL RDW Std Deviation (36.4-46.3) fL RDW Coeff of [place] (11.5-14.5) % Plt Count (130-400) K/uL MPV (7.4-10.4) fL Immature Gran % (Auto) % Neut % (Auto) % Lymph % (Auto) % [place] % (Auto) % Eos % (Auto) % Baso % (Auto) % Immature Gran # (Auto) (0.00-0.02) K/uL Neut # (Auto) (1.4-6.5) K/uL Lymph # (Auto) (1.2-3.4) K/uL [place] # (Auto) (0.11-0.59) K/uL Eos # (Auto) (0-0.5) K/uL Baso # (Auto) (0-0.2) K/uL PT 12.8 H (9.0-12.0) Seconds INR 1.3 H (0.9-1.1) ABG pH (7.35-7.45) ABG pCO2 (35-46) mmHg ABG pO2 (80-95) mm/Hg ABG HCO3 (19-24) mmol/L ABG O2 Saturation (90-95) % ABG Base Excess (-9-1.8) mEq/L Frank Test (Pos) Barometric Pressure mm/Hg Oxygen Given Sodium (136-145) mmol/L Potassium (3.5-5.1) mmol/L Chloride (98-107) mmol/L Carbon Dioxide (21-32) mmol/L Anion Gap (3-11) BUN (7-18) mg/dl Creatinine (0.6-1.4) mg/dl Est Cr Clr Drug Dosing Est GFR ( Amer) Est GFR (Non-Af Amer) BUN/Creatinine Ratio (10-20) Glucose (70-99) mg/dl POC Glucose (70-99) Lactate 3.0 H* (0.4-2.0) mmol/L Calcium (8.5-10.1) mg/dl Magnesium (1.8-2.4) mg/dl Total Bilirubin (0.2-1) mg/dl AST (15-37) U/L ALT (12-78) U/L Alkaline Phosphatase (45-117) U/L Ammonia (11-32) umol/L Total Creatine Kinase (39-308) U/L Troponin I (0-0.045) ng/ml Total Protein (6.4-8.2) gm/dl Albumin (3.4-5.0) gm/dl Globulin (2.5-4.0) gm/dl Albumin/Globulin Ratio (0.9-2) TSH (0.300-4.500) uIu/ml Urine Color Urine Appearance (Clear) Urine pH (4.5-7.5) Ur Specific [place] (1.000-1.030) Urine Protein (Negative) Urine Glucose (UA) (Negative) Urine Ketones (Negative) Urine Blood (Negative) Urine Nitrite (Negative) Urine Bilirubin (Negative) Urine Urobilinogen (Negative) Ur Leukocyte Esterase (Negative) Urine RBC (0-4) /hpf Urine WBC (0-5) /hpf Ur Epithelial Cells (0-5) /lpf Urine Bacteria (Negative) Hyaline Casts (0-5) /lpf Urine Opiates Screen (Neg) Ur Methadone, Qual (Neg) Urine Barbiturates (Neg) Ur Phencyclidine (PCP) (Neg) U Amphetamin/Meth Scrn (Neg) MDMA (Ecstasy) Screen (Neg) U Benzodiazepines Scrn (Neg) Ur Cocaine Metabolite (Neg) U Marijuana (THC) Screen (Neg) Ethyl Alcohol mg/dL (0-3) mg/dl Blood Type O Positive Antibody Screen NEGATIVE 12/04/18 12/04/18 12/04/18 Range/Units 16:33 16:33 16:33 WBC 9.20 (4.8-10.8) K/uL RBC 3.47 L (4.7-6.1) M/uL Hgb 11.3 L (14.0-18.0) g/dL Hct 33.3 L (42-52) % MCV 96.0 (80-100) fL MCH 32.6 (25-34) pg MCHC 33.9 (32-36) g/dL RDW Std Deviation 49.3 H (36.4-46.3) fL RDW Coeff of [place] 14.2 (11.5-14.5) % Plt Count 119 L (130-400) K/uL MPV 11.4 H (7.4-10.4) fL Immature Gran % (Auto) 0.2 % Neut % (Auto) 90.6 % Lymph % (Auto) 5.2 % [place] % (Auto) 4.0 % Eos % (Auto) 0.0 % Baso % (Auto) 0.0 % Immature Gran # (Auto) 0.02 (0.00-0.02) K/uL Neut # (Auto) 8.33 H (1.4-6.5) K/uL Lymph # (Auto) 0.48 L (1.2-3.4) K/uL [place] # (Auto) 0.37 (0.11-0.59) K/uL Eos # (Auto) 0.00 (0-0.5) K/uL Baso # (Auto) 0.00 (0-0.2) K/uL PT (9.0-12.0) Seconds INR (0.9-1.1) ABG pH (7.35-7.45) ABG pCO2 (35-46) mmHg ABG pO2 (80-95) mm/Hg ABG HCO3 (19-24) mmol/L ABG O2 Saturation (90-95) % ABG Base Excess (-9-1.8) mEq/L Frank Test (Pos) Barometric Pressure mm/Hg Oxygen Given Sodium 139 (136-145) mmol/L Potassium 5.0 (3.5-5.1) mmol/L Chloride 109 H (98-107) mmol/L Carbon Dioxide 17 L (21-32) mmol/L Anion Gap 13.0 H (3-11) BUN 36 H (7-18) mg/dl Creatinine 1.22 (0.6-1.4) mg/dl Est Cr Clr Drug Dosing Not Reportable Est GFR ( Amer) 72.2 Est GFR (Non-Af Amer) 62.3 BUN/Creatinine Ratio 29.8 H (10-20) Glucose 299 H (70-99) mg/dl POC Glucose (70-99) Lactate (0.4-2.0) mmol/L Calcium 9.5 (8.5-10.1) mg/dl Magnesium 2.1 (1.8-2.4) mg/dl Total Bilirubin 1.1 H (0.2-1) mg/dl AST 78 H (15-37) U/L ALT 71 (12-78) U/L Alkaline Phosphatase 157 H (45-117) U/L Ammonia 24.0 (11-32) umol/L Total Creatine Kinase 374 H (39-308) U/L Troponin I < 0.015 (0-0.045) ng/ml Total Protein 7.3 (6.4-8.2) gm/dl Albumin 2.9 L (3.4-5.0) gm/dl Globulin 4.4 H (2.5-4.0) gm/dl Albumin/Globulin Ratio 0.7 L (0.9-2) TSH 1.600 (0.300-4.500) uIu/ml Urine Color Urine Appearance (Clear) Urine pH (4.5-7.5) Ur Specific [place] (1.000-1.030) Urine Protein (Negative) Urine Glucose (UA) (Negative) Urine Ketones (Negative) Urine Blood (Negative) Urine Nitrite (Negative) Urine Bilirubin (Negative) Urine Urobilinogen (Negative) Ur Leukocyte Esterase (Negative) Urine RBC (0-4) /hpf Urine WBC (0-5) /hpf Ur Epithelial Cells (0-5) /lpf Urine Bacteria (Negative) Hyaline Casts (0-5) /lpf Urine Opiates Screen (Neg) Ur Methadone, Qual (Neg) Urine Barbiturates (Neg) Ur Phencyclidine (PCP) (Neg) U Amphetamin/Meth Scrn (Neg) MDMA (Ecstasy) Screen (Neg) U Benzodiazepines Scrn (Neg) Ur Cocaine Metabolite (Neg) U Marijuana (THC) Screen (Neg) Ethyl Alcohol mg/dL (0-3) mg/dl Blood Type Antibody Screen 12/04/18 12/04/18 12/04/18 Range/Units 16:35 16:52 16:52 WBC (4.8-10.8) K/uL RBC (4.7-6.1) M/uL Hgb (14.0-18.0) g/dL Hct (42-52) % MCV (80-100) fL MCH (25-34) pg MCHC (32-36) g/dL RDW Std Deviation (36.4-46.3) fL RDW Coeff of [place] (11.5-14.5) % Plt Count (130-400) K/uL MPV (7.4-10.4) fL Immature Gran % (Auto) % Neut % (Auto) % Lymph % (Auto) % [place] % (Auto) % Eos % (Auto) % Baso % (Auto) % Immature Gran # (Auto) (0.00-0.02) K/uL Neut # (Auto) (1.4-6.5) K/uL Lymph # (Auto) (1.2-3.4) K/uL [place] # (Auto) (0.11-0.59) K/uL Eos # (Auto) (0-0.5) K/uL Baso # (Auto) (0-0.2) K/uL PT (9.0-12.0) Seconds INR (0.9-1.1) ABG pH (7.35-7.45) ABG pCO2 (35-46) mmHg ABG pO2 (80-95) mm/Hg ABG HCO3 (19-24) mmol/L ABG O2 Saturation (90-95) % ABG Base Excess (-9-1.8) mEq/L Frank Test (Pos) Barometric Pressure mm/Hg Oxygen Given Sodium (136-145) mmol/L Potassium (3.5-5.1) mmol/L Chloride (98-107) mmol/L Carbon Dioxide (21-32) mmol/L Anion Gap (3-11) BUN (7-18) mg/dl Creatinine (0.6-1.4) mg/dl Est Cr Clr Drug Dosing Est GFR ( Amer) Est GFR (Non-Af Amer) BUN/Creatinine Ratio (10-20) Glucose (70-99) mg/dl POC Glucose 256 H (70-99) Lactate (0.4-2.0) mmol/L Calcium (8.5-10.1) mg/dl Magnesium (1.8-2.4) mg/dl Total Bilirubin (0.2-1) mg/dl AST (15-37) U/L ALT (12-78) U/L Alkaline Phosphatase (45-117) U/L Ammonia (11-32) umol/L Total Creatine Kinase (39-308) U/L Troponin I (0-0.045) ng/ml Total Protein (6.4-8.2) gm/dl Albumin (3.4-5.0) gm/dl Globulin (2.5-4.0) gm/dl Albumin/Globulin Ratio (0.9-2) TSH (0.300-4.500) uIu/ml Urine Color Yellow Urine Appearance Clear (Clear) Urine pH 5.5 (4.5-7.5) Ur Specific [place] 1.015 (1.000-1.030) Urine Protein 1+ H (Negative) Urine Glucose (UA) 3+ H (Negative) Urine Ketones 1+ H (Negative) Urine Blood Trace H (Negative) Urine Nitrite Negative (Negative) Urine Bilirubin Negative (Negative) Urine Urobilinogen Negative (Negative) Ur Leukocyte Esterase Negative (Negative) Urine RBC 0-4 (0-4) /hpf Urine WBC 0-5 (0-5) /hpf Ur Epithelial Cells 5-10 H (0-5) /lpf Urine Bacteria Negative (Negative) Hyaline Casts 0-5 (0-5) /lpf Urine Opiates Screen Neg (Neg) Ur Methadone, Qual Neg (Neg) Urine Barbiturates Neg (Neg) Ur Phencyclidine (PCP) Neg (Neg) U Amphetamin/Meth Scrn Neg (Neg) MDMA (Ecstasy) Screen Neg (Neg) U Benzodiazepines Scrn Neg (Neg) Ur Cocaine Metabolite Neg (Neg) U Marijuana (THC) Screen Neg (Neg) Ethyl Alcohol mg/dL (0-3) mg/dl Blood Type Antibody Screen 12/04/18 12/04/18 Range/Units 17:42 17:48 WBC (4.8-10.8) K/uL RBC (4.7-6.1) M/uL Hgb (14.0-18.0) g/dL Hct (42-52) % MCV (80-100) fL MCH (25-34) pg MCHC (32-36) g/dL RDW Std Deviation (36.4-46.3) fL RDW Coeff of [place] (11.5-14.5) % Plt Count (130-400) K/uL MPV (7.4-10.4) fL Immature Gran % (Auto) % Neut % (Auto) % Lymph % (Auto) % [place] % (Auto) % Eos % (Auto) % Baso % (Auto) % Immature Gran # (Auto) (0.00-0.02) K/uL Neut # (Auto) (1.4-6.5) K/uL Lymph # (Auto) (1.2-3.4) K/uL [place] # (Auto) (0.11-0.59) K/uL Eos # (Auto) (0-0.5) K/uL Baso # (Auto) (0-0.2) K/uL PT (9.0-12.0) Seconds INR (0.9-1.1) ABG pH 7.22 L (7.35-7.45) ABG pCO2 42 (35-46) mmHg ABG pO2 136 H (80-95) mm/Hg ABG HCO3 17 L (19-24) mmol/L ABG O2 Saturation 98.6 H (90-95) % ABG Base Excess -10.5 L (-9-1.8) mEq/L Frank Test Pos (Pos) Barometric Pressure 731.2 mm/Hg Oxygen Given ROOM AIR Sodium (136-145) mmol/L Potassium (3.5-5.1) mmol/L Chloride (98-107) mmol/L Carbon Dioxide (21-32) mmol/L Anion Gap (3-11) BUN (7-18) mg/dl Creatinine (0.6-1.4) mg/dl Est Cr Clr Drug Dosing Est GFR ( Amer) Est GFR (Non-Af Amer) BUN/Creatinine Ratio (10-20) Glucose (70-99) mg/dl POC Glucose (70-99) Lactate (0.4-2.0) mmol/L Calcium (8.5-10.1) mg/dl Magnesium (1.8-2.4) mg/dl Total Bilirubin (0.2-1) mg/dl AST (15-37) U/L ALT (12-78) U/L Alkaline Phosphatase (45-117) U/L Ammonia (11-32) umol/L Total Creatine Kinase (39-308) U/L Troponin I (0-0.045) ng/ml Total Protein (6.4-8.2) gm/dl Albumin (3.4-5.0) gm/dl Globulin (2.5-4.0) gm/dl Albumin/Globulin Ratio (0.9-2) TSH (0.300-4.500) uIu/ml Urine Color Urine Appearance (Clear) Urine pH (4.5-7.5) Ur Specific [place] (1.000-1.030) Urine Protein (Negative) Urine Glucose (UA) (Negative) Urine Ketones (Negative) Urine Blood (Negative) Urine Nitrite (Negative) Urine Bilirubin (Negative) Urine Urobilinogen (Negative) Ur Leukocyte Esterase (Negative) Urine RBC (0-4) /hpf Urine WBC (0-5) /hpf Ur Epithelial Cells (0-5) /lpf Urine Bacteria (Negative) Hyaline Casts (0-5) /lpf Urine Opiates Screen (Neg) Ur Methadone, Qual (Neg) Urine Barbiturates (Neg) Ur Phencyclidine (PCP) (Neg) U Amphetamin/Meth Scrn (Neg) MDMA (Ecstasy) Screen (Neg) U Benzodiazepines Scrn (Neg) Ur Cocaine Metabolite (Neg) U Marijuana (THC) Screen (Neg) Ethyl Alcohol mg/dL < 3.0 (0-3) mg/dl Blood Type Antibody Screen Imaging Data Radiologist's Impression: Radiology results as stated below per my review and the radiologist's interpretation: XR chest 1V portable CLINICAL HISTORY: weakness dyspnea COMPARISON STUDY: 11/19/2018 FINDINGS: Mild stable grade megaly. Chronic interstitial prominence left base. Lungs otherwise appear clear. IMPRESSION: Chronic change. Mild stable cardiomegaly. No acute process. The above report was generated using voice recognition software. It may contain grammatical, syntax or spelling errors. Electronically signed by: Rico Oliveira M.D. 12/04/2018 5:[address] head/brain wo con CT DOSE: 998.07 mGy.cm HISTORY: Mental status change ams TECHNIQUE: Multiaxial CT images of the head were performed without the use of intravenous contrast. A dose lowering technique was utilized adhering to the principles of ALARA. Comparison: 10/25/2018 Findings: Moderate mucosal thickening of the left maxillary as well as ethmoid sinuses. The calvarium and skull base are intact. The ventricles and sulci are within normal limits. There is no mass, hematoma, midline shift, or acute infarct. Impression: No acute intracranial abnormality. Moderate mucosal thickening of the ethmoid and left maxillary sinus. The above report was generated using voice recognition software. It may contain grammatical, syntax or spelling errors. Electronically signed by: Rico Oliveira M.D. 12/04/2018 5:[address] cervical spine wo con CT DOSE: 355.92 mGy.cm HISTORY: Trauma. Mental status change. fall TECHNIQUE: Multiaxial CT images of the cervical spine were performed and reformatted in the sagittal and coronal plane without the use of contrast. A dose lowering technique was utilized adhering to the principles of ALARA. COMPARISON: None. FINDINGS: Findings of an anterior corpectomy and fusion from C3 through C6. No evidence for an acute compression deformity. C1-C2 complex is intact. Prevertebral soft tissues are unremarkable. IMPRESSION: Degenerative and postoperative change. No acute process. The above report was generated using voice recognition software. It may contain grammatical, syntax or spelling errors. Electronically signed by: Rico Oliveira M.D. 12/04/2018 5:23 PM ECG Data Attestation: I personally reviewed and interpreted this ECG as follows: Indication: altered mental status Rate (beats per minute): 68 Rhythm: atrial fibrillation Findings: no PAC, no PVC, no ST elevation and no ectopy Blood Pressure Blood Pressure Findings: Elevated blood pressure Blood Pressure Disposition: Referred to patients primary care provider [facility] Narrative This is a 63-year-old male who presents to the ED by EMS. The patient was found down on his abdomen and face and his residents. The EMS did not have a lot of details surrounding his incident. The patient was alone at the time. Initially on my evaluation, the patient is able to move all 4 extremities. He seems very weak. The patient is hard to understand and his speech is very slurred but he does seem to answer basic questions appropriately and follow basic commands. The patient has bruising all over his thorax and extremities. He has a cervical collar in place. He was discharged from the hospital a few days ago. He was in for a variety of reasons. The patient is unable to provide any history. His CT scan of the cervical spine was negative. CT scan of the head was negative for acute disease. CBC is normal. BUN is 36. Glucose is 299. Lactic acid level is elevated at 3.0. AST and alkaline phosphatase are slightly elevated. Total CK is 374. Troponin was negative, TSH was normal. Urine reveals 1+ ketones. Chest x-ray did not show acute process. Urine drug screen is negative. Alcohol is negative. ABG reveals a metabolic acidosis with a pH of 7.22 and a PCO2 of 42 with a PaO2 of 136. The exact cause of the patient's symptoms are unclear. We were unable to get a temperature on the patient rectally. EMS reported a temperature of 80 degrees rectally. The nursing staff here attempted twice to get a rectal temperature and it was not detected on the temperature probe. The patient was heated during his ED stay with a bear hugger. His mental status did seem to improve during his ED stay. He was able to converse a little more clearly. He still remains very weak in his extremities. He was not able to pick his legs up off of the bed. He was able to wiggle his feet. He was able to lift his arms up but weakly. I spoke with the hospitalist about the patient. The patient will need to stay for further evaluation. His main symptoms appear to be related to hypothermia, significant weakness with a fall and the patient unable to get off of the floor. He does not have any evidence of significant rhabdomyolysis. He does have what appears to be a metabolic acidosis with his low pH and lack of respiratory compensation. His lactic acid level is elevated as well and he appears to be somewhat dehydrated with ketones in the urine. Impression & Plan Metabolic acidosis, AMS (altered mental status), Weakness, Dehydration Critical Care Time Critical Care Time: Yes Total Critical Care Time: 45 I have personally spent 45 minutes of critical care time in the direct management of this patient. This includes bedside care, interpretation of di agnostic studies, and testing, discussion with consultants, patient, and family members, and other required patient management activities. This 45 minutes is in excess of all separately billable procedures. Discharge Plan Visit Data Chief Complaint: Altered Mental Status Stated Complaint: FALL ED Provider: Jose L Slade Discharge Problem: Metabolic acidosis, AMS (altered mental status), Weakness, Dehydration Patient Disposition: Being Evaluated by Hospitalist Discharge Instructions Interventions: ED Discharge Assessment Last Done: 12/04/18 19:05 Discharge Problem: AMS (altered mental status) Qualifiers: Altered mental status type: unspecified Qualified Code(s): R41.82 - Altered mental status, unspecified The scribe's documentation has been prepared under my direction and personally reviewed by me in its entirety. I confirm that the note above accurately reflects all work, treatment, procedures, and medical decision making performed by me.
[2018-12-04] MEDS ORDERED: LORazepam 1 MG TAB PO PRN (19:57)
[2018-12-04] MEDS ORDERED: MULTI-VITAMIN INFUSION 10 ML, THIAMINE HCL 100 MG, FOLIC ACID 1 MG in SODIUM CHLORIDE 0... IV ONE (20:45)
[2018-12-04] MEDS ORDERED: NIFEdipine EXTENDED REL 30 MG TABCR PO SCH (21:00)
[2018-12-04] MEDS: CLOPIDOGREL BISULFATE 75 MG TAB PO SCH (21:33)
[2018-12-04] MEDS: SODIUM CHLORIDE 0.9% 1000ML 1,000 ML IV SCH ×2 (21:33→23:32)
[2018-12-04] MEDS: MAGNESIUM OXIDE 400 MG TAB PO SCH (21:33)
[2018-12-04] MEDS: ALLOPURINOL 100 MG TAB PO SCH (21:33)
[2018-12-04] MEDS: PANTOprazole 40 MG TAB PO SCH (21:34)
[2018-12-04] MEDS: OMEGA-3 (PURIFIED FISH OIL) 1 GM CAP PO SCH (21:34)
[2018-12-04] MEDS: VITAMIN B COMPLEX TAB PO SCH (21:34)
[2018-12-04] MEDS: FERROUS SULFATE 325 MG TAB PO SCH (21:34)
[2018-12-04] MEDS: CYANOCOBALAMIN (VITAMIN B-12) 2,500 MCG TAB.SUBL SL SCH (21:34)
[2018-12-04] MEDS: ZINC SULFATE 220 MG CAPSULE PO SCH (21:34)
[2018-12-04] MEDS: HEPARIN SOD 5,000 UNIT/0.5 ML VIAL SQ SCH (21:35)
[2018-12-04] MEDS: INSULIN ASPART 100 UNITS/ML 3 ML PEN SC SCH (21:36)
--- NOTE | 2018-12-04 22:15 | XRay Report ---
XR chest 1V portable CLINICAL HISTORY: ? aspiration dyspnea COMPARISON STUDY: 12/04/2017 4:48 PM FINDINGS: Small bibasilar parenchymal infiltrates. And upper lungs are considered clear. Diaphragms a re smooth. IMPRESSION: Small bibasilar parenchymal infiltrates. The above report was generated using voice recognition software. It may contain grammatical, syntax or spelling errors. Electronically signed by: Rico Oliveira M.D. 12/04/2018 10:14 PM
[2018-12-04 22:35] LABS: Hematocrit (blood only) 26.1 % (42-52); Hemoglobin 8.8 g/dL (14.0-18.0); Immature Granulocytes # (auto) 0.02 K/uL (0.00-0.02); Immature Granulocytes % (auto) 0.2 %; Lymphocytes # (auto) 0.43 K/uL (1.2-3.4); Lymphocytes % (auto) 5.4 %; Mean Corpuscular Hemoglobin 32.5 pg (25-34); Mean Corpuscular Volume 96.3 fL (80-100); Mean Platelet Volume 11.5 fL (7.4-10.4); Monocytes # (auto) 0.14 K/uL (0.11-0.59); Monocytes % (auto) 1.7 %; Neutrophils # (auto) 7.43 K/uL (1.4-6.5); Neutrophils % (auto) 92.7 %; Platelet Count 117 K/uL (130-400); RDW Coefficient of Variation 14.3 % (11.5-14.5); RDW Standard Deviation 50.1 fL (36.4-46.3); Red Blood Count 2.71 M/uL (4.7-6.1); White Blood Count 8.02 K/uL (4.8-10.8)
[2018-12-04 22:50] LABS: Mean Corpuscular Hgb Conc 33.7 g/dL (32-36)
[2018-12-04 22:53] LABS: Albumin Level 2.1 gm/dl (3.4-5.0); BUN Creatinine Ratio 32.9 (10-20); Calcium 8.3 mg/dl (8.5-10.1); Creatinine Clr Calc Pharmacy 74.8 ml/min; Est GFR (African American) 77.5; Est GFR (Non-African American) 66.9; Magnesium 1.6 mg/dl (1.8-2.4); Potassium 4.4 mmol/L (3.5-5.1)
[2018-12-04 23:00] LABS: Troponin I 0.019 ng/ml (0-0.045)
--- NOTE | 2018-12-04 23:03 | Procedure Note ---
Procedure Note Date of Service December 04, 2018 Procedure: Shelter Indwelling Peripherally Inserted IV Catheter Placement Attending: Dr. Chavarria APC: Christiano Nath PA-C Indication: Need for IV Access, Poor Vascular Access Anesthesia: None Verbal consent was obtained from patient prior to performing the procedure. A time-out was completed verifying correct patient, procedure, site, positioning, and implant(s) or special equipment if applicable. Utilizing bedside ultrasound, vascularity of the LEFT upper extremity was assessed. Vessel size was noted for appropriate catheter selection and skin was marked with gentle pressure. Patients LEFT upper extremity was prepped and draped in the usual sterile fashion utilizing chlorhexidine. Ultrasound guidance was used to aid needle placement. A 22 g Endurance Catheter was introduced into the LEFT forearm vein under direct ultrasound guidance. Guide wire was easily deployed without resistance. Catheter was threaded over the guide wire without resistance and the entire apparatus was removed intact. Good venous blood return was noted in the catheter. The IV catheter was easily flushed with sterile saline flush. Sterile clave was attached to the end of the catheter and good blood return was again noted. Tourniquet was released. StatLock device and sterile dressing were applied. The patient tolerated the procedure well. Blood Loss: Minimal Complications: None Procedural Ultrasound Guidance: Procedure Date: 12/04/2018 Indication: Poor Vascular Access Attending: Dr. Chavarria APC: Christiano Nath PA-C Artery/Veins Identified: YES Access confirmed in Vein with ultrasound: YES Complications: NONE Patient tolerated procedure: WELL Coding CPT Codes Tubes, Drains, and Vasc Access - Tubes, Drains, and Vasc Access: Venipuncture, Age 2/>Req physician skill, (sep proc), Dx/Tx (not rout) ([id number])
--- NOTE | 2018-12-04 23:04 | Procedure Note ---
Procedure Note Date of Service December 04, 2018 Procedure: Long-Term Indwelling Peripherally Inserted IV Catheter Placement Attending: Dr. Chavarria APC: Christiano Nath PA-C Indication: Need for IV Access, Poor Vascular Access Anesthesia: None Verbal consent was obtained from patient prior to performing the procedure. A time-out was completed verifying correct patient, procedure, site, positioning, and implant(s) or special equipment if applicable. Utilizing bedside ultrasound, vascularity of the LEFT upper extremity was assessed. Vessel size was noted for appropriate catheter selection and skin was marked with gentle pressure. Patients LEFT upper extremity was prepped and draped in the usual sterile fashion utilizing chlorhexidine. Ultrasound guidance was used to aid needle placement. An 18 g Endurance Catheter was introduced into the LEFT Cephalic vein under direct ultrasound guidance. Guide wire was easily deployed without resistance. Catheter was threaded over the guide wire without resistance and the entire apparatus was removed intact. Good venous blood return was noted in the catheter. The IV catheter was easily flushed with sterile saline flush. Sterile clave was attached to the end of the catheter and good blood return was again noted. Tourniquet was released. StatLock device and sterile dressing were applied. The patient tolerated the procedure well. Blood Loss: Minimal Complications: None Procedural Ultrasound Guidance: Procedure Date: 12/04/2018 Indication: Poor Vascular Access Attending: Dr. Chavarria APC: Christiano Nath PA-C Artery/Veins Identified: YES Access confirmed in Vein with ultrasound: YES Complications: NONE Patient tolerated procedure: WELL Coding CPT Codes Tubes, Drains, and Vasc Access - Tubes, Drains, and Vasc Access: Venipuncture, Age 2/>Req physician skill, (sep proc), Dx/Tx (not rout) ([id number])
[2018-12-04 23:11] LABS: Total Protein 5.4 gm/dl (6.4-8.2)
[2018-12-04 23:12] LABS: Albumin Globulin Ratio 0.7 (0.9-2); Globulin 3.2 gm/dl (2.5-4.0)
[2018-12-04 23:55] LABS: Base Excess ABG -9.6 mEq/L (-9-1.8); HCO3 ABG 16 mmol/L (19-24); Oxygen Saturation ABG 96.9 % (90-95); PCO2 ABG 33 mmHg (35-46); PO2 ABG 96 mm/Hg (80-95)
[2018-12-04 23:58] LABS: Allen Test Pos (Pos)
[2018-12-05] MEDS ORDERED: ALBUMIN 25% 50 ML IV ONE ×2 (00:25→02:17)
[2018-12-05] MEDS ORDERED: SODIUM CHLORIDE 0.9% 1000ML 1,000 ML IV SCH (01:00)
[2018-12-05] MEDS: PIPERACILLIN/TAZOBACTAM 3.375 GM in DEXTROSE 5% 100 ML IV SCH ×2 (01:37→08:00)
[2018-12-05] MEDS ORDERED: SODIUM CHLORIDE 0.9% 1000ML 250 ML IV ONE ×2 (02:19→02:43)
[2018-12-05 03:12] LABS: Hemoglobin 8.3 g/dL (14.0-18.0); Mean Corpuscular Hemoglobin 32.9 pg (25-34); Mean Corpuscular Hgb Conc 34.6 g/dL (32-36); Mean Corpuscular Volume 95.2 fL (80-100); RDW Standard Deviation 49.2 fL (36.4-46.3); Red Blood Count 2.52 M/uL (4.7-6.1); White Blood Count 10.36 K/uL (4.8-10.8)
[2018-12-05 03:31] LABS: BUN Creatinine Ratio 28.8 (10-20); Calcium 7.7 mg/dl (8.5-10.1); Creatinine Clr Calc Pharmacy 67.2 ml/min; Est GFR (African American) 68.1; Est GFR (Non-African American) 58.8; Magnesium 1.5 mg/dl (1.8-2.4); Potassium 4.4 mmol/L (3.5-5.1)
[2018-12-05 03:50] LABS: Mean Platelet Volume 10.7 fL (7.4-10.4); Platelet Count 94 K/uL (130-400); Platelet Estimate Decreased (Normal)
[2018-12-05] MEDS: ALBUMIN 25% 50 ML IV SCH ×2 (03:53→04:37)
[2018-12-05] MEDS ORDERED: MAGNESIUM SULFATE / D5W 1 GM/100 ML BAG IV ONE (03:57)
[2018-12-05] MEDS: SODIUM CHLORIDE 0.9% 1000ML 500 ML IV ONE ×2 (04:43→05:12)
[2018-12-05] MEDS: HEPARIN SOD 5,000 UNIT/0.5 ML VIAL SQ SCH ×3 (05:27→17:40)
[2018-12-05] MEDS: SODIUM CHLORIDE 0.9% 1000ML 1,000 ML IV SCH (08:00)
[2018-12-05] MEDS: INSULIN ASPART 100 UNITS/ML 3 ML PEN SC SCH ×4 (10:37→21:36)
--- NOTE | 2018-12-05 15:10 | Hospitalist Progress Note ---
Date of Service December 05, 2018 Assessment & Plan (1) Hypotension: BP as low as 60/40 on admission. He got fluid boluses in the ER. He had a similar presentation after surgery on 11/23 which resolved with IV fluids. - Will hold antihypertensive medication. - Follow cultures, though sepsis/infection considered unlikely. - Hold abx at this time. (2) Hypothermia: Patient's first temp was 29.3 on arrival to the ED, despite the room being normal temperature where he was found. TSH was 1.6 in 11/2018. Similar episode in 11/23 in relation to surgery. - Follow cultures for any indication of infection. - Will check AM cortisol - Continue Marcelo hugger as needed. (3) Pancytopenia: Likely due to alcohol abuse. Counts seem stable from priors with hgb the exception. No indication of bleeding. - Trend (4) Weakness: Multifactorial due to neck injury & alcoholism. - PT/OT - Please see Lesa Pretty's discharge summary from 12/01 - Strongly attempted to get him into rehab, but was denied. Will try again. (5) Falls frequently: As above (6) AMS (altered mental status): Due to intoxication. His mental status had returned to normal by the morning of 12/05. - Monitor (7) Myelopathy concurrent with and due to spinal stenosis of cervical region: S/p C4 corpectomy with Dr. Gutierres on 11/23. Was supposed to be wearing his neck brace, but it was found beside him when he was found on the floor. - CT cervical spine on 12/04 showed no acute process. - Continue neck brace - Follow up with Dr. Gutierres as usual (8) Chronic renal insufficiency, stage IV (severe): Baseline Cr. ~1.2, eGFR ~60. - At baseline. - Avoid nephrotoxins (9) Alcohol withdrawal: Was only discharged for 3 days. Not really enough time to build up a dependence again. - Continue thiamine/ folate and multivitamin supplements. - Add alcohol withdrawal protocol - No Ativan needed as of 12/05. (10) Diabetes: A1c was 5.8% in 11/2018. - Sliding-scale insulin per protocol (11) DVT prophylaxis: Heparin 5000 units Q12h Subjective Honestly feeling quite well this morning. No major issues. Reports no fevers/chills, chest pain, shortness of breath, abdominal pain, nausea, or vomiting. Physical Exam Constitutional: WD/WN, vitals as above Eyes: EOM intact bilaterally; no conjunctival abnormality ENMT: external ear and nose normal, oropharynx normal Neck: trachea midline, no thyromegaly normal visual inspection Neck brace Respiratory: normal respiratory effort, lungs clear to auscultation no respiratory distress Cardiovascular: Rate/Rhythm: regular rate and + irregularly irregular Heart Sounds: normal S1 and normal S2; no murmur Extremities: no edema Gastrointestinal (Abdomen): Inspection/Auscultation: abdomen normal to inspection; abdomen not distended Musculoskeletal: no cyanosis or clubbing, extremities motor strength 5/5 Skin: no rashes, warm and dry Neurologic: moves all extremities and awake Psychiatric: Orientation: alert, oriented to person and cooperative Results & Data Vital Signs (Past 12 Hours) Vital Signs Temp Pulse Pulse Pulse Resp BP BP 12/05/18 11:18 37.2 C 72 26 H 119/53 L 12/05/18 08:00 75 12/05/18 07:39 36.5 C 74 30 H 105/54 L 12/05/18 06:48 36.4 C L 106/52 L 12/05/18 06:00 36.1 C L 74 111/56 L 12/05/18 05:24 36.0 C L 73 20 110/54 L 12/05/18 03:47 35.4 C L 69 90/46 L 12/05/18 03:36 87/44 L 12/05/18 03:18 35 C L 69 25 H 91/46 L 12/05/18 03:15 108/54 L 12/05/18 03:02 90/47 L 12/05/18 03:00 34.4 C L 96/49 L Pulse Ox 12/05/18 11:18 98 12/05/18 08:00 12/05/18 07:39 99 12/05/18 06:48 12/05/18 06:00 12/05/18 05:24 99 12/05/18 03:47 12/05/18 03:36 12/05/18 03:18 100 12/05/18 03:15 12/05/18 03:02 12/05/18 03:00 PG Care Time/CCT Total # of Minutes Spent Total Time Spent with Patient: Total time spent is greater than 50% in coordination of care (as documented) at patient's floor/unit and/or counseling patient: (1) AMS (altered mental status) Altered mental status type: unspecified Qualified Code(s): R41.82 - Altered mental status, unspecified (2) Hypothermia Encounter type: initial encounter Qualified Code(s): T68.XXXA - Hypothermia, initial encounter (3) Hypotension Hypotension type: hypotension due to hypovolemia Qualified Code(s): I95.89 - Other hypotension; E86.1 - Hypovolemia
[2018-12-05] MEDS ORDERED: CARBOHYDRATES FOR HYPOGLYCEMIA PO PRN (15:30)
[2018-12-05] MEDS ORDERED: GLUCOSE 10 TABS/TUBE PO PRN (15:30)
[2018-12-05] MEDS ORDERED: GLUCAGON FOR INJ 1 MG VIAL IM PRN (15:30)
[2018-12-05] MEDS ORDERED: GLUCOSE 40% GEL 15 GM TUBE PO PRN (15:30)
[2018-12-05] MEDS ORDERED: DEXTROSE 50% 50 ML SYRINGE IV PRN (15:30)
[2018-12-05] MEDS: MAGNESIUM SULFATE / D5W 1 GM/100 ML BAG IV SCH ×3 (15:42→17:40)
[2018-12-05] MEDS ORDERED: PIPERACILLIN/TAZOBACTAM 4.5 GM in DEXTROSE 5% 100 ML IV SCH (16:00)
[2018-12-05] MEDS ORDERED: ALBUMIN 25% 50 ML with FUROSEMIDE 40 MG IV ONE (21:00)
[2018-12-05] MEDS: FOLIC ACID 1 MG TAB PO SCH (21:12)
[2018-12-05] MEDS: MAGNESIUM OXIDE 400 MG TAB PO SCH (21:12)
[2018-12-05] MEDS: FERROUS SULFATE 325 MG TAB PO SCH (21:12)
[2018-12-05] MEDS: ALLOPURINOL 100 MG TAB PO SCH (21:13)
[2018-12-05] MEDS: VITAMIN B COMPLEX TAB PO SCH (21:13)
[2018-12-05] MEDS: PANTOprazole 40 MG TAB PO SCH (21:13)
[2018-12-05] MEDS: ZINC SULFATE 220 MG CAPSULE PO SCH (21:13)
[2018-12-05] MEDS: CLOPIDOGREL BISULFATE 75 MG TAB PO SCH (21:13)
[2018-12-05] MEDS: CYANOCOBALAMIN (VITAMIN B-12) 2,500 MCG TAB.SUBL SL SCH (21:13)
[2018-12-05] MEDS: THIAMINE HCL 100 MG TAB PO SCH (21:13)
[2018-12-05] MEDS: OMEGA-3 (PURIFIED FISH OIL) 1 GM CAP PO SCH (21:13)
[2018-12-06] MEDS ORDERED: Nursing to Pharmacy Communication ONE (06:05)
[2018-12-06] MEDS: HEPARIN SOD 5,000 UNIT/0.5 ML VIAL SQ SCH ×2 (06:16→17:49)
[2018-12-06] MEDS: INSULIN ASPART 100 UNITS/ML 3 ML PEN SC SCH ×3 (06:17→17:50)
[2018-12-06 07:50] LABS: Hematocrit (blood only) 24.8 % (42-52); Hemoglobin 8.5 g/dL (14.0-18.0); Mean Corpuscular Hemoglobin 32.6 pg (25-34); Mean Corpuscular Hgb Conc 34.3 g/dL (32-36); Nucleated RBC # (auto) 0.03 K/uL (0-0); Nucleated RBC % (auto) 0.3 %; RDW Coefficient of Variation 14.7 % (11.5-14.5); RDW Standard Deviation 50.2 fL (36.4-46.3); Red Blood Count 2.61 M/uL (4.7-6.1)
[2018-12-06 08:22] LABS: BUN Creatinine Ratio 17.5 (10-20); Calcium 8.1 mg/dl (8.5-10.1); Creatinine Clr Calc Pharmacy 32.6 ml/min; Est GFR (African American) 28.6; Est GFR (Non-African American) 24.7; Magnesium 2.6 mg/dl (1.8-2.4); Phosphorus 3.5 mg/dl (2.5-4.9); Potassium 4.4 mmol/L (3.5-5.1)
[2018-12-06 08:31] LABS: Mean Platelet Volume 10.8 fL (7.4-10.4); Platelet Count 92 K/uL (130-400)
[2018-12-06] MEDS: ALBUMIN 25% 50 ML IV SCH ×2 (11:52→12:53)
[2018-12-06] MEDS: FOLIC ACID 1 MG in SYRINGE 9.8 ML IV SCH (12:24)
[2018-12-06] MEDS ORDERED: THIAMINE HCL 200 MG in SODIUM CHLORIDE 0.9% 50 ML IV STA (14:32)
--- NOTE | 2018-12-06 14:36 | Hospitalist Progress Note ---
Date of Service December 06, 2018 Assessment & Plan (1) WILLIAM (acute kidney injury): Likely secondary to ATN from profound hypotension upon admission Creatinine up to 2.62 from 1.28, with metabolic acidosis with serum bicarbonate 16, non-anion gap No GI losses of bicarbonate Was oliguric and now urine has picked up with a dose of IV Lasix with albumin -Give IV albumin again today given significant edema in the upper extremities which may be postsurgical? Consulted nephrology-appreciate recommendations -Start D5 W+ 100 mEq of sodium bicarbonate at 80 mL's per hour -Follow serial BMP -Follow urine output -Continue Diamond catheter -Await recovery of renal function Blood pressures are now improved (2) Hypotension: BP as low as 60/40 on admission. He got fluid boluses in the ER. He had a similar presentation after surgery on 11/23 which resolved with IV fluids. Blood pressures are now actually elevated after receiving over 7 L of fluid Unclear if was from dehydration but does not seem to have an infection at this time -Continue to hold antihypertensive medication from home such as Bystolic, nifedipine, Lasix. - Follow cultures, though sepsis/infection considered unlikely. (3) Hypothermia: Patient's first temp was 29.3 Celsius on arrival to the ED, despite the room being normal temperature where he was found. TSH was 1.6 in 11/2018. Similar episode in 11/23 in relation to surgery. - Follow cultures for any indication of infection. A.m. cortisol normal Has now improved Likely secondary to exposure-unknown time down on the ground when he was found (4) Pancytopenia: Likely due to alcohol abuse. Counts seem stable from priors with hgb the exception. No indication of bleeding. - Trend CBC (5) Weakness: Multifactorial due to neck injury & alcoholism. Able to move all extremities at this time CT of the spine on admission without evidence of fractures -Consult his spine surgeon Dr. Gutierres for any further evaluation recommendations - PT/OT -He was denied rehab on his last day (6) Falls frequently: As above (7) AMS (altered mental status): Due to intoxication with alcohol as well as hypothermia and hypotension on arrival. His mental status had returned to normal by the morning of 12/05. - Monitor (8) Myelopathy concurrent with and due to spinal stenosis of cervical region: S/p C4 corpectomy with Dr. Gutierres on 11/23. Was supposed to be wearing his neck brace, but it was found beside him when he was found on the floor. - CT cervical spine on 12/04 showed no acute process. - Continue neck brace -consult spine surgery here (9) Chronic renal insufficiency, stage IV (severe): Baseline Cr. ~1.2, eGFR ~60. With acute kidney injury as above - Avoid nephrotoxins -Renally dose medications (10) Alcohol withdrawal: Was only discharged for 3 days. Not really enough time to build up a dependence again. - Continue thiamine/ folate but switch to IV form as he is unable to swallow at this time - Add alcohol withdrawal protocol - No Ativan needed thus far (11) Diabetes: A1c was 5.8% in 11/2018. - Sliding-scale insulin per protocol (12) Metabolic acidosis: Non-anion gap, serum bicarbonate is low 16 No GI losses He has had this happen before Could be related to acute kidney injury at this point Nephrology consult appreciated -Starting D5W with sodium bicarbonate as above -Follow serial BMP (13) Edema: In the bilateral upper extremities-as per report this has been present since his previous hospitalization Could be due to postoperative changes? -Consult surgery Has good pulses in the wrists bilaterally (14) Dysphagia: Had a choking episode on the night of admission when he was altered and was made n.p.o. Seen by speech therapy today and still not cleared for swallowing -Speech to follow (15) Paroxysmal atrial fibrillation: Was in atrial fibrillation at the time of presentation with rates in the 70s Now with sinus bradycardia at times in the 40s, no evidence of blocks Could be related to alcohol use and hypothermia Consult cardiology appreciated Recent echocardiogram with preserved EF -Follow on telemetry (16) DVT prophylaxis: Heparin 5000 units Q12h Disposition-remain on PCU Subjective Patient has some pain in the right side of his neck. Arms have been swollen since his surgery he reports. He is upset that he is not allowed to eat but continues to choking with speech evaluation. Urine output has picked up overnight after receiving Lasix with albumin. Telemetry with sinus bradycardia with rates down into the 40s at times but mostly in the 50s and 60s Discussed the case with cardiology and nephrology Review of Systems Review of Systems: All systems reviewed & are unremarkable except as noted in HPI & below (Denies chest pain shortness of breath, no abdominal pain. Last georgette wel movement was 3 days ago) Physical Exam Constitutional: WD/WN, vitals as above Eyes: PERRL, conjunctivae normal, anicteric sclerae Neck: trachea midline, no thyromegaly Respiratory: normal respiratory effort, lungs clear to auscultation Cardiovascular: Rate/Rhythm: regular rhythm and + bradycardic Heart Sounds: no murmur Vessels: dorsalis pedis pulses present and radial pulses present Extremities: + edema (2+ nonpitting edema in the upper extremities and hands bilaterally, no lower extremity edema); no calf tenderness Hands are cool to the touch Gastrointestinal (Abdomen): normal bowel sounds, soft, nontender, no hepatosplenomegaly Musculoskeletal: Extremities: extremities normal to inspection; no cyanosis and no clubbing Skin: no rashes, warm and dry Neurologic: moves all extremities (With 4/5 strength throughout) and awake Motor/Sensory: no tremor Psychiatric: Orientation: alert, oriented x 3 and cooperative Affect: + irritable affect Genitourinary: Diamond catheter in place draining clear yellow urine Results & Data Vital Signs (Past 12 Hours) Vital Signs Temp Pulse Pulse Pulse Resp BP Pulse Ox 12/06/18 12:00 36.6 C 56 L 16 147/80 H 99 12/06/18 08:37 36.5 C 63 18 144/74 H 100 12/06/18 08:00 66 12/06/18 06:26 36.6 C 64 16 135/79 100 12/06/18 05:15 148/72 H 12/06/18 04:57 36.6 C 64 16 172/80 H 99 Laboratory Results Labs reviewed, a.m. cortisol 16.6 Sodium 146, potassium 4.4, chloride 119, bicarbonate 16, BUN 37, creatinine 2.62, glucose 122 Hemoglobin 8.5, WBC count 8.8, platelets 92 ECG Additional Comments: ECG with sinus bradycardia, left axis deviation PG Care Time/CCT Total # of Minutes Spent Total Time Spent with Patient: Total time spent is greater than 50% in coordination of care (as documented) at patient's floor/unit and/or counseling patient: (1) Hypothermia Encounter type: initial encounter Qualified Code(s): T68.XXXA - Hypothermia, initial encounter (2) AMS (altered mental status) Altered mental status type: unspecified Qualified Code(s): R41.82 - Altered mental status, unspecified (3) Hypotension Hypotension type: hypotension due to hypovolemia Qualified Code(s): I95.89 - Other hypotension; E86.1 - Hypovolemia
--- NOTE | 2018-12-06 15:06 | Orthopedic Consultation ---
Date of Consultation December 06, 2018 Assessment & Plan (1) Myelopathy concurrent with and due to spinal stenosis of cervical region: At this time his CAT scan on 12/04 demonstrates instrumentation to be in place in appropriate alignment. He is to maintain his collar at all times if possible. He is requested a diet will advance to full liquid diet. Again he clearly is a candidate for rehab. He is grossly myelopathic with marked neuro deficits. He cannot return to his home setting due to his alcoholic history. Present on Admission?: Yes History of Present Illness Reason for Consultation: Status post anterior cervical corpectomy and fusion. Attending Physician: Lynne Bowling MD History of Present Illness This is a 63-year-old male well-known to me that presents the emergency room with the weekend after being found at home. Apparently he was intoxicated and fell to the floor. He was found without his collar. He is status post anterior cervical corpectomy and fusion a little over week ago. Despite multiple attempts his insurance company would not approve him going to a rehab center. Unfortunately he upon returning home progressed to alcohol again. This time he notes no difficulty with swallowing. He feels that he is has some weakness in his deltoids bilaterally. History of taking this afternoon seems to be somewhat limited. Allergies Allergy/AdvReac Type Severity Reaction Status Date / Time No Known Allergies Allergy Verified 11/23/18 10:29 Home Medications Home Medications Medication Instructions Recorded Confirmed Type Bystolic 10 mg PO HS 02/03/18 12/04/18 History Garrett-3 1 tab PO HS 02/03/18 12/04/18 History allopurinol [Zyloprim] 100 mg PO HS 02/03/18 12/04/18 History clopidogrel [Plavix] 75 mg PO HS 02/03/18 12/04/18 History cyanocobalamin (vitamin B-12) 5,000 mcg SUBLINGUAL HS 02/03/18 12/04/18 History [Vitamin B-12] esomeprazole magnesium [Nexium] 40 mg PO HS 02/03/18 12/04/18 History folic acid 1 mg PO HS 02/03/18 12/04/18 History furosemide [Lasix] 40 mg PO HS 02/03/18 12/04/18 History magnesium oxide 400 mg PO HS 02/03/18 12/04/18 History nifedipine [Procardia XL] 30 mg PO HS 02/03/18 12/04/18 History pioglitazone [Actos] 15 mg PO HS 02/03/18 12/04/18 History thiamine HCl (vitamin B1) 100 mg PO HS 02/03/18 12/04/18 History vitamin B complex 1 tab PO HS 02/03/18 12/04/18 History zinc 50 mg PO HS 02/03/18 12/04/18 History ferrous sulfate ER 250 mg (50 mg 250 mg PO HS tab 09/20/18 12/04/18 History iron) tablet,extended release Patient History Medical History WILLIAM (acute kidney injury) (Resolved) Abdominal pain (Resolved) Alcohol withdrawal (Resolved) Ambulatory dysfunction (Resolved 02/14/14) Anemia (Resolved) Bilateral leg pain (Resolved) D-dimer, elevated (Resolved) Diabetes (Chronic) Diverticulitis (Resolved) Foot pain (Resolved) Hyperglycemia (Resolved) Hyperkalemia (Resolved) Renal failure (Resolved) Renal insufficiency (Resolved) Thrombocytopenia Surgical History History of esophagogastroduodenoscopy (EGD) No pertinent past surgical history S/P colonoscopy Family History Other No pertinent family history Social History Preferred Language: [place]ijani Communication Ability: Effective 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 The neck is supple. He has no tenderness palpation of the para cervical musculature. Muscle testing reveals deficits to the deltoids biceps triceps and grasp bilaterally. He is markedly swollen bilaterally. He has some ecchymosis and abrasions to the left knee. He has reasonable plantar flexion dorsiflexion. Results & Data Vital Signs (Past 12 Hours) Vital Signs Temp Pulse Pulse Pulse Resp BP Pulse Ox 12/06/18 12:00 36.6 C 56 L 16 147/80 H 99 12/06/18 08:37 36.5 C 63 18 144/74 H 100 12/06/18 08:00 66 12/06/18 06:26 36.6 C 64 16 135/79 100 12/06/18 05:15 148/72 H 12/06/18 04:57 36.6 C 64 16 172/80 H 99
[2018-12-06 15:28] LABS: Creatinine Clr Calc Pharmacy 33.6 ml/min; Est GFR (African American) 29.7; Est GFR (Non-African American) 25.7; Potassium 4.5 mmol/L (3.5-5.1)
[2018-12-06 15:29] LABS: Calcium 8.4 mg/dl (8.5-10.1)
[2018-12-06] MEDS: SODIUM BICARBONATE 8.4% 100 MEQ in DEXTROSE 5% 1,000 ML IV SCH (15:42)
--- NOTE | 2018-12-06 15:47 | Cardiology Consultation ---
Date of Consultation December 06, 2018 Assessment & Plan (1) Paroxysmal atrial fibrillation: He presented in atrial fibrillation with a controlled heart rate, he has no known prior history of this and I cannot tell whether he had symptoms or not as he was not responding appropriately at the time. It lasted about 5 hours and terminated spontaneously. He had several reasons for having atrial fibrillation, this includes hypothermia and alcohol. He is a very poor anticoagulation candidate. Given that we have adequate explanation for his arrhythmia, it was relatively short-lived as far as we know and terminated spontaneously, I think the risk of anticoagulation far out seeds the benefit. Those recommendations may change if we document further atrial fibrillation. For the moment therefore I would not consider anticoagulation. Since his heart rate was controlled we do not need to adjust his medications for that. History of Present Illness Reason for Consultation: Atrial fibrillation Attending Physician: Lynne Bowling MD History of Present Illness This is a 63-year-old male with a complicated medical history. He has a history of diabetes mellitus, recently having undergone cervical spine surgery and he has a cervical myelopathy. He has a history of alcoholism and has had prior alcohol withdrawal and has started drinking alcohol again following his recent discharge on December 01, 2018. He came into the emergency room with an altered mental status and was noted to have multiple bruises on his body, apparently he was found lying on the floor and has evidence of muscle damage with an elevated CPK, he also had a high lactic acid level and was not very well oriented on arrival. He was also hypothermic and was hypotensive. From the cardiovascular standpoint I do not believe he has a significant history, however he recalls wearing what sounds like Holter monitors periodically over the years although does not remember anything ever showing on them or as to exactly why he was wearing them. He does not believe he is ever been told that he had atrial fibrillation and is never been treated for an arrhythmia. On this admission he was in atrial fibrillation but that resolved spontaneously shortly after admission (about 5 hours after admission). He has no recollection of how he felt during the arrhythmia and we do not know how long it preceded his presentation although he is not in it during his recent hospitalization. Allergies Allergy/AdvReac Type Severity Reaction Status Date / Time No Known Allergies Allergy Verified 11/23/18 10:29 Home Medications Home Medications Medication Instructions Recorded Confirmed Type Bystolic 10 mg PO HS 02/03/18 12/04/18 History Stewardson-3 1 tab PO HS 02/03/18 12/04/18 History allopurinol [Zyloprim] 100 mg PO HS 02/03/18 12/04/18 History clopidogrel [Plavix] 75 mg PO HS 02/03/18 12/04/18 History cyanocobalamin (vitamin B-12) 5,000 mcg SUBLINGUAL HS 02/03/18 12/04/18 History [Vitamin B-12] esomeprazole magnesium [Nexium] 40 mg PO HS 02/03/18 12/04/18 History folic acid 1 mg PO HS 02/03/18 12/04/18 History furosemide [Lasix] 40 mg PO HS 02/03/18 12/04/18 History magnesium oxide 400 mg PO HS 02/03/18 12/04/18 History nifedipine [Procardia XL] 30 mg PO HS 02/03/18 12/04/18 History pioglitazone [Actos] 15 mg PO HS 02/03/18 12/04/18 History thiamine HCl (vitamin B1) 100 mg PO HS 02/03/18 12/04/18 History vitamin B complex 1 tab PO HS 02/03/18 12/04/18 History zinc 50 mg PO HS 02/03/18 12/04/18 History ferrous sulfate ER 250 mg (50 mg 250 mg PO HS tab 09/20/18 12/04/18 History iron) tablet,extended release Patient History Medical History WILLIAM (acute kidney injury) (Resolved) Abdominal pain (Resolved) Alcohol withdrawal (Resolved) Ambulatory dysfunction (Resolved 02/14/14) Anemia (Resolved) Bilateral leg pain (Resolved) D-dimer, elevated (Resolved) Diabetes (Chronic) Diverticulitis (Resolved) Foot pain (Resolved) Hyperglycemia (Resolved) Hyperkalemia (Resolved) Renal failure (Resolved) Renal insufficiency (Resolved) Thrombocytopenia Surgical History History of esophagogastroduodenoscopy (EGD) No pertinent past surgical history S/P colonoscopy Family History Other No pertinent family history Social History Preferred Language: Vietnamese Communication Ability: Effective Agent Producer Required: No Beliefs That Will Affect Care: None marital status: / Current Living Situation: Alone current occupational status: retired Feels Safe at Home: No Is there a partner from a previous relationship who is making you feel unsafe now?: No and Hesitant to Answer Smoking Status: Never smoker Second Hand Exposure: No ; Hx Alcohol Use: Yes Alcohol type: beer and hard liquor Hx Substance Use: No Review of Systems Review of Systems: All systems reviewed & are unremarkable except as noted in HPI & below Physical Exam Physical Exam: Constitutional: Alert, cooperative and in no distress. HEENT: Unremarkable Neck: No jugular venous distention, carotid pulses are normal and equal bilaterally without bruits. Pulmonary: Clear to auscultation bilaterally. Cardiac: Regular rhythm with no murmur, gallop or rub. Abdomen: Soft, nontender with normal bowel sounds. Extremities: No edema. Distal pulses intact. Neurologic: No focal findings. Gait is steady. Skin: No rash, ecchymoses or petechiae. Results & Data Vital Signs (Past 12 Hours) Vital Signs Temp Pulse Pulse Pulse Resp BP Pulse Ox 12/06/18 12:00 36.6 C 56 L 16 147/80 H 99 12/06/18 08:37 36.5 C 63 18 144/74 H 100 12/06/18 08:00 66 12/06/18 06:26 36.6 C 64 16 135/79 100 12/06/18 05:15 148/72 H 12/06/18 04:57 36.6 C 64 16 172/80 H 99 Laboratory Results Abnormal lab results 12/05/18 12/05/18 12/06/18 Range/Units 16:26 20:17 00:03 RBC (4.7-6.1) M/uL Hgb (14.0-18.0) g/dL Hct (42-52) % RDW Std Deviation (36.4-46.3) fL RDW Coeff of Clyde (11.5-14.5) % Plt Count (130-400) K/uL MPV (7.4-10.4) fL Absolute Nucleated RBC (0-0) K/uL Sodium (136-145) mmol/L Chloride (98-107) mmol/L Carbon Dioxide (21-32) mmol/L BUN (7-18) mg/dl Creatinine (0.6-1.4) mg/dl Glucose (70-99) mg/dl POC Glucose 119 H 148 H 130 H (70-99) Calcium (8.5-10.1) mg/dl Magnesium (1.8-2.4) mg/dl 12/06/18 12/06/18 12/06/18 Range/Units 05:49 07:32 07:32 RBC 2.61 L (4.7-6.1) M/uL Hgb 8.5 L (14.0-18.0) g/dL Hct 24.8 L (42-52) % RDW Std Deviation 50.2 H (36.4-46.3) fL RDW Coeff of Clyde 14.7 H (11.5-14.5) % Plt Count 92 L (130-400) K/uL MPV 10.8 H (7.4-10.4) fL Absolute Nucleated RBC 0.03 H (0-0) K/uL Sodium 146 H (136-145) mmol/L Chloride 119 H (98-107) mmol/L Carbon Dioxide 16 L (21-32) mmol/L BUN 46 H (7-18) mg/dl Creatinine 2.62 H D (0.6-1.4) mg/dl Glucose 122 H (70-99) mg/dl POC Glucose 140 H (70-99) Calcium 8.1 L (8.5-10.1) mg/dl Magnesium 2.6 H (1.8-2.4) mg/dl 12/06/18 12/06/18 Range/Units 11:55 14:49 RBC (4.7-6.1) M/uL Hgb (14.0-18.0) g/dL Hct (42-52) % RDW Std Deviation (36.4-46.3) fL RDW Coeff of Clyde (11.5-14.5) % Plt Count (130-400) K/uL MPV (7.4-10.4) fL Absolute Nucleated RBC (0-0) K/uL Sodium (136-145) mmol/L Chloride 118 H (98-107) mmol/L Carbon Dioxide 18 L (21-32) mmol/L BUN 43 H (7-18) mg/dl Creatinine 2.54 H (0.6-1.4) mg/dl Glucose 120 H (70-99) mg/dl POC Glucose 131 H (70-99) Calcium 8.4 L (8.5-10.1) mg/dl Magnesium (1.8-2.4) mg/dl Diagnostic Findings His electrocardiogram on presentation December 04, 2018 at 1622 shows atrial fibrillation a heart rate of 68 bpm, some minor ST-T abnormalities. A repeat electrocardiogram December 06, 2018 at 1433 shows sinus bradycardia at 55 bpm aga in with minor ST-T abnormalities. On telemetry monitoring he arrived in atrial fibrillation and converted to sinus rhythm at about 2200 on December 04, 2018. His heart rate was somewhat slow at times ever since but he has maintained sinus rhythm. During atrial fibrillation his heart rate was also well controlled. An echocardiogram was done on November 21, 2018, this showed mild concentric left ventricular hypertrophy but normal left ventricular systolic function and normal left atrial size. PG Care Time/CCT Total # of Minutes Spent Total Time Spent with Patient: Total time spent is greater than 50% in coordination of care (as documented) at patient's floor/unit and/or counseling patient:
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
[2018-12-06] MEDS: CLOPIDOGREL BISULFATE 75 MG TAB PO SCH (20:59)
[2018-12-06] MEDS: MAGNESIUM OXIDE 400 MG TAB PO SCH (20:59)
[2018-12-06] MEDS: FERROUS SULFATE 325 MG TAB PO SCH (20:59)
[2018-12-06] MEDS: OMEGA-3 (PURIFIED FISH OIL) 1 GM CAP PO SCH (20:59)
[2018-12-06] MEDS: ALLOPURINOL 100 MG TAB PO SCH (21:00)
[2018-12-06] MEDS: THIAMINE HCL 100 MG TAB PO SCH (21:00)
[2018-12-06] MEDS: ZINC SULFATE 220 MG CAPSULE PO SCH (21:00)
[2018-12-06] MEDS: CYANOCOBALAMIN (VITAMIN B-12) 2,500 MCG TAB.SUBL SL SCH (21:00)
[2018-12-06] MEDS: PANTOprazole 40 MG TAB PO SCH (21:00)
[2018-12-06] MEDS: VITAMIN B COMPLEX TAB PO SCH (21:00)
[2018-12-07] MEDS: INSULIN ASPART 100 UNITS/ML 3 ML PEN SC SCH ×6 (03:25→20:42)
[2018-12-07] MEDS: SODIUM BICARBONATE 8.4% 100 MEQ in DEXTROSE 5% 1,000 ML IV SCH ×2 (04:41→20:41)
[2018-12-07 05:58] LABS: Hematocrit (blood only) 24.7 % (42-52); Hemoglobin 8.4 g/dL (14.0-18.0); Mean Corpuscular Hemoglobin 32.4 pg (25-34); Mean Corpuscular Volume 95.4 fL (80-100); RDW Coefficient of Variation 14.8 % (11.5-14.5); Red Blood Count 2.59 M/uL (4.7-6.1); White Blood Count 6.35 K/uL (4.8-10.8)
[2018-12-07 05:59] LABS: Mean Platelet Volume 10.4 fL (7.4-10.4); Platelet Count 76 K/uL (130-400)
[2018-12-07] MEDS: HEPARIN SOD 5,000 UNIT/0.5 ML VIAL SQ SCH ×2 (06:24→18:00)
[2018-12-07 06:37] LABS: Albumin Level 2.8 gm/dl (3.4-5.0); BUN Creatinine Ratio 19.1 (10-20); Calcium 8.5 mg/dl (8.5-10.1); Creatinine Clr Calc Pharmacy 41.9 ml/min; Est GFR (African American) 38.8; Est GFR (Non-African American) 33.4; Magnesium 2.4 mg/dl (1.8-2.4); Potassium 4.1 mmol/L (3.5-5.1)
[2018-12-07 06:42] LABS: Phosphorus 2.5 mg/dl (2.5-4.9)
[2018-12-07] MEDS: FOLIC ACID 1 MG in SYRINGE 9.8 ML IV SCH (08:21)
[2018-12-07] MEDS: THIAMINE HCL 200 MG in SODIUM CHLORIDE 0.9% 50 ML IV SCH (08:27)
--- NOTE | 2018-12-07 09:30 | Cardiology Progress Note ---
Date of Service December 07, 2018 Assessment & Plan (1) Paroxysmal atrial fibrillation: He presented in atrial fibrillation with a controlled heart rate, he has no known prior history of this and I cannot tell whether he had symptoms or not as he was not responding appropriately at the time. It lasted about 5 hours following admission and terminated spontaneously. He had several reasons for having atrial fibrillation, this includes hypothermia and alcohol ingestion. He is a very poor anticoagulation candidate. Given that we have adequate explanation for his arrhythmia, it was relatively short-lived as far as we know and terminated spontaneously, I think the risk of anticoagulation far exceeds the benefit. Those recommendations may change if we document further atrial fibrillation. For the moment therefore I would not consider anticoagulation. Since his heart rate was controlled during the atrial fibrillation we do not need to adjust his medications for that. Subjective He has no cardiovascular complaints today. He has no palpitations and no chest discomfort. Physical Exam Physical Exam: Constitutional: Alert, cooperative and in no distress. Pulmonary: Clear to auscultation bilaterally. Cardiac: Regular rhythm with no murmur, gallop or rub. Abdomen: Soft, nontender with normal bowel sounds. Extremities: No edema. Skin: No rash, ecchymoses or petechiae. Results & Data Vital Signs (Past 12 Hours) Vital Signs Temp Pulse Pulse Resp BP Pulse Ox 12/07/18 07:10 37.2 C 66 21 153/63 H 100 12/07/18 03:07 37.1 C 64 18 161/80 H 100 12/07/18 00:02 36.2 C L 61 18 166/79 H 100 Laboratory Results Abnormal lab results 12/06/18 12/06/18 12/06/18 Range/Units 11:55 14:49 16:21 RBC (4.7-6.1) M/uL Hgb (14.0-18.0) g/dL Hct (42-52) % RDW Std Deviation (36.4-46.3) fL RDW Coeff of Clyde (11.5-14.5) % Plt Count (130-400) K/uL Sodium (136-145) mmol/L Chloride 118 H (98-107) mmol/L Carbon Dioxide 18 L (21-32) mmol/L BUN 43 H (7-18) mg/dl Creatinine 2.54 H (0.6-1.4) mg/dl Glucose 120 H (70-99) mg/dl POC Glucose 131 H 108 H (70-99) Calcium 8.4 L (8.5-10.1) mg/dl Albumin (3.4-5.0) gm/dl 12/07/18 12/07/18 12/07/18 Range/Units 03:07 05:30 05:30 RBC 2.59 L (4.7-6.1) M/uL Hgb 8.4 L (14.0-18.0) g/dL Hct 24.7 L (42-52) % RDW Std Deviation 51.0 H (36.4-46.3) fL RDW Coeff of Clyde 14.8 H (11.5-14.5) % Plt Count 76 L (130-400) K/uL Sodium 146 H (136-145) mmol/L Chloride 119 H (98-107) mmol/L Carbon Dioxide (21-32) mmol/L BUN 39 H (7-18) mg/dl Creatinine 2.04 H D (0.6-1.4) mg/dl Glucose 162 H (70-99) mg/dl POC Glucose 175 H (70-99) Calcium (8.5-10.1) mg/dl Albumin 2.8 L (3.4-5.0) gm/dl 12/07/18 Range/Units 06:18 RBC (4.7-6.1) M/uL Hgb (14.0-18.0) g/dL Hct (42-52) % RDW Std Deviation (36.4-46.3) fL RDW Coeff of Clyde (11.5-14.5) % Plt Count (130-400) K/uL Sodium (136-145) mmol/L Chloride (98-107) mmol/L Carbon Dioxide (21-32) mmol/L BUN (7-18) mg/dl Creatinine (0.6-1.4) mg/dl Glucose (70-99) mg/dl POC Glucose 197 H (70-99) Calcium (8.5-10.1) mg/dl Albumin (3.4-5.0) gm/dl Diagnostic Findings Telemetry: Sinus rhythm, no atrial fibrillation over the past 24 hours. PG Care Time/CCT Total # of Minutes Spent Total Time Spent with Patient: Total time spent is greater than 50% in coordination of care (as documented) at patient's floor/unit and/or counseling patient:
--- NOTE | 2018-12-07 10:43 | Nephrology Progress Note ---
Date of Service December 07, 2018 Assessment & Plan (1) WILLIAM (acute kidney injury): (2) [id number] kidney injury: Baseline serum creatinine approximately 1.3 mg/dL. Urine output improved. Electrolytes are acceptable. Hypomagnesemia will be monitored and repleted as needed. We will also monitor the patient's serum phosphorus. IV fluids with D5W +100 mEq of sodium bicarbonate at a rate of 80 mL/hr will be continued. Total body water is high in the setting of a free water deficit and decreased intravascular volume. Thankfully blood pressure has improved. No obvious source of infection identified, however the patient remains on Zosyn. I suspect the patient's acute kidney injury can be explained by ATN in the setting of hypotension. I would like to maintain a positive fluid balance and encourage nutrition. Mixed metabolic acidosis is being monitored. This is predominantly non anion gap and related to renal insufficiency and IV saline solution. Creatinine at this time has improved slightly to 2.0 mg/dL. There is no indication for renal replacement therapy now. Metabolic profile will be repeated this afternoon. Input and output will be documented strictly. Diamond will be maintained to gravity. Patient's biggest concern at this time is his level of debility and nutritional status. He has profound myopathy, hypoalbuminemia, in the setting of alcohol abuse. Subjective No acute events overnight. Patient is upset this morning. He expressed frustration regarding his condition. He also expressed frustration regarding communication. He has concerns about not being able to eat. Feels that he would be safe to take food by mouth. He does note that there seems have been some improvement in edema. His ability to use his arms limited. He was open to have further consultation with Orthopedics. Review of Systems Review of Systems: All systems reviewed & are unremarkable except as noted in HPI & below Physical Exam Constitutional: well developed; no acute distress Eyes: + anicteric sclerae; no conjunctival abnormality and no scleral abnormality ENMT: Mouth: + dry oral mucous membranes; no oral mucosal abnormality Respiratory: normal respiratory effort Auscultation: lungs clear to auscultation bilaterally Cardiovascular: Rate/Rhythm: regular rate Heart Sounds: normal S1 and normal S2 Extremities: + edema Gastrointestinal (Abdomen): Inspection/Auscultation: + abdomen distended Percussion/Palpation: abdomen soft; abdomen nontender Musculoskeletal: Extremities: no cyanosis and no clubbing Skin: normal turgor; no lesions Neurologic: Motor/Sensory: no tremor and no asterixis Psychiatric: Orientation: alert and oriented x 3 Results & Data Vital Signs (Past 12 Hours) Vital Signs Temp Pulse Pulse Pulse Resp BP Pulse Ox 12/07/18 08:00 68 12/07/18 07:10 37.2 C 66 21 153/63 H 100 12/07/18 03:07 37.1 C 64 18 161/80 H 100 12/07/18 00:02 36.2 C L 61 18 166/79 H 100 Laboratory Results Laboratory Results - last 24 hr 12/06/18 12/06/18 12/06/18 11:55 14:49 16:21 WBC RBC Hgb Hct MCV MCH MCHC RDW Std Deviation RDW Coeff of Clyde Plt Count MPV Sodium 145 Potassium 4.5 Chloride 118 H Carbon Dioxide 18 L Anion Gap 9.0 BUN 43 H Creatinine 2.54 H Est Cr Clr Drug Dosing 33.6 Est GFR ( Amer) 29.7 Est GFR (Non-Af Amer) 25.7 BUN/Creatinine Ratio 17.0 Glucose 120 H POC Glucose 131 H 108 H Calcium 8.4 L Phosphorus Magnesium Albumin 12/07/18 12/07/18 12/07/18 03:07 05:30 05:30 WBC 6.35 RBC 2.59 L Hgb 8.4 L Hct 24.7 L MCV 95.4 MCH 32.4 MCHC 34.0 RDW Std Deviation 51.0 H RDW Coeff of Clyde 14.8 H Plt Count 76 L MPV 10.4 Sodium 146 H Potassium 4.1 Chloride 119 H Carbon Dioxide 22 Anion Gap 5.0 BUN 39 H Creatinine 2.04 H D Est Cr Clr Drug Dosing 41.9 Est GFR ( Amer) 38.8 Est GFR (Non-Af Amer) 33.4 BUN/Creatinine Ratio 19.1 Glucose 162 H POC Glucose 175 H Calcium 8.5 Phosphorus 2.5 D Magnesium 2.4 Albumin 2.8 L 12/07/18 06:18 WBC RBC Hgb Hct MCV MCH MCHC RDW Std Deviation RDW Coeff of Clyde Plt Count MPV Sodium Potassium Chloride Carbon Dioxide Anion Gap BUN Creatinine Est Cr Clr Drug Dosing Est GFR ( Amer) Est GFR (Non-Af Amer) BUN/Creatinine Ratio Glucose POC Glucose 197 H Calcium Phosphorus Magnesium Albumin PG Care Time/CCT Total # of Minutes Spent Total Time Spent with Patient: Total time spent is greater than 50% in coordination of care (as documented) at patient's floor/unit and/or counseling patient:
--- NOTE | 2018-12-07 14:32 | Fluoroscopy Report ---
MODIFIED BARIUM SWALLOW CLINICAL HISTORY: assess for aspiration COMPARISON STUDY: None FLUOROSCOPY TIME: 4.4 minutes. TECHNIQUE: A modified barium swallow was performed in conjunction with Speech Pathology. The patient ingested varying consistencies of barium containing material. Video fluoroscopy was performed. FINDINGS: Incidental note is made of a corpectomy and anterior discectomy and fusion within the cervi usman spine. There was trace silent aspiration with thin liquids. There is no aspiration with nectar th ick liquid, pudding or crackers with paste. Epiglottic inversion was normal. Laryngeal elevation was normal. IMPRESSION: 1. Trace silent tracheal aspiration with thin liquids. No aspiration with remainder of the consistenc ies. 2. Full recommendations by speech pathology to follow. Electronically signed by: Geovani Rushing M.D. 12/07/2018 2:30 PM
--- NOTE | 2018-12-07 16:04 | Hospitalist Progress Note ---
Date of Service December 07, 2018 Assessment & Plan (1) WILLIAM (acute kidney injury): Likely secondary to ATN from profound hypotension upon admission Creatinine up to 2.62 from 1.28, with metabolic acidosis with serum bicarbonate 16, non-anion gap Now improving, roving technician down to 2.04, HCO3 up to 22 No GI losses of bicarbonate Good UOP received IV albumin and lasix Consulted nephrology-appreciate recommendations -continue D5 W+ 100 mEq of sodium bicarbonate at 80 mL's per hour -Follow serial BMP -Follow urine output -Continue Diamond catheter -Await recovery of renal function Blood pressures are now improved (2) Hypotension: BP as low as 60/40 on admission. He got fluid boluses in the ER. He had a similar presentation after surgery on 11/23 which resolved with IV fluids. Blood pressures are now actually elevated, did receive copious IVFs initially Unclear if was from dehydration but does not seem to have an infection at this time -Continue to hold antihypertensive medication from home such as Bystolic, nifedipine, Lasix, but can likely restart something soon if heart rate will allow - Follow cultures, though sepsis/infection considered unlikely. (3) Hypothermia: Patient's first temp was 29.3 Celsius on arrival to the ED, despite the room being normal temperature where he was found. TSH was 1.6 in 11/2018. Similar episode in 11/23 in relation to surgery. - Follow cultures for any indication of infection. A.m. cortisol normal Has now improved Likely secondary to exposure-unknown time down on the ground when he was found (4) Pancytopenia: Likely due to alcohol abuse. Counts seem stable from priors with hgb the exception. No indication of bleeding. Except today plts down to 74 - Trend CBC (5) Weakness: Multifactorial due to neck injury & alcoholism. Able to move all extremities at this time but with significant weakness throughout CT of the spine on admission without evidence of fractures -Consult his spine surgeon Dr. Gutierres for any further evaluation recommendations - PT/OT -He was denied rehab on his last day (6) Falls frequently: As above (7) AMS (altered mental status): Due to intoxication with alcohol as well as hypothermia and hypotension on arrival. His mental status had returned to normal by the morning of 12/05. - Monitor (8) Myelopathy concurrent with and due to spinal stenosis of cervical region: S/p C4 corpectomy with Dr. Gutierres on 11/23. Was supposed to be wearing his neck brace, but it was found beside him when he was found on the floor. - CT cervical spine on 12/04 showed no acute process. - Continue neck brace -consult spine surgery here appreciated--> recommends rehab but says TC spine with hardware in place (9) Chronic renal insufficiency, stage IV (severe): Baseline Cr. ~1.2, eGFR ~60. With acute kidney injury as above - Avoid nephrotoxins -Renally dose medications (10) Alcohol withdrawal: Was only discharged for 3 days. Not really enough time to build up a dependence again. - Continue thiamine/ folate but switch to IV form as he is unable to swallow at this time - Add alcohol withdrawal protocol - No Ativan needed thus far (11) Diabetes: A1c was 5.8% in 11/2018. - Sliding-scale insulin per protocol (12) Metabolic acidosis: Non-anion gap, serum bicarbonate is low 16 and now improving on bicarb gtt No GI losses He has had this happen before Could be related to acute kidney injury at this point Nephrology consult appreciated -continue D5W with sodium bicarbonate as above -Follow serial BMP (13) Edema: In the bilateral upper extremities-as per report this has been present since his previous hospitalization-improved today Could be due to postoperative changes? -Consult surgery appreciated Has good pulses in the wrists bilaterally (14) Dysphagia: Had a choking episode on the night of admission when he was altered and was made n.p.o. Seen by speech therapyand had video swallow-with aspiration silently of thin liquids and some disorganized chewing patters -ok for diet as per Speech -check MRI brain for neurological event causing swallowing difficulties and recent fall -Speech to follow (15) Paroxysmal atrial fibrillation: Was in atrial fibrillation at the time of presentation with rates in the 70s Now with sinus bradycardia at times in the 40s, no evidence of blocks but overall rates improving Could be related to alcohol use and hypothermia Consult cardiology appreciated Recent echocardiogram with preserved EF -holding AV hillary blocking agents from home -no AC at this point given brief Afib plus very high risk for falls given alcohol dependence and h/o falls -Follow on telemetry (16) DVT prophylaxis: Heparin 5000 units Q12h Disposition-remain on PCU Subjective Is allowed a diet now after video swallow. Speech therapist thinks the way he chews is abnormal and may have Neurological issue-discussed with pt and Dr. Gutierres says it is ok fo rhim to have a brain MRI. Pt has pain in neck, is still confused at times during our discussion-when I asked him about why he is refusing the blood thinner shots, he started talking about the "dietary person" and how she talked to him about the importance of the insulin injections...therefore he was slightly confused and did not understand when I explained the difference between heparin shots and insulin Denies CP, SOB. Tele with SB and NSR Review of Systems Review of Systems: All systems reviewed & are unremarkable except as noted in HPI & below Physical Exam Constitutional: WD/WN, vitals as above Eyes: + anicteric sclerae Neck: trachea midline, no thyromegaly (neck brace in place) Respiratory: normal respiratory effort, lungs clear to auscultation Cardiovascular: Rate/Rhythm: regular rhythm and + bradycardic Heart Sounds: no murmur Vessels: dorsalis pedis pulses present and radial pulses present Extremities: + edema (+1 nonpitting edema in the upper extremities and hands bilaterally,improved); no calf tenderness Gastrointestinal (Abdomen): normal bowel sounds, soft, nontender, no hepatosplenomegaly Musculoskeletal: Extremities: extremities normal to inspection; no cyanosis and no clubbing Skin: no rashes, warm and dry Neurologic: moves all extremities (With 3/5 biceps/triceps/deltoids, 4/5 lower extremities) and awake Motor/Sensory: no tremor Psychiatric: Orientation: alert and cooperative Results & Data Vital Signs (Past 12 Hours) Vital Signs Temp Pulse Pulse Pulse Resp BP Pulse Ox 12/07/18 15:22 36.4 C L 53 L 19 171/78 H 100 12/07/18 08:00 68 12/07/18 07:10 37.2 C 66 21 153/63 H 100 Laboratory Results 12/08/18 12/08/18 12/08/18 Range/Units 07:25 05:37 05:37 WBC 6.52 (4.8-10.8) K/uL RBC 2.52 L (4.7-6.1) M/uL Hgb 8.3 L (14.0-18.0) g/dL Hct 24.0 L (42-52) % MCV 95.2 (80-100) fL MCH 32.9 (25-34) pg MCHC 34.6 (32-36) g/dL RDW Std Deviation 51.0 H (36.4-46.3) fL RDW Coeff of Clyde 14.9 H (11.5-14.5) % Plt Count 97 L (130-400) K/uL MPV 11.0 H (7.4-10.4) fL Sodium 146 H (136-145) mmol/L Potassium Cancelled (3.5-5.1) mmol/L Chloride 116 H (98-107) mmol/L Carbon Dioxide 24 (21-32) mmol/L Anion Gap 6.0 (3-11) BUN 28 H (7-18) mg/dl Creatinine 1.57 H D (0.6-1.4) mg/dl Est Cr Clr Drug Dosing 54.5 ml/min Est GFR ( Amer) 53.2 Est GFR (Non-Af Amer) 45.9 BUN/Creatinine Ratio 18.1 (10-20) Glucose 131 H (70-99) mg/dl POC Glucose (70-99) Calcium 8.6 (8.5-10.1) mg/dl Phosphorus 3.2 (2.5-4.9) mg/dl Magnesium Cancelled (1.8-2.4) mg/dl Albumin 2.7 L (3.4-5.0) gm/dl 12/07/18 12/07/18 12/07/18 Range/Units 20:10 16:32 13:51 WBC (4.8-10.8) K/uL RBC (4.7-6.1) M/uL Hgb (14.0-18.0) g/dL Hct (42-52) % MCV (80-100) fL MCH (25-34) pg MCHC (32-36) g/dL RDW Std Deviation (36.4-46.3) fL RDW Coeff of Clyde (11.5-14.5) % Plt Count (130-400) K/uL MPV (7.4-10.4) fL Sodium (136-145) mmol/L Potassium (3.5-5.1) mmol/L Chloride (98-107) mmol/L Carbon Dioxide (21-32) mmol/L Anion Gap (3-11) BUN (7-18) mg/dl Creatinine (0.6-1.4) mg/dl Est Cr Clr Drug Dosing ml/min Est GFR ( Amer) Est GFR (Non-Af Amer) BUN/Creatinine Ratio (10-20) Glucose (70-99) mg/dl POC Glucose 91 158 H 151 H (70-99) Calcium (8.5-10.1) mg/dl Phosphorus (2.5-4.9) mg/dl Magnesium (1.8-2.4) mg/dl Albumin (3.4-5.0) gm/dl PG Care Time/CCT Total # of Minutes Spent Total Time Spent with Patient: Total time spent is greater than 50% in coordination of care (as documented) at patient's floor/unit and/or counseling patient: (1) Hypothermia Encounter type: initial encounter Qualified Code(s): T68.XXXA - Hypothermia, initial encounter (2) AMS (altered mental status) Altered mental status type: unspecified Qualified Code(s): R41.82 - Altered mental status, unspecified (3) Hypotension Hypotension type: hypotension due to hypovolemia Qualified Code(s): I95.89 - Other hypotension; E86.1 - Hypovolemia
[2018-12-07] MEDS: ALLOPURINOL 100 MG TAB PO SCH (20:43)
[2018-12-07] MEDS: FERROUS SULFATE 325 MG TAB PO SCH (20:44)
[2018-12-07] MEDS: PANTOprazole 40 MG TAB PO SCH (20:44)
[2018-12-07] MEDS: OMEGA-3 (PURIFIED FISH OIL) 1 GM CAP PO SCH (20:44)
[2018-12-07] MEDS: ZINC SULFATE 220 MG CAPSULE PO SCH (20:45)
[2018-12-07] MEDS: CLOPIDOGREL BISULFATE 75 MG TAB PO SCH (20:45)
[2018-12-07] MEDS: MAGNESIUM OXIDE 400 MG TAB PO SCH (20:45)
[2018-12-07] MEDS: THIAMINE HCL 100 MG TAB PO SCH (20:45)
[2018-12-07] MEDS: CYANOCOBALAMIN (VITAMIN B-12) 2,500 MCG TAB.SUBL SL SCH (20:46)
[2018-12-07] MEDS: VITAMIN B COMPLEX TAB PO SCH (20:47)
[2018-12-08] MEDS: HEPARIN SOD 5,000 UNIT/0.5 ML VIAL SQ SCH ×2 (05:37→18:47)
[2018-12-08 05:59] LABS: Hemoglobin 8.3 g/dL (14.0-18.0); Mean Corpuscular Hemoglobin 32.9 pg (25-34); Mean Corpuscular Hgb Conc 34.6 g/dL (32-36); Mean Corpuscular Volume 95.2 fL (80-100); RDW Coefficient of Variation 14.9 % (11.5-14.5); Red Blood Count 2.52 M/uL (4.7-6.1); White Blood Count 6.52 K/uL (4.8-10.8)
[2018-12-08 06:02] LABS: Platelet Count 97 K/uL (130-400)
[2018-12-08 06:49] LABS: Albumin Level 2.7 gm/dl (3.4-5.0); BUN Creatinine Ratio 18.1 (10-20); Calcium 8.6 mg/dl (8.5-10.1); Creatinine Clr Calc Pharmacy 54.5 ml/min; Est GFR (African American) 53.2; Est GFR (Non-African American) 45.9; Phosphorus 3.2 mg/dl (2.5-4.9)
[2018-12-08 08:21] LABS: Magnesium 2.2 mg/dl (1.8-2.4); Potassium 3.9 mmol/L (3.5-5.1)
[2018-12-08] MEDS: THIAMINE HCL 200 MG in SODIUM CHLORIDE 0.9% 50 ML IV SCH (08:46)
[2018-12-08] MEDS: FOLIC ACID 1 MG in SYRINGE 9.8 ML IV SCH (08:47)
[2018-12-08] MEDS: INSULIN ASPART 100 UNITS/ML 3 ML PEN SC SCH ×4 (08:47→21:18)
--- NOTE | 2018-12-08 09:52 | Hospitalist Progress Note ---
Date of Service December 08, 2018 Assessment & Plan (1) WILLIAM (acute kidney injury): Likely secondary to ATN from profound hypotension upon admission Creatinine up to 2.62 from 1.28, with metabolic acidosis with serum bicarbonate 16, non-anion gap Now continues to improve, surgical services coordinator down to 1.57, HCO3 up to 24 No GI losses of bicarbonate Continues with good UOP received IV albumin and lasix initially, then started on [id number] gtt Consulted nephrology-appreciate recommendations -change IVFs to D5 W+ 75 mEq of sodium bicarbonate at 50 mL's per hour as is still hypernatermic -Follow serial BMP -Follow urine output -will discontinue Diamond catheter today Blood pressures are now improved -holding home lasix (2) Hypotension: BP as low as 60/40 on admission. He got fluid boluses in the ER. He had a similar presentation after surgery on 11/23 which resolved with IV fluids. Blood pressures then became quite elevated with WILLIAM BPs now normalizing with renal function improving Unclear if the low BP was from dehydration initially but does not seem to have an infection at this time -Continue to hold antihypertensive medication from home such as Bystolic, nifedipine, Lasix, but can likely restart something soon if heart rate will allow - Follow cultures, though sepsis/infection considered unlikely. (3) Hypothermia: Patient's first temp was 29.3 Celsius on arrival to the ED, despite the room being normal temperature where he was found. TSH was 1.6 in 11/2018. Similar episode in 11/23 in relation to surgery. - Follow cultures for any indication of infection. A.m. cortisol normal Has now improved Likely secondary to exposure-unknown time down on the ground when he was found (4) Pancytopenia: Likely due to alcohol abuse. Counts fairly stable from priors with hgb the exception. No indication of bleeding. No need for transfusion, Hgb 8.4 and stable -plts down to 74 and now back up again to baseline in the 90s - Trend CBC (5) Weakness: Multifactorial due to neck injury & alcoholism. Able to move all extremities at this time but with significant weakness throughout--some slight improvement today in upper extremity strength but cannot feed himself CT of the spine on admission without evidence of fractures -Consulted his spine surgeon Dr. Gutierres for any further evaluation recommendations-appreciate recommendations for rehab, feels hardware is in place - PT/OT -He was denied rehab on his last stay (6) Falls frequently: As above (7) AMS (altered mental status): Due to intoxication with alcohol as well as hypothermia and hypotension on arrival. His mental status had returned to normal by the morning of 12/05. - Monitor -seems more mentally clear today (8) Myelopathy concurrent with and due to spinal stenosis of cervical region: S/p C4 corpectomy with Dr. Gutierres on 11/23. Was supposed to be wearing his neck brace, but it was found beside him when he was found on the floor. - CT cervical spine on 12/04 showed no acute process. - Continue neck brace -consult spine surgery here appreciated--> recommends rehab and says CT spine with hardware in place -will need outpatient f/u with [facility] (9) Chronic renal insufficiency, stage IV (severe): Baseline Cr. ~1.2, eGFR ~60. With acute kidney injury as above now resolving - Avoid nephrotoxins -Renally dose medications (10) Alcohol withdrawal: Was only discharged for 3 days prior to this admission. Not really enough time to build up a dependence again. - Continue thiamine/ folate - no evidence of any EtOH withdrawal now ativan prn is ordered (11) Diabetes: A1c was 5.8% in 11/2018. Glucose controlled here - continue Sliding-scale insulin per protocol (12) Metabolic acidosis: Non-anion gap, serum bicarbonate is low 16 and now continues to be improving on bicarb gtt No GI losses He has had this happen before Likely related to acute kidney injury at this point Nephrology consult appreciated -continue D5W with sodium bicarbonate as above -Follow serial BMP (13) Edema: In the bilateral upper extremities-as per report this has been present since his previous hospitalization-improved again today Could be due to postoperative changes? -Consult surgery appreciated Has good pulses in the wrists bilaterally (14) Dysphagia: Had a choking episode on the night of admission when he was altered and was made n.p.o. Seen by speech therapy and had video swallow-with aspiration silently of thin liquids and some disorganized chewing pattern -ok for diet as per Speech -checked MRI brain for neurological event causing swallowing difficulties and recent fall--> negative for stroke -Speech to follow (15) Paroxysmal atrial fibrillation: Was in atrial fibrillation at the time of presentation with rates in the 70s Then had sinus bradycardia at times in the 40s, no evidence of blocks but overall rates improving Could be related to alcohol use and hypothermia, also was previously on Bystolic and nifedipine (which could have some effect on rate) Consult cardiology appreciated Rates now much improved to the 60s-80s Recent echocardiogram with preserved EF -continue holding AV hillary blocking agents from home -no anticoagulation at this point given brief Afib plus very high risk for falls given alcohol dependence and h/o falls -Follow on telemetry (16) DVT prophylaxis: Heparin 5000 units Q12h Disposition-remain on PCU, improving Consider downgrade to medical floor tomorrow Needs PT/OT and placement once renal function continues to improve--> perhaps tomorrow Subjective Pt feeling a little better today. He was sitting up on the side of the bed but was not able to feed himself food due to significant weakness in his upper extremities. He denies headache, lightheadedness, chest pain, SOB, or abd pain. He is moving his bowels. Still just extremely weak. Discussed his case with Dr. Murphy of Nephrology. Tele with NSR, rates 60s-80s. Review of Systems Review of Systems: All systems reviewed & are unremarkable except as noted in HPI & below Physical Exam Constitutional: WD/WN, vitals as above Eyes: + anicteric sclerae Neck: trachea midline, no thyromegaly (neck brace in place) Respiratory: normal respiratory effort, lungs clear to auscultation Cardiovascular: Rate/Rhythm: regular rate and regular rhythm Heart Sounds: no murmur Vessels: dorsalis pedis pulses present and radial pulses present Extremities: + edema (+1 nonpitting edema in the upper extremities and hands bilaterally,improved); no calf tenderness Gastrointestinal (Abdomen): normal bowel sounds, soft, nontender, no hepatosplenomegaly Musculoskeletal: Extremities: extremities normal to inspection; no cyanosis and no clubbing Skin: no rashes, warm and dry Neurologic: moves all extremities (With 3+/5 biceps/triceps/deltoids, 4/5 lower extremities,4/5 with hand meat hostess) and awake Motor/Sensory: no tremor Psychiatric: Orientation: alert, oriented x 3 and cooperative Genitourinary: Diamond in place draining clear yellow urine Results & Data Vital Signs (Past 12 Hours) Vital Signs Temp Pulse Pulse Resp BP Pulse Ox 12/08/18 07:09 36.5 C 63 19 170/76 H 100 12/08/18 03:09 36.4 C L 55 L 17 154/56 H 100 12/08/18 00:43 53 L 12/07/18 23:13 36.5 C 52 L 22 171/81 H 100 Laboratory Results 12/08/18 12/08/18 12/08/18 Range/Units 21:16 16:32 12:23 WBC (4.8-10.8) K/uL RBC (4.7-6.1) M/uL Hgb (14.0-18.0) g/dL Hct (42-52) % MCV (80-100) fL MCH (25-34) pg MCHC (32-36) g/dL RDW Std Deviation (36.4-46.3) fL RDW Coeff of Clyde (11.5-14.5) % Plt Count (130-400) K/uL MPV (7.4-10.4) fL Sodium (136-145) mmol/L Potassium (3.5-5.1) mmol/L Chloride (98-107) mmol/L Carbon Dioxide (21-32) mmol/L Anion Gap (3-11) BUN (7-18) mg/dl Creatinine (0.6-1.4) mg/dl Est Cr Clr Drug Dosing ml/min Est GFR ( Amer) Est GFR (Non-Af Amer) BUN/Creatinine Ratio (10-20) Glucose (70-99) mg/dl POC Glucose 129 H 148 H 136 H (70-99) Calcium (8.5-10.1) mg/dl Phosphorus (2.5-4.9) mg/dl Magnesium (1.8-2.4) mg/dl Albumin (3.4-5.0) gm/dl 12/08/18 12/08/18 12/08/18 Range/Units 07:58 07:25 07:21 WBC (4.8-10.8) K/uL RBC (4.7-6.1) M/uL Hgb (14.0-18.0) g/dL Hct (42-52) % MCV (80-100) fL MCH (25-34) pg MCHC (32-36) g/dL RDW Std Deviation (36.4-46.3) fL RDW Coeff of Clyde (11.5-14.5) % Plt Count (130-400) K/uL MPV (7.4-10.4) fL Sodium (136-145) mmol/L Potassium 3.9 Cancelled (3.5-5.1) mmol/L Chloride (98-107) mmol/L Carbon Dioxide (21-32) mmol/L Anion Gap (3-11) BUN (7-18) mg/dl Creatinine (0.6-1.4) mg/dl Est Cr Clr Drug Dosing ml/min Est GFR ( Amer) Est GFR (Non-Af Amer) BUN/Creatinine Ratio (10-20) Glucose (70-99) mg/dl POC Glucose 122 H (70-99) Calcium (8.5-10.1) mg/dl Phosphorus (2.5-4.9) mg/dl Magnesium 2.2 Cancelled (1.8-2.4) mg/dl Albumin (3.4-5.0) gm/dl 12/08/18 12/08/18 Range/Units 05:37 05:37 WBC 6.52 (4.8-10.8) K/uL RBC 2.52 L (4.7-6.1) M/uL Hgb 8.3 L (14.0-18.0) g/dL Hct 24.0 L (42-52) % MCV 95.2 (80-100) fL MCH 32.9 (25-34) pg MCHC 34.6 (32-36) g/dL RDW Std Deviation 51.0 H (36.4-46.3) fL RDW Coeff of Clyde 14.9 H (11.5-14.5) % Plt Count 97 L (130-400) K/uL MPV 11.0 H (7.4-10.4) fL Sodium 146 H (136-145) mmol/L Potassium (3.5-5.1) mmol/L Chloride 116 H (98-107) mmol/L Carbon Dioxide 24 (21-32) mmol/L Anion Gap 6.0 (3-11) BUN 28 H (7-18) mg/dl Creatinine 1.57 H D (0.6-1.4) mg/dl Est Cr Clr Drug Dosing 54.5 ml/min Est GFR ( Amer) 53.2 Est GFR (Non-Af Amer) 45.9 BUN/Creatinine Ratio 18.1 (10-20) Glucose 131 H (70-99) mg/dl POC Glucose (70-99) Calcium 8.6 (8.5-10.1) mg/dl Phosphorus 3.2 (2.5-4.9) mg/dl Magnesium (1.8-2.4) mg/dl Albumin 2.7 L (3.4-5.0) gm/dl Diagnostic Findings MRI Brain-negative for stroke, motion degraded PG Care Time/CCT Total # of Minutes Spent Total Time Spent with Patient: Total time spent is greater than 50% in coordination of care (as documented) at patient's floor/unit and/or counseling patient: (1) Hypothermia Encounter type: initial encounter Qualified Code(s): T68.XXXA - Hypothermia, initial encounter (2) AMS (altered mental status) Altered mental status type: unspecified Qualified Code(s): R41.82 - Altered mental status, unspecified (3) Hypotension Hypotension type: hypotension due to hypovolemia Qualified Code(s): I95.89 - Other hypotension; E86.1 - Hypovolemia
--- NOTE | 2018-12-08 10:06 | Nephrology Progress Note ---
Date of Service December 08, 2018 Assessment & Plan (1) WILLIAM (acute kidney injury): (2) [id number] kidney injury: Baseline serum creatinine approximately 1.3 mg/dL. Creatinine improved to 1.5 milligram/deciliter. Electrolytes are acceptable. The patient remains hypernatremic with a free water deficit of approximately 2 liters. He is tolerating oral intake this time. This includes thickened liquids. IV fluids will be changed to D5W +75 milliequivalents of sodium bicarbonate. At this time it would be appropriate to remove the patient's Diamond catheter. Patient's biggest concern at this time is his level of debility and nutritional status. He has profound myopathy, hypoalbuminemia, in the setting of alcohol abuse. I will check iron studies with the patient's next blood work. Subjective No acute events overnight. Diet has been advanced. Overall, the patient reports improvement. Increased strength is been noted. He is tolerating oral intake. Review of Systems Review of Systems: All systems reviewed & are unremarkable except as noted in HPI & below Physical Exam Constitutional: well developed; no acute distress Eyes: + anicteric sclerae; no conjunctival abnormality and no scleral abnormality ENMT: Mouth: + dry oral mucous membranes; no oral mucosal abnormality Respiratory: normal respiratory effort Auscultation: lungs clear to auscultation bilaterally Cardiovascular: Rate/Rhythm: regular rate Heart Sounds: normal S1 and normal S2 Extremities: + edema Gastrointestinal (Abdomen): Inspection/Auscultation: + abdomen distended Percussion/Palpation: abdomen soft; abdomen nontender Musculoskeletal: Extremities: no cyanosis and no clubbing Skin: normal turgor; no lesions Neurologic: Motor/Sensory: no tremor and no asterixis Psychiatric: Orientation: alert and oriented x 3 Results & Data Vital Signs (Past 12 Hours) Vital Signs Temp Pulse Pulse Resp BP Pulse Ox 12/08/18 07:09 36.5 C 63 19 170/76 H 100 12/08/18 03:09 36.4 C L 55 L 17 154/56 H 100 12/08/18 00:43 53 L 12/07/18 23:13 36.5 C 52 L 22 171/81 H 100 Laboratory Results Laboratory Results - last 24 hr 12/07/18 12/07/18 12/07/18 13:51 16:32 20:10 WBC RBC Hgb Hct MCV MCH MCHC RDW Std Deviation RDW Coeff of Clyde Plt Count MPV Sodium Potassium Chloride Carbon Dioxide Anion Gap BUN Creatinine Est Cr Clr Drug Dosing Est GFR ( Amer) Est GFR (Non-Af Amer) BUN/Creatinine Ratio Glucose POC Glucose 151 H 158 H 91 Calcium Phosphorus Magnesium Albumin 12/08/18 12/08/18 12/08/18 05:37 05:37 07:21 WBC 6.52 RBC 2.52 L Hgb 8.3 L Hct 24.0 L MCV 95.2 MCH 32.9 MCHC 34.6 RDW Std Deviation 51.0 H RDW Coeff of Clyde 14.9 H Plt Count 97 L MPV 11.0 H Sodium 146 H Potassium Chloride 116 H Carbon Dioxide 24 Anion Gap 6.0 BUN 28 H Creatinine 1.57 H D Est Cr Clr Drug Dosing 54.5 Est GFR ( Amer) 53.2 Est GFR (Non-Af Amer) 45.9 BUN/Creatinine Ratio 18.1 Glucose 131 H POC Glucose 122 H Calcium 8.6 Phosphorus 3.2 Magnesium Albumin 2.7 L 12/08/18 12/08/18 07:25 07:58 WBC RBC Hgb Hct MCV MCH MCHC RDW Std Deviation RDW Coeff of Clyde Plt Count MPV Sodium Potassium Cancelled 3.9 Chloride Carbon Dioxide Anion Gap BUN Creatinine Est Cr Clr Drug Dosing Est GFR ( Amer) Est GFR (Non-Af Amer) BUN/Creatinine Ratio Glucose POC Glucose Calcium Phosphorus Magnesium Cancelled 2.2 Albumin PG Care Time/CCT Total # of Minutes Spent Total Time Spent with Patient: Total time spent is greater than 50% in coordination of care (as documented) at patient's floor/unit and/or counseling patient:
[2018-12-08] MEDS: SODIUM BICARBONATE 8.4% 100 MEQ in DEXTROSE 5% 1,000 ML IV SCH (10:09)
[2018-12-08] MEDS: SODIUM BICARBONATE 8.4% 75 MEQ in DEXTROSE 5% 1,000 ML IV SCH (10:25)
--- NOTE | 2018-12-08 12:40 | Magnetic Resonance Report ---
MRI OF THE BRAIN WITHOUT IV CONTRAST CLINICAL HISTORY: Fall. Weakness. COMPARISON STUDY: CT of the brain dated 12/04/2018. TECHNIQUE: MRI of the brain was performed utilizing various T1 and T2-weighted sequences in the axial , sagittal, and coronal planes. IV contrast was not administered for this examination. The examinatio n is compromised by motion artifact. FINDINGS: Brain parenchyma: The brain parenchyma is normal in appearance. There is no hemorrhage or mass effect . There is no restricted diffusion to suggest acute ischemia. Barlow-white matter differentiation is pr eserved. No extra-axial fluid collection is seen. The cerebellar tonsils are normal in configuration. Ventricles, sulci, and cisterns: Normal in configuration. Pituitary and sella: Unremarkable. Intracranial vasculature: Normal flow voids are maintained at the skull base. Orbits: The bony orbits are grossly intact. Orbital contents are normal in appearance. Sinuses and mastoids: There is a 1.7 cm retention cyst and mucosal thickening in the right maxillary antrum. Trace mucosal thickening is noted in the ethmoid and sphenoid sinuses. The mastoid air cells are well pneumatized. Calvarium: Unremarkable. Cervical cord: Partially visualized cervical spinal cord is normal in morphology and signal intensity . IMPRESSION: No acute intracranial abnormality is identified noting a motion compromised examination. Electronically signed by: Jose Rafael Kirkpatrick M.D. 12/08/2018 12:39 PM
--- NOTE | 2018-12-08 14:47 | Cardiology Progress Note ---
Date of Service December 08, 2018 Assessment & Plan (1) Paroxysmal atrial fibrillation: He presented in atrial fibrillation with a controlled heart rate, he has no known prior history of this and I cannot tell whether he had symptoms or not as he was not responding appropriately at the time. It lasted about 5 hours following admission and terminated spontaneously. It has not recurred. He had several reasons for having atrial fibrillation, this includes hypothermia and alcohol toxicity. He is a very poor anticoagulation candidate. Given that we have adequate explanation for his arrhythmia, it was relatively short-lived as far as we know and terminated spontaneously, I think the risk of anticoagulation far exceeds the benefit. Those recommendations may change if we document further atrial fibrillation. For the moment therefore I would not consider anticoagulation. Since his heart rate was controlled during the atrial fibrillation we do not need to adjust his medications for that. Subjective No cardiovascular complaints today Physical Exam Physical Exam: Constitutional: Alert, cooperative and in no distress. Pulmonary: Clear to auscultation bilaterally. Cardiac: Regular rhythm with no murmur, gallop or rub. Abdomen: Soft, nontender with normal bowel sounds. Extremities: No edema. Skin: No rash, ecchymoses or petechiae. Results & Data Vital Signs (Past 12 Hours) Vital Signs Temp Pulse Pulse Resp BP Pulse Ox 12/08/18 12:25 36.3 C L 56 L 14 177/77 H 99 12/08/18 10:55 36.5 C 66 20 145/90 H 100 12/08/18 07:09 36.5 C 63 19 170/76 H 100 12/08/18 03:09 36.4 C L 55 L 17 154/56 H 100 Laboratory Results Abnormal lab results 12/08/18 12/08/18 12/08/18 Range/Units 05:37 05:37 07:21 RBC 2.52 L (4.7-6.1) M/uL Hgb 8.3 L (14.0-18.0) g/dL Hct 24.0 L (42-52) % RDW Std Deviation 51.0 H (36.4-46.3) fL RDW Coeff of Clyde 14.9 H (11.5-14.5) % Plt Count 97 L (130-400) K/uL MPV 11.0 H (7.4-10.4) fL Sodium 146 H (136-145) mmol/L Chloride 116 H (98-107) mmol/L BUN 28 H (7-18) mg/dl Creatinine 1.57 H D (0.6-1.4) mg/dl Glucose 131 H (70-99) mg/dl POC Glucose 122 H (70-99) Albumin 2.7 L (3.4-5.0) gm/dl 12/08/18 12/08/18 Range/Units 12:23 16:32 RBC (4.7-6.1) M/uL Hgb (14.0-18.0) g/dL Hct (42-52) % RDW Std Deviation (36.4-46.3) fL RDW Coeff of Clyde (11.5-14.5) % Plt Count (130-400) K/uL MPV (7.4-10.4) fL Sodium (136-145) mmol/L Chloride (98-107) mmol/L BUN (7-18) mg/dl Creatinine (0.6-1.4) mg/dl Glucose (70-99) mg/dl POC Glucose 136 H 148 H (70-99) Albumin (3.4-5.0) gm/dl Diagnostic Findings Telemetry: Sinus rhythm, no atrial fibrillation past 24 hours PG Care Time/CCT Total # of Minutes Spent Total Time Spent with Patient: Total time spent is greater than 50% in coordination of care (as documented) at patient's floor/unit and/or counseling patient:
[2018-12-08] MEDS: CLOPIDOGREL BISULFATE 75 MG TAB PO SCH (21:29)
[2018-12-08] MEDS: ALLOPURINOL 100 MG TAB PO SCH (21:29)
[2018-12-08] MEDS: OMEGA-3 (PURIFIED FISH OIL) 1 GM CAP PO SCH (21:29)
[2018-12-08] MEDS: FOLIC ACID 1 MG TAB PO SCH (21:29)
[2018-12-08] MEDS: VITAMIN B COMPLEX TAB PO SCH (21:29)
[2018-12-08] MEDS: CYANOCOBALAMIN (VITAMIN B-12) 2,500 MCG TAB.SUBL SL SCH (21:29)
[2018-12-08] MEDS: PANTOprazole 40 MG TAB PO SCH (21:29)
[2018-12-08] MEDS: MAGNESIUM OXIDE 400 MG TAB PO SCH (21:29)
[2018-12-08] MEDS: THIAMINE HCL 100 MG TAB PO SCH (21:29)
[2018-12-08] MEDS: ZINC SULFATE 220 MG CAPSULE PO SCH (21:29)
[2018-12-08] MEDS: FERROUS SULFATE 325 MG TAB PO SCH (21:29)
[2018-12-09] MEDS: HEPARIN SOD 5,000 UNIT/0.5 ML VIAL SQ SCH ×2 (05:57→18:48)
[2018-12-09 06:52] LABS: Albumin Level 2.7 gm/dl (3.4-5.0); BUN Creatinine Ratio 13.4 (10-20); Calcium 9.2 mg/dl (8.5-10.1); Est GFR (African American) 50.8; Est GFR (Non-African American) 43.9; Magnesium 1.9 mg/dl (1.8-2.4); Phosphorus 3.2 mg/dl (2.5-4.9)
[2018-12-09] MEDS: SODIUM BICARBONATE 8.4% 75 MEQ in DEXTROSE 5% 1,000 ML IV SCH (07:44)
[2018-12-09] MEDS: INSULIN ASPART 100 UNITS/ML 3 ML PEN SC SCH ×4 (07:46→20:57)
--- NOTE | 2018-12-09 10:09 | Nephrology Progress Note ---
Date of Service December 09, 2018 Assessment & Plan (1) WILLIAM (acute kidney injury): (2) [id number] kidney injury: Baseline serum creatinine approximately 1.3 mg/dL. Creatinine stable at 1.6 milligram/deciliter. Electrolytes are acceptable. He is tolerating oral intake this time. This includes thickened liquids. IV fluids will be stopped. Subjective No acute events overnight. Louie is tolerating adequate oral intake. Diamond rem mike. No urinary complaints. Review of Systems Review of Systems: All systems reviewed & are unremarkable except as noted in HPI & below Physical Exam Constitutional: well developed and + obese; no acute distress Eyes: + anicteric sclerae; no conjunctival abnormality and no scleral abnormality ENMT: Mouth: no oral mucosal abnormality and oral mucous membranes not dry Neck: cervical collar Respiratory: normal respiratory effort Auscultation: lungs clear to auscultation bilaterally Cardiovascular: Rate/Rhythm: regular rate Heart Sounds: normal S1 and normal S2 Extremities: + edema Gastrointestinal (Abdomen): Inspection/Auscultation: + abdomen distended Percussion/Palpation: abdomen soft; abdomen nontender Musculoskeletal: Extremities: no cyanosis and no clubbing Skin: normal turgor; no lesions Neurologic: Motor/Sensory: no tremor and no asterixis Psychiatric: Orientation: alert and oriented x 3 Results & Data Vital Signs (Past 12 Hours) Vital Signs Temp Pulse Pulse Pulse Resp BP Pulse Ox 12/09/18 07:09 36.5 C 62 16 158/72 H 98 12/09/18 04:49 37.0 C 60 15 153/74 H 100 12/09/18 00:00 69 12/08/18 23:27 36.5 C 58 L 20 154/60 H 100 Laboratory Results Laboratory Results - last 24 hr 12/08/18 12/08/18 12/08/18 12:23 16:32 21:16 Sodium Potassium Chloride Carbon Dioxide Anion Gap BUN Creatinine Est Cr Clr Drug Dosing Est GFR ( Amer) Est GFR (Non-Af Amer) BUN/Creatinine Ratio Glucose POC Glucose 136 H 148 H 129 H Calcium Phosphorus Magnesium Albumin 12/09/18 12/09/18 05:51 07:09 Sodium 144 Potassium 4.0 Chloride 113 H Carbon Dioxide 26 Anion Gap 5.0 BUN 22 H Creatinine 1.63 H Est Cr Clr Drug Dosing 52.0 Est GFR ( Amer) 50.8 Est GFR (Non-Af Amer) 43.9 BUN/Creatinine Ratio 13.4 Glucose 137 H POC Glucose 130 H Calcium 9.2 Phosphorus 3.2 Magnesium 1.9 Albumin 2.7 L PG Care Time/CCT Total # of Minutes Spent Total Time Spent with Patient: Total time spent is greater than 50% in coordination of care (as documented) at patient's floor/unit and/or counseling patient:
--- NOTE | 2018-12-09 18:25 | Hospitalist Progress Note ---
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 He got fluid boluses in the ER. He had a similar presentation after surgery on 11/23 which resolved with IV fluids. Blood pressures then became quite elevated with WILLIAM BPs now normalizing and is now high with renal function improving Unclear if the low BP was from dehydration initially but does not seem to have an infection at this time -Continue to hold antihypertensive medication from home such as Bystolic, Lasix, but can restart nifedipine - Follow cultures, though sepsis/infection considered unlikely. (3) Hypothermia: Patient's first temp was 29.3 Celsius on arrival to the ED, despite the room being normal temperature where he was found. TSH was 1.6 in 11/2018. Similar episode in 11/23 in relation to surgery. - Follow cultures for any indication of infection. A.m. cortisol normal Has now improved Likely secondary to exposure-unknown time down on the ground when he was found (4) Pancytopenia: Likely due to alcohol abuse. Counts fairly stable from priors with hgb the exception. No indication of bleeding. No need for transfusion, Hgb 8.4 and stable -plts down to 74 and now back up again to baseline in the 90s - Trend CBC (5) Weakness: Multifactorial due to neck injury & alcoholism. Able to move all extremities at this time but with significant weakness throughout--some slight improvement today in upper extremity strength but cannot feed himself CT of the spine on admission without evidence of fractures -Consulted his spine surgeon Dr. Gutierres for any further evaluation recommendations-appreciate recommendations for rehab, feels hardware is in place - PT/OT -He was denied rehab on his last stay (6) Falls frequently: As above (7) AMS (altered mental status): Due to intoxication with alcohol as well as hypothermia and hypotension on arrival. His mental status had returned to normal by the morning of 12/05. - Monitor -now resolved MRI brain normal (8) Myelopathy concurrent with and due to spinal stenosis of cervical region: S/p C4 corpectomy with Dr. Gutierres on 11/23. Was supposed to be wearing his neck brace, but it was found beside him when he was found on the floor. - CT cervical spine on 12/04 showed no acute process. - Continue neck brace -consult spine surgery here appreciated--> recommends rehab and says CT spine with hardware in place -will need outpatient f/u with Ortho SPine (9) Chronic renal insufficiency, stage IV (severe): Baseline Cr. ~1.2, eGFR ~60. With acute kidney injury as above now resolving - Avoid nephrotoxins -Renally dose medications (10) Alcohol withdrawal: Was only discharged for 3 days prior to this admission. Not really enough time to build up a dependence again. - Continue thiamine/ folate - no evidence of any EtOH withdrawal now ativan prn is ordered (11) Diabetes: A1c was 5.8% in 11/2018. Glucose controlled here - continue Sliding-scale insulin per protocol (12) Metabolic acidosis: Non-anion gap, serum bicarbonate is low 16 and now continues to be improving on bicarb gtt No GI losses He has had this happen before Likely related to acute kidney injury at this point Nephrology consult appreciated -discontinue D5W with sodium bicarbonate as above -Follow serial BMP (13) Edema: In the bilateral upper extremities-as per report this has been present since his previous hospitalization-improved again today Not due to postoperative changes as per d/w Ortho -Consult surgery appreciated Has good pulses in the wrists bilaterally (14) Dysphagia: Had a choking episode on the night of admission when he was altered and was made n.p.o. Seen by speech therapy and had video swallow-with aspiration silently of thin liquids and some disorganized chewing pattern -ok for diet as per Speech -checked MRI brain for neurological event causing swallowing difficulties and recent fall--> negative for stroke -Speech to follow (15) Paroxysmal atrial fibrillation: Was in atrial fibrillation at the time of presentation with rates in the 70s Then had sinus bradycardia at times in the 40s, no evidence of blocks but overall rates improving Could be related to alcohol use and hypothermia, also was previously on Bystolic and nifedipine (which could have some effect on rate) Consult cardiology appreciated Rates now much improved to the 60s-80s Recent echocardiogram with preserved EF -continue holding AV hillary blocking agent from home -no anticoagulation at this point given brief Afib plus very high risk for falls given alcohol dependence and h/o falls ok to dc tele (16) DVT prophylaxis: Heparin 5000 units Q12h Disposition- improving, stable for dc to rehab but awaiting insurance auth--> move to med/surg Subjective Doing well today, some neck pain, no CP or SOB, no abd pain. Is moving his bowels, getting to bedside commode. Tele with SB -NSR 50-70s Review of Systems Review of Systems: All systems reviewed & are unremarkable except as noted in HPI & below Physical Exam Constitutional: WD/WN, vitals as above Eyes: + anicteric sclerae Neck: trachea midline, no thyromegaly (neck brace in place) Respiratory: normal respiratory effort, lungs clear to auscultation Cardiovascular: Rate/Rhythm: regular rate and regular rhythm Heart Sounds: no murmur Vessels: dorsalis pedis pulses present and radial pulses present Extremities: + edema (+1 nonpitting edema in the upper extremities and hands bilaterally,improved); no calf tenderness Gastrointestinal (Abdomen): normal bowel sounds, soft, nontender, no hepatosplenomegaly Musculoskeletal: Extremities: extremities normal to inspection; no cyanosis and no clubbing Skin: no rashes, warm and dry Neurologic: moves all extremities (With 3+/5 biceps/triceps/deltoids, 4/5 lower extremities,4/5 with hand supervisor vendor quality) and awake Motor/Sensory: no tremor Psychiatric: Orientation: alert, oriented x 3 and cooperative Results & Data Vital Signs (Past 12 Hours) Vital Signs Temp Pulse Pulse Pulse Resp BP Pulse Ox 12/09/18 16:00 56 L 12/09/18 15:57 36.4 C L 54 L 17 155/62 H 100 12/09/18 11:44 36.6 C 81 20 143/83 H 100 12/09/18 11:03 59 L 12/09/18 07:09 36.5 C 62 16 158/72 H 98 Laboratory Results 12/10/18 12/09/1819 Range/Units 05:49 20:55 16:36 Sodium 143 (136-145) mmol/L Potassium 4.0 (3.5-5.1) mmol/L Chloride 113 H (98-107) mmol/L Carbon Dioxide 25 (21-32) mmol/L Anion Gap 5.0 (3-11) BUN 21 H (7-18) mg/dl Creatinine 1.66 H (0.6-1.4) mg/dl Est Cr Clr Drug Dosing 51.1 ml/min Est GFR ( Amer) 49.7 Est GFR (Non-Af Amer) 42.9 BUN/Creatinine Ratio 12.5 (10-20) Glucose 121 H (70-99) mg/dl POC Glucose 125 H 104 H (70-99) Calcium 9.1 (8.5-10.1) mg/dl Phosphorus 3.8 (2.5-4.9) mg/dl Magnesium 1.8 (1.8-2.4) mg/dl Albumin 2.7 L (3.4-5.0) gm/dl 12/09/18 Range/Units 11:43 Sodium (136-145) mmol/L Potassium (3.5-5.1) mmol/L Chloride (98-107) mmol/L Carbon Dioxide (21-32) mmol/L Anion Gap (3-11) BUN (7-18) mg/dl Creatinine (0.6-1.4) mg/dl Est Cr Clr Drug Dosing ml/min Est GFR ( Amer) Est GFR (Non-Af Amer) BUN/Creatinine Ratio (10-20) Glucose (70-99) mg/dl POC Glucose 140 H (70-99) Calcium (8.5-10.1) mg/dl Phosphorus (2.5-4.9) mg/dl Magnesium (1.8-2.4) mg/dl Albumin (3.4-5.0) gm/dl PG Care Time/CCT Total # of Minutes Spent Total Time Spent with Patient: Total time spent is greater than 50% in coordination of care (as documented) at patient's floor/unit and/or counseling patient: (1) Hypothermia Encounter type: initial encounter Qualified Code(s): T68.XXXA - Hypothermia, initial encounter (2) AMS (altered mental status) Altered mental status type: unspecified Qualified Code(s): R41.82 - Altered mental status, unspecified (3) Hypotension Hypotension type: hypotension due to hypovolemia Qualified Code(s): I95.89 - Other hypotension; E86.1 - Hypovolemia
[2018-12-09] MEDS: AMLODIPINE BESYLATE 5 MG TAB PO SCH ×2 (19:51→19:53)
[2018-12-09] MEDS: OMEGA-3 (PURIFIED FISH OIL) 1 GM CAP PO SCH (20:32)
[2018-12-09] MEDS: THIAMINE HCL 100 MG TAB PO SCH (20:33)
[2018-12-09] MEDS: MAGNESIUM OXIDE 400 MG TAB PO SCH (20:33)
[2018-12-09] MEDS: VITAMIN B COMPLEX TAB PO SCH (20:33)
[2018-12-09] MEDS: FERROUS SULFATE 325 MG TAB PO SCH (20:33)
[2018-12-09] MEDS: CYANOCOBALAMIN (VITAMIN B-12) 2,500 MCG TAB.SUBL SL SCH (20:33)
[2018-12-09] MEDS: FOLIC ACID 1 MG TAB PO SCH (20:33)
[2018-12-09] MEDS: CLOPIDOGREL BISULFATE 75 MG TAB PO SCH (20:34)
[2018-12-09] MEDS: ZINC SULFATE 220 MG CAPSULE PO SCH (20:34)
[2018-12-09] MEDS: ALLOPURINOL 100 MG TAB PO SCH (20:34)
[2018-12-09] MEDS: PANTOprazole 40 MG TAB PO SCH (20:34)
[2018-12-10] MEDS ORDERED: OXYCODONE/ACETAMINOPHEN 5mg/325mg TAB PO STA (00:38)
[2018-12-10] MEDS: HEPARIN SOD 5,000 UNIT/0.5 ML VIAL SQ SCH (06:07)
[2018-12-10 06:47] LABS: Albumin Level 2.7 gm/dl (3.4-5.0); BUN Creatinine Ratio 12.5 (10-20); Calcium 9.1 mg/dl (8.5-10.1); Creatinine Clr Calc Pharmacy 51.1 ml/min; Est GFR (African American) 49.7; Est GFR (Non-African American) 42.9; Magnesium 1.8 mg/dl (1.8-2.4)
[2018-12-10 06:49] LABS: Phosphorus 3.8 mg/dl (2.5-4.9)
[2018-12-10] MEDS: INSULIN ASPART 100 UNITS/ML 3 ML PEN SC SCH ×2 (08:55→13:14)
[2018-12-10] MEDS ORDERED: AMLODIPINE BESYLATE 5 MG TAB PO SCH (09:00)
[2018-12-10] MEDS ORDERED: NIFEdipine EXTENDED REL 30 MG TABCR PO SCH (09:45)
--- NOTE | 2018-12-10 12:40 | Nephrology Progress Note ---
Date of Service December 10, 2018 Assessment & Plan (1) WILLIAM (acute kidney injury): (2) [id number] kidney injury: Baseline serum creatinine approximately 1.3 mg/dL. Creatinine stable at 1.6 milligram/deciliter. Electrolytes are acceptable. Follow-up has been arranged in the Nephrology Clinic for next week. Patient is otherwise stable for discharge from a Nephrology standpoint at this time. Subjective No acute events overnight. Louie is tolerating adequate oral intake. Anticipated discharge today. No urinary complaints. Review of Systems Review of Systems: All systems reviewed & are unremarkable except as noted in HPI & below Physical Exam Constitutional: well developed and + obese; no acute distress Eyes: + anicteric sclerae; no conjunctival abnormality and no scleral abnormality ENMT: Mouth: no oral mucosal abnormality and oral mucous membranes not dry Respiratory: normal respiratory effort Auscultation: lungs clear to auscultation bilaterally Cardiovascular: Rate/Rhythm: regular rate Heart Sounds: normal S1 and normal S2 Extremities: + edema Gastrointestinal (Abdomen): Inspection/Auscultation: + abdomen distended Percussion/Palpation: abdomen soft; abdomen nontender Musculoskeletal: Extremities: no cyanosis and no clubbing Skin: normal turgor; no lesions Neurologic: Motor/Sensory: no tremor and no asterixis Psychiatric: Orientation: alert and oriented x 3 Results & Data Vital Signs (Past 12 Hours) Vital Signs Temp Pulse Pulse Resp BP BP Pulse Ox 12/10/18 11:18 36.6 C 65 60 16 90/47 L 180/81 H 98 12/10/18 08:10 36.6 C 65 16 180/81 H 98 Laboratory Results Laboratory Results - last 24 hr 12/09/18 12/09/18 12/10/18 16:36 20:55 05:49 Sodium 143 Potassium 4.0 Chloride 113 H Carbon Dioxide 25 Anion Gap 5.0 BUN 21 H Creatinine 1.66 H Est Cr Clr Drug Dosing 51.1 Est GFR ( Amer) 49.7 Est GFR (Non-Af Amer) 42.9 BUN/Creatinine Ratio 12.5 Glucose 121 H POC Glucose 104 H 125 H Calcium 9.1 Phosphorus 3.8 Magnesium 1.8 Albumin 2.7 L 12/10/18 12/10/18 07:45 11:48 Sodium Potassium Chloride Carbon Dioxide Anion Gap BUN Creatinine Est Cr Clr Drug Dosing Est GFR ( Amer) Est GFR (Non-Af Amer) BUN/Creatinine Ratio Glucose POC Glucose 125 H 129 H Calcium Phosphorus Magnesium Albumin PG Care Time/CCT Total # of Minutes Spent Total Time Spent with Patient: Total time spent is greater than 50% in coordination of care (as documented) at patient's floor/unit and/or counseling patient:
--- NOTE | 2018-12-10 12:48 | Discharge Summary ---
Date of Service December 10, 2018 Admission HPI Per Admitting Provider The patient is 63-year-old -[place]omin[place] male who was brought to the hospital with complaints of change in mental status. Patient was recently discharged from the hospital 3 days back. Patient was earlier here with cervical myelopathy and had cervical spine surgery. He has history of alcohol withdrawal. Patient has started back drinking alcohol after he was discharged home. He was having frequent falls and has multiple bruises over the body. Today the patient was found lying on the floor. The patient himself is somewhat a poor historian due to decreased mental status. He denies any head injury. No seizures. Here in the emergency room, he was found to be hypothermic and was put on Marcelo Hugger. His blood pressure was running low normal, he is getting fluid boluses. CPK level is high at 374. Lactic acid is high at 3.0. He was started empirically on IV antibiotics/Zosyn for possible sepsis. He will be admitted to the PCU for further evaluation and management. Principal Diagnosis Acute metabolic encephalopathy, hypothermia, hypotension, fall, cervical myelopathy Discharge Exam Constitutional WD/WN, vitals as above Eyes + anicteric sclerae Neck trachea midline, no thyromegaly (neck brace in place) Respiratory normal respiratory effort, lungs clear to auscultation Cardiovascular Rate/Rhythm: regular rate and regular rhythm Heart Sounds: no murmur Vessels: dorsalis pedis pulses present and radial pulses present Extremities: + edema (+1 nonpitting edema in the upper extremities and hands bilaterally,improved); no calf tenderness Gastrointestinal (Abdomen) normal bowel sounds, soft, nontender, no hepatosplenomegaly Musculoskeletal Extremities: extremities normal to inspection; no cyanosis and no clubbing Skin no rashes, warm and dry Neurologic moves all extremities (With 3+/5 biceps/triceps/deltoids, 4/5 lower extremities,4/5 with hand underwear welter) and awake Motor/Sensory: no tremor Psychiatric Orientation: alert, oriented x 3 and cooperative Affect: + irritable affect Discharge Data Allergies Allergy/AdvReac Type Severity Reaction Status Date / Time No Known Allergies Allergy Verified 11/23/18 10:29 Consultations 12/06/18 11:26 Consult Nephrology Routine 12/06/18 14:05 Consult Cardiology Routine 12/06/18 14:22 Consult Orthopedic Surgery Routine Ordered Studies 12/04/18 16:24 CT head/brain wo con Stat 12/04/18 17:12 CT cervical spine wo con Stat 12/07/18 11:30 FL video swallow Routine 12/08/18 00:00 MR brain wo con Routine Chest x-ray x2 Hospital Course (1) WILLIAM (acute kidney injury): Likely secondary to ATN from profound hypotension upon admission Creatinine up to 2.62 from 1.28, with metabolic acidosis with serum bicarbonate 16, non-anion gap 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 He got fluid boluses in the ER. He had a similar presentation after surgery on 11/23 which resolved with IV fluids. Blood pressures then became quite elevated with WILLIAM BPs now normalizing and is now high with renal function improving Unclear if the low BP was from dehydration initially but does not seem to have an infection at this time -Continue to hold antihypertensive medication from home such as Bystolic, Lasix, but have since restarted nifedipine - Follow cultures, though sepsis/infection considered unlikely. (3) Hypothermia: Patient's first temp was 29.3 Celsius on arrival to the ED, despite the room being normal temperature where he was found. TSH was 1.6 in 11/2018. Similar episode in 11/23 in relation to surgery. - Follow cultures for any indication of infection. A.m. cortisol normal Has now improved Likely secondary to exposure-unknown time down on the ground when he was found (4) Pancytopenia: Likely due to alcohol abuse. Counts fairly stable from priors with hgb the exception. No indication of bleeding. No need for transfusion, Hgb 8.4 and stable -plts down to 74 and now back up again to baseline in the 90s - Trend CBC as an outpatient periodically (5) Weakness: Multifactorial due to neck injury & alcoholism. Able to move all extremities at this time but with significant weakness throughout--some slight improvement today in upper extremity strength but cannot feed himself CT of the spine on admission without evidence of fractures -Consulted his spine surgeon Dr. Gutierres for any further evaluation recommendations-appreciate recommendations for rehab, feels hardware is in place - PT/OT Follow-up with Dr. Gutierres as an outpatient within 2 weeks (6) Falls frequently: As above (7) AMS (altered mental status): Due to intoxication with alcohol as well as hypothermia and hypotension on arrival. His mental status had returned to normal by the morning of 12/05. - Monitor -now resolved MRI brain normal (8) Myelopathy concurrent with and due to spinal stenosis of cervical region: S/p C4 corpectomy with Dr. Gutierres on 11/23. Was supposed to be wearing his neck brace, but it was found beside him when he was found on the floor. - CT cervical spine on 12/04 showed no acute process. - Continue neck brace as much as possible as per orthopedic surgery-consult spine surgery here appreciated--> recommends rehab and says CT spine with hardware in place -will need outpatient f/u with Ortho SPine (9) Chronic renal insufficiency, stage IV (severe): Baseline Cr. ~1.2, eGFR ~60. With acute kidney injury as above now resolving - Avoid nephrotoxins -Renally dose medications (10) Alcohol withdrawal: Was only discharged for 3 days prior to this admission. Not really enough time to build up a dependence again. - Continue thiamine/ folate - no evidence of any EtOH withdrawal now No Ativan needed (11) Diabetes: A1c was 5.8% in 11/2018. Glucose controlled here Can restart home Actos upon discharge (12) Metabolic acidosis: Non-anion gap, serum bicarbonate is low at 16 upon admission and now resolved after being on bicarb gtt No GI losses He has had this happen before Likely related to acute kidney injury Nephrology consult appreciated -Received D5W with sodium bicarbonate as above -Follow BMP as an outpatient as above (13) Edema: In the bilateral upper extremities-as per report this has been present since his previous hospitalization-improved again today Not due to postoperative changes as per d/w Ortho -Consult surgery appreciated Has good pulses in the wrists bilaterally (14) Dysphagia: Had a choking episode on the night of admission when he was altered and was made n.p.o. Seen by speech therapy and had video swallow-with aspiration silently of thin liquids and some disorganized chewing pattern -ok for diet as per Speech -checked MRI brain for neurological event causing swallowing difficulties and recent fall--> negative for stroke -Please follow speech pathologist recommendations for diet and with aspiration precautions after discharge -Please have him follow-up with the speech therapist after discharge (15) Paroxysmal atrial fibrillation: Was in atrial fibrillation at the time of presentation with rates in the 70s Then had sinus bradycardia at times in the 40s, no evidence of blocks but overall rates improving Could be related to alcohol use and hypothermia, also was previously on Bystolic and nifedipine (which could have some effect on rate) Consult cardiology appreciated Rates now much improved to the 60s-80s Recent echocardiogram with preserved EF -continue holding AV hillary blocking agent from home (Bystolic) -no anticoagulation at this point given brief Afib plus very high risk for falls given alcohol dependence and h/o falls No need for follow-up with cardiology (16) DVT prophylaxis: Heparin 5000 units Q12h was provided Disposition- improving, stable for dc to rehab Total Time Total Time Spent Total Time Spent (In Minutes): Greater than 30 minutes Total Time Includes: Examination of the Patient, Discharge Planning and Medication Reconciliation Discharge Plan Discharge Items Patient Disposition: Transfer Custodial Fac Reason For Visit: CHANGE IN MENTAL STATUS Discharge Diagnosis: Acute metabolic encephalopathy, hypothermia, hypotension, cervical myelopathy and weakness Condition on Discharge: Fair Activity: As commented below Lifting: Gradually increase as tolerated Bathing: No limitations Exercise/Sports: Gradually increase as tolerated Weightbearing: Full weightbearing Non-emergency contact: Primary Care Provider, Surgeon and Community Ambassador Call non-emergency contact if: you have any medication questions, your symptoms worsen, your pain is not controlled, your pain is worsening, your pain is unusual for you, your pain is concerning for you, you have a fever, your temperature is above 101, your wound has increased redness, your wound has increased drainage and your wound pain has increased Follow-up/Referrals: Jose L Murphy DO [Physician] - (Please follow-up within 1 week after discharge) Gautam Gutierres DO [Surgeon] - (Please follow-up within 2 weeks after discharge) Donavan Vera MD [Primary Care Provider] - Diet: Carb Consistent or DM2 and Heart Healthy Addtl Attending Provider Instructions: Mr. Penny was admitted after being found down on the ground for an unknown length of time. He recently had cervical spine decompression surgery on an urgent basis for cervical myelopathy. He continues to have profound weakness mostly in the bilateral upper extremities and some of the lower extremities. He was also hypothermic and hypotensive on arrival which has improved. He had new onset atrial fibrillation for a period of about 5 hours upon admission which has not returned. He will not to be anticoagulated for this given his history of multiple falls and alcohol dependence. He also had renal failure which is now improved. Please draw a basic metabolic panel on 12/13/2018 and have the results sent to Dr. Jose L Murphy of nephrology. He should follow-up with nephrology within 1 week, Dr. Gutierres of orthopedic spine surgery within 2 weeks. He does not need follow-up with the certified medical biller. Pending Studies at Discharge: No Stand-Alone Forms: My [facility] Skilled Items Patient informed of condition?: Yes DNR: No Discharge Level of Care: Skilled Communicable Disease: No Discharge Prognosis: Improving Lines: None Urinary Catheter: No Medications and DC Order Prescriptions: Continued ferrous sulfate 250 mg (50 mg iron) tablet extended release 250 mg PO HS RF: 0 pioglitazone [Actos] 15 mg tablet 15 mg PO HS RF: 0 clopidogrel [Plavix] 75 mg tablet 75 mg PO HS RF: 0 allopurinol [Zyloprim] 100 mg tablet 100 mg PO HS RF: 0 folic acid 1 mg Tablet 1 mg PO HS RF: 0 magnesium oxide 400 mg magnesium tablet 400 mg PO HS RF: 0 thiamine HCl (vitamin B1) 100 mg Tablet 100 mg PO HS RF: 0 vitamin B complex Tablet 1 tab PO HS RF: 0 zinc 50 mg Tablet 50 mg PO HS RF: 0 cyanocobalamin (vitamin B-12) [Vitamin B-12] 5,000 mcg Tablet, Sublingual 5,000 mcg SUBLINGUAL HS RF: 0 [place]-3 350 mg-235 mg- 90 mg-597 mg Capsule,Delayed Release(Dr/Ec) 1 tab PO HS RF: 0 Changed esomeprazole magnesium [Nexium] 40 mg capsule,delayed release(DR/EC) 40 mg PO QAM Qty: 0 RF: 0 nifedipine [Procardia XL] 30 mg tablet extended release 24hr 30 mg PO QAM Qty: 0 RF: 0 Discontinued furosemide [Lasix] 40 mg tablet 40 mg PO HS RF: 0 Bystolic 10 mg tablet 10 mg PO HS RF: 0 Discharge Orders: Discharge Order (Routine); Ordered 12/10/18 Ordered By: Lynne Bowling Admission Data Admit Date/Time: 12/04/18 18:39 Attending Provider: Lynne Bowling Admit Provider: Hero Moore Primary Care Provider: Donavan Vera Other Providers: Jose L Murphy ; Talat Pérez ; Gautam Gutierres Other Interventions: Discharge Summary Assessment (RN) Last Done: 12/10/18 11:18
== END 2018-12-10 15:27 | DRG 682 ==
LOC: ED 16:21 → 2E 18:39 → SUATTDRO 18:39 → 2E 19:05 → 2N 12-09 18:23

== ENCOUNTER 2019-01-07 14:38 | Inpatient (IN) ==
[2019-01-07] MEDS ORDERED: CEFEPIME 2,000 MG/20 ML VIAL IV STA (15:22)
[2019-01-07] MEDS ORDERED: SODIUM CHLORIDE 0.9% 500 ML IV SCH (15:30)
[2019-01-07 15:48] LABS: Appearance Urine Clear (Clear); Bilirubin Urine Negative (Negative); Blood Urine Negative (Negative); Color Urine Yellow; Glucose Urine UA Negative (Negative); Ketones Urine Negative (Negative); Leukocyte Esterase Urine Negative (Negative); Nitrite Urine Negative (Negative); Protein Urine Negative (Negative); Specific Gravity Urine 1.016 (1.000-1.030); Urobilinogen Urine Negative (Negative)
--- NOTE | 2019-01-07 16:04 | XRay Report ---
SINGLE VIEW CHEST CLINICAL HISTORY: Generalized weakness. Left arm numbness. FINDINGS: 2 AP, portable, upright chest radiographs are compared to study dated 01/04/2019. Correlati on is made with chest CT dated 10/25/2018. The examination is degraded by portable technique and patien t rotation. The heart is top normal for projection. The mediastinal contour is within normal limits. There is elevation of the right hemidiaphragm and bibasilar atelectasis. This is similar to previous. No airspace consolidation, large pleural effusion, or pneumothorax is seen. The bony thorax is gross ly intact. Calcific tendinopathy is noted in the right shoulder. IMPRESSION: No acute cardiopulmonary abnormality. Electronically signed by: Jose Rafael Kirkpatrick M.D. 01/07/2019 4:02 PM
[2019-01-07 16:20] LABS: Basophils # (auto) 0.01 K/uL (0-0.2); Basophils % (auto) 0.1 %; Eosinophils # (auto) 0.11 K/uL (0-0.5); Eosinophils % (auto) 1.3 %; Hematocrit (blood only) 26.3 % (42-52); Hemoglobin 8.8 g/dL (14.0-18.0); Immature Granulocytes # (auto) 0.03 K/uL (0.00-0.02); Immature Granulocytes % (auto) 0.3 %; Lymphocytes # (auto) 1.88 K/uL (1.2-3.4); Lymphocytes % (auto) 21.9 %; Mean Corpuscular Hemoglobin 31.3 pg (25-34); Mean Corpuscular Hgb Conc 33.5 g/dL (32-36); Mean Corpuscular Volume 93.6 fL (80-100); Mean Platelet Volume 10.4 fL (7.4-10.4); Monocytes # (auto) 0.39 K/uL (0.11-0.59); Monocytes % (auto) 4.5 %; Neutrophils # (auto) 6.16 K/uL (1.4-6.5); Neutrophils % (auto) 71.9 %; Platelet Count 141 K/uL (130-400); RDW Coefficient of Variation 14.5 % (11.5-14.5); Red Blood Count 2.81 M/uL (4.7-6.1); White Blood Count 8.58 K/uL (4.8-10.8)
[2019-01-07 16:45] LABS: Alanine Aminotransferase 20 U/L (12-78); Aspartate Aminotransferase 28 U/L (15-37); BUN Creatinine Ratio 22.3 (10-20); Blood Urea Nitrogen 34 mg/dl (7-18); Calcium 9.5 mg/dl (8.5-10.1); Carbon Dioxide 20 mmol/L (21-32); Chloride 111 mmol/L (98-107); Creatinine Clr Calc Pharmacy 55.5 ml/min; Est GFR (African American) 54.5; Glucose 114 mg/dl (70-99); Magnesium 1.8 mg/dl (1.8-2.4); Potassium 5.5 mmol/L (3.5-5.1); Sodium 138 mmol/L (136-145)
[2019-01-07 16:55] LABS: Albumin Globulin Ratio 0.6 (0.9-2); Alkaline Phosphatase 158 U/L (45-117); Bilirubin,Total 0.4 mg/dl (0.2-1); Globulin 4.7 gm/dl (2.5-4.0); Total Protein 7.7 gm/dl (6.4-8.2); Troponin I < 0.015 ng/ml (0-0.045)
--- NOTE | 2019-01-07 17:05 | Emergency Department Note ---
Entered by Malcolm Quispe acting as a scribe for Jose Rafael Schaefer MD History of Present Illness General Chief complaint: Illness Time Seen by Provider: 01/07/19 15:12 Source: patient and other (Office of Aging) History of Present Illness Onset (ago): week(s) (couple) Location: left and right Pain Consistency: + constant Maximum Pain Intensity: 5 Quality: + other (general weakness ) Associated symptoms: + other (+left heel pain; +neck discomfort; +lower spine pain ); no fever/chills The patient is a 63 year old male, with past medical history of chronic renal insufficiency and cervical spinal stenosis, who presents to the Emergency Room with complaints of constant general weakness over the past couple weeks. The patient was discharged from [facility] yesterday. However, the Office of Aging reports the patient is unsafe at home and unable to take care of himself. The Office of Aging notes they found rotten food in the patient's home today. The patient arrived via EMS. The patient notes pain to his left heel for the last tw o weeks as well. The patient states his neck has been bothering him also ever since he had cervical stenosis surgery on November 24. The patient states his lower spine has been bothering him when he is walking as well. The patient denies a fever. He notes he has not eaten today, and he states he has no family in the area. Home Medications Home Medications Medication Instructions Recorded Confirmed Type Unobtainable 01/07/19 01/07/19 History Allergies Allergy/AdvReac Type Severity Reaction Status Date / Time lactose AdvReac Unknown Unknown Verified 01/07/19 16:36 Past Med/Surg History Medical History Alcohol withdrawal Ambulatory dysfunction (Resolved 02/14/14) Anemia (Resolved) Cervical spinal stenosis (Acute) Chronic kidney insufficiency (Acute) Chronic renal insufficiency, stage IV (severe) Diabetes (Chronic) Diverticulitis Thrombocytopenia Ulcer of left heel Surgical History History of esophagogastroduodenoscopy (EGD) S/P colonoscopy Family History Other No pertinent family history Social History Preferred Language: Moldovan Communication Ability: Effective Assistant Corporation Counsel Required: No Beliefs That Will Affect Care: None marital status: / Current Living Situation: Alone current occupational status: retired Feels Safe at Home: No Is there a partner from a previous relationship who is making you feel unsafe now?: No Smoking Status: Never smoker Second Hand Exposure: No ; Hx Alcohol Use: Yes Alcohol type: beer, wine and hard liquor Hx Substance Use: No Review of Systems See HPI for pertinent positives & negatives. and A total of 10 systems reviewed and were otherwise negative Physical Exam Vital Signs Vital Signs - 24 hr 01/07/19 15:03 01/07/19 16:28 01/07/19 16:30 Pulse Rate 66 Pulse Rate [Finger] 78 Respiratory Rate 16 18 Blood Pressure 161/91 H Blood Pressure [Left Arm] 139/85 Blood Pressure Mean 114 Blood Pressure Mean [Left Arm] 103 Pulse Oximetry 100 96 95 Oxygen Delivery Method Room Air Room Air Room Air Sepsis Recent Fever Within 48 Hours No Sepsis Action Taken by Nursing No Action Required GENERAL: Patient is in no acute distress. HEENT: No acute trauma, normocephalic atraumatic, mucous membranes moist, no nasal congestion, no scleral icterus. NECK: No stridor, no adenopathy, no meningismus, trachea is midline. LUNGS: Clear to auscultation bilaterally, no wheeze, no rhonchi, breath sounds equal. HEART: Without murmurs gallops or rubs, regular rate and rhythm. ABDOMEN: Soft, nontender, bowel sounds positive, no hernias, no peritonitis. EXTREMITIES: Edema to both lower extremities, moderate in severity. Foul smelling lesion to the posterior aspect of left heel with some bloody drainage. There is some slight warmth to the left foot and distal leg compared to the right. NEUROLOGIC: Oriented x 3, no acute motor or sensory deficits, no focal weakness. SKIN: No rash, no jaundice, no diaphoresis. BACK: There is no evidence for ulcer or skin breakdown, no evidence for perirectal abscess. Patient's lower back pain does worsen with change of p osition. Course Course 1515: Past medical records reviewed. The patient was evaluated in room C6. A complete history and physical exam was performed. 1718: I reviewed the patient's case with Dr. Moore-[facility] Hospitalist. Dr. Moore will evaluate the patient for further management. 1721: I updated the patient on his case. The patient states he would like his back imaged while he is getting his foot imaged. I performed another physical exam on the patient that showed no ulcer or skin breakdown to the patient's back. Also, I found no evidence of a perirectal abscess. Consultations Consultation #1: I reviewed the patient's case with Dr. Moore-[facility] Hospitalist. Dr. Moore will evaluate the patient for further management. Time: 17:18 Administered Medications Discontinued Medications Sodium Chloride (Nss) 500 mls @ 999 mls/hr IV .Q31M GUILLE Stop: 01/07/19 16:00 Last Infusion: 01/07/19 17:01 Dose: 0 mls/hr Documented by: [id number] Admin: 01/07/19 16:21 Dose: 999 mls/hr Documented by: [id number] Cefepime HCl (Maxipime) 2,000 mg in 20 mls @ 5 mls/min IV NOW STA; Protocol Stop: 01/07/19 15:25 Last Admin: 01/07/19 16:21 Dose: 5 mls/min Documented by: [id number] Medical Decision Making Differential Diagnosis Differential diagnoses include osteomyelitis, cellulitis, dehydration, renal failure, spinal stenosis, lumbar strain, debilitation, anemia, electrolyte imbalance, amongst others that were considered. Medical Records Attestation: I reviewed the patient's medical records. The patient was discharged from the ED 3 days ago. He presented to the ED with swelling to his left upper extremity. No DVT was found, and it was felt safe for the patient to be discharged. Home Medications Current Medication List: was personally reviewed by me Laboratory Data Attestation: I reviewed the patient's lab results. Result diagrams: 01/07/19 16:09 01/07/19 16:09 Lab Results 01/07/19 01/07/19 01/07/19 Range/Units 15:37 16:09 16:09 WBC 8.58 (4.8-10.8) K/uL RBC 2.81 L (4.7-6.1) M/uL Hgb 8.8 L (14.0-18.0) g/dL Hct 26.3 L (42-52) % MCV 93.6 (80-100) fL MCH 31.3 (25-34) pg MCHC 33.5 (32-36) g/dL RDW Std Deviation 49.0 H (36.4-46.3) fL RDW Coeff of Clyde 14.5 (11.5-14.5) % Plt Count 141 (130-400) K/uL MPV 10.4 (7.4-10.4) fL Immature Gran % (Auto) 0.3 % Neut % (Auto) 71.9 % Lymph % (Auto) 21.9 % Dupage % (Auto) 4.5 % Eos % (Auto) 1.3 % Baso % (Auto) 0.1 % Immature Gran # (Auto) 0.03 H (0.00-0.02) K/uL Neut # (Auto) 6.16 (1.4-6.5) K/uL Lymph # (Auto) 1.88 (1.2-3.4) K/uL Dupage # (Auto) 0.39 (0.11-0.59) K/uL Eos # (Auto) 0.11 (0-0.5) K/uL Baso # (Auto) 0.01 (0-0.2) K/uL Sodium 138 (136-145) mmol/L Potassium 5.5 H (3.5-5.1) mmol/L Chloride 111 H (98-107) mmol/L Carbon Dioxide 20 L (21-32) mmol/L Anion Gap 7.0 (3-11) BUN 34 H (7-18) mg/dl Creatinine 1.54 H (0.6-1.4) mg/dl Est Cr Clr Drug Dosing 55.5 ml/min Est GFR ( Amer) 54.5 Est GFR (Non-Af Amer) 47.0 BUN/Creatinine Ratio 22.3 H (10-20) Glucose 114 H (70-99) mg/dl Lactate (0.4-2.0) mmol/L Calcium 9.5 (8.5-10.1) mg/dl Magnesium 1.8 (1.8-2.4) mg/dl Total Bilirubin 0.4 (0.2-1) mg/dl AST 28 (15-37) U/L ALT 20 (12-78) U/L Alkaline Phosphatase 158 H (45-117) U/L Troponin I < 0.015 (0-0.045) ng/ml Total Protein 7.7 (6.4-8.2) gm/dl Albumin 3.0 L (3.4-5.0) gm/dl Globulin 4.7 H (2.5-4.0) gm/dl Albumin/Globulin Ratio 0.6 L (0.9-2) TSH 6.760 H (0.300-4.500) uIu/ml Free T4 1.11 (0.8-1.6) ng/dl Urine Color Yellow Urine Appearance Clear (Clear) Urine pH 5.0 (4.5-7.5) Ur Specific Egnar 1.016 (1.000-1.030) Urine Protein Negative (Negative) Urine Glucose (UA) Negative (Negative) Urine Ketones Negative (Negative) Urine Blood Negative (Negative) Urine Nitrite Negative (Negative) Urine Bilirubin Negative (Negative) Urine Urobilinogen Negative (Negative) Ur Leukocyte Esterase Negative (Negative) 01/07/19 Range/Units 16:09 WBC (4.8-10.8) K/uL RBC (4.7-6.1) M/uL Hgb (14.0-18.0) g/dL Hct (42-52) % MCV (80-100) fL MCH (25-34) pg MCHC (32-36) g/dL RDW Std Deviation (36.4-46.3) fL RDW Coeff of Clyde (11.5-14.5) % Plt Count (130-400) K/uL MPV (7.4-10.4) fL Immature Gran % (Auto) % Neut % (Auto) % Lymph % (Auto) % Dupage % (Auto) % Eos % (Auto) % Baso % (Auto) % Immature Gran # (Auto) (0.00-0.02) K/uL Neut # (Auto) (1.4-6.5) K/uL Lymph # (Auto) (1.2-3.4) K/uL Dupage # (Auto) (0.11-0.59) K/uL Eos # (Auto) (0-0.5) K/uL Baso # (Auto) (0-0.2) K/uL Sodium (136-145) mmol/L Potassium (3.5-5.1) mmol/L Chloride (98-107) mmol/L Carbon Dioxide (21-32) mmol/L Anion Gap (3-11) BUN (7-18) mg/dl Creatinine (0.6-1.4) mg/dl Est Cr Clr Drug Dosing ml/min Est GFR ( Amer) Est GFR (Non-Af Amer) BUN/Creatinine Ratio (10-20) Glucose (70-99) mg/dl Lactate 1.3 (0.4-2.0) mmol/L Calcium (8.5-10.1) mg/dl Magnesium (1.8-2.4) mg/dl Total Bilirubin (0.2-1) mg/dl AST (15-37) U/L ALT (12-78) U/L Alkaline Phosphatase (45-117) U/L Troponin I (0-0.045) ng/ml Total Protein (6.4-8.2) gm/dl Albumin (3.4-5.0) gm/dl Globulin (2.5-4.0) gm/dl Albumin/Globulin Ratio (0.9-2) TSH (0.300-4.500) uIu/ml Free T4 (0.8-1.6) ng/dl Urine Color Urine Appearance (Clear) Urine pH (4.5-7.5) Ur Specific Egnar (1.000-1.030) Urine Protein (Negative) Urine Glucose (UA) (Negative) Urine Ketones (Negative) Urine Blood (Negative) Urine Nitrite (Negative) Urine Bilirubin (Negative) Urine Urobilinogen (Negative) Ur Leukocyte Esterase (Negative) Imaging Data Radiologist's Impression: Radiology results as stated below per my review and the radiologist's interpretation: SINGLE VIEW CHEST CLINICAL HISTORY: Generalized weakness. Left arm numbness. FINDINGS: 2 AP, portable, upright chest radiographs are compared to study dated 01/04/2019. Correlation is made with chest CT dated 10/25/2018. The examination is degraded by portable technique and patient rotation. The heart is top normal for projection. The mediastinal contour is within normal limits. There is elevation of the right hemidiaphragm and bibasilar atelectasis. This is similar to previous. No airspace consolidation, large pleural effusion, or pneumothorax is seen. The bony thorax is grossly intact. Calcific tendinopathy is noted in the right shoulder. IMPRESSION: No acute cardiopulmonary abnormality. Electronically signed by: Jose Rafael Kirkpatrick M.D. 01/07/2019 4:[address] imaging of the left foot and lumbar spine are currently pending. ECG Data Attestation: I personally reviewed and interpreted this ECG as follows: Indication: + weakness Rate (beats per minute): [address] segments: no ST elevation ECG Findings: + Other (QTC 452); no PVCs Blood Pressure Blood Pressure Findings: Elevated blood pressure Blood Pressure Disposition: further management by hospitalist MDM Narrative There is no leukocytosis. The patient is somewhat anemic but this is baseline looking back at previous testing. Renal panel testing does show some chronic renal insufficiency but this is baseline. Potassium is slightly high but, the higher potassium appears baseline. Lactic acid level was not elevated making sepsis less likely. Alk phos was mildly elevated, no bilirubin elevation. The patient had a slightly high TSH however, the T4 was normal. EKG showed a sinus rhythm, no acute ischemia. Cardiac enzyme testing x1 was not consistent with acute cardiac injury. Chest film did not show pneumonia or CHF. Urinalysis did not show infection or hematuria. CT of the left foot/heel, CT of the lower back are currently pending. The patient received IV saline, he was given IV cefepime and IV vancomycin as antibiotic coverage. The patient presents with debilitation, left foot and lower back pain. He has a foul-smelling wound to the left heel. The left foot is warm to the touch when compared to the right. I do think he has an infection in this left foot. Patient was sent in by the office of aging as he was not felt safe at home. He cannot care for himself, there was rotting food in his home, the patient has not eaten today. Hospitalization is warranted. I did speak with the patient and case management. The on-call hospitalist has been consulted. We still await the imaging of the lumbar spine and left foot as the studies may help guide his hospital care. Impression & Plan Infection of left foot, Weakness, Lower back pain, Failure of outpatient treatment Discharge Plan Visit Data Chief Complaint: Illness ED Provider: Jose Rafael Schaefer Discharge Problem: Infection of left foot, Weakness, Lower back pain, Failure of outpatient treatment Patient Disposition: Being Evaluated by Hospitalist Forms Stand Alone Forms: My [facility] Prescriptions Prescriptions: No Action Unobtainable RF: 0 Referrals Referrals: Donavan Vera MD [Primary Care Provider] - Discharge Problem: Lower back pain Qualifiers: Chronicity: unspecified Back pain laterality: unspecified Sciatica presence: unspecified whether sciatica present Qualified Code(s): M54.5 - Low back pain The scribe's documentation has been prepared under my direction and personally reviewed by me in its entirety. I confirm that the note above accurately reflects all work, treatment, procedures, and medical decision making performed by me.
[2019-01-07] MEDS ORDERED: VANCOMYCIN CONSULT ACTIVE PRN (17:07)
[2019-01-07] MEDS ORDERED: VANCOMYCIN HCL 2,250 MG in SODIUM CHLORIDE 0.9% 500 ML IV ONE (17:07)
[2019-01-07 17:08] LABS: T4 Free Thyroxine 1.11 ng/dl (0.8-1.6)
--- NOTE | 2019-01-07 17:33 | History & Physical Report ---
Date of Service January 07, 2019 Assessment & Plan (1) Ulcer of left heel: Check wound cultures. Pt started on IV cefepime and vancomycin. Continue the same. Consult wound care. Consult infectious disease. Present on Admission?: Yes (2) Metabolic encephalopathy: (3) Falls frequently: (4) Cervical spinal stenosis: Status post cervical spine surgery. Consult orthopedics (5) Chronic renal insufficiency, stage IV (severe): Consult nephrology. Present on Admission?: Yes (6) Hyperkalemia: Monitor renal function closely Add Kayexalate Present on Admission?: Yes (7) Paroxysmal atrial fibrillation: (8) Myelopathy concurrent with and due to spinal stenosis of cervical region: Present on Admission?: Yes (9) Hypertension: (10) Diabetes: will add sliding scale insulin per protocol (11) Infection of left foot: Consult wound care. Further plan per ID. Antibioticsstarted. Present on Admission?: Yes (12) Weakness: Consult PT OT Present on Admission?: Yes (13) Lower back pain: (14) Failure of outpatient treatment: (15) Ambulatory dysfunction: (16) Back ache: (17) Lumbar spinal stenosis: (18) Unsatisfactory living conditions: Case management for discharge planning Present on Admission?: Yes (19) DVT prophylaxis: Add subcu heparin. History of Present Illness Chief Complaint: Generalized weakness and left heel ulcer Primary Care Provider: Donavan Vera MD The patient is a 63 year old male, with past medical history of chronic renal insufficiency and cervical spinal stenosis, who presents to the Emergency Room with complaints of constant general weakness over the past couple weeks. The patient was discharged from [facility] yesterday. However, the Office of Aging reports the patient is unsafe at home and unable to take care of himself. The Office of Aging notes notes they found rotten food in the patient's home today. The patient arrived via EMS. The patient notes pain to his left heel for the last two weeks as well. The patient states his neck has been bothering him also ever since he had cervical stenosis surgery on November 24. The patient states his lower spine has been bothering him when he is walking as well. The patient denies a fever. He notes he has not eaten today, and he states he has no family in the area. Allergies Allergy/AdvReac Type Severity Reaction Status Date / Time lactose AdvReac Unknown Unknown Verified 01/07/19 16:36 Home Medications Home Medications Medication Instructions Recorded Confirmed Type Unobtainable 01/07/19 01/07/19 History Past Med/Surg History Medical History Alcohol withdrawal Ambulatory dysfunction (Resolved 02/14/14) Ambulatory dysfunction Anemia (Resolved) Back ache Cervical spinal stenosis (Acute) Chronic kidney insufficiency (Acute) Chronic renal insufficiency, stage IV (severe) Diabetes (Chronic) Diverticulitis Metabolic encephalopathy Thrombocytopenia Ulcer of left heel Unsatisfactory living conditions Surgical History History of esophagogastroduodenoscopy (EGD) S/P colonoscopy Family History Other No pertinent family history Social History Preferred Language: Ukrainian Communication Ability: Effective Academic Coordinator Required: No Beliefs That Will Affect Care: None marital status: / Current Living Situation: Alone current occupational status: retired Feels Safe at Home: No Is there a partner from a previous relationship who is making you feel unsafe now?: No Smoking Status: Never smoker Second Hand Exposure: No ; Hx Alcohol Use: Yes Alcohol type: beer, wine and hard liquor Hx Substance Use: No Review of Systems Review of Systems: All systems reviewed & are unremarkable except as noted in HPI & below Physical Exam Physical Exam: GENERAL : No acute distress EYES: No icterus, gaze conjugate NOSE: No evidence of epistaxis MOUTH: No lesions or candidiasis, mucosa moist NECK: Supple LUNGS: CTA B/L, no wheezes, rales or rhonchi HEART: Regular, rate controlled ABDOMEN: Soft, NT, ND, BS Present EXTREMITIES: Left heel ulcer noted appears to be chronic, with open wound with some purulent drainage. NEURO: A&OX3 Results & Data Vital Signs (Past 12 Hours) Vital Signs Pulse Pulse Resp BP BP Pulse Ox 01/07/19 16:30 78 18 139/85 95 01/07/19 16:28 96 01/07/19 15:03 66 16 161/91 H 100 Laboratory Results 01/07/19 16:09 01/07/19 16:09 Diagnostic Findings SINGLE VIEW CHEST CLINICAL HISTORY: Generalized weakness. Left arm numbness. FINDINGS: 2 AP, portable, upright chest radiographs are compared to study dated 01/04/2019. Correlation is made with chest CT dated 10/25/2018. The examination is degraded by portable technique and patient rotation. The heart is top normal for projection. The mediastinal contour is within normal limits. There is elevation of the right hemidiaphragm and bibasilar atelectasis. This is similar to previous. No airspace consolidation, large pleural effusion, or pneumothorax is seen. The bony thorax is grossly intact. Calcific tendinopathy is noted in the right shoulder. IMPRESSION: No acute cardiopulmonary abnormality. LEFT UPPER EXTREMITY VENOUS DOPPLER HISTORY: left arm swelling COMPARISON STUDY: None. FINDINGS: The left internal jugular vein is patent. There is normal flow within the left subclavian vein. There is normal flow and compressibility within the left axillary, basilic, brachial, radial, ulnar, and visualized cephalic veins. IMPRESSION: No DVT within the left upper extremity. CT foot LT wo con HISTORY: 63 years-old Male poss osteo chronic left foot pain with possible osteomyelitis COMPARISON: None available TECHNIQUE: Multiple axial CT images of the left foot were obtained without the use of IV contrast. A dose lowering technique was used consistent with the principals of KELSEY. FINDINGS: Mild diffuse subcutaneous edema of the foot and ankle. Moderate dermal thicken ing of the posterior calcaneus with scattered foci of subcutaneous emphysema compatible with soft tissue ulcer. The underlying calcaneal cortex appears intact. No acute fracture or bony erosion to suggest acute osteomyelitis. Mildly demineralized appearance the bones with multifocal degenerative changes, mild to moderate within the first MTP joint. There is mild tibiotalar osteoarthritis. Mild hallux valgus deformity. Midfoot alignment is anatomic. Study is not tailored to assess the intrinsic ligaments and tendons. No gross ligamentous injury identified. Arterial calcifications are noted. Diffuse muscular atrophy of the foot. IMPRESSION: 1. No acute fracture, dislocation or bony erosion to suggest acute osteomyelitis. 2. Mild diffuse subcutaneous edema of the foot with subacute emphysema of the posterior calcaneus suggestive of soft tissue ulcer. No drainable fluid collection. 3. Multifocal degenerative changes as above. PG Care Time/CCT Total # of Minutes Spent Total Time Spent with Patient: Total time spent is greater than 50% in coordination of care (as documented) at patient's floor/unit and/or counseling patient: (1) Lumbar spinal stenosis Neurogenic claudication status: unspecified Qualified Code(s): M48.061 - Spinal stenosis, lumbar region without neurogenic claudication (2) Lower back pain Back pain laterality: bilateral Chronicity: chronic Sciatica presence: unspecified whether sciatica present Qualified Code(s): M54.5 - Low back pain; G89.29 - Other chronic pain
--- NOTE | 2019-01-07 18:25 | CT Scan Report ---
CT foot LT wo con HISTORY: 63 years-old Male poss osteo chronic left foot pain with possible osteomyelitis COMPARISON: None available TECHNIQUE: Multiple axial CT images of the left foot were obtained without the use of IV contrast. A dose lowering technique was used consistent with the principals of KELSEY. FINDINGS: Mild diffuse subcutaneous edema of the foot and ankle. Moderate dermal thickening of the posterior ca lcaneus with scattered foci of subcutaneous emphysema compatible with soft tissue ulcer. The underlyi ng calcaneal cortex appears intact. No acute fracture or bony erosion to suggest acute osteomyelitis. Mildly demineralized appearance the bones with multifocal degenerative changes, mild to moderate wit hin the first MTP joint. There is mild tibiotalar osteoarthritis. Mild hallux valgus deformity. Midfo ot alignment is anatomic. Study is not tailored to assess the intrinsic ligaments and tendons. No gross ligamentous injury iden tified. Arterial calcifications are noted. Diffuse muscular atrophy of the foot. IMPRESSION: 1. No acute fracture, dislocation or bony erosion to suggest acute osteomyelitis. 2. Mild diffuse subcutaneous edema of the foot with subacute emphysema of the posterior calcaneus sug gestive of soft tissue ulcer. No drainable fluid collection. 3. Multifocal degenerative changes as above. The above report was generated using voice recognition software. It may contain grammatical, syntax o r spelling errors. Electronically signed by: Shola Laurent M.D. 01/07/2019 6:23 PM
--- NOTE | 2019-01-07 18:35 | CT Scan Report ---
CT lumbar spine wo con HISTORY: 63 years-old Male pain, poss fx or stenosis acute low back pain COMPARISON: MRI lumbar spine 11/19/2017 TECHNIQUE: Multiple axial CT images of the lumbar spine were obtained without the use of IV contrast. A dose lowering technique was used consistent with the principals of KELSEY. FINDINGS: Cholelithiasis. No acute abnormality of the imaged intra-abdominal or intrapelvic structures. Colonic diverticulosis. Mild nonspecific stranding about the bilateral kidneys. Calcified plaque the abdomin al aorta. No aneurysm or adenopathy. Demineralized appearance of the bones. No acute fracture or subluxation identified. The imaged sacrum and iliac bones appear unremarkable. Lipomatosis of the lower lumbar spine, most pronounced at L4-L5 and L5-S1. At L4-L5 there is again moderate to severe central canal stenosis without significant for aminal narrowing. At L5-S1, moderate to severe central canal stenosis without significant foraminal n arrowing is also noted. Severe facet arthropathy of the lower lumbar spine redemonstrated along with ligamentum flavum thickening. Mild stranding about the lower lumbar facets is likely on a degenerativ e basis. IMPRESSION: 1. No acute fracture or subluxation. 2. Severe facet arthrosis at L4-L5 and L5-S1 redemonstrated. 3. Evaluation of the central canal and neuroforaminal structures is better evaluated on MRI lumbar sp ine from 11/19/2018. 4. Cholelithiasis. The above report was generated using voice recognition software. It may contain grammatical, syntax o r spelling errors. Electronically signed by: Shola Laurent M.D. 01/07/2019 6:34 PM
[2019-01-07] MEDS ORDERED: GLUCOSE 40% GEL 15 GM TUBE PO PRN ×2 (19:45→21:01)
[2019-01-07] MEDS ORDERED: CEFEPIME CONSULT ACTIVE PRN (19:45)
[2019-01-07] MEDS ORDERED: ZOLPIDEM TARTRATE 5 MG TAB PO PRN (19:45)
[2019-01-07] MEDS ORDERED: SODIUM CHLORIDE 0.9% 1000ML 1,000 ML IV SCH (19:45)
[2019-01-07] MEDS ORDERED: GLUCOSE 10 TABS/TUBE PO PRN ×2 (19:45→21:01)
[2019-01-07] MEDS ORDERED: ALUMINUM/MAGNESIUM SUSP 30 ML UDC PO PRN (19:45)
[2019-01-07] MEDS ORDERED: ACETAMINOPHEN 325 MG TAB PO PRN (19:45)
[2019-01-07] MEDS ORDERED: DEXTROSE 50% 50 ML SYRINGE IV PRN ×2 (19:45→21:01)
[2019-01-07] MEDS ORDERED: CARBOHYDRATES FOR HYPOGLYCEMIA PO PRN ×2 (19:45→21:01)
--- NOTE | 2019-01-07 20:40 | Pharmacy Report ---
Pharmacy Abx Initial Consult - Date of Service January 07, 2019 - Pharmacy Dosing Scope Date of Consult: 01/07/19 Consultation requested by: Dr. Moore Pharmacy is consulted to initiate Vancomycin IV and Cefepime IV dosing therapy, order appropriate labs and adjust drug dose/frequency. - Subjective The patient is a 63 year old M admitted on 01/07/19 18:30. - Objective Height: 5 ft 6 in Weight: 106.8 kg Vital Signs (Past 12hrs): Vital Signs Pulse Pulse Resp BP BP BP Pulse Ox 01/07/19 20:08 72 16 151/84 H 100 01/07/19 19:26 68 01/07/19 18:29 75 17 196/77 H 97 01/07/19 16:30 78 18 139/85 95 01/07/19 16:28 96 01/07/19 15:03 66 16 161/91 H 100 Lab Results (24hrs): Laboratory Tests (24 Hours) 01/07/19 01/07/19 16:09 16:09 WBC 8.58 Neut # (Auto) 6.16 Creatinine 1.54 H Est Cr Clr Drug Dosing 55.5 Micro Results: 01/07/19 17:33 Gram Stain - Pending Foot,Left Deep Wound Culture - Pending 01/07/19 16:15 Aerobic Blood Culture - Pending Blood Anaerobic Blood Culture - Pending 01/07/19 16:09 Aerobic Blood Culture - Pending Blood Anaerobic Blood Culture - Pending - Risk Factors for Resistance * Resident in a fci or extended-care facility - just discharged from [facility] on 01/06 * Hospitalization for 48 hours or more within the past 90 days - recently admitted for AMS after a fall from 12/04-12/10 - Assessment & Plan Assessment 63 year old M presents to the ED via EMS with complaints of general weakness over the last couple of weeks. He was discharged from [facility] yesterday after being admitted from - 12/10 following a fall. He has a history of CKD IV, DM, and cervical spinal stenosis. Pt notes pain to his left heel for the last weeks. Imaging shows soft tissue swelling, but no signs of osteo involvement. Pt has been afebrile so far, WBC 8.5. Renal function appears to be at baseline based on previous admissions. Blood cx x2 pending Left foot wound culture pending. Plan Vancomycin and Cefepime for treatment of left foot heel cellulitis. Vancomycin IV * Estimated PK Parameters: Vd 0.7 L/kg, Nabeel 0.05 hr-1, t1/2 13.7 hr * Loading dose: 2250 mg (21 mg/kg) x1 in the ED * Maintenance dose: 1500 mg IV (14 mg/kg) every 18 hours * Goal trough level : 10 to 15 mcg/mL * Trough level will be ordered with 4th maintenance dose if drug therapy continues. * A less than traditional dose and/or extended dosing interval has/have been selected due to likelihood of drug accumulation in obese patient/patient with h/o CKD. Cefepime * Target dose for skin and soft tissue infection: 2gm IV Q12H * For CrCl 30-60 mL/min: Initial dose then 2gm Q24H. Pharmacy will continue to follow and will adjust dose/frequency as necessary. Thank you.
[2019-01-07] MEDS: SODIUM POLYSTYRENE SULFONATE 15G/60ML SUSP PO SCH (20:48)
[2019-01-07] MEDS ORDERED: GLUCAGON FOR INJ 1 MG VIAL SQ PRN (21:01)
[2019-01-07] MEDS: HEPARIN SOD 5,000 UNIT/0.5 ML VIAL SQ SCH (21:22)
[2019-01-08] MEDS ORDERED: LACTASE 3000 UNIT TAB PO PRN (03:50)
[2019-01-08] MEDS: HEPARIN SOD 5,000 UNIT/0.5 ML VIAL SQ SCH ×3 (06:01→22:13)
[2019-01-08 06:02] LABS: Hematocrit (blood only) 24.5 % (42-52); Hemoglobin 8.5 g/dL (14.0-18.0); Mean Corpuscular Hemoglobin 32.4 pg (25-34); Mean Corpuscular Hgb Conc 34.7 g/dL (32-36); Mean Corpuscular Volume 93.5 fL (80-100); Mean Platelet Volume 11.1 fL (7.4-10.4); Platelet Count 137 K/uL (130-400); RDW Coefficient of Variation 14.6 % (11.5-14.5); RDW Standard Deviation 49.3 fL (36.4-46.3); Red Blood Count 2.62 M/uL (4.7-6.1); White Blood Count 7.61 K/uL (4.8-10.8)
[2019-01-08 06:33] LABS: Albumin Level 2.6 gm/dl (3.4-5.0); BUN Creatinine Ratio 22.9 (10-20); Bilirubin Direct 0.1 mg/dl (0-0.2); Calcium 9.1 mg/dl (8.5-10.1); Creatinine Clr Calc Pharmacy 53.4 ml/min; Est GFR (Non-African American) 44.9; Potassium 5.4 mmol/L (3.5-5.1)
[2019-01-08 06:36] LABS: Albumin Globulin Ratio 0.6 (0.9-2); Bilirubin,Total 0.4 mg/dl (0.2-1); Globulin 4.6 gm/dl (2.5-4.0); Total Protein 7.2 gm/dl (6.4-8.2)
[2019-01-08] MEDS ORDERED: SODIUM CHLORIDE 0.65% NA SOLN 45 ML (OCEAN) ONE (07:40)
[2019-01-08] MEDS: NIFEdipine EXTENDED REL 30 MG TABCR PO SCH (08:28)
[2019-01-08] MEDS: FLUTICASONE PROPIONATE NA SPR 16 GM BTL SCH (08:28)
[2019-01-08] MEDS: SODIUM POLYSTYRENE SULFONATE 15G/60ML SUSP PO SCH (08:29)
[2019-01-08] MEDS: SODIUM CHLORIDE 0.65% NA SOLN 45 ML (OCEAN) SCH ×2 (08:29→22:11)
[2019-01-08] MEDS: INSULIN ASPART 100 UNITS/ML 3 ML PEN SC SCH ×4 (09:02→22:32)
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
--- NOTE | 2019-01-08 10:13 | Infectious Disease Consult ---
Date of Consultation January 08, 2019 Assessment & Plan (1) Infection of left foot: 63-year-old male with severe spinal stenosis with infected ulcer of his left foot. Given his renal insufficiency, would like to avoid combination of vancomycin and Zosyn. Given Gram stain findings, will change to IV ceftaroline pending blood and wound culture results. Will follow. (2) Pressure ulcer of left foot, stage 2: History of Present Illness Reason for Consultation: Left heel ulcer Attending Physician: Nelson Rodrigues History of Present Illness 63-year-old male with history of severe cervical stenosis with concurrent myelopathy, lumbar spine stenosis, stage IV chronic kidney disease, diabetes, paroxysmal atrial fibrillation, who [facility] hospitalization for severe weakness from his spinal stenosis. He was discharged home but was sent for readmission after being found to be unable to care for himself. He has had a left heel ulcer for at least several weeks, and was noted to be more prominent with some foul-smelling drainage upon admission. He was started empirically on vancomycin and Zosyn. Gram stain from the drainage shows gram-positive cocci, cultures are pending. Blood cultures are no growth so far. Complaining of pain in his arms and back and left heel along with generalized weakness. CT scan of the foot shows no evidence of osteomyelitis. Lumbar CT scan without evidence of discitis or osteomyelitis. Allergies Allergy/AdvReac Type Severity Reaction Status Date / Time lactose AdvReac Unknown Unknown Verified 01/07/19 16:36 Home Medications Home Medications Medication Instructions Recorded Confirmed Type [place]-3 1 tab PO HS 01/08/19 01/08/19 History acetaminophen [Tylenol] 650 mg PO Q6H PRN 01/08/19 01/08/19 History allopurinol 100 mg PO HS 01/08/19 01/08/19 History clopidogrel [Plavix] 75 mg PO HS 01/08/19 01/08/19 History cyanocobalamin (vitamin B-12) 5,000 mcg SUBLINGUAL HS 01/08/19 01/08/19 History fluticasone propionate [Flonase 1 spray INTRANASAL DAILY 01/08/19 01/08/19 History Allergy Relief] folic acid 1 mg PO HS 01/08/19 01/08/19 History lactase [Lactaid] 3,000 unit PO Q8 PRN 01/08/19 01/08/19 History magnesium oxide 400 mg PO HS 01/08/19 01/08/19 History nifedipine 30 mg PO DAILY 01/08/19 01/08/19 History pioglitazone [Actos] 15 mg PO HS 01/08/19 01/08/19 History ranitidine HCl [Zantac] 150 mg PO DAILY 01/08/19 01/08/19 History sodium chloride [Deep Sea Nasal] 1 spray INTRANASAL BID 01/08/19 01/08/19 History thiamine HCl (vitamin B1) 100 mg PO HS 01/08/19 01/08/19 History vitamin B complex 1 tab PO HS 01/08/19 01/08/19 History zinc 50 mg PO HS 01/08/19 01/08/19 History Patient History Medical History Alcohol withdrawal Ambulatory dysfunction (Resolved 02/14/14) Ambulatory dysfunction Anemia (Resolved) Back ache Cervical spinal stenosis (Acute) Chronic kidney insufficiency (Acute) Chronic renal insufficiency, stage IV (severe) Diabetes (Chronic) Diverticulitis Metabolic encephalopathy Thrombocytopenia Ulcer of left heel Unsatisfactory living conditions Surgical History History of esophagogastroduodenoscopy (EGD) S/P colonoscopy Family History Other No pertinent family history Social History Preferred Language: Maltese Communication Ability: Effective 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: No Beliefs That Will Affect Care: None marital status: / Current Living Situation: Alone current occupational status: retired Other Information That Helps Us Care for You: No Feels Safe at Home: Yes Smoking Status: Never smoker Do You Dip or Chew Tobacco: No ; Second Hand Exposure: No ; Tobacco Cessation Education Requested by Patient: No Hx Alcohol Use: Yes Alcohol type: beer and hard liquor Hx Substance Use: No Review of Systems Review of Systems: All systems reviewed & are unremarkable except as noted in HPI & below Physical Exam Constitutional: WD/WN, vitals as above no acute distress Eyes: PERRL, conjunctivae normal, anicteric sclerae ENMT: external ear and nose normal, oropharynx normal Neck: trachea midline, no thyromegaly neck nontender Respiratory: normal respiratory effort, lungs clear to auscultation no respiratory distress Cardiovascular: RRR, no murmur, no edema Heart Sounds: no gallop and no cardiac rub Gastrointestinal (Abdomen): normal bowel sounds, soft, nontender, no hepatosplenomegaly Percussion/Palpation: no abdominal mass Musculoskeletal: Head/Neck/Chest: normocephalic, head atraumatic and + abnormal palpation of chest wall (Left chest swelling) Spine: no cervical spinal tenderness, no thoracic spinal tenderness and no lumbar spinal tenderness Extremities: + abnormal strength (Weakness upper extremities left greater than right) and + upper extremity abnormal to inspection (Left arm and hand swelling) Skin: no rashes, warm and dry + ulcer (Left heel ulcer with slightly foul- smelling drainage) Neurologic: moves all extremities and awake; no meningeal signs Weakness of upper extremities Psychiatric: A+Ox3, euthymic affect Lymphatic: no cervical or axillary lymphadenopathy no inguinal lymphadenopathy Results & Data Vital Signs (Past 12 Hours) Vital Signs Temp Pulse Resp BP BP Pulse Ox 01/08/19 07:56 36.3 C L 68 16 151/86 H 98 01/07/19 23:20 36.3 C L 69 18 152/83 H 100 Laboratory Results Short CBC 01/07/19 01/08/19 Range/Units 16:09 05:15 WBC 8.58 7.61 (4.8-10.8) K/uL Hgb 8.8 L 8.5 L (14.0-18.0) g/dL Hct 26.3 L 24.5 L (42-52) % Plt Count 141 137 (130-400) K/uL BMP 01/07/19 01/08/19 16:09 05:15 Sodium 138 141 Potassium 5.5 H 5.4 H Chloride 111 H 113 H Carbon Dioxide 20 L 18 L BUN 34 H 37 H Creatinine 1.54 H 1.60 H Glucose 114 H 79 Calcium 9.5 9.1 Cardiac Enzymes 01/07/19 Range/Units 16:09 Troponin I < 0.015 (0-0.045) ng/ml Liver Function 01/07/19 01/08/19 Range/Units 16:09 05:15 Total Bilirubin 0.4 0.4 (0.2-1) mg/dl Direct Bilirubin 0.1 (0-0.2) mg/dl AST 28 28 (15-37) U/L ALT 20 18 (12-78) U/L Alkaline Phosphatase 158 H 145 H (45-117) U/L Albumin 3.0 L 2.6 L (3.4-5.0) gm/dl Urine 01/07/19 Range/Units 15:37 Urine Color Yellow Urine Appearance Clear (Clear) Urine pH 5.0 (4.5-7.5) Ur Specific [place] 1.016 (1.000-1.030) Urine Protein Negative (Negative) Urine Glucose (UA) Negative (Negative) Diagnostic Findings Microbiology 01/07/19 17:33 Foot,Left Gram Stain - Final CT foot LT wo con HISTORY: 63 years-old Male poss osteo chronic left foot pain with possible osteomyelitis COMPARISON: None available TECHNIQUE: Multiple axial CT images of the left foot were obtained without the use of IV contrast. A dose lowering technique was used consistent with the principals of KELSEY. FINDINGS: Mild diffuse subcutaneous edema of the foot and ankle. Moderate dermal thickening of the posterior calcaneus with scattered foci of subcutaneous emphysema compatible with soft tissue ulcer. The underlying calcaneal cortex appears intact. No acute fracture or bony erosion to suggest acute osteomyelitis. Mildly demineralized appearance the bones with multifocal degenerative changes, mild to moderate within the first MTP joint. There is mild tibiotalar osteoarthritis. Mild hallux valgus deformity. Midfoot alignment is anatomic. Study is not tailored to assess the intrinsic ligaments and tendons. No gross ligamentous injury identified. Arterial calcifications are noted. Diffuse muscular atrophy of the foot. IMPRESSION: 1. No acute fracture, dislocation or bony erosion to suggest acute osteomyelitis. 2. Mild diffuse subcutaneous edema of the foot with subacute emphysema of the posterior calcaneus suggestive of soft tissue ulcer. No drainable fluid collection. 3. Multifocal degenerative changes as above. The above report was generated using voice recognition software. It may contain grammatical, syntax or spelling errors. Electronically signed by: Shola Laurent M.D. 01/07/2019 6:23 PM Dictated: 01/07/19 1816 Transcribed: 01/07/19 1821 PG Care Time/CCT Total # of Minutes Spent Total Time Spent with Patient: Total time spent is greater than 50% in coordination of care (as documented) at patient's floor/unit and/or counseling patient:
--- NOTE | 2019-01-08 11:02 | XRay Report ---
CERVICAL SPINE 3 VIEWS CLINICAL HISTORY: Postoperative examination. Hardware assessment. FINDINGS: AP, lateral, and odontoid views of the cervical spine are correlated with cervical spine CT dated 12/04/2018. The skeletal structures are osteopenic. There has been corpectomy of C4 and C5 wit hin interpositioning material and anterior fusion from C3 to C6. The orthopedic hardware appears inta ct. There is incomplete bony incorporation. The remaining vertebral bodies are normal in height. Ther e is minimal anterolisthesis at the C3-C4 level. There is straightening of the cervical lordosis. The re is advanced disc space narrowing seen at C6-C7. The spinous processes appear intact. The odontoid process and lateral masses are intact on the open-mouth view. The atlantodental articulation appears maintained noting degenerative change. The prevertebral soft tissues are normal in appearance. Athero sclerotic calcification is noted in the carotid bulbs. The visualized apical lung parenchyma appears clear. IMPRESSION: 1. No acute bony abnormality is identified. 2. There is postoperative change from anterior fusion at C3-C6 as above. There is incomplete bony inc orporation at these levels. Orthopedic hardware appears intact. 3. Minimal anterolisthesis is suggested at the C3-C4 level. Dictated: 01/08/2019 10:31 AM Transcribed: 01/08/2019 10:55 AM [place] [id number] [email or web address] Electronically signed by: Jose Rafael Kirkpatrick M.D. 01/08/2019 11:01 AM
[2019-01-08] MEDS: CEFTAROLINE FOSAMIL ACETATE 600 MG in SODIUM CHLORIDE 0.9% 250 ML IV SCH ×2 (11:29→22:27)
[2019-01-08] MEDS ORDERED: VANCOMYCIN HCL 1,500 MG in SODIUM CHLORIDE 0.9% 500 ML IV SCH (12:00)
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
[2019-01-08] MEDS ORDERED: CEFEPIME 2,000 MG in SYRINGE 7.5 ML IV SCH (16:00)
--- NOTE | 2019-01-08 17:39 | Hospitalist Progress Note ---
Date of Service January 08, 2019 Assessment & Plan (1) Infection of left foot: Appreciated ID and wound care consults. Agree with change in antibiotics as recommended by ID. NO evidence of osteomyelitis on CT of foot. (2) Ulcer of left heel: Wound care consult appreciated. Cont local wound care. The ulcer appears to be traumatic in origin. He has a foot drop on the left from his c-spine (and/or L-spine) issues. Would likely benefit from AFO device. (3) Hyperkalemia: Kayexalate. Repeat BMP am. High K is in setting of CKD stage 3. (4) Falls frequently: 2nd to b/l upper and lower extremity weakness in setting of severe c-spine stenosis s/p decompression surgery earlier this fall. PT, OT. Not safe for home; likely needs placement. (5) Cervical spinal stenosis: Status post cervical spine surgery by Dr Gutierres earlier this fall (11/23/18). Dr Gutierres has seen - no additional recs at this time. Pain control for neck prn. (6) Paroxysmal atrial fibrillation: history of such. in NSR at admission. (7) Myelopathy concurrent with and due to spinal stenosis of cervical region: s/p decompression surgery by Dr Gutierres in November. No additional recs from Dr Gutierres at this time. (8) Hypertension: Controlled. Cont home meds. (9) Diabetes: Controlled with sliding scale insulin per protocol. (10) Lumbar spinal stenosis: Will ultimately need intervention on this but not candidate for such at this time. (11) Ambulatory dysfunction: PT, OT evals. Consider AFO device for left foot drop. Likely needs placement again. (12) Left foot drop: 2nd to c-spine and/or l-spine stenosis. Consider AFO. (13) DVT prophylaxis: Heparin SC. (14) Chronic kidney disease, stage 3a: appreciate nephrology consultation. treat high K. BMP am. Cr largely at baseline today. (15) Unsatisfactory living conditions: Case management consulted. Patient agrees that going home is highly unlikely to be an option. OOA involved. Subjective patient resting comfortably during the visit. we had met during a prior stay and he remembered me from that time. he complained that he has recovered poorly from his cervical spine issues and that when he got home from [facility] to his house that "things didn't go well." he c/o about [facility] and that he only received 40 min of therapy/day. he continues with b/l arm weakness much worse on left. he continues with b/l leg weakness much worse on left. he drags the left foot some with walking. denies any cp, sob, abd pain, nausea, emesis, constipation. he does have left foot pain - worse with ambulation. he has had numerous stools since taking the kayexalate. Review of Systems Constitutional: no fever, no chills and no anorexia Respiratory: no cough Cardiovascular: no chest pain Physical Exam Constitutional: + obese; no acute distress and no altered mental status ENMT: external ear and nose normal, oropharynx normal Respiratory: normal respiratory effort, lungs clear to auscultation Cardiovascular: Rate/Rhythm: regular rate and regular rhythm Heart Sounds: normal S1 and normal S2; no murmur Vessels: posterior tibial pulses present and dorsalis pedis pulses present; no JVD Extremities: no edema Gastrointestinal (Abdomen): normal bowel sounds, soft, nontender, no hepatosplenomegaly Skin: left heel -- traumatic ecchymoses/soft tissue injury with very tiny ulceration at posterior aspect of heel; no drainage or odor. severe xerosis of both feet. Cervical spine surgical site - right anterior neck - fully healed, intact. Neurologic: strength RUE - 3-4/5; LUE - 3/5 (especially shoulder shrug, abduction, etc); left foot drop with poor dorsiflexion; RLE strength 4-5/5; LLE - hip flexion 3-4/5. Psychiatric: A+Ox3, euthymic affect Results & Data Vital Signs (Past 12 Hours) Vital Signs Temp Pulse Resp BP Pulse Ox 01/08/19 15:34 36.4 C L 82 16 157/94 H 100 01/08/19 07:56 36.3 C L 68 16 151/86 H 98 Laboratory Results K 5.4 Cr 1.6 PG Care Time/CCT Total # of Minutes Spent Total Time Spent with Patient: Total time spent is greater than 50% in coordination of care (as documented) at patient's floor/unit and/or counseling patient: (1) Ulcer of left heel Non-pressure ulcer stage: unspecified non-pressure ulcer stage Qualified Code(s): L97.429 - Non-pressure chronic ulcer of left heel and midfoot with unspecified severity (2) Lumbar spinal stenosis Neurogenic claudication status: unspecified Qualified Code(s): M48.061 - Spinal stenosis, lumbar region without neurogenic claudication (3) Diabetes Chronic kidney disease stage: stage 3 (moderate) Diabetes mellitus complication detail: with chronic kidney disease Diabetes mellitus complication status: with kidney complications Diabetes mellitus exterminator termite insulin use: without assisted use Diabetes mellitus type: type 2 Qualified Code(s): E11.22 - Type 2 diabetes mellitus with diabetic chronic kidney disease; N18.3 - Chronic kidney disease, stage 3 (moderate) (4) Hypertension Hypertension type: essential hypertension Qualified Code(s): I10 - Essential (primary) hypertension
[2019-01-08] MEDS: CYANOCOBALAMIN (VITAMIN B-12) 2,500 MCG TAB.SUBL SL SCH (22:11)
[2019-01-08] MEDS: OMEGA-3 (PURIFIED FISH OIL) 1 GM CAP PO SCH (22:11)
[2019-01-08] MEDS: MAGNESIUM OXIDE 400 MG TAB PO SCH (22:12)
[2019-01-08] MEDS: ZINC SULFATE 220 MG CAPSULE PO SCH (22:12)
[2019-01-08] MEDS: FOLIC ACID 1 MG TAB PO SCH (22:12)
[2019-01-08] MEDS: VITAMIN B COMPLEX TAB PO SCH (22:13)
[2019-01-08] MEDS: CLOPIDOGREL BISULFATE 75 MG TAB PO SCH (22:13)
[2019-01-08] MEDS: SODIUM BICARBONATE 650 MG TAB PO SCH (22:13)
[2019-01-08] MEDS: THIAMINE HCL 100 MG TAB PO SCH (22:13)
[2019-01-09] MEDS: HEPARIN SOD 5,000 UNIT/0.5 ML VIAL SQ SCH ×3 (05:56→21:52)
[2019-01-09 06:17] LABS: Albumin Level 2.8 gm/dl (3.4-5.0); BUN Creatinine Ratio 20.4 (10-20); Calcium 9.2 mg/dl (8.5-10.1); Creatinine Clr Calc Pharmacy 49.7 ml/min; Est GFR (African American) 47.6; Est GFR (Non-African American) 41.1; Phosphorus 4.8 mg/dl (2.5-4.9); Potassium 4.5 mmol/L (3.5-5.1)
[2019-01-09] MEDS: INSULIN ASPART 100 UNITS/ML 3 ML PEN SC SCH ×4 (08:44→21:53)
[2019-01-09] MEDS: SODIUM CHLORIDE 0.65% NA SOLN 45 ML (OCEAN) SCH ×2 (08:49→21:55)
[2019-01-09] MEDS: FLUTICASONE PROPIONATE NA SPR 16 GM BTL SCH (08:50)
[2019-01-09] MEDS: SODIUM POLYSTYRENE SULFONATE 15G/60ML SUSP PO SCH (08:50)
[2019-01-09] MEDS: SODIUM BICARBONATE 650 MG TAB PO SCH (08:50)
[2019-01-09] MEDS: NIFEdipine EXTENDED REL 30 MG TABCR PO SCH (08:51)
[2019-01-09] MEDS: CEFTAROLINE FOSAMIL ACETATE 600 MG in SODIUM CHLORIDE 0.9% 250 ML IV SCH ×2 (10:47→21:53)
--- NOTE | 2019-01-09 12:41 | Nephrology Progress Note ---
Date of Service January 09, 2019 Assessment & Plan (1) Infection of left foot: -- ID following. Initially started on vancomycin and Zosyn. Cx GPC. Abx switched to ceftaroline yesterday. (2) Chronic kidney insufficiency: -- Kidney function relatively stable at baseline.Medications appropriate for kidney function. Stopped oral NaHCO3. Volume status and blood pressure are acceptable. Electrolytes are normal. Nephrology will sign-off. Please call with questions or concerns. Please arrange outpatient follow up with me in the CKD clinic within 1 month of hospital discharge. (3) Hyperkalemia: Avoid any additional SPS. Subjective No acute events overnight. Continues to have frequent loose stool following Kayexalate. Oral NaHCO3 caused some nausea yesterday. Appetite is good. Denies abdominal pain. No fevers or chills. Review of Systems Review of Systems: All systems reviewed & are unremarkable except as noted in HPI & below Physical Exam Constitutional: well developed and + obese; no acute distress Eyes: no scleral abnormality and no corneal abnormality ENMT: Mouth: no oral mucosal abnormality and oral mucous membranes not dry Neck: trachea midline, + thick neck and + limited neck extension Respiratory: normal respiratory effort Auscultation: lungs clear to auscultation bilaterally Cardiovascular: Rate/Rhythm: regular rate Heart Sounds: normal S1 and normal S2 Extremities: no edema Gastrointestinal (Abdomen): Inspection/Auscultation: + abdomen distended Percussion/Palpation: abdomen nontender Musculoskeletal: Extremities: + limited ROM of extremities and + hand abnormality; no cyanosis and no clubbing Skin: normal turgor; no lesions Neurologic: Motor/Sensory: no tremor and no asterixis Psychiatric: Orientation: alert and oriented x 3 Results & Data Vital Signs (Past 12 Hours) Vital Signs Temp Pulse Resp BP Pulse Ox 01/09/19 07:09 36.2 C L 72 18 145/75 H 99 Laboratory Results Laboratory Results - last 24 hr 01/08/19 01/08/19 01/09/19 17:01 20:31 05:26 Sodium 142 Potassium 4.5 D Chloride 116 H Carbon Dioxide 19 L Anion Gap 7.0 BUN 35 H Creatinine 1.72 H Est Cr Clr Drug Dosing 49.7 Est GFR ( Amer) 47.6 Est GFR (Non-Af Amer) 41.1 BUN/Creatinine Ratio 20.4 H Glucose 103 H POC Glucose 113 H 133 H Calcium 9.2 Phosphorus 4.8 Albumin 2.8 L 01/09/19 01/09/19 08:03 12:04 Sodium Potassium Chloride Carbon Dioxide Anion Gap BUN Creatinine Est Cr Clr Drug Dosing Est GFR ( Amer) Est GFR (Non-Af Amer) BUN/Creatinine Ratio Glucose POC Glucose 91 85 Calcium Phosphorus Albumin PG Care Time/CCT Total # of Minutes Spent Total Time Spent with Patient: Total time spent is greater than 50% in coordination of care (as documented) at patient's floor/unit and/or counseling patient: (1) Chronic kidney insufficiency Chronic kidney disease stage: unspecified stage Qualified Code(s): N18.9 - Chronic kidney disease, unspecified
--- NOTE | 2019-01-09 20:28 | Hospitalist Progress Note ---
Date of Service January 09, 2019 Assessment & Plan (1) Infection of left foot: Appreciate ID and wound care consults. Culture growing GPC. Follow. NO evidence of osteomyelitis on CT of foot. Cont local wound care. (2) Ulcer of left heel: Wound care consult appreciated. Cont local wound care. The ulcer appears to be traumatic in origin. He has a foot drop on the left from his c-spine (and/or L-spine) issues. Suspect the weakness in left foot/leg is contributing to gait issues leading to the left heel injury. Would likely benefit from AFO device? (3) Hyperkalemia: s/p multiple doses of Kayexalate. now resolved. High K was in setting of CKD stage 3. kayexalate d/c. repeat BMP am. (4) Falls frequently: 2nd to b/l upper and lower extremity weakness in setting of severe c-spine stenosis s/p decompression surgery earlier this fall. PT, OT. Not safe for home; needs placement. (5) Cervical spinal stenosis: Status post cervical spine surgery by Dr Gutierres earlier this fall (11/23/18). Dr Gutierres has seen - no additional recs at this time. Pain control for neck prn. (6) Paroxysmal atrial fibrillation: history of such. in NSR at admission. in regular rhythm on exam today. (7) Myelopathy concurrent with and due to spinal stenosis of cervical region: s/p decompression surgery by Dr Gutierres in November. No additional recs from Dr Gutierres at this time. Has made slow progress in terms of neuromuscular recovery since the surgery with ongoing arm and leg weakness. Likely needs placement again at rehab/SNF. (8) Hypertension: Controlled. Cont home meds. (9) Diabetes: Controlled with sliding scale insulin per protocol. (10) Lumbar spinal stenosis: Will ultimately need intervention on this but not candidate for such at this time. (11) Ambulatory dysfunction: PT, OT evals. Consider AFO device for left foot drop. Likely needs placement again. (12) Left foot drop: 2nd to c-spine and/or l-spine stenosis. Consider AFO. (13) Chronic kidney disease, stage 3a: appreciate Dr Murphy's consultation. hyperkalemia resolved. BMP am. Cr at baseline today. (14) DVT prophylaxis: Heparin SC. (15) Unsatisfactory living conditions: Case management consulted. Needs placement. Patient with very flat affect - consider antidepressant initiation while here. Subjective having loose stools due to kayexalate administration. Dr Murphy stopped the kayexalate today since K level has normalized. patient denies any new complaints, new events, or concerns. he continues to agree that he cannot return home. apparently PT had come by this am but he wasn't able to work out with them and asked me if they could "try to come by again today." no change in upper or lower extremity weakness. Review of Systems Constitutional: no fever, no chills and no anorexia Respiratory: no cough, no dyspnea and no wheezing Cardiovascular: no chest pain Gastrointestinal: + diarrhea/loose stools; no abdominal pain, no nausea and no vomiting Neurologic: + localized weakness (chronic; see HPI) Physical Exam Constitutional: + obese; no acute distress and no altered mental status flat affect ENMT: external ear and nose normal, oropharynx normal Respiratory: normal respiratory effort, lungs clear to auscultation Cardiovascular: Rate/Rhythm: regular rate and regular rhythm Heart Sounds: normal S1 and normal S2; no murmur Vessels: posterior tibial pulses present and dorsalis pedis pulses present; no JVD Extremities: no edema Gastrointestinal (Abdomen): normal bowel sounds, soft, nontender, no hepatosplenomegaly Skin: dressings intact - left foot Neurologic: handgrip 4-5/5 right; 3-4/5 on left; arm abduction on left 3/5; arm abduction on right 4/5; foot drop left; overall no change in neuro exam Psychiatric: Orientation: alert and oriented x 3 Affect: + flat affect Results & Data Vital Signs (Past 12 Hours) Vital Signs Temp Pulse Resp BP Pulse Ox 01/09/19 15:08 36.3 C L 78 17 130/81 98 Laboratory Results Laboratory Results - last 24 hr 01/08/19 01/09/19 01/09/19 20:31 05:26 08:03 Sodium 142 Potassium 4.5 D Chloride 116 H Carbon Dioxide 19 L Anion Gap 7.0 BUN 35 H Creatinine 1.72 H Est Cr Clr Drug Dosing 49.7 Est GFR ( Amer) 47.6 Est GFR (Non-Af Amer) 41.1 BUN/Creatinine Ratio 20.4 H Glucose 103 H POC Glucose 133 H 91 Calcium 9.2 Phosphorus 4.8 Albumin 2.8 L 01/09/19 01/09/19 12:04 17:26 Sodium Potassium Chloride Carbon Dioxide Anion Gap BUN Creatinine Est Cr Clr Drug Dosing Est GFR ( Amer) Est GFR (Non-Af Amer) BUN/Creatinine Ratio Glucose POC Glucose 85 108 H Calcium Phosphorus Albumin Diagnostic Findings wound cx left foot - GPC, ID to follow PG Care Time/CCT Total # of Minutes Spent Total Time Spent with Patient: Total time spent is greater than 50% in coor dination of care (as documented) at patient's floor/unit and/or counseling patient: (1) Ulcer of left heel Non-pressure ulcer stage: unspecified non-pressure ulcer stage Qualified Code(s): L97.429 - Non-pressure chronic ulcer of left heel and midfoot with unspecified severity (2) Lumbar spinal stenosis Neurogenic claudication status: unspecified Qualified Code(s): M48.061 - Spinal stenosis, lumbar region without neurogenic claudication (3) Diabetes Chronic kidney disease stage: stage 3 (moderate) Diabetes mellitus complication detail: with chronic kidney disease Diabetes mellitus complication status: with kidney complications Diabetes mellitus long term care administrator insulin use: without snf use Diabetes mellitus type: type 2 Qualified Code(s): E11.22 - Type 2 diabetes mellitus with diabetic chronic kidney disease; N18.3 - Chronic kidney disease, stage 3 (moderate) (4) Hypertension Hypertension type: essential hypertension Qualified Code(s): I10 - Essential (primary) hypertension
[2019-01-09] MEDS: VITAMIN B COMPLEX TAB PO SCH (21:55)
[2019-01-09] MEDS: CLOPIDOGREL BISULFATE 75 MG TAB PO SCH (21:55)
[2019-01-09] MEDS: ZINC SULFATE 220 MG CAPSULE PO SCH (21:55)
[2019-01-09] MEDS: MAGNESIUM OXIDE 400 MG TAB PO SCH (21:55)
[2019-01-09] MEDS: THIAMINE HCL 100 MG TAB PO SCH (21:55)
[2019-01-09] MEDS: CYANOCOBALAMIN (VITAMIN B-12) 2,500 MCG TAB.SUBL SL SCH (21:56)
[2019-01-09] MEDS: FOLIC ACID 1 MG TAB PO SCH (21:56)
[2019-01-09] MEDS: OMEGA-3 (PURIFIED FISH OIL) 1 GM CAP PO SCH (21:56)
[2019-01-10] MEDS: HEPARIN SOD 5,000 UNIT/0.5 ML VIAL SQ SCH ×3 (06:01→22:05)
[2019-01-10 06:26] LABS: Hematocrit (blood only) 24.6 % (42-52); Hemoglobin 8.2 g/dL (14.0-18.0); Mean Corpuscular Hemoglobin 31.7 pg (25-34); Mean Corpuscular Hgb Conc 33.3 g/dL (32-36); Mean Platelet Volume 10.6 fL (7.4-10.4); Platelet Count 121 K/uL (130-400); RDW Coefficient of Variation 14.9 % (11.5-14.5); RDW Standard Deviation 50.6 fL (36.4-46.3); Red Blood Count 2.59 M/uL (4.7-6.1); White Blood Count 6.42 K/uL (4.8-10.8)
[2019-01-10 07:03] LABS: Albumin Level 2.7 gm/dl (3.4-5.0); BUN Creatinine Ratio 16.7 (10-20); Calcium 9.5 mg/dl (8.5-10.1); Creatinine Clr Calc Pharmacy 47.8 ml/min; Est GFR (African American) 45.4; Est GFR (Non-African American) 39.2; Phosphorus 4.9 mg/dl (2.5-4.9); Potassium 4.4 mmol/L (3.5-5.1)
[2019-01-10] MEDS: SODIUM CHLORIDE 0.65% NA SOLN 45 ML (OCEAN) SCH ×2 (09:35→20:53)
[2019-01-10] MEDS: FLUTICASONE PROPIONATE NA SPR 16 GM BTL SCH (09:35)
[2019-01-10] MEDS: NIFEdipine EXTENDED REL 30 MG TABCR PO SCH (09:35)
[2019-01-10] MEDS: INSULIN ASPART 100 UNITS/ML 3 ML PEN SC SCH ×4 (09:37→21:17)
[2019-01-10] MEDS: CEFTAROLINE FOSAMIL ACETATE 600 MG in SODIUM CHLORIDE 0.9% 250 ML IV SCH (09:41)
--- NOTE | 2019-01-10 14:25 | Infectious Disease Progress Nt ---
Date of Service January 10, 2019 Assessment & Plan (1) Infection of left foot: 63-year-old male with severe spinal stenosis with infected ulcer of his left foot without evidence of osteomyelitis on CT scan, now on ceftaroline. Cultures positive for MRSA. Would recommend 7 to 10 days of IV antibiotics followed by oral therapy. Will discuss with all involved. Will follow. (2) Pressure ulcer of left foot, stage 2: Subjective Patient seen in follow-up for left heel infection. Offers no new specific complaints today. Wound culture has grown MRSA. Appears to be tolerating ceftaroline without apparent difficulty. Remains afebrile. Review of Systems Review of Systems: All systems reviewed & are unremarkable except as noted in HPI & below Physical Exam Constitutional: WD/WN, vitals as above no acute distress Eyes: PERRL, conjunctivae normal, anicteric sclerae ENMT: external ear and nose normal, oropharynx normal Neck: trachea midline, no thyromegaly neck nontender Respiratory: normal respiratory effort, lungs clear to auscultation no respiratory distress Cardiovascular: RRR, no murmur, no edema Heart Sounds: no gallop and no cardiac rub Gastrointestinal (Abdomen): normal bowel sounds, soft, nontender, no hepatosplenomegaly Percussion/Palpation: no abdominal mass Musculoskeletal: Head/Neck/Chest: normocephalic, head atraumatic and + abnormal palpation of chest wall (Left chest swelling) Spine: no cervical spinal tenderness, no thoracic spinal tenderness and no lumbar spinal tenderness Extremities: + abnormal strength (Weakness upper extremities left greater than right) and + upper extremity abnormal to inspection (Left arm and hand swelling) Skin: no rashes, warm and dry + ulcer (Left heel ulcer with necrotic tissue with erythema surrounding) Neurologic: moves all extremities and awake; no meningeal signs Psychiatric: A+Ox3, euthymic affect Lymphatic: no cervical or axillary lymphadenopathy no inguinal lymphadenopathy Results & Data Vital Signs (Past 12 Hours) Vital Signs Temp Pulse Resp BP Pulse Ox 01/10/19 07:40 36.6 C 66 16 168/82 H 98 Laboratory Results Short CBC 01/10/19 Range/Units 06:14 WBC 6.42 (4.8-10.8) K/uL Hgb 8.2 L (14.0-18.0) g/dL Hct 24.6 L (42-52) % Plt Count 121 L (130-400) K/uL BMP 01/10/19 06:14 Sodium 143 Potassium 4.4 Chloride 116 H Carbon Dioxide 18 L BUN 30 H Creatinine 1.79 H Glucose 88 Calcium 9.5 Liver Function 01/10/19 Range/Units 06:14 Albumin 2.7 L (3.4-5.0) gm/dl Diagnostic Findings Microbiology 01/07/19 17:33 Foot,Left Gram Stain - Final 01/07/19 17:33 Foot,Left Deep Wound Culture - Final Staph aureus MRSA 01/07/19 16:09 Blood Aerobic Blood Culture - Preliminary No growth in Aerobic bottle after 48 hours. 01/07/19 16:09 Blood Anaerobic Blood Culture - Preliminary No growth in Anaerobic bottle after 48 hours. 01/07/19 16:15 Blood Aerobic Blood Culture - Preliminary No growth in Aerobic bottle after 48 hours. 01/07/19 16:15 Blood Anaerobic Blood Culture - Preliminary No growth in Anaerobic bottle after 48 hours. PG Care Time/CCT Total # of Minutes Spent Total Time Spent with Patient: Total time spent is greater than 50% in coordination of care (as documented) at patient's floor/unit and/or counseling patient:
--- NOTE | 2019-01-10 19:47 | Hospitalist Progress Note ---
Date of Service January 10, 2019 Assessment & Plan (1) Infection of left foot: MRSA Appreciate ID consult. Continue IV ceftaroline 7 to 10 days as per ID recommendations, then switch to orals. (2) Ulcer of left heel: Wound care consult appreciated -clean with saline. Dry. [place] with Betadine. Allowed to dry. Cover with large OPTi foam. Change daily. Keep elevated all surfaces at all times. No tight shoes. Concern for foot drop causing traumatic ulceration. No foot drop apparent on today's exam. (3) Hyperkalemia: Now resolved with Kayexalate. We will continue to monitor for progression. (4) Falls frequently: 2nd to b/l upper and lower extremity weakness in setting of severe c-spine stenosis s/p decompression surgery earlier this fall. PT, OT. Not safe for home; needs placement. (5) Myelopathy concurrent with and due to spinal stenosis of cervical region: Present prior to admission but this was his main reason for readmission due to not being able to manage at home. Status post decompression surgery by Dr Gutierres in November. No additional recs from Dr Gutierres at this time. Has made slow progress in terms of neuromuscular recovery since the surgery with ongoing arm and leg weakness. (6) Cervical spinal stenosis: As above (7) Paroxysmal atrial fibrillation: New onset in November. Terminated spontaneously after 5 hours. In setting of hypothermia and alcohol use. Risk of anticoagulation outweighs benefits as per cardiology review on December 07, 2019. No rapid ventricular rate. Normal sinus rhythm since admission. (8) Hypertension: Well-controlled on home dose of nifedipine. (9) Diabetes: Appears well-controlled on diabetic diet without home dose of Actos. We will discontinue carb coverage of insulin to see if he still requires this. (10) Lumbar spinal stenosis: Will ultimately need intervention on this but not candidate for such at this time. (11) Ambulatory dysfunction: Secondary to cervical spinal stenosis. PT, OT evals. No apparent left foot drop as per PT eval today. (12) Chronic kidney disease, stage 3a: Stable. Hyperkalemia on admission now resolved. (13) Unsatisfactory living conditions: Case management consulted -plan for placement on discharge. (14) DVT prophylaxis: Heparin 5000 SQ every 8 hours (15) Discharge planning issues: PT, OT. Planning on placement on discharge. He is medically stable for discharge at this time as long as IV antibiotics can be arranged. Subjective No acute events overnight. No new weakness or change in sensation of his limbs. His main concern is ongoing sudden onset muscle spasms that bring his legs together, lasts for around 5 minutes, can come on anytime, mainly concerned why it is happening, no associated urine incontinence or change in bowels, present since prior operation and previous admissions. Review of Systems Review of Systems: All systems reviewed & are unremarkable except as noted in HPI & below Physical Exam Constitutional: + obese; no acute distress ENMT: external ear and nose normal, oropharynx normal Respiratory: normal respiratory effort, lungs clear to auscultation Cardiovascular: Rate/Rhythm: regular rate and regular rhythm Heart Sounds: normal S1 and normal S2; no murmur Extremities: no edema Gastrointestinal (Abdomen): normal bowel sounds, soft, nontender, no hepatosplenomegaly Neurologic: moves all extremities, + focal motor deficit (Ongoing upper extremity left > right gross weakness) and awake Normal plantar and dorsiflexion bilaterally Psychiatric: Orientation: alert and oriented x 3 Affect: + flat affect Results & Data Vital Signs (Past 12 Hours) Vital Signs Temp Pulse Pulse Resp BP BP Pulse Ox 01/10/19 15:38 97.3 F L 69 17 130/76 100 01/10/19 07:40 97.9 F 66 16 168/82 H 98 PG Care Time/CCT Total # of Minutes Spent Total Time Spent with Patient: Total time spent is greater than 50% in coordination of care (as documented) at patient's floor/unit and/or counseling patient: (1) Ulcer of left heel Non-pressure ulcer stage: unspecified non-pressure ulcer stage Qualified Code(s): L97.429 - Non-pressure chronic ulcer of left heel and midfoot with unspecified severity (2) Lumbar spinal stenosis Neurogenic claudication status: unspecified Qualified Code(s): M48.061 - Spinal stenosis, lumbar region without neurogenic claudication (3) Diabetes Chronic kidney disease stage: stage 3 (moderate) Diabetes mellitus complication detail: with chronic kidney disease Diabetes mellitus complication status: with kidney complications Diabetes mellitus detention insulin use: without industrial gas servicer use Diabetes mellitus type: type 2 Qualified Code(s): E11.22 - Type 2 diabetes mellitus with diabetic chronic kidney disease; N18.3 - Chronic kidney disease, stage 3 (moderate) (4) Hypertension Hypertension type: essential hypertension Qualified Code(s): I10 - Essential (primary) hypertension
[2019-01-10] MEDS: CEFTAROLINE FOSAMIL ACETATE 400 MG in SODIUM CHLORIDE 0.9% 250 ML IV SCH (20:50)
[2019-01-10] MEDS: MAGNESIUM OXIDE 400 MG TAB PO SCH (20:52)
[2019-01-10] MEDS: THIAMINE HCL 100 MG TAB PO SCH (20:52)
[2019-01-10] MEDS: CYANOCOBALAMIN (VITAMIN B-12) 2,500 MCG TAB.SUBL SL SCH (20:52)
[2019-01-10] MEDS: CLOPIDOGREL BISULFATE 75 MG TAB PO SCH (20:52)
[2019-01-10] MEDS: ZINC SULFATE 220 MG CAPSULE PO SCH (20:52)
[2019-01-10] MEDS: VITAMIN B COMPLEX TAB PO SCH (20:52)
[2019-01-10] MEDS: OMEGA-3 (PURIFIED FISH OIL) 1 GM CAP PO SCH (20:52)
[2019-01-10] MEDS: FOLIC ACID 1 MG TAB PO SCH (20:53)
[2019-01-11] MEDS: HEPARIN SOD 5,000 UNIT/0.5 ML VIAL SQ SCH ×3 (05:44→21:16)
[2019-01-11 08:45] LABS: Basophils # (auto) 0.01 K/uL (0-0.2); Basophils % (auto) 0.1 %; Eosinophils # (auto) 0.17 K/uL (0-0.5); Eosinophils % (auto) 2.5 %; Hematocrit (blood only) 27.2 % (42-52); Immature Granulocytes # (auto) 0.02 K/uL (0.00-0.02); Immature Granulocytes % (auto) 0.3 %; Lymphocytes # (auto) 2.15 K/uL (1.2-3.4); Lymphocytes % (auto) 31.7 %; Mean Corpuscular Hemoglobin 31.4 pg (25-34); Mean Corpuscular Hgb Conc 33.1 g/dL (32-36); Mean Corpuscular Volume 94.8 fL (80-100); Mean Platelet Volume 9.9 fL (7.4-10.4); Monocytes # (auto) 0.37 K/uL (0.11-0.59); Monocytes % (auto) 5.4 %; Neutrophils # (auto) 4.07 K/uL (1.4-6.5); Platelet Count 140 K/uL (130-400); RDW Coefficient of Variation 14.9 % (11.5-14.5); RDW Standard Deviation 51.1 fL (36.4-46.3); Red Blood Count 2.87 M/uL (4.7-6.1); White Blood Count 6.79 K/uL (4.8-10.8)
[2019-01-11 09:07] LABS: Prothrombin Time 10.3 Seconds (9.0-12.0)
[2019-01-11] MEDS: NIFEdipine EXTENDED REL 30 MG TABCR PO SCH (09:08)
[2019-01-11] MEDS: SODIUM CHLORIDE 0.65% NA SOLN 45 ML (OCEAN) SCH ×2 (09:09→20:50)
[2019-01-11] MEDS: FLUTICASONE PROPIONATE NA SPR 16 GM BTL SCH (09:09)
[2019-01-11] MEDS: INSULIN ASPART 100 UNITS/ML 3 ML PEN SC SCH ×4 (09:11→21:17)
[2019-01-11] MEDS: CEFTAROLINE FOSAMIL ACETATE 400 MG in SODIUM CHLORIDE 0.9% 250 ML IV SCH ×2 (09:15→21:07)
[2019-01-11 09:30] LABS: BUN Creatinine Ratio 15.4 (10-20); Calcium 9.8 mg/dl (8.5-10.1); Creatinine Clr Calc Pharmacy 46.2 ml/min; Est GFR (African American) 43.6; Est GFR (Non-African American) 37.6; Potassium 4.7 mmol/L (3.5-5.1)
[2019-01-11 09:32] LABS: Albumin Globulin Ratio 0.6 (0.9-2); Bilirubin,Total 0.3 mg/dl (0.2-1); Globulin 4.8 gm/dl (2.5-4.0); Phosphorus 4.5 mg/dl (2.5-4.9); Total Protein 7.8 gm/dl (6.4-8.2)
[2019-01-11] MEDS: CLOPIDOGREL BISULFATE 75 MG TAB PO SCH (21:10)
[2019-01-11] MEDS: FOLIC ACID 1 MG TAB PO SCH (21:10)
[2019-01-11] MEDS: MAGNESIUM OXIDE 400 MG TAB PO SCH (21:10)
[2019-01-11] MEDS: OMEGA-3 (PURIFIED FISH OIL) 1 GM CAP PO SCH (21:10)
[2019-01-11] MEDS: CYANOCOBALAMIN (VITAMIN B-12) 2,500 MCG TAB.SUBL SL SCH (21:11)
[2019-01-11] MEDS: VITAMIN B COMPLEX TAB PO SCH (21:11)
[2019-01-11] MEDS: ZINC SULFATE 220 MG CAPSULE PO SCH (21:11)
[2019-01-11] MEDS: THIAMINE HCL 100 MG TAB PO SCH (21:11)
--- NOTE | 2019-01-11 21:51 | Hospitalist Progress Note ---
Date of Service January 11, 2019 Assessment & Plan (1) Infection of left foot: MRSA Appreciate ID consult. Will continue IV ceftaroline 10 days as per ID recommendations, then switch to orals with follow-up in wound clinic. No progression of cellulitis on exam (2) Ulcer of left heel: Unstageable pressure ulcer. Suspect initially developed as a blood blister. PT/DP pulses intact. Wound care consult appreciated - clean with saline. Dry. [place] with Betadine. Allowed to dry. Cover with large optifoam. Change daily. Keep elevated off surfaces at all times. No tight shoes. Will consult orthotics for heel relief as recommended by physical therapy. (3) Hyperkalemia: Now resolved with Kayexalate. We will continue to monitor for progression. (4) Falls frequently: 2nd to b/l upper and lower extremity weakness in setting of severe c-spine stenosis s/p decompression surgery earlier this fall. Not safe at home (5) Myelopathy concurrent with and due to spinal stenosis of cervical region: Present prior to admission but this was his main reason for readmission due to not being able to manage at home. Status post decompression surgery by Dr Gutierres in November. No additional recs from Dr Gutierres on this admission. Has made slow progress in terms of neuromuscular recovery since the surgery with ongoing arm and leg weakness. (6) Cervical spinal stenosis: As above (7) Paroxysmal atrial fibrillation: New onset in November. Terminated spontaneously after 5 hours. In setting of hypothermia and alcohol use. Risk of anticoagulation outweighs benefits as per cardiology review on December 07, 2019. No rapid ventricular rate. Normal sinus rhythm since admission. (8) Hypertension: Stable. Continue nifedipine home dose. (9) Diabetes: Hemoglobin A1c 5.8 in November. Appears well-controlled on diabetic diet without home dose of Actos. (10) Lumbar spinal stenosis: Will ultimately need intervention on this but not candidate for such at this time. (11) Ambulatory dysfunction: Secondary to cervical spinal stenosis. Ongoing physical therapy rehabilitation. (12) Chronic kidney disease, stage 3a: Creatinine slowly trending up. Bicarb trending down, suspect due to reduced renal acid excretion. Will restart sodium bicarb 650 mg twice daily at this time. (13) Unsatisfactory living conditions: Case management consulted - plan for placement on discharge. (14) DVT prophylaxis: Heparin 5000 SQ every 8 hours (15) Discharge planning issues: Ultrasound-guided IV line placed in anticipation of placement. Awaiting insurance authorization for [facility] Fernandes. He remains medically stable for discharge at this time. Subjective No acute events overnight. No current concerns or complaints. Showed pictures of foot ulceration. Revisited history with the patient and he is still unsure how his foot became ulcerated.. Review of Systems Review of Systems: All systems reviewed & are unremarkable except as noted in HPI & below Physical Exam Constitutional: + obese; no acute distress ENMT: external ear and nose normal, oropharynx normal Respiratory: normal respiratory effort, lungs clear to auscultation Cardiovascular: Rate/Rhythm: regular rate and regular rhythm Heart Sounds: normal S1 and normal S2; no murmur Extremities: no edema Gastrointestinal (Abdomen): normal bowel sounds, soft, nontender, no hepatosplenomegaly Skin: Dressing not removed on foot but no extension of erythema or warmth suggestive of cellulitis Neurologic: moves all extremities, + focal motor deficit (Ongoing upper extremity left > right gross weakness) and awake Psychiatric: Orientation: alert and oriented x 3 Affect: + flat affect Results & Data Vital Signs (Past 12 Hours) Vital Signs Temp Pulse Resp BP Pulse Ox 01/11/19 15:11 97.3 F L 67 18 115/64 100 PG Care Time/CCT Total # of Minutes Spent Total Time Spent with Patient: Total time spent is greater than 50% in coordination of care (as documented) at patient's floor/unit and/or counseling patient: (1) Ulcer of left heel Non-pressure ulcer stage: unspecified non-pressure ulcer stage Qualified Code(s): L97.429 - Non-pressure chronic ulcer of left heel and midfoot with unspecified severity (2) Hypertension Hypertension type: essential hypertension Qualified Code(s): I10 - Essential (primary) hypertension (3) Diabetes Diabetes mellitus type: type 2 Diabetes mellitus continuous churn buttermaker insulin use: without continuous churn buttermaker use Diabetes mellitus complication status: with kidney complications Diabetes mellitus complication detail: with chronic kidney disease Chronic kidney disease stage: stage 3 (moderate) Qualified Code(s): E11.22 - Type 2 diabetes mellitus with diabetic chronic kidney disease; N18.3 - Chronic kidney disease, stage 3 (moderate) (4) Lumbar spinal stenosis Neurogenic claudication status: unspecified Qualified Code(s): M48.061 - Spinal stenosis, lumbar region without neurogenic claudication
[2019-01-11] MEDS: SODIUM BICARBONATE 650 MG TAB PO SCH (22:07)
[2019-01-12] MEDS: HEPARIN SOD 5,000 UNIT/0.5 ML VIAL SQ SCH ×2 (05:49→13:13)
[2019-01-12] MEDS: FLUTICASONE PROPIONATE NA SPR 16 GM BTL SCH (08:24)
[2019-01-12] MEDS: SODIUM CHLORIDE 0.65% NA SOLN 45 ML (OCEAN) SCH (08:25)
[2019-01-12] MEDS: NIFEdipine EXTENDED REL 30 MG TABCR PO SCH (08:25)
[2019-01-12] MEDS: SODIUM BICARBONATE 650 MG TAB PO SCH (08:27)
[2019-01-12] MEDS: CEFTAROLINE FOSAMIL ACETATE 400 MG in SODIUM CHLORIDE 0.9% 250 ML IV SCH (08:28)
[2019-01-12 08:31] LABS: Albumin Level 2.6 gm/dl (3.4-5.0); BUN Creatinine Ratio 16.1 (10-20); Calcium 9.6 mg/dl (8.5-10.1); Est GFR (African American) 43.3; Est GFR (Non-African American) 37.4; Phosphorus 4.5 mg/dl (2.5-4.9); Potassium 4.3 mmol/L (3.5-5.1)
[2019-01-12] MEDS: INSULIN ASPART 100 UNITS/ML 3 ML PEN SC SCH ×2 (09:29→13:12)
--- NOTE | 2019-01-12 13:55 | Discharge Summary ---
Date of Service January 12, 2019 Admission HPI Per Admitting Provider The patient is a 63 year old male, with past medical history of chronic renal insufficiency and cervical spinal stenosis, who presents to the Emergency Room with complaints of constant general weakness over the past couple weeks. The patient was discharged from [facility] yesterday. However, the Office of Aging reports the patient is unsafe at home and unable to take care of himself. The Office of Aging notes notes they found rotten food in the patient's home today. The patient arrived via EMS. The patient notes pain to his left heel for the last two weeks as well. The patient states his neck has been bothering him also ever since he had cervical stenosis surgery on November 24. The patient states his lower spine has been bothering him when he is walking as well. The patient denies a fever. He notes he has not eaten today, and he states he has no family in the area. Principal Diagnosis Infected heel ulcer with MRSA Unstageable pressure heel ulcer Peripheral neuropathy Hyperkalemia secondary to chronic kidney disease Metabolic acidosis secondary to chronic kidney disease Type 2 diabetes mellitus Ambulatory dysfunction, frequent falls secondary to cervical and lumbar spinal stenosis Discharge Exam Constitutional + obese; no acute distress ENMT external ear and nose normal, oropharynx normal Neck + thick neck Respiratory normal respiratory effort, lungs clear to auscultation Cardiovascular Rate/Rhythm: regular rate and regular rhythm Heart Sounds: normal S1 and normal S2; no murmur Extremities: + edema (1+ b/l equal to knees) Gastrointestinal (Abdomen) normal bowel sounds, soft, nontender, no hepatosplenomegaly Neurologic moves all extremities, + focal motor deficit (Ongoing upper extremity left > right gross weakness) and awake Motor/Sensory: + sensory deficit (stocking distrbution to mid shins b/l) Psychiatric Orientation: alert and oriented x 3 Affect: + flat affect Discharge Data Allergies Allergy/AdvReac Type Severity Reaction Status Date / Time lactose AdvReac Unknown Unknown Verified 01/07/19 16:36 Consultations 01/07/19 17:15 ED Decision to Admit Stat 01/07/19 19:45 Consult Infectious Diseases Routine Consult Nephrology Routine Consult Orthopedic Surgery Routine Ordered Studies 01/07/19 15:22 CT foot LT wo con Stat 01/07/19 17:28 CT lumbar spine wo con Stat Hospital Course (1) Infection of left foot: MRSA Appreciate ID consult. Will continue IV ceftaroline 10 days as per ID recommendations, then switch to orals with follow-up in wound clinic. No progression of cellulitis on exam (2) Ulcer of left heel: Unstageable pressure ulcer. Suspect initially developed as a blood blister. PT/DP pulses intact. Wound care consult appreciated - clean with saline. Dry. [place] with Betadine. Allowed to dry. Cover with large optifoam. Change daily. Keep elevated off surfaces at all times. No tight shoes. Will consult orthotics for heel relief as recommended by physical therapy. (3) Hyperkalemia: Now resolved with Kayexalate. We will continue to monitor for progression. (4) Falls frequently: 2nd to b/l upper and lower extremity weakness in setting of severe c-spine stenosis s/p decompression surgery earlier this fall. Not safe at home (5) Myelopathy concurrent with and due to spinal stenosis of cervical region: Present prior to admission but this was his main reason for readmission due to not being able to manage at home. Status post decompression surgery by Dr Gutierres in November. No additional recs from Dr Gutierres on this admission. Has made slow progress in terms of neuromuscular recovery since the surgery with ongoing arm and leg weakness. (6) Cervical spinal stenosis: As above (7) Paroxysmal atrial fibrillation: New onset in November. Terminated spontaneously after 5 hours. In setting of hypothermia and alcohol use. Risk of anticoagulation outweighs benefits as per cardiology review on December 07, 2019. No rapid ventricular rate. Normal sinus rhythm since admission. (8) Hypertension: Stable. Continue nifedipine home dose. (9) Diabetes: Hemoglobin A1c 5.8 in November. Appears well-controlled on diabetic diet without home dose of Actos. (10) Lumbar spinal stenosis: Will ultimately need intervention on this but not candidate for such at t his time. (11) Ambulatory dysfunction: Secondary to cervical spinal stenosis. Ongoing physical therapy rehabilitation. (12) Chronic kidney disease, stage 3a: Creatinine slowly trending up. Bicarb trending down, suspect due to reduced renal acid excretion. Will restart sodium bicarb 650 mg twice daily at this time. (13) Unsatisfactory living conditions: Case management consulted - plan for placement on discharge. (14) DVT prophylaxis: Heparin 5000 SQ every 8 hours (15) Discharge planning issues: Ultrasound-guided IV line placed in anticipation of placement. Awaiting insurance authorization for [facility]. He remains medically stable for discharge at this time. Total Time Total Time Spent Total Time Spent (In Minutes): 55 Total Time Includes: Examination of the Patient, Discharge Planning and Medication Reconciliation Discharge Plan Discharge Items Patient Disposition: Transfer Inpatient Rehab Fac Reason For Visit: LEFT HEEL ULCER Discharge Diagnosis: Infected heel ulcer with MRSA Unstageable pressure heel ulcer Hyperkalemia secondary to chronic kidney disease Metabolic acidosis secondary to chronic kidney disease Type 2 diabetes mellitus Ambulatory dysfunction, frequent falls secondary to cervical and lumbar spinal stenosis Condition on Discharge: Fair Goals: Increased independence, mobility and stability Healing of heel ulcer Activity: Per Instructions section Weightbearing: Left partial Weightbearing Comment: keep pressure off heel. Patient has orthosis for this. Non-emergency contact: Primary Care Provider Call non-emergency contact if: you have any medication questions and your symptoms worsen Follow-up/Referrals: [facility] W[facility] [Provider Group] - 01/25/19 9:00 am (Please, follow up at [facility] on ThursdayJanuary 25 at 9:00 am. *You will also be seen by the infectious disease specialist, Dr. Ulrich, during this visit. The Wound Clinic is located at [address] in [place]. If you need to change this appointment, call the clinic at [phone].) Donavan Vera MD [Primary Care Provider] - Dietitian Info: no straws, aspiration precautions Diet: Carb Consistent or DM2 and Low Potassium (2gm) Addtl Attending Provider Instructions: You were admitted to [facility] from January 07 - 2018 for unstageable infected pressure ulcer of his left heel. In addition you have struggled to cope at home after with frequent falls and ambulatory dysfunction after cervical spinal stenosis surgery on November 23. Wound culture grew MRSA and infectious disease recommended continuing IV treatment with ceftaroline for total 10 days (5 days left of this), then switch to doxycycline (renally dosed depending on repeat renal function, preferred over Bactrim given renal function) until follow up with wound clinic (see above appointment) for further advice on duration. Please see additional wound care instruction regarding dressing changes. You are to always use your orthosis while ambulating and keep all pressure off heel while lying or sitting down. You were also noted to have elevated potassium levels. This responded to Stefanialate and has been stable on a low potassium diet after discontinuing this. In addition you were started on sodium bicarbonate on discharge. Previously this caused vomiting and may have to be stopped if this occurs again but we are prescribing a lower dose on discharge. Please follow up with Dr Murphy as previously arranged on 02/02/2019. With regards to your diabetes, your last HbA1C was 5.8. On a diabetic diet you have only needed approximately 3 units of insulin a day therefore we will stop your at this time as you do not appear to need this if you stick to a diabetic, low carbohydrate diet. Of note on your last hospitalization you were on nectar thick fluids and minced and moist food due to concerns for aspirations. You were not placed on these precautions on this admission and had no significant aspirations. Recommend no straws and aspiration precautions but would remove other restrictions as last assessment 1 month ago and likely dysphagia due to metabolic encephalopathy and neck pain after operation has somewhat resolved at this time. Please arrange follow up with speech and language therapy as an outpatient. He has ongoing lumbar spinal stenosis and he should be followed up surgically by Dr Gutierres's office for this and post surgical care for his spinal stenosis. You are now medically stable to be discharged from hospital to [facility] for ongoing rehabilitation and IV antibiotics. Pending Studies at Discharge: No Stand-Alone Forms: My [facility] Skilled Items Patient informed of condition?: Yes DNR: No Discharge Level of Care: Skilled Communicable Disease: Yes (MRSA wound infection) Discharge Prognosis: Stable Lines: Peripheral IV Urinary Catheter: No Medications and DC Order Prescriptions: New sodium bicarbonate 650 mg Tablet 650 mg PO DAILY Qty: 30 RF: 0 Teflaro 400 mg recon soln 400 mg IV Q12H 5 Days Qty: 10 RF: 0 Continued clopidogrel [Plavix] 75 mg Tablet 75 mg PO HS RF: 0 magnesium oxide 400 mg magnesium Tablet 400 mg PO HS RF: 0 thiamine HCl (vitamin B1) 100 mg Tablet 100 mg PO HS RF: 0 vitamin B complex Tablet 1 tab PO HS RF: 0 allopurinol 100 mg Tablet 100 mg PO HS RF: 0 folic acid 1 mg Tablet 1 mg PO HS RF: 0 cyanocobalamin (vitamin B-12) 5,000 mcg Tablet, Sublingual 5,000 mcg SUBLINGUAL HS RF: 0 zinc 50 mg Tablet 50 mg PO HS RF: 0 nifedipine 30 mg Tablet Extended Release 30 mg PO DAILY RF: 0 fluticasone propionate [Flonase Allergy Relief] 50 mcg/actuation [place] 1 spray INTRANASAL DAILY RF: 0 ranitidine HCl [Zantac] 150 mg Tablet 150 mg PO DAILY RF: 0 sodium chloride [Deep Sea Nasal] 0.65 % Aerosol,[place] 1 spray INTRANASAL BID RF: 0 acetaminophen [Tylenol] 325 mg Tablet 650 mg PO Q6H PRN (Reason: Fever Or Pain) RF: 0 lactase [Lactaid] 3,000 unit Tablet 3,000 unit PO Q8 PRN (Reason: Lactose Intolerance) RF: 0 [place]-3 1 tab PO HS RF: 0 Discontinued pioglitazone [Actos] 15 mg Tablet 15 mg PO HS RF: 0 Discharge Orders: Discharge Order (Routine); Ordered 01/12/19 Ordered By: Nelson Rey Admission Data Admit Date/Time: 01/07/19 18:30 Attending Provider: Nelson Rey Admit Provider: Hero Moore Primary Care Provider: Donavan Vera Other Providers: Hero Moore ; Marcel Faust ; Jose L Murphy ; Gautam Gutierres ; Na Zavala ; Dom Shannon at [place] Other Interventions: Discharge Summary Assessment (RN) Last Done: 01/12/19 13:26
--- NOTE | 2019-01-12 14:23 | Infectious Disease Progress Nt ---
Date of Service January 12, 2019 Assessment & Plan (1) Infection of left foot: 63-year-old male with severe spinal stenosis with infected ulcer of his left foot without evidence of osteomyelitis on CT scan, now on ceftaroline. Cultures positive for MRSA. Patient to complete 10 days of IV ceftaroline, then likely transition to oral Bactrim therapy with follow-up at the wound care center. (2) Pressure ulcer of left foot, stage 2: Subjective Patient seen in follow-up for heel infection. Offers no new complaints today. Pain relatively well controlled. Remains afebrile. Tolerating ceftaroline without apparent difficulty. Review of Systems Review of Systems: All systems reviewed & are unremarkable except as noted in HPI & below Physical Exam Constitutional: WD/WN, vitals as above no acute distress Eyes: PERRL, conjunctivae normal, anicteric sclerae ENMT: external ear and nose normal, oropharynx normal Neck: trachea midline, no thyromegaly neck nontender Respiratory: normal respiratory effort, lungs clear to auscultation no respiratory distress Cardiovascular: RRR, no murmur, no edema Heart Sounds: no gallop and no cardiac rub Gastrointestinal (Abdomen): normal bowel sounds, soft, nontender, no hepatosplenomegaly Percussion/Palpation: no abdominal mass Musculoskeletal: Head/Neck/Chest: normocephalic, head atraumatic and + abnormal palpation of chest wall (Left chest swelling) Spine: no cervical spinal tenderness, no thoracic spinal tenderness and no lumbar spinal tenderness Extremities: + abnormal strength (Weakness upper extremities left greater than right) and + upper extremity abnormal to inspection (Left arm and hand swelling) Skin: no rashes, warm and dry + ulcer (Left heel ulcer with necrotic tissue with erythema surrounding) Neurologic: moves all extremities and awake; no meningeal signs Psychiatric: A+Ox3, euthymic affect Lymphatic: no cervical or axillary lymphadenopathy no inguinal lymphadenopathy Results & Data Vital Signs (Past 12 Hours) Vital Signs Temp Pulse Pulse Resp BP BP Pulse Ox 01/12/19 13:26 36.3 C L 67 66 18 168/82 H 135/77 99 01/12/19 06:57 36.3 C L 67 18 135/77 99 Laboratory Results [facility] 01/12/19 07:39 Sodium 142 Potassium 4.3 Chloride 116 H Carbon Dioxide 16 L BUN 30 H Creatinine 1.86 H Glucose 92 Calcium 9.6 Liver Function 01/12/19 Range/Units 07:39 Albumin 2.6 L (3.4-5.0) gm/dl Diagnostic Findings Microbiology 01/07/19 17:33 Foot,Left Gram Stain - Final 01/07/19 17:33 Foot,Left Deep Wound Culture - Final Staph aureus MRSA 01/07/19 16:09 Blood Aerobic Blood Culture - Preliminary No growth in Aerobic bottle after 48 hours. 01/07/19 16:09 Blood Anaerobic Blood Culture - Preliminary No growth in Anaerobic bottle after 48 hours. 01/07/19 16:15 Blood Aerobic Blood Culture - Preliminary No growth in Aerobic bottle after 48 hours. 01/07/19 16:15 Blood Anaerobic Blood Culture - Preliminary No growth in Anaerobic bottle after 48 hours. PG Care Time/CCT Total # of Minutes Spent Total Time Spent with Patient: Total time spent is greater than 50% in coordination of care (as documented) at patient's floor/unit and/or counseling patient:
== END 2019-01-12 14:54 | DRG 592 ==
LOC: ED 14:38 → SUATTDRO 18:30 → 3W 18:30

== ENCOUNTER 2019-10-28 11:10 | Inpatient (IN) ==
[2019-10-28] MEDS ORDERED: PANTOprazole 40 MG in SYRINGE 0 ML IV ONE (12:05)
--- NOTE | 2019-10-28 12:22 | Emergency Department Note ---
History of Present Illness General Chief complaint: Rectal Bleed Stated complaint: RECTAL BLEEDING Time Seen by Provider: 10/28/19 11:56 Source: patient Mode of arrival: ambulatory Limitations: no limitations History of Present Illness Provider Complaint: + melena Onset (ago): 5 day(s) Current Pain Intensity: 0 Relieved By: + none Exacerbated By: + none Context: no history of GI bleed Associated symptoms: + denies other symptoms HPI Narrative: This is a 63-year-old male who presents to the ED with a chief complaint of black stools. He states that he has chronic diarrhea for over 20 years. He states that normally it is brown in color. Over the past 5 days he has noticed blackness in his stools and that it is sticky. The patient was seen at the wound care clinic and referred here for further evaluation. He states t hat he takes Imodium for his diarrhea. He has no lightheadedness or dizziness. Denies any chest pains or shortness of breath. No vomiting. Home Medications Home Medications Medication Instructions Recorded Confirmed Type allopurinol 100 mg PO QAM 01/08/19 10/28/19 History clopidogrel [Plavix] 75 mg PO QAM 01/08/19 10/28/19 History cyanocobalamin (vitamin B-12) 5,000 mcg SUBLINGUAL HS 01/08/19 10/28/19 History fluticasone propionate [Flonase 1 spray INTRANASAL DAILY 01/08/19 10/28/19 History Allergy Relief] folic acid 1 mg PO HS 01/08/19 10/28/19 History lactase [Lactaid] 3,000 unit PO Q8 PRN 01/08/19 10/28/19 History magnesium oxide 400 mg PO HS 01/08/19 10/28/19 History nifedipine 30 mg PO QAM 01/08/19 10/28/19 History sodium chloride [Deep Sea Nasal] 1 spray INTRANASAL BID 01/08/19 10/28/19 History thiamine HCl (vitamin B1) 100 mg PO HS 01/08/19 10/28/19 History vitamin B complex 1 tab PO HS 01/08/19 10/28/19 History zinc 50 mg PO HS 01/08/19 10/28/19 History sodium bicarbonate 650 mg PO DAILY #30 tab 01/12/19 10/28/19 Rx omega-3 acid ethyl esters 1 cap PO DAILY 10/28/19 10/28/19 History Allergies Allergy/AdvReac Type Severity Reaction Status Date / Time lactose AdvReac Unknown Unknown Verified 10/28/19 12:50 Past Med/Surg History Medical History Alcohol withdrawal Ambulatory dysfunction (02/14/14) Ambulatory dysfunction Anemia Cervical spinal stenosis Chronic kidney insufficiency Diabetes Diverticulitis Esophageal reflux Fatty liver, alcoholic Hyperkalemia Insomnia Metabolic encephalopathy Pressure ulcer, heel, left, unstageable Thrombocytopenia Type 2 diabetes mellitus Ulcer of left heel Unsatisfactory living conditions Vitamin D deficiency Surgical History H/O cervical spine surgery History of esophagogastroduodenoscopy (EGD) S/P colonoscopy Family History Other No pertinent family history Social History Smoking Status: Never smoker Second Hand Exposure: Yes; Hx Alcohol Use: Yes Alcohol type: beer and hard liquor Hx Substance Use: No Preferred Language: Upper Sorbian Communication Ability: Effective Hypo Dipper Required: No Beliefs That Will Affect Care: None marital status: / Current Living Situation: Alone current occupational status: retired Feels Safe at Home: Yes Review of Systems A total of 10 systems reviewed and were otherwise negative Physical Exam 2 Vital Signs: Vital Signs - 24 hr 10/28/19 11:22 10/28/19 11:55 10/28/19 13:15 Temperature 37 C Temperature Source Oral Pulse Rate 73 70 Pulse Rate [Left] 74 Respiratory Rate 18 20 20 Respiratory Effort / Characteristics Non-Labored Non-Labored Sponta neous Respiratory Depth Normal Normal Blood Pressure 129/70 Blood Pressure [Le ft Arm] 147/73 H Blood Pressure Shweta n 89 Blood Pressure Shweta n [Left Arm] 97 Blood Pressure Pos ition [Left Arm] Lying Pulse Oximetry 100 100 100 Oxygen Delivery Me thod Room Air Room Air Room Air Sepsis Recent Feve r Within 48 Hours No Sepsis New/Unexpla ined Change in Men mat Status No Sepsis Action Take n by Nursing No Action Required Physical Exam: CONSTITUTIONAL/VITAL SIGNS: Reviewed / noted above. GENERAL: Non-toxic in appearance. INTEGUMENTARY: Warm, dry, and [place]. HEAD: Normocephalic. EYES: without scleral icterus or trauma. ENT/OROPHARYNX: clear and moist. LYMPHADENOPATHY/NECK: Is supple without lymphadenopathy or meningismus. RESPIRATORY: Lungs clear and equal. CARDIOVASCULAR: Regular rate and rhythm. GI/ABDOMEN: Soft and nontender. No organomegaly or pulsatile mass. No rebound or guarding. Normal bowel sounds. EXTREMITIES: Warm and well perfused. BACK: No CVA tenderness. NEUROLOGICAL: Intact without focal deficits. PSYCHIATRIC: normal affect. MUSCULOSKELETAL: Normally developed with good muscle tone. Rectal: Guaiac positive black stools TRIAGE NURSING DOCUMENTATION REVIEWED. Course Administered Medications Discontinued Medications Pantoprazole Sodium 40 mg/ (Syringe) 10 mls @ 5 mls/min IV NOW ONE Stop: 10/28/19 12:06 Last Admin: 10/28/19 13:18 Dose: 5 mls/min Documented by: [id number] Medical Decision Making Differential Diagnosis + infectious diarrhea, + gastritis, + Upper gastrointestinal hemorrhage, + Lower gastrointestinal hemorrhage, + hematochezia, + melena, + coagulopathy, + colitis, + inflammatory bowel disease, + malignancy, + esophagitis, + peptic ulcer disease and + variceal bleed Medical Records Attestation: I reviewed the patient's medical records. Home Medications Current Medication List: was personally reviewed by me Laboratory Data Attestation: I reviewed the patient's lab results. Result diagrams: 10/28/19 13:01 10/28/19 13:01 Lab Results 10/28/19 10/28/19 10/28/19 Range/Units 13:01 13:01 13:01 WBC 6.10 (4.8-10.8) K/uL RBC 2.16 L (4.7-6.1) M/uL Hgb 7.1 L (14.0-18.0) g/dL Hct 21.3 L (42-52) % MCV 98.6 (80-100) fL MCH 32.9 (25-34) pg MCHC 33.3 (32-36) g/dL RDW Std Deviation 48.5 H (36.4-46.3) fL RDW Coeff of Clyde 14.2 (11.5-14.5) % Plt Count 178 (130-400) K/uL MPV 9.6 (7.4-10.4) fL Immature Gran % (Auto) 0.5 % Neut % (Auto) 56.7 % Lymph % (Auto) 32.0 % Carter % (Auto) 9.5 % Eos % (Auto) 1.0 % Baso % (Auto) 0.3 % Neut # (Auto) 3.46 (1.4-6.5) K/uL Lymph # (Auto) 1.95 (1.2-3.4) K/uL Carter # (Auto) 0.58 (0.11-0.59) K/uL Eos # (Auto) 0.06 (0-0.5) K/uL Baso # (Auto) 0.02 (0-0.2) K/uL Immature Gran # (Auto) 0.03 H (0.00-0.02) K/uL Absolute Nucleated RBC 0.03 H (0-0) K/uL Nucleated RBC % (auto) 0.6 % Polychromasia 1+ PT 10.4 (9.0-12.0) Seconds INR 1.0 (0.9-1.1) APTT 21.7 (21.0-31.0) Seconds PTT Ratio 0.8 Sodium 140 (136-145) mmol/L Potassium 4.5 (3.5-5.1) mmol/L Chloride 113 H (98-107) mmol/L Carbon Dioxide 16 L (21-32) mmol/L Anion Gap 11.0 (3-11) BUN 47 H (7-18) mg/dl Creatinine 1.92 H (0.6-1.4) mg/dl Est Cr Clr Drug Dosing Not Reportable Est GFR ( Amer) 41.7 Est GFR (Non-Af Amer) 36.0 BUN/Creatinine Ratio 24.6 H (10-20) Glucose 92 (70-99) mg/dl Calcium 9.0 (8.5-10.1) mg/dl Total Bilirubin 0.3 (0.2-1) mg/dl AST 63 H (15-37) U/L ALT 32 (12-78) U/L Alkaline Phosphatase 77 (45-117) U/L Total Protein 7.5 (6.4-8.2) gm/dl Albumin 3.4 (3.4-5.0) gm/dl Globulin 4.1 H (2.5-4.0) gm/dl Albumin/Globulin Ratio 0.8 L (0.9-2) Specimen Hemolysis Blood Type Antibody Screen Crossmatch 10/28/19 10/28/19 Range/Units 13:04 13:52 WBC (4.8-10.8) K/uL RBC (4.7-6.1) M/uL Hgb (14.0-18.0) g/dL Hct (42-52) % MCV (80-100) fL MCH (25-34) pg MCHC (32-36) g/dL RDW Std Deviation (36.4-46.3) fL RDW Coeff of Clyde (11.5-14.5) % Plt Count (130-400) K/uL MPV (7.4-10.4) fL Immature Gran % (Auto) % Neut % (Auto) % Lymph % (Auto) % Carter % (Auto) % Eos % (Auto) % Baso % (Auto) % Neut # (Auto) (1.4-6.5) K/uL Lymph # (Auto) (1.2-3.4) K/uL Carter # (Auto) (0.11-0.59) K/uL Eos # (Auto) (0-0.5) K/uL Baso # (Auto) (0-0.2) K/uL Immature Gran # (Auto) (0.00-0.02) K/uL Absolute Nucleated RBC (0-0) K/uL Nucleated RBC % (auto) % Polychromasia PT (9.0-12.0) Seconds INR (0.9-1.1) APTT (21.0-31.0) Seconds PTT Ratio Sodium (136-145) mmol/L Potassium (3.5-5.1) mmol/L Chloride (98-107) mmol/L Carbon Dioxide (21-32) mmol/L Anion Gap (3-11) BUN (7-18) mg/dl Creatinine (0.6-1.4) mg/dl Est Cr Clr Drug Dosing Est GFR ( Amer) Est GFR (Non-Af Amer) BUN/Creatinine Ratio (10-20) Glucose (70-99) mg/dl Calcium (8.5-10.1) mg/dl Total Bilirubin (0.2-1) mg/dl AST (15-37) U/L ALT (12-78) U/L Alkaline Phosphatase (45-117) U/L Total Protein (6.4-8.2) gm/dl Albumin (3.4-5.0) gm/dl Globulin (2.5-4.0) gm/dl Albumin/Globulin Ratio (0.9-2) Specimen Hemolysis Blood Type Cancelled Antibody Screen Cancelled Crossmatch See Detail ECG Data Attestation: I personally reviewed and interpreted this ECG as follows: Indication: weakness Rate (beats per minute): 75 Rhythm: normal sinus Findings: no PVC, no ST elevation and no prolonged QT Blood Pressure Blood Pressure Findings: Normal blood pressure MDM Narrative The patient presents the ED with a chief complaint of black stools. No other significant complaints. His symptoms have been ongoing for 5 days. The patient has guaiac positive stools here that are black. His exam was otherwise unremarkable for any significant acute findings. The patient's hemoglobin is 7.1. BUN is 47 and creatinine is 1.92. The patient was given IV Protonix as well as an IV Protonix drip. The patient was also administered blood transfusion due to his significant anemia. He will be seen by the hospitalist for further patient evaluation and care. Consent was signed for blood transfusion. Impression & Plan Acute upper gastrointestinal bleeding, Acute anemia Discharge Plan Visit Data Chief Complaint: Rectal Bleed Stated Complaint: RECTAL BLEEDING ED Provider: Jose L Slade Discharge Problem: Acute upper gastrointestinal bleeding, Acute anemia Patient Disposition: Being Evaluated by Hospitalist Forms Stand Alone Forms: My [facility] Prescriptions Prescriptions: No Action clopidogrel [Plavix] 75 mg Tablet 75 mg PO QAM RF: 0 magnesium oxide 400 mg magnesium Tablet 400 mg PO HS RF: 0 thiamine HCl (vitamin B1) 100 mg Tablet 100 mg PO HS RF: 0 vitamin B complex Tablet 1 tab PO HS RF: 0 allopurinol 100 mg Tablet 100 mg PO QAM RF: 0 folic acid 1 mg Tablet 1 mg PO HS RF: 0 cyanocobalamin (vitamin B-12) 5,000 mcg Tablet, Sublingual 5,000 mcg SUBLINGUAL HS RF: 0 zinc 50 mg Tablet 50 mg PO HS RF: 0 nifedipine 30 mg Tablet Extended Release 30 mg PO QAM RF: 0 fluticasone propionate [Flonase Allergy Relief] 50 mcg/actuation Downing,Suspension 1 spray INTRANASAL DAILY RF: 0 sodium chloride [Deep Sea Nasal] 0.65 % Aerosol,Downing 1 spray INTRANASAL BID RF: 0 lactase [Lactaid] 3,000 unit Tablet 3,000 unit PO Q8 PRN (Reason: Lactose Intolerance) RF: 0 sodium bicarbonate 650 mg Tablet 650 mg PO DAILY Qty: 30 RF: 0 omega-3 acid ethyl esters 1 gram Capsule 1 cap PO DAILY RF: 0 Referrals Referrals: Donavan Vera MD [Primary Care Provider] -
[2019-10-28 13:13] LABS: Basophils # (auto) 0.02 K/uL (0-0.2); Basophils % (auto) 0.3 %; Eosinophils # (auto) 0.06 K/uL (0-0.5); Hematocrit (blood only) 21.3 % (42-52); Hemoglobin 7.1 g/dL (14.0-18.0); Immature Granulocytes # (auto) 0.03 K/uL (0.00-0.02); Immature Granulocytes % (auto) 0.5 %; Lymphocytes # (auto) 1.95 K/uL (1.2-3.4); Mean Corpuscular Hemoglobin 32.9 pg (25-34); Mean Corpuscular Hgb Conc 33.3 g/dL (32-36); Mean Corpuscular Volume 98.6 fL (80-100); Mean Platelet Volume 9.6 fL (7.4-10.4); Monocytes # (auto) 0.58 K/uL (0.11-0.59); Monocytes % (auto) 9.5 %; Neutrophils # (auto) 3.46 K/uL (1.4-6.5); Neutrophils % (auto) 56.7 %; Nucleated RBC # (auto) 0.03 K/uL (0-0); Nucleated RBC % (auto) 0.6 %; Platelet Count 178 K/uL (130-400); RDW Coefficient of Variation 14.2 % (11.5-14.5); RDW Standard Deviation 48.5 fL (36.4-46.3); Red Blood Count 2.16 M/uL (4.7-6.1)
[2019-10-28 13:24] LABS: Partial Thromboplastin Ratio 0.8; Partial Thromboplastin Time 21.7 Seconds (21.0-31.0); Prothrombin Time 10.4 Seconds (9.0-12.0)
[2019-10-28 13:33] LABS: Alanine Aminotransferase 32 U/L (12-78); Albumin Level 3.4 gm/dl (3.4-5.0); Aspartate Aminotransferase 63 U/L (15-37); BUN Creatinine Ratio 24.6 (10-20); Blood Urea Nitrogen 47 mg/dl (7-18); Carbon Dioxide 16 mmol/L (21-32); Chloride 113 mmol/L (98-107); Est GFR (African American) 41.7; Glucose 92 mg/dl (70-99); Polychromasia 1+; Potassium 4.5 mmol/L (3.5-5.1); Sodium 140 mmol/L (136-145)
[2019-10-28 13:41] LABS: Albumin Globulin Ratio 0.8 (0.9-2); Alkaline Phosphatase 77 U/L (45-117); Bilirubin,Total 0.3 mg/dl (0.2-1); Globulin 4.1 gm/dl (2.5-4.0); Total Protein 7.5 gm/dl (6.4-8.2)
[2019-10-28] MEDS ORDERED: SODIUM CHLORIDE 0.9% 250 ML IV PRN (14:12)
[2019-10-28] MEDS ORDERED: PHARMACY GLYCEMIC MGMT CONSULT STA (15:03)
--- NOTE | 2019-10-28 15:37 | History & Physical Report ---
Date of Service October 28, 2019 Assessment & Plan (1) Acute upper gastrointestinal bleeding: admit to med surg Patient had at least 5 days of dark starry stool, thankfullly arrived when feeling asymptomatic Placed on protonix drip will transfuse at least 1 unit of PRBC as hemoglobin is low will check hemoglobin at 21:00 will keep NPO and consult gastro Update: will monitor hemoglobin over weekend, if hemoglobin continues to drop will hvae emergent endoscopy. If not, will have endoscopy on Thursday. will place on clears (2) Acute anemia: secondary to problem 1 as stated above (3) Diabetic ulcer of left heel associated with type 2 diabetes mellitus, with fat layer exposed: H/O diabetes, however A1C is 5.5, doesnot need coverage. holding plavix due to bleeding (4) Chronic kidney disease, stage 3a: will monitor creatinine function while here (5) DVT prophylaxis: SCD (6) Hypertension: hold nifedipine. will monitor (7) Lumbar spinal stenosis: chronic. no new symptoms atthis time, controlled History of Present Illness Chief Complaint: dark tarry stools Primary Care Provider: Donavan Vera MD 63 yo male with PMH listed below presents with a 5-7 day history of loose, watery, sticky, dark tarry stool. Patient had no symptoms but was told to come to ER when mentioning this tohis outpatient provider. Patient denies any dizziness, fatigue, low energy, SOB on exertion, SOB at rest. Allergies Allergy/AdvReac Type Severity Reaction Status Date / Time lactose AdvReac Unknown Unknown Verified 10/28/19 12:50 Home Medications Home Medications Medication Instructions Recorded Confirmed Type allopurinol 100 mg PO QAM 01/08/19 10/28/19 History clopidogrel [Plavix] 75 mg PO QAM 01/08/19 10/28/19 History cyanocobalamin (vitamin B-12) 5,000 mcg SUBLINGUAL HS 01/08/19 10/28/19 History fluticasone propionate [Flonase 1 spray INTRANASAL DAILY 01/08/19 10/28/19 History Allergy Relief] folic acid 1 mg PO HS 01/08/19 10/28/19 History lactase [Lactaid] 3,000 unit PO Q8 PRN 01/08/19 10/28/19 History magnesium oxide 400 mg PO HS 01/08/19 10/28/19 History nifedipine 30 mg PO QAM 01/08/19 10/28/19 History sodium chloride [Deep Sea Nasal] 1 spray INTRANASAL BID 01/08/19 10/28/19 History thiamine HCl (vitamin B1) 100 mg PO HS 01/08/19 10/28/19 History vitamin B complex 1 tab PO HS 01/08/19 10/28/19 History zinc 50 mg PO HS 01/08/19 10/28/19 History sodium bicarbonate 650 mg PO DAILY #30 tab 01/12/19 10/28/19 Rx omega-3 acid ethyl esters 1 cap PO DAILY 10/28/19 10/28/19 History Past Med/Surg History Medical History Alcohol withdrawal Ambulatory dysfunction (02/14/14) Ambulatory dysfunction Anemia Cervical spinal stenosis Chronic kidney insufficiency Diabetes Diverticulitis Esophageal reflux Fatty liver, alcoholic Hyperkalemia Insomnia Metabolic encephalopathy Pressure ulcer, heel, left, unstageable Thrombocytopenia Type 2 diabetes mellitus Ulcer of left heel Unsatisfactory living conditions Vitamin D deficiency Surgical History H/O cervical spine surgery History of esophagogastroduodenoscopy (EGD) S/P colonoscopy Family History Other No pertinent family history Social History Smoking Status: Never smoker Second Hand Exposure: No; Do You Dip or Chew Tobacco: No; Tobacco Cessation Education Requested by Patient: No Hx Alcohol Use: Yes Alcohol type: beer and hard liquor Hx Substance Use: No Preferred Language: Persian Communication Ability: Effective Record Changer Tester Required: No Beliefs That Will Affect Care: None marital status: / Current Living Situation: Alone current occupational status: retired Other Information That Helps Us Care for You: No Feels Safe at Home: Yes Safety Concerns: Feels Safe At This Time Review of Systems Review of Systems: Constitutional: no fever, no sweats and no body aches Eyes: no diplopia Ear, Nose, Mouth, Throat: no ear trauma and no hyperacusis Respiratory: no cough Cardiovascular: no chest pain and no chest pain with activity Gastrointestinal: no abdominal pain and no early satiety Genitourinary: no dysuria and no difficulty urinating Musculoskeletal: no back pain Integumentary: no acne Neurologic: no gait abnormality Psychiatric: no hopelessness Endocrine: no fatigue Hematologic / Lymphatic: no easy bleeding Allergy / Immunological: no lip swelling Physical Exam Constitutional: WD/WN, vitals as above Eyes: PERRL, conjunctivae normal, anicteric sclerae ENMT: external ear and nose normal, oropharynx normal Neck: trachea midline, no thyromegaly Respiratory: normal respiratory effort, lungs clear to auscultation Cardiovascular: RRR, no murmur, no edema Gastrointestinal (Abdomen): normal bowel sounds, soft, nontender, no hepatosplenomegaly Musculoskeletal: no cyanosis or clubbing, extremities motor strength 5/5 Skin: no rashes, warm and dry Neurologic: patellar DTR's 2+ bilat, sensation intact Psychiatric: A+Ox3, euthymic affect Lymphatic: no cervical or axillary lymphadenopathy Results & Data Results & Data ([facility]) Vital Signs (Past 12 Hours) Vital Signs Temp Pulse Pulse Resp BP BP Pulse Ox 10/28/19 15:25 81 20 152/74 H 10/28/19 15:21 36.8 C 78 22 148/66 H 10/28/19 15:20 76 25 H 148/66 H 10/28/19 15:19 77 22 157/74 H 10/28/19 15:18 86 30 H 10/28/19 14:43 147/73 H 10/28/19 14:02 98 H 10/28/19 13:50 73 10/28/19 13:40 78 10/28/19 13:30 78 22 10/28/19 13:20 75 19 100 10/28/19 13:18 67 19 147/73 H 10/28/19 13:17 69 20 100 10/28/19 13:15 74 20 147/73 H 10/28/19 13:00 72 17 10/28/19 12:50 74 11 L 10/28/19 12:45 76 17 10/28/19 12:30 68 17 10/28/19 12:20 73 22 10/28/19 12:10 71 16 10/28/19 12:00 79 19 10/28/19 11:55 70 20 100 10/28/19 11:50 71 17 100 10/28/19 11:40 70 19 100 10/28/19 11:35 69 20 100 10/28/19 11:22 37 C 73 18 129/70 100 PG Care Time/CCT Total # of Minutes Spent Total Time Spent with Patient: Total time spent is greater than 50% in coordination of care (as documented) at patient's floor/unit and/or counseling patient: Coding Level of Care Code 26475 Initial Inpt Care Lvl 3 Diagnoses Acute upper gastrointestinal bleeding K92.2 Acute anemia D64.9 Diabetic ulcer of left heel associated with type 2 diabetes mellitus, with fat layer exposed E11.621; L97.422 Chronic kidney disease, stage 3a N18.3 DVT prophylaxis Z29.9 Hypertension I10 Hypertension type: essential hypertension Lumbar spinal stenosis M48.061 Neurogenic claudication status: unspecified Time Spent (min) 55 (1) Hypertension Hypertension type: essential hypertension Qualified Code(s): I10 - Essential (primary) hypertension (2) Lumbar spinal stenosis Neurogenic claudication status: unspecified Qualified Code(s): M48.061 - Spinal stenosis, lumbar region without neurogenic claudication
[2019-10-28] MEDS: PANTOprazole 40 MG in DEXTROSE 5% 100 ML IV SCH ×2 (17:07→20:39)
--- NOTE | 2019-10-28 17:13 | Consultation Report ---
DATE OF CONSULTATION: 10/28/2019 REASON FOR EVALUATION: Melena and anemia. HISTORY OF PRESENT ILLNESS: The patient is a 63-year-old -[place] male who presented to the Emergency Room with about a 7-day history of sticky black tarry stools. He said it looks like crankcase oil. He has not seen a significant amount of normal stool over this period of time. He is having no abdominal pain, no nausea or vomiting. He does not take any aspirin or nonsteroidals. He has never had an ulcer before. He does take Plavix and he has been noted to have a drop in his hemoglobin from 11 to 7.2 and is getting a unit of blood now in the Emergency Room and is being admitted for further care and evaluation. PAST MEDICAL HISTORY: Remarkable for diabetes. He has a left heel ulcer and he has a diabetic boot on. He has chronic kidney disease stage IIIA. He also has alcohol use. MEDICATIONS: Allopurinol, Plavix, vitamin B12, Flonase, folic acid, magnesium, nifedipine, vitamin B1, vitamin B complex, zinc, sodium bicarbonate, fish oil. ALLERGIES: LACTOSE. FAMILY HISTORY: Not pertinent. SOCIAL HISTORY: The patient is a . Does not smoke, drinks beer and hard liquor, and is retired. REVIEW OF SYSTEMS: Remarkable for lower extremity edema. Remainder is negative. PHYSICAL EXAMINATION: GENERAL: The patient is overweight, in no acute distress. He has a boot on his left foot. VITAL SIGNS: Blood pressure is 152/74, pulse 81 and regular, pulse ox is 100% on room air. He is afebrile. HEENT: He does have pale conjunctivae. ABDOMEN: Soft. There are no masses or tenderness. No surgical scars. EXTREMITIES: Legs showed significant edema. IMPRESSION AND PLAN: The patient has melena for 5-7 days with anemia down to 7.2. He is getting a unit of blood today. Unfortunately, he ate earlier today, so I would recommend a bland full liquid diet for now and IV Protonix. As long as he is stable, we will do an EGD electively on Thursday afternoon as an inpatient. If he bleeds actively over the weekend, we will obviously move that up.
--- NOTE | 2019-10-28 18:00 | Electrocardiogram Report ---
Test Reason : Blood Pressure : / mmHG Vent. Rate : 074 BPM Atrial Rate : 074 BPM P-R Int : 162 ms QRS Dur : 086 ms QT Int : 392 ms P-R-T Axes : 069 -41 062 degrees QTc Int : 435 ms Normal sinus rhythm Left axis deviation Abnormal ECG When compared with ECG of 07-JAN-2019 16:28, No significant change was found Confirmed by Oscar Lee ([id number]) on 10/28/2019 5:59:54 PM Referred By: REFERRED SELF Confirmed By:Calos Lee
[2019-10-28] MEDS ORDERED: Nursing to Pharmacy Communication SCH (19:15)
[2019-10-28 21:55] LABS: Hematocrit (blood only) 22.6 % (42-52); Hemoglobin 7.5 g/dL (14.0-18.0)
[2019-10-29 01:06] LABS: Hematocrit (blood only) 24.4 % (42-52); Hemoglobin 8.1 g/dL (14.0-18.0)
[2019-10-29] MEDS: PANTOprazole 40 MG in DEXTROSE 5% 100 ML IV SCH ×5 (01:46→22:06)
[2019-10-29] MEDS ORDERED: SODIUM BICARBONATE 650 MG TAB PO SCH (09:30)
--- NOTE | 2019-10-29 09:52 | Progress Notes ---
DATE: 10/29/2019 The patient reports no abdominal pain, no vomiting, no nausea. He did not have a bowel movement yesterday and this morning, has had a solid brown bowel movement, indicating that his bleeding appears to have stopped. I did receive 1 unit of packed red cells yesterday and his hemoglobin went from 7.2-8.1 today. He is on clear liquids and plan on advancing him to full liquids today. 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 He does continue to drink alcohol either beer or hard liquor on a daily basis. Of note is when the patient was admitted, he was on Plavix. He states that he used to be on aspirin, but it was stopped because it was felt to be impinging on his kidney function and in place, he was started on Plavix, but there is really no clear indication that he needs to be on a blood thinner. He has not had a stroke or heart attack in the past. He also said in the last couple of years, he is watching his diet and lost 40 pounds and has been off diabetic medications now for 11 months. PHYSICAL EXAMINATION: GENERAL: The patient appears in no acute distress. He is awake, alert, and coherent. He does have some edema in his lower extremities. VITAL SIGNS: Blood pressure is 141/60, pulse 62, temperature is 36.8, room air saturation is 95%. AST is 63, ALT 32, platelets are 178,000. Albumin is 3.4. IMPRESSION: The patient has gastrointestinal bleeding, possibly from esophageal varices. It is very likely, he has alcohol-related cirrhosis. He is not on any diabetic medication as his blood sugars have corrected with weight loss and diet over the last year. I would recommend that he not take Plavix going forward and he would probably benefit from some IV iron to help build up his blood count and I plan on doing an upper endoscopy Thursday afternoon to evaluate for source of GI bleeding.
[2019-10-29 10:17] LABS: Basophils # (auto) 0.02 K/uL (0-0.2); Basophils % (auto) 0.4 %; Eosinophils # (auto) 0.05 K/uL (0-0.5); Eosinophils % (auto) 0.9 %; Hematocrit (blood only) 26.9 % (42-52); Immature Granulocytes # (auto) 0.02 K/uL (0.00-0.02); Immature Granulocytes % (auto) 0.4 %; Lymphocytes # (auto) 1.17 K/uL (1.2-3.4); Lymphocytes % (auto) 21.4 %; Mean Corpuscular Hemoglobin 32.1 pg (25-34); Mean Corpuscular Hgb Conc 33.5 g/dL (32-36); Mean Corpuscular Volume 96.1 fL (80-100); Mean Platelet Volume 9.4 fL (7.4-10.4); Monocytes # (auto) 0.49 K/uL (0.11-0.59); Neutrophils # (auto) 3.72 K/uL (1.4-6.5); Neutrophils % (auto) 67.9 %; Nucleated RBC # (auto) 0.03 K/uL (0-0); Nucleated RBC % (auto) 0.5 %; Platelet Count 152 K/uL (130-400); RDW Coefficient of Variation 16.9 % (11.5-14.5); RDW Standard Deviation 56.4 fL (36.4-46.3); White Blood Count 5.47 K/uL (4.8-10.8)
[2019-10-29 10:42] LABS: Albumin Level 3.2 gm/dl (3.4-5.0); BUN Creatinine Ratio 19.2 (10-20); Bilirubin Direct 0.2 mg/dl (0-0.2); Calcium 8.8 mg/dl (8.5-10.1); Creatinine Clr Calc Pharmacy 42.6 ml/min; Est GFR (African American) 41.7; Magnesium 1.5 mg/dl (1.8-2.4); Potassium 4.2 mmol/L (3.5-5.1)
[2019-10-29 10:45] LABS: Bilirubin,Total 0.7 mg/dl (0.2-1); Total Protein 7.1 gm/dl (6.4-8.2)
[2019-10-29] MEDS: MAGNESIUM SULFATE / D5W 1 GM/100 ML BAG IV SCH ×2 (13:13→14:51)
--- NOTE | 2019-10-29 13:53 | Hospitalist Progress Note ---
Date of Service October 29, 2019 Assessment & Plan (1) Acute upper gastrointestinal bleeding: Patient had at least 5 days of dark starry stool prior to admission, asymptomatic, not hypotensive Hgb dropped from 11.0 baseline to 7.1 Now s/p 1 unit PRBCs on 10/27 and hgb up to 9.0 No abd pain or heartburn. 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 no new symptoms at this time uses walker (7) Pressure ulcer, heel, left, unstageable: as above (8) Paroxysmal atrial fibrillation: had lone Afib during hospitalization for critical illness in 11/2018, no indication for AC on tele here, in sinus (9) Edema: with chronic peripheral edema due to CKD, is much improved from when I las t saw him in Oct Weight is down 9 kg since that time also nifedipine could be playing a role also follow (10) Diabetes: Last HgbA1C in 03/2019 was normal at 5.5% Glucose this AM high at 189 Pt having a lot of issues with blood draws and even fingersticks difficult-will hold off on accuchecks -check A1C in AM Not on meds at home (11) Fatty liver, alcoholic: with mildly elevated AST, no longer drinking excessively I believe follow LFTs (12) Hypomagnesemia: due to diarrhea/GI losses replace with IV magnesium follow levels in AM (13) Metabolic acidosis: as jarocho, with CKD stage 3-4 can't amanda po Na+HCO3 improved today, follow BMP (14) DVT prophylaxis: SCD Dispo-continued stay on PCU Admission and Anticipated Discharge Date Admission Date: October 28, 2019 Subjective Pt had 2 brown BMs today, no abd pain or heartburn, denies CP or SOB. He reports he has not been taking the NaHCO3 since last year because it makes him nauseated. Tele with NSR and ST to 120s briefly Review of Systems Review of Systems: All systems reviewed & are unremarkable except as noted in HPI & below (chronic numbness in arms from elbows down) Physical Exam Constitutional: WD/WN, vitals as above Eyes: + anicteric sclerae Neck: trachea midline, no thyromegaly Respiratory: normal respiratory effort, lungs clear to auscultation Cardiovascular: Rate/Rhythm: regular rate and regular rhythm Extremities: + edema (1-2+ pitting edema legs bilat) Chest (Breasts): Chest: normal inspection of chest Gastrointestinal (Abdomen): normal bowel sounds, soft, nontender, no hepatosplenomegaly Musculoskeletal: Extremities: extremities normal to inspection; no cyanosis and no clubbing Skin: no rashes, warm and dry Neurologic: moves all extremities and awake; no focal motor deficits Psychiatric: A+Ox3, euthymic affect Lymphatic: no lymphedema Results & Data Results & Data ([facility]) Vital Signs (Past 12 Hours) Vital Signs Temp Pulse Pulse Resp BP Pulse Ox 10/29/19 12:00 36.5 C 66 20 138/71 96 10/29/19 08:00 36.8 C 62 18 141/60 H 95 10/29/19 07:06 59 L 10/29/19 04:25 36.8 C 57 L 18 137/75 100 Laboratory Results 10/29/19 10/29/19 10/29/19 Range/Units 10:04 10:04 00:51 WBC 5.47 (4.8-10.8) K/uL RBC 2.80 L (4.7-6.1) M/uL Hgb 9.0 L 8.1 L (14.0-18.0) g/dL Hct 26.9 L 24.4 L (42-52) % MCV 96.1 (80-100) fL MCH 32.1 (25-34) pg MCHC 33.5 (32-36) g/dL RDW Std Deviation 56.4 H (36.4-46.3) fL RDW Coeff of Clyde 16.9 H (11.5-14.5) % Plt Count 152 (130-400) K/uL MPV 9.4 (7.4-10.4) fL Immature Gran % (Auto) 0.4 % Neut % (Auto) 67.9 % Lymph % (Auto) 21.4 % [place] % (Auto) 9.0 % Eos % (Auto) 0.9 % Baso % (Auto) 0.4 % Neut # (Auto) 3.72 (1.4-6.5) K/uL Lymph # (Auto) 1.17 L (1.2-3.4) K/uL [place] # (Auto) 0.49 (0.11-0.59) K/uL Eos # (Auto) 0.05 (0-0.5) K/uL Baso # (Auto) 0.02 (0-0.2) K/uL Immature Gran # (Auto) 0.02 (0.00-0.02) K/uL Absolute Nucleated RBC 0.03 H (0-0) K/uL Nucleated RBC % (auto) 0.5 % Sodium 139 (136-145) mmol/L Potassium 4.2 (3.5-5.1) mmol/L Chloride 110 H (98-107) mmol/L Carbon Dioxide 19 L (21-32) mmol/L Anion Gap 10.0 (3-11) BUN 37 H (7-18) mg/dl Creatinine 1.92 H (0.6-1.4) mg/dl Est Cr Clr Drug Dosing 42.6 ml/min Est GFR ( Amer) 41.7 Est GFR (Non-Af Amer) 36.0 BUN/Creatinine Ratio 19.2 (10-20) Glucose 189 H (70-99) mg/dl Calcium 8.8 (8.5-10.1) mg/dl Magnesium 1.5 L (1.8-2.4) mg/dl Total Bilirubin 0.7 (0.2-1) mg/dl Direct Bilirubin 0.2 (0-0.2) mg/dl AST 40 H (15-37) U/L ALT 25 (12-78) U/L Alkaline Phosphatase 77 (45-117) U/L Total Protein 7.1 (6.4-8.2) gm/dl Albumin 3.2 L (3.4-5.0) gm/dl Blood Type Antibody Screen Crossmatch 10/28/19 10/28/19 Range/Units 21:43 13:52 WBC (4.8-10.8) K/uL RBC (4.7-6.1) M/uL Hgb 7.5 L (14.0-18.0) g/dL Hct 22.6 L (42-52) % MCV (80-100) fL MCH (25-34) pg MCHC (32-36) g/dL RDW Std Deviation (36.4-46.3) fL RDW Coeff of [place]de (11.5-14.5) % Plt Count (130-400) K/uL MPV (7.4-10.4) fL Immature Gran % (Auto) % Neut % (Auto) % Lymph % (Auto) % [place] % (Auto) % Eos % (Auto) % Baso % (Auto) % Neut # (Auto) (1.4-6.5) K/uL Lymph # (Auto) (1.2-3.4) K/uL [place] # (Auto) (0.11-0.59) K/uL Eos # (Auto) (0-0.5) K/uL Baso # (Auto) (0-0.2) K/uL Immature Gran # (Auto) (0.00-0.02) K/uL Absolute Nucleated RBC (0-0) K/uL Nucleated RBC % (auto) % Sodium (136-145) mmol/L Potassium (3.5-5.1) mmol/L Chloride (98-107) mmol/L Carbon Dioxide (21-32) mmol/L Anion Gap (3-11) BUN (7-18) mg/dl Creatinine (0.6-1.4) mg/dl Est Cr Clr Drug Dosing ml/min Est GFR ( Amer) Est GFR (Non-Af Amer) BUN/Creatinine Ratio (10-20) Glucose (70-99) mg/dl Calcium (8.5-10.1) mg/dl Magnesium (1.8-2.4) mg/dl Total Bilirubin (0.2-1) mg/dl Direct Bilirubin (0-0.2) mg/dl AST (15-37) U/L ALT (12-78) U/L Alkaline Phosphatase (45-117) U/L Total Protein (6.4-8.2) gm/dl Albumin (3.4-5.0) gm/dl Blood Type O Positive Antibody Screen NEGATIVE Crossmatch See Detail PG Care Time/CCT Total # of Minutes Spent Total Time Spent with Patient: Total time spent is greater than 50% in coordination of care (as documented) at patient's floor/unit and/or counseling patient: Coding Level of Care Code 77625 Subseq Hosp Care Lvl 3 Diagnoses Acute upper gastrointestinal bleeding K92.2 Acute anemia D64.9 Diabetic ulcer of left heel associated with type 2 diabetes mellitus, with fat layer exposed E11.621; L97.422 Chronic kidney disease, stage 3a N18.3 Hypertension I10 Hypertension type: essential hypertension Lumbar spinal stenosis M48.061 Neurogenic claudication status: unspecified Pressure ulcer, heel, left, unstageable L89.620 Paroxysmal atrial fibrillation I48.0 Edema R60.9 Diabetes E11.22; N18.3 Diabetes mellitus type: type 2 Diabetes mellitus nursing home insulin use: without nursing home use Diabetes mellitus complication status: with kidney complications Diabetes mellitus complication detail: with chronic kidney disease Chronic kidney disease stage: stage 3 (moderate) Fatty liver, alcoholic K70.0 Hypomagnesemia E83.42 Metabolic acidosis E87.2 DVT prophylaxis Z29.9 (1) Hypertension Hypertension type: essential hypertension Qualified Code(s): I10 - Essential (primary) hypertension (2) Lumbar spinal stenosis Neurogenic claudication status: unspecified Qualified Code(s): M48.061 - Spinal stenosis, lumbar region without neurogenic claudication (3) Diabetes Diabetes mellitus type: type 2 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
[2019-10-29] MEDS: FOLIC ACID 1 MG TAB PO SCH (19:54)
[2019-10-29] MEDS: CYANOCOBALAMIN (VITAMIN B-12) 2,500 MCG TAB.SUBL SL SCH (19:54)
[2019-10-29] MEDS: THIAMINE HCL 100 MG TAB PO SCH (19:54)
[2019-10-30] MEDS: PANTOprazole 40 MG in DEXTROSE 5% 100 ML IV SCH ×4 (03:17→19:31)
[2019-10-30 05:56] LABS: Basophils # (auto) 0.01 K/uL (0-0.2); Basophils % (auto) 0.2 %; Eosinophils # (auto) 0.09 K/uL (0-0.5); Eosinophils % (auto) 1.5 %; Hemoglobin 8.6 g/dL (14.0-18.0); Immature Granulocytes # (auto) 0.01 K/uL (0.00-0.02); Immature Granulocytes % (auto) 0.2 %; Lymphocytes # (auto) 1.77 K/uL (1.2-3.4); Lymphocytes % (auto) 29.5 %; Mean Corpuscular Hemoglobin 31.7 pg (25-34); Mean Corpuscular Hgb Conc 33.1 g/dL (32-36); Mean Corpuscular Volume 95.9 fL (80-100); Mean Platelet Volume 9.7 fL (7.4-10.4); Monocytes # (auto) 0.58 K/uL (0.11-0.59); Monocytes % (auto) 9.7 %; Neutrophils # (auto) 3.54 K/uL (1.4-6.5); Neutrophils % (auto) 58.9 %; Platelet Count 173 K/uL (130-400); RDW Coefficient of Variation 16.7 % (11.5-14.5); RDW Standard Deviation 56.3 fL (36.4-46.3); Red Blood Count 2.71 M/uL (4.7-6.1)
[2019-10-30 06:15] LABS: Albumin Level 3.1 gm/dl (3.4-5.0); BUN Creatinine Ratio 14.6 (10-20); Calcium 8.9 mg/dl (8.5-10.1); Creatinine Clr Calc Pharmacy 46.7 ml/min; Est GFR (African American) 46.7; Est GFR (Non-African American) 40.3; Magnesium 1.8 mg/dl (1.8-2.4); Potassium 4.1 mmol/L (3.5-5.1)
[2019-10-30 06:18] LABS: Albumin Globulin Ratio 0.8 (0.9-2); Bilirubin,Total 0.7 mg/dl (0.2-1); Globulin 3.7 gm/dl (2.5-4.0); Total Protein 6.8 gm/dl (6.4-8.2)
[2019-10-30] MEDS ORDERED: LACTASE 3000 UNIT TAB PO PRN (09:15)
--- NOTE | 2019-10-30 10:03 | Progress Notes ---
DATE: 10/30/2019 SUBJECTIVE: The patient reports no abdominal pain. He has not had any further overt bleeding. No nausea, vomiting, abdominal pain or bloody stools. His hemoglobin has remained stable after 1 unit of blood transfusion at 8.6 this morning. The patient is tolerating a full liquid diet. PHYSICAL EXAMINATION: VITAL SIGNS: Blood pressure is 151/72, pulse 58, temperature is 36.7. Room air saturation 100%. ABDOMEN: Soft and nontender. IMPRESSION AND PLAN: The patient appears to have stopped bleeding and will be scheduled for EGD tomorrow afternoon for further evaluation. We will continue on IV Protonix and n.p.o. after midnight.
--- NOTE | 2019-10-30 18:43 | Hospitalist Progress Note ---
Date of Service October 30, 2019 Assessment & Plan (1) Acute upper gastrointestinal bleeding: Patient had at least 5 days of dark tarry stool prior to admission, asymptomatic, not hypotensive Hgb dropped from 11.0 baseline to 7.1 Now s/p 1 unit PRBCs on 10/27 and hgb up to 9.0 No abd pain or heartburn. Could be PUD vs AVM or GI thinks possible esophageal varices given liver issues had only brown stool since admission and hgb now increased from previous -continue protonix drip -appreciate GI consult-continue full liquids diet and NPO after midnight for EGD on Thursday -discontinue home Plavix permanently, cannot find indication for why he's on it (2) Acute anemia: Acute blood loss anemia from GIB as above follow CBC (3) Diabetic ulcer of left heel associated with type 2 diabetes mellitus, with fat layer exposed: Followed by Wound care clinic for debridement WOund care consult here, offload pressure no indication of acute infection, recent wound cx no growth (4) Chronic kidney disease, stage 3a: 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 no new symptoms at this time uses walker (7) Pressure ulcer, heel, left, unstageable: as above (8) Paroxysmal atrial fibrillation: had lone Afib during hospitalization for critical illness in 11/2018, no indication for AC on tele here, in sinus (9) Cirrhosis: likely secondary to EtOH Unclear if ongoing EtOH use now -continue EtOH abstinence EGD tomorrow to look for varices needs outpt GI f/u (10) Edema: with chronic peripheral edema due to CKD, possibly worsened by nifedipine; is much improved from when I last saw him in Nov Weight is down 9 kg since that time also follow (11) Diabetes: Last HgbA1C in 03/2019 was normal at 5.5% some hyperglycemia here on BMP 151-186 Pt having a lot of issues with blood draws and even fingersticks difficult-will hold off on accuchecks -check A1C -pending Not on meds at home (12) Fatty liver, alcoholic: with mildly elevated AST, no longer drinking excessively I believe follow LFTs -continue thiamine, folate (13) Hypomagnesemia: due to diarrhea/GI losses replaced with IV magnesium and now improved (14) Metabolic acidosis: as jarocho, with CKD stage 3-4 can't amanda po Na+HCO3 improved today, follow BMP (15) DVT prophylaxis: SCD Dispo-continued stay but can downgrade to medical/surgical floor Possible dc to home in 1-2 days after EGD Admission and Anticipated Discharge Date Admission Date: October 28, 2019 Subjective Pt reports no further BMs today. No abd pain, no nausea. Denies CP or SOB. Tele with NSR and some ST Review of Systems Review of Systems: All systems reviewed & are unremarkable except as noted in HPI & below Physical Exam Constitutional: WD/WN, vitals as above Eyes: + anicteric sclerae Neck: trachea midline, no thyromegaly Respiratory: normal respiratory effort, lungs clear to auscultation Cardiovascular: Rate/Rhythm: regular rate and regular rhythm Extremities: + edema (1-2+ pitting edema legs bilat) Chest (Breasts): Chest: normal inspection of chest Gastrointestinal (Abdomen): normal bowel sounds, soft, nontender, no hepatosplenomegaly Musculoskeletal: Extremities: extremities normal to inspection; no cyanosis and no clubbing Skin: no rashes, warm and dry Neurologic: moves all extremities and awake; no focal motor deficits Psychiatric: Orientation: alert and oriented x 3 Affect: + flat affect Results & Data Results & Data ([facility]) Vital Signs (Past 12 Hours) Vital Signs Temp Pulse Pulse Resp BP Pulse Ox 10/30/19 12:14 36.5 C 60 18 155/70 H 99 10/30/19 07:45 36.7 C 58 L 18 151/72 H 100 10/30/19 07:00 58 L Laboratory Results 10/30/19 10/30/19 10/30/19 Range/Units 07:26 05:30 05:30 WBC (4.8-10.8) K/uL RBC (4.7-6.1) M/uL Hgb (14.0-18.0) g/dL Hct (42-52) % MCV (80-100) fL MCH (25-34) pg MCHC (32-36) g/dL RDW Std Deviation (36.4-46.3) fL RDW Coeff of [place] (11.5-14.5) % Plt Count (130-400) K/uL MPV (7.4-10.4) fL Immature Gran % (Auto) % Neut % (Auto) % Lymph % (Auto) % [place] % (Auto) % Eos % (Auto) % Baso % (Auto) % Neut # (Auto) (1.4-6.5) K/uL Lymph # (Auto) (1.2-3.4) K/uL [place] # (Auto) (0.11-0.59) K/uL Eos # (Auto) (0-0.5) K/uL Baso # (Auto) (0-0.2) K/uL Immature Gran # (Auto) (0.00-0.02) K/uL Sodium 140 (136-145) mmol/L Potassium 4.1 (3.5-5.1) mmol/L Chloride 111 H (98-107) mmol/L Carbon Dioxide 20 L (21-32) mmol/L Anion Gap 9.0 (3-11) BUN 26 H (7-18) mg/dl Creatinine 1.75 H (0.6-1.4) mg/dl Est Cr Clr Drug Dosing 46.7 ml/min Est GFR ( Amer) 46.7 Est GFR (Non-Af Amer) 40.3 BUN/Creatinine Ratio 14.6 (10-20) Glucose 151 H (70-99) mg/dl POC Glucose 177 H (70-99) mg/dl Estimat Average Glucose Pending Hemoglobin A1c Pending Calcium 8.9 (8.5-10.1) mg/dl Magnesium 1.8 (1.8-2.4) mg/dl Total Bilirubin 0.7 (0.2-1) mg/dl AST 40 H (15-37) U/L ALT 26 (12-78) U/L Alkaline Phosphatase 78 (45-117) U/L Total Protein 6.8 (6.4-8.2) gm/dl Albumin 3.1 L (3.4-5.0) gm/dl Globulin 3.7 (2.5-4.0) gm/dl Albumin/Globulin Ratio 0.8 L (0.9-2) 10/30/19 Range/Units 05:30 WBC 6.00 (4.8-10.8) K/uL RBC 2.71 L (4.7-6.1) M/uL Hgb 8.6 L (14.0-18.0) g/dL Hct 26.0 L (42-52) % MCV 95.9 (80-100) fL MCH 31.7 (25-34) pg MCHC 33.1 (32-36) g/dL RDW Std Deviation 56.3 H (36.4-46.3) fL RDW Coeff of [place] 16.7 H (11.5-14.5) % Plt Count 173 (130-400) K/uL MPV 9.7 (7.4-10.4) fL Immature Gran % (Auto) 0.2 % Neut % (Auto) 58.9 % Lymph % (Auto) 29.5 % [place] % (Auto) 9.7 % Eos % (Auto) 1.5 % Baso % (Auto) 0.2 % Neut # (Auto) 3.54 (1.4-6.5) K/uL Lymph # (Auto) 1.77 (1.2-3.4) K/uL [place] # (Auto) 0.58 (0.11-0.59) K/uL Eos # (Auto) 0.09 (0-0.5) K/uL Baso # (Auto) 0.01 (0-0.2) K/uL Immature Gran # (Auto) 0.01 (0.00-0.02) K/uL Sodium (136-145) mmol/L Potassium (3.5-5.1) mmol/L Chloride (98-107) mmol/L Carbon Dioxide (21-32) mmol/L Anion Gap (3-11) BUN (7-18) mg/dl Creatinine (0.6-1.4) mg/dl Est Cr Clr Drug Dosing ml/min Est GFR ( Amer) Est GFR (Non-Af Amer) BUN/Creatinine Ratio (10-20) Glucose (70-99) mg/dl POC Glucose (70-99) mg/dl Estimat Average Glucose Hemoglobin A1c Calcium (8.5-10.1) mg/dl Magnesium (1.8-2.4) mg/dl Total Bilirubin (0.2-1) mg/dl AST (15-37) U/L ALT (12-78) U/L Alkaline Phosphatase (45-117) U/L Total Protein (6.4-8.2) gm/dl Albumin (3.4-5.0) gm/dl Globulin (2.5-4.0) gm/dl Albumin/Globulin Ratio (0.9-2) PG Care Time/CCT Total # of Minutes Spent Total Time Spent with Patient: Total time spent is greater than 50% in coordination of care (as documented) at patient's floor/unit and/or counseling patient: Coding Level of Care Code 44295 Subseq Hosp Care Lvl 2 Diagnoses Acute upper gastrointestinal bleeding K92.2 Acute anemia D64.9 Diabetic ulcer of left heel associated with type 2 diabetes mellitus, with fat layer exposed E11.621; L97.422 Chronic kidney disease, stage 3a N18.3 Hypertension I10 Hypertension type: essential hypertension Lumbar spinal stenosis M48.061 Neurogenic claudication status: unspecified Pressure ulcer, heel, left, unstageable L89.620 Paroxysmal atrial fibrillation I48.0 Cirrhosis K74.60 Edema R60.9 Diabetes E11.22; N18.3 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 mellitus 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: 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 Diabetes mellitus complication status: with kidney complications Diabetes mellitus complication detail: with chronic kidney disease Chronic kidney disease stage: stage 3 (moderate) Fatty liver, alcoholic K70.0 Hypomagnesemia E83.42 Metabolic acidosis E87.2 DVT prophylaxis Z29.9 (1) Hypertension Hypertension type: essential hypertension Qualified Code(s): I10 - Essential (primary) hypertension (2) Lumbar spinal stenosis Neurogenic claudication status: unspecified Qualified Code(s): M48.061 - Spinal stenosis, lumbar region without neurogenic claudication (3) Diabetes Diabetes mellitus type: type 2 Diabetes mellitus halfway insulin use: without halfway use Diabetes mellitus complication status: with kidney complications Diabetes mellitus complication detail: with chronic kidney disease Chronic kidney disease stage: stage 3 (moderate) Qualified Code(s): E11.22 - Type 2 diabetes mellitus with diabetic chronic kidney disease; N18.3 - Chronic kidney disease, stage 3 (moderate)
[2019-10-30] MEDS: FOLIC ACID 1 MG TAB PO SCH (20:38)
[2019-10-30] MEDS: CYANOCOBALAMIN (VITAMIN B-12) 2,500 MCG TAB.SUBL SL SCH (20:38)
[2019-10-30] MEDS: THIAMINE HCL 100 MG TAB PO SCH (20:39)
[2019-10-30] MEDS: ZINC SULFATE 220 MG CAPSULE PO SCH (20:51)
[2019-10-30] MEDS: VITAMIN B COMPLEX TAB PO SCH (20:51)
[2019-10-31] MEDS: PANTOprazole 40 MG in DEXTROSE 5% 100 ML IV SCH ×4 (00:18→15:57)
[2019-10-31 06:11] LABS: Basophils # (auto) 0.01 K/uL (0-0.2); Basophils % (auto) 0.1 %; Eosinophils # (auto) 0.09 K/uL (0-0.5); Eosinophils % (auto) 1.2 %; Hematocrit (blood only) 26.3 % (42-52); Hemoglobin 8.7 g/dL (14.0-18.0); Immature Granulocytes # (auto) 0.02 K/uL (0.00-0.02); Immature Granulocytes % (auto) 0.3 %; Lymphocytes # (auto) 1.72 K/uL (1.2-3.4); Lymphocytes % (auto) 22.6 %; Mean Corpuscular Hemoglobin 32.1 pg (25-34); Mean Corpuscular Hgb Conc 33.1 g/dL (32-36); Mean Platelet Volume 9.7 fL (7.4-10.4); Monocytes # (auto) 0.78 K/uL (0.11-0.59); Monocytes % (auto) 10.2 %; Neutrophils % (auto) 65.6 %; Platelet Count 190 K/uL (130-400); RDW Coefficient of Variation 16.4 % (11.5-14.5); RDW Standard Deviation 56.2 fL (36.4-46.3); Red Blood Count 2.71 M/uL (4.7-6.1); White Blood Count 7.62 K/uL (4.8-10.8)
[2019-10-31 06:32] LABS: Estimated Average Glucose 97 mg/dl
[2019-10-31 06:52] LABS: BUN Creatinine Ratio 9.8 (10-20); Calcium 8.4 mg/dl (8.5-10.1); Creatinine Clr Calc Pharmacy 46.4 ml/min; Est GFR (African American) 46.3; Potassium 4.1 mmol/L (3.5-5.1)
--- NOTE | 2019-10-31 08:32 | Anesthesiology Consultation ---
Date of Service October 31, 2019 Assessment & Plan (1) Encounter for pre-operative examination: Chart Review Chart Review: Acceptable Risk for Surgery History Surgery Operation Date: 10/31/19 16:40 Proposed Procedures p Esophagogastroduodenoscopy Dr Joe Diaz Height/Weight Height: 5 ft 6 in Weight: 97.7 kg Allergies Allergy/AdvReac Type Severity Reaction Status Date / Time lactose AdvReac Unknown Unknown Verified 10/28/19 12:50 Medications Home Medications Medication Instructions Recorded Confirmed Last Taken allopurinol 100 mg PO QAM 01/08/19 10/28/19 10/27/19 clopidogrel [Plavix] 75 mg PO QAM 01/08/19 10/28/19 10/27/19 cyanocobalamin (vitamin B-12) 5,000 mcg SUBLINGUAL HS 01/08/19 10/28/19 Unknown fluticasone propionate [Flonase 1 spray INTRANASAL DAILY 01/08/19 10/28/19 Unknown Allergy Relief] folic acid 1 mg PO HS 01/08/19 10/28/19 Unknown lactase [Lactaid] 3,000 unit PO Q8 PRN 01/08/19 10/28/19 Unknown magnesium oxide 400 mg PO HS 01/08/19 10/28/19 Unknown nifedipine 30 mg PO QAM 01/08/19 10/28/19 10/27/19 sodium chloride [Deep Sea Nasal] 1 spray INTRANASAL BID 01/08/19 10/28/19 Unknown thiamine HCl (vitamin B1) 100 mg PO HS 01/08/19 10/28/19 Unknown vitamin B complex 1 tab PO HS 01/08/19 10/28/19 Unknown zinc 50 mg PO HS 01/08/19 10/28/19 Unknown sodium bicarbonate 650 mg PO DAILY #30 tab 01/12/19 10/28/19 Unknown omega-3 acid ethyl esters 1 cap PO DAILY 10/28/19 10/28/19 Unknown Active Medications Generic Name Dose Route Start Last Admin Trade Name Freq PRN Reason Stop Dose Admin Cyanocobalamin 5,000 mcg 10/29/19 21:00 10/30/19 20:38 Cyanocobalamin (Vitamin B-12) 2,500 Mcg Tab.Subl SL 11/28/19 20:59 5,000 mcg HS GUILLE Administration Folic Acid 1 mg 10/29/19 21:00 10/30/19 20:38 Folic Acid 1 Mg Tab PO 11/28/19 20:59 1 mg HS GUILLE Administration Pantoprazole Sodium 40 mg/ 100 mls @ 20 mls/hr 10/28/19 16:45 10/31/19 05:33 Dextrose IV 11/27/19 16:44 8 mg/hr Q5H GUILLE 20 mls/hr Administration 8 MG/HR Thiamine HCl 100 mg 10/29/19 21:00 10/30/19 20:39 Thiamine Hcl 100 Mg Tab PO 11/28/19 20:59 100 mg HS GUILLE Administration Vitamin B Complex 1 tab 10/30/19 21:00 10/30/19 20:51 Vitamin B Complex Tab PO 11/29/19 20:59 1 tab HS GUILLE Administration Zinc Sulfate 220 mg 10/30/19 21:00 10/30/19 20:51 Zinc Sulfate 220 Mg Capsule PO 11/29/19 20:59 220 mg HS GUILLE Administration Past Medical History Medical History Alcohol withdrawal Ambulatory dysfunction (02/14/14) Ambulatory dysfunction Anemia Cervical spinal stenosis Chronic kidney insufficiency Cirrhosis Diabetes Diverticulitis Esophageal reflux Fatty liver, alcoholic Hyperkalemia Insomnia Metabolic acidosis Metabolic encephalopathy Pressure ulcer, heel, left, unstageable Thrombocytopenia Type 2 diabetes mellitus Ulcer of left heel Unsatisfactory living conditions Vitamin D deficiency Past Family History Family History Other No pertinent family history Past Surgical History Surgical History H/O cervical spine surgery History of esophagogastroduodenoscopy (EGD) S/P colonoscopy Social History Smoking Status: Never smoker Do You Dip or Chew Tobacco: No Hx Alcohol Use: Yes Alcohol type: beer and hard liquor alcohol intake frequency: 3 or more drinks per day Hx Substance Use: No substance use type: does not use Physical Exam Vital Signs Last Vital Signs Temp 36.8 C 10/31/19 08:02 Pulse 62 10/31/19 08:02 Resp 16 10/31/19 08:02 BP 147/75 H 10/31/19 08:02 Pulse Ox 100 10/31/19 08:02 Testing Laboratory Results 10/31/19 05:49 10/31/19 05:49 PT 10.4 Seconds (9.0-12.0) 10/28/19 13:01 INR 1.0 (0.9-1.1) 10/28/19 13:01 APTT 21.7 Seconds (21.0-31.0) 10/28/19 13:01 Hemoglobin A1c 5.0 % (4.5-5.6) 10/30/19 05:30 Blood Type O Positive 10/28/19 13:52 Antibody Screen NEGATIVE 10/28/19 13:52
--- NOTE | 2019-10-31 08:58 | Gastroenterology Progress Note ---
Date of Service October 31, 2019 Assessment & Plan (1) Acute upper gastrointestinal bleeding: Hgb 8.7/Hct 26.3 this morning. Denies further melena. Plan is EGD this afternoon by Dr. Diaz. Admission and Anticipated Discharge Date Admission Date: October 28, 2019 Subjective Patient awake and ambulatory in room to bathroom. States he is doing better this morning. Reports nausea and vomiting through the night. Denies nausea, vomiting, abdominal pain. Reports watery bowel movements that are brown in color. denies any black or tarry stools, bright or dark red in the stool. Review of Systems Review of Systems: All systems reviewed & are unremarkable except as noted in HPI & below Physical Exam Constitutional: WD/WN, vitals as above Neck: trachea midline, no thyromegaly Respiratory: normal respiratory effort, lungs clear to auscultation Cardiovascular: Rate/Rhythm: regular rate and regular rhythm Extremities: + edema (1-2+ pitting edema legs bilat) Gastrointestinal (Abdomen): normal bowel sounds, soft, nontender, no hepatosp lenomegaly Musculoskeletal: Extremities: extremities normal to inspection; no cyanosis and no clubbing Skin: no rashes, warm and dry Neurologic: moves all extremities and awake; no focal motor deficits Psychiatric: Orientation: alert and oriented x 3 Affect: + flat affect Results & Data ([facility]) Vital Signs (Past 12 Hours) Vital Signs Temp Pulse Resp BP BP Pulse Ox 10/31/19 08:02 36.8 C 62 16 147/75 H 100 10/31/19 00:02 36.9 C 60 20 160/78 H 100 Laboratory Results - last 24 hr 10/30/19 10/31/19 10/31/19 05:30 05:49 05:49 WBC 7.62 RBC 2.71 L Hgb 8.7 L Hct 26.3 L MCV 97.0 MCH 32.1 MCHC 33.1 RDW Std Deviation 56.2 H RDW Coeff of [place] 16.4 H Plt Count 190 MPV 9.7 Immature Gran % (Auto) 0.3 Neut % (Auto) 65.6 Lymph % (Auto) 22.6 [place] % (Auto) 10.2 Eos % (Auto) 1.2 Baso % (Auto) 0.1 Neut # (Auto) 5.00 Lymph # (Auto) 1.72 [place] # (Auto) 0.78 H Eos # (Auto) 0.09 Baso # (Auto) 0.01 Immature Gran # (Auto) 0.02 Sodium 138 Potassium 4.1 Chloride 110 H Carbon Dioxide 22 Anion Gap 6.0 BUN 17 Creatinine 1.76 H Est Cr Clr Drug Dosing 46.4 Est GFR ( Amer) 46.3 Est GFR (Non-Af Amer) 40.0 BUN/Creatinine Ratio 9.8 L Glucose 143 H Estimat Average Glucose 97 Hemoglobin A1c 5.0 Hgb A1c Pathologist Com Calcium 8.4 L
[2019-10-31] MEDS: FLUTICASONE PROPIONATE NA SPR 16 GM BTL NAE SCH (09:51)
[2019-10-31] MEDS: allopurinoL 100 MG TAB PO SCH (09:51)
--- NOTE | 2019-10-31 10:58 | Hospitalist Progress Note ---
Date of Service October 31, 2019 Assessment & Plan (1) Acute upper gastrointestinal bleeding: Patient had at least 5 days of dark tarry stool prior to admission, asymptomatic, not hypotensive Hgb dropped from 11.0 baseline to 7.1 - s/p 1 unit PRBCs on 10/27 PUD vs AVM or GI thinks possible esophageal varices given liver issues -continue protonix drip -appreciate GI consult- NPO since midnight for EGD this afternoon -discontinue home Plavix permanently, cannot find indication for why he's on it (2) Acute anemia: Acute blood loss anemia from GIB as above (3) Diabetic ulcer of left heel associated with type 2 diabetes mellitus, with fat layer exposed: Followed by Wound care clinic for debridement WOund care consult here, offload pressure no indication of acute infection, recent wound cx no growth (4) Chronic kidney disease, stage 3a: 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 no new symptoms at this time uses walker (7) Pressure ulcer, heel, left, unstageable: as above (8) Paroxysmal atrial fibrillation: had lone Afib during hospitalization for critical illness in 11/2018, no indication for AC on tele here, in sinus (9) Cirrhosis: likely secondary to EtOH EGD tomorrow to look for varices needs outpt GI f/u (10) Edema: with chronic peripheral edema due to CKD, possibly worsened by nifedipine; is much improved from Oct Weight is down 9 kg since that time also (11) Diabetes: Last HgbA1C in 03/2019 was normal at 5.5% some hyperglycemia here on BMP 151-186 Pt having a lot of issues with blood draws and even fingersticks difficult-will hold off on accuchecks -check A1C -pending Not on meds at home (12) Fatty liver, alcoholic: with mildly elevated AST follow LFTs -continue thiamine, folate (13) Hypomagnesemia: due to diarrhea/GI losses replaced with IV magnesium and now improved (14) Metabolic acidosis: as jarocho, with CKD stage 3-4 can't amanda po Na+HCO3 improved today, follow BMP (15) DVT prophylaxis: SCD Dispo-continued stay, EGD today Admission and Anticipated Discharge Date Admission Date: October 28, 2019 Subjective Mr. Penny had diarrhea over the night, brown, no obvious bleeding. No other complaints. ROS Constitutional: no chills, aches, sweats or fever Respiratory: no sob,cough, sputum, or wheezing Cardiac: no chest pain, palpitations, edema, orthopnea or lightheadedness GI: no abdominal pain, nausea, vomiting, diarrhea or constipation : no dysuria or hesitancy Extremities: no joint pain or weakness Skin: no rash All other systems reviewed and negative Physical Exam Physical Exam: General: no distress Eyes: normal inspection, PERLL Respiratory: chest non tender, clear to auscultation, normal breath sounds, no respiratory distress, no accessory muscle use Cardiac: regular rate and rhythm, no rub or gallop, no murmur, right lower extremity > left , no jvd GI/: active bowel sounds, no abd pain or tenderness, soft, non distended Extremities: normal range of motion, normal strength, non tender Neuro/Psych: alert and oriented x 3, normal mood and affect Skin: normal color, dry, left heel healing ulcer Results & Data Results & Data ([facility]) Vital Signs (Past 12 Hours) Vital Signs Temp Pulse Resp BP BP Pulse Ox 10/31/19 08:02 36.8 C 62 16 147/75 H 100 10/31/19 00:02 36.9 C 60 20 160/78 H 100 PG Care Time/CCT Total # of Minutes Spent Total Time Spent with Patient: Total time spent is greater than 50% in coordination of care (as documented) at patient's floor/unit and/or counseling patient: Coding Level of Care Code 45526 Subseq Hosp Care Lvl 3 Diagnoses Acute upper gastrointestinal bleeding K92.2 Acute anemia D64.9 Diabetic ulcer of left heel associated with type 2 diabetes mellitus, with fat layer exposed E11.621; L97.422 Chronic kidney disease, stage 3a N18.3 Hypertension I10 Hypertension type: essential hypertension Lumbar spinal stenosis M48.061 Neurogenic claudication status: unspecified Pressure ulcer, heel, left, unstageable L89.620 Paroxysmal atrial fibrillation I48.0 Cirrhosis K74.60 Edema R60.9 Diabetes E11.22; N18.3 Chronic kidney disease stage: stage 3 (moderate) Diabetes mellitus complication detail: with chronic kidney disease Diabetes mellitus complication status: with kidney complications Diabetes mellitus manager terminal insulin use: without manager terminal use Diabetes mellitus type: type 2 Fatty liver, alcoholic K70.0 Hypomagnesemia E83.42 Metabolic acidosis E87.2 DVT prophylaxis Z29.9 (1) Lumbar spinal stenosis Neurogenic claudication status: unspecified Qualified Code(s): M48.061 - Spinal stenosis, lumbar region without neurogenic claudication (2) Diabetes Chronic kidney disease stage: stage 3 (moderate) Diabetes mellitus complication detail: with chronic kidney disease Diabetes mellitus complication status: with kidney complications Diabetes mellitus manager terminal insulin use: without manager terminal use Diabetes mellitus type: type 2 Qualified Code(s): E11.22 - Type 2 diabetes mellitus with diabetic chronic kidney disease; N18.3 - Chronic kidney disease, stage 3 (moderate) (3) Hypertension Hypertension type: essential hypertension Qualified Code(s): I10 - Essential (primary) hypertension
--- NOTE | 2019-10-31 14:27 | Ultrasound Report ---
US venous doppler LE RT HISTORY: 63 years-old Male edema, pain acute pain and swelling of the right lower extremity COMPARISON: Doppler study 09/04/2016 TECHNIQUE: Multiple real-time sonographic images of the right lower extremity deep venous structures were obtained assessing grayscale appearance, color and spectral flow FINDINGS: Normal flow, compressibility, phasicity and augmentation of the right lower extremity deep venous str uctures. IMPRESSION: No sonographic evidence of deep venous thrombosis. ACT 112: Negative or not required by law. The above report was generated using voice recognition software. It may contain grammatical, syntax o r spelling errors. Electronically signed by: Shola Laurent M.D. 10/31/2019 2:26 PM
--- NOTE | 2019-10-31 15:27 | History & Physical Report ---
Date of Service October 31, 2019 Assessment & Plan Admission and Anticipated Discharge Date Admission Date: October 28, 2019 History of Present Illness Chief Complaint: melena , anemia Primary Care Provider: Donavan Vera MD For EGD Allergies Allergy/AdvReac Type Severity Reaction Status Date / Time lactose AdvReac Unknown Unknown Verified 10/28/19 12:50 Home Medications Home Medications Medication Instructions Recorded Confirmed Type allopurinol 100 mg PO QAM 01/08/19 10/28/19 History clopidogrel [Plavix] 75 mg PO QAM 01/08/19 10/28/19 History cyanocobalamin (vitamin B-12) 5,000 mcg SUBLINGUAL HS 01/08/19 10/28/19 History fluticasone propionate [Flonase 1 spray INTRANASAL DAILY 01/08/19 10/28/19 History Allergy Relief] folic acid 1 mg PO HS 01/08/19 10/28/19 History lactase [Lactaid] 3,000 unit PO Q8 PRN 01/08/19 10/28/19 History magnesium oxide 400 mg PO HS 01/08/19 10/28/19 History nifedipine 30 mg PO QAM 01/08/19 10/28/19 History sodium chloride [Deep Sea Nasal] 1 spray INTRANASAL BID 01/08/19 10/28/19 History thiamine HCl (vitamin B1) 100 mg PO HS 01/08/19 10/28/19 History vitamin B complex 1 tab PO HS 01/08/19 10/28/19 History zinc 50 mg PO HS 01/08/19 10/28/19 History sodium bicarbonate 650 mg PO DAILY #30 tab 01/12/19 10/28/19 Rx omega-3 acid ethyl esters 1 cap PO DAILY 10/28/19 10/28/19 History Past Med/Surg History Medical History Alcohol withdrawal Ambulatory dysfunction (02/14/14) Ambulatory dysfunction Anemia Cervical spinal stenosis Chronic kidney insufficiency Cirrhosis Diabetes Diverticulitis Esophageal reflux Fatty liver, alcoholic Hyperkalemia Insomnia Metabolic acidosis Metabolic encephalopathy Pressure ulcer, heel, left, unstageable Thrombocytopenia Type 2 diabetes mellitus Ulcer of left heel Unsatisfactory living conditions Vitamin D deficiency Surgical History H/O cervical spine surgery History of esophagogastroduodenoscopy (EGD) S/P colonoscopy Family History Other No pertinent family history Social History Smoking Status: Never smoker Second Hand Exposure: No; Do You Dip or Chew Tobacco: No; Tobacco Cessation Education Requested by Patient: No Hx Alcohol Use: Yes Alcohol type: beer and hard liquor Hx Substance Use: No Preferred Language: Turkish Communication Ability: Effective 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
[2019-10-31] MEDS ORDERED: SODIUM CHLORIDE 0.9% 1000ML 1,000 ML IV SCH (15:30)
[2019-10-31] MEDS ORDERED: PROPOFOL IV EMULSION 10 MG/ML 20 ML VIAL IV ONE (16:12)
[2019-10-31] MEDS ORDERED: LIDOCAINE HCL 2% 2 ML VIAL/AMP(20MG/ML) INFIL ONE (16:12)
--- NOTE | 2019-10-31 16:51 | Anesthesiology Progress Note ---
Date of Service October 31, 2019 Anesthesia Post Procedure Vital Signs Vital Signs: Temp Pulse Resp BP BP Pulse Ox 10/31/19 16:24 37.0 C 53 L 20 183/83 H 100 10/31/19 15:42 36.8 C 62 18 140/66 97 10/31/19 08:02 36.8 C 62 16 147/75 H 100 10/31/19 00:02 36.9 C 60 20 160/78 H 100 10/30/19 19:44 36.9 C 61 16 148/73 H 100 Transfer of Care Handoff Completed per policy Notes Mental Status: alert / awake / arousable Patient Amnestic to Procedure: Yes Nausea / Vomiting: adequately controlled Pain: adequately controlled Airway Patency, RR, SpO2: stable & adequate BP & HR: stable & adequate Hydration State: stable & adequate Anesthetic Complications: no major complications apparent
--- NOTE | 2019-10-31 16:52 | GI REPORT ---
Patient Name: Mahesh Penny Procedure Date: 10/31/2019 4:24 PM Date of : 1955 Admit Type: Inpatient Age: 63 Gender: Male Attending MD: Zelalem Diaz MD Procedure: Upper GI endoscopy Providers: Zelalem Diaz MD Referring MD: Dhaval Barbosa Indications: Acute post hemorrhagic anemia, Melena Medicines: Propofol total dose 70 mg IV, Ketamine 50 mg IV Complications: No immediate complications. Estimated Blood Loss: Estimated blood loss: none. Procedure: Pre-Anesthesia Assessment: - Prior to the procedure, a History and Physical was performed, and patient medications, allergies and sensitivities were reviewed. The patient's tolerance of previous anesthesia was reviewed. - The risks and benefits of the procedure and the sedation options and risks were discussed with the patient. All questions were answered and informed consent was obtained. After obtaining informed consent, the endoscope was passed under direct vision. Throughout the procedure, the patient's blood pressure, pulse, and oxygen saturations were monitored continuously. The Endoscope was introduced through the mouth, and advanced to the second part of duodenum. The upper GI endoscopy was accomplished without difficulty. The patient tolerated the procedure well. Findings: The Z-line was regular and was found 39 cm from the incisors. The examined esophagus was normal. No Varices. Multiple angioectasias with no bleeding were found in the gastric antrum. Coagulation for bleeding prevention using argon plasma at 0.3 liters/minute and 20 elliott was successful. Estimated blood loss: none. The examined duodenum was normal. Impression: - Z-line regular, 39 cm from the incisors. - Normal esophagus. - Multiple non-bleeding angioectasias in the stomach. Treated with argon plasma coagulation (APC). - Normal examined duodenum. - No specimens collected. Recommendation: - Return patient to [facility] for [facility] care. Zelalem Diaz M.D. Zelalem Diaz MD 10/31/2019 4:52:01 PM This report has been signed electronically. Note Initiated On: 10/31/2019 4:24 PM Number of Addenda: 0 I attest to the content of the Intraoperative Record and orders documented therein, exceptions below {[id number]}
--- NOTE | 2019-10-31 17:31 | Progress Notes ---
DATE: 10/31/2019 Progress note addendum to Alba Thompson's note: The patient was brought to the endoscopy unit today for an upper endoscopy to evaluate his melena and anemia. The patient had no esophageal varices. His duodenum appeared normal. He did have some gastric antral vascular ectasia that was presumed to be the source of blood loss, although it is not actively bleeding today. This area was treated aggressively with argon plasma coagulation with cauterization of the lesions. IMPRESSION: The patient has gastric antral vascular ectasia. This was cauterized today and will be placed on Carafate and a bland diet for 2 weeks, and hopefully, this will reduce his transfusion requirement and bleeding.
[2019-10-31 17:42] LABS: Hematocrit (blood only) 27.7 % (42-52); Hemoglobin 8.9 g/dL (14.0-18.0); Mean Corpuscular Hemoglobin 31.3 pg (25-34); Mean Corpuscular Hgb Conc 32.1 g/dL (32-36); Mean Corpuscular Volume 97.5 fL (80-100); Mean Platelet Volume 9.6 fL (7.4-10.4); Nucleated RBC # (auto) 0.02 K/uL (0-0); Nucleated RBC % (auto) 0.3 %; Platelet Count 197 K/uL (130-400); RDW Coefficient of Variation 16.2 % (11.5-14.5); Red Blood Count 2.84 M/uL (4.7-6.1); White Blood Count 7.58 K/uL (4.8-10.8)
[2019-10-31] MEDS: ZINC SULFATE 220 MG CAPSULE PO SCH (18:48)
[2019-10-31] MEDS: SUCRALFATE 1 GM/10 ML UDC PO SCH ×2 (18:59→21:51)
[2019-10-31] MEDS: FOLIC ACID 1 MG TAB PO SCH (20:16)
[2019-10-31] MEDS: VITAMIN B COMPLEX TAB PO SCH (20:17)
[2019-10-31] MEDS: CYANOCOBALAMIN (VITAMIN B-12) 2,500 MCG TAB.SUBL SL SCH (20:17)
[2019-10-31] MEDS: THIAMINE HCL 100 MG TAB PO SCH (20:18)
[2019-10-31] MEDS: PANTOprazole 40 MG TAB PO SCH (20:25)
[2019-11-01 07:30] LABS: BUN Creatinine Ratio 7.4 (10-20); Calcium 8.9 mg/dl (8.5-10.1); Creatinine Clr Calc Pharmacy 47.5 ml/min; Est GFR (African American) 47.6; Est GFR (Non-African American) 41.1; Potassium 4.1 mmol/L (3.5-5.1)
[2019-11-01 07:33] LABS: Albumin Globulin Ratio 0.8 (0.9-2); Bilirubin,Total 0.7 mg/dl (0.2-1); Globulin 3.9 gm/dl (2.5-4.0); Total Protein 6.9 gm/dl (6.4-8.2)
[2019-11-01] MEDS ORDERED: NIFEdipine EXTENDED REL 30 MG TABCR PO SCH (09:00)
--- NOTE | 2019-11-01 09:00 | Gastroenterology Progress Note ---
Date of Service November 01, 2019 Assessment & Plan (1) Cirrhosis: (2) Fatty liver, alcoholic: (3) Acute upper gastrointestinal bleeding: EGD 10/31/[address] Diaz demonstrated gastric antral vascular ectasia which were cauterized. Recommendations for discharge Carafate QID + bland diet x 2 weeks. Patient may benefit from iron infusion prior to discharge which will defer to hospitalist. Will require GI follow-up as an outpatient which will be arranged. OK to discharge to home today from GI standpoint. Thank you for the consult and reconsult if needed. Admission and Anticipated Discharge Date Admission Date: October 28, 2019 Subjective Patient alert and oriented, sitting upright in bed, argumentative with staff and myself. On contact precautions for history of MRSA in a foot wound - angry that food is being delivered in a bag. Denies any GI complaints today - no nausea, vomiting, abdominal pain. Reports he has had no bowel movement since upper endoscopy yesterday. Reports flatulence this morning. EGD performed by Dr. Diaz 10/31/2019 demonstrated gastric antral vascular ectasia which was cauterized. Review of Systems Review of Systems: All systems reviewed & are unremarkable except as noted in HPI & below Physical Exam Constitutional: WD/WN, vitals as above Neck: trachea midline, no thyromegaly Respiratory: normal respiratory effort, lungs clear to auscultation Cardiovascular: Rate/Rhythm: regular rate and regular rhythm Extremities: + edema (1-2+ pitting edema legs bilat) Gastrointestinal (Abdomen): normal bowel sounds, soft, nontender, no hepatosplenomegaly Musculoskeletal: Extremities: extremities normal to inspection; no cyanosis and no clubbing Skin: no rashes, warm and dry Neurologic: moves all extremities and awake; no focal motor deficits Psychiatric: Orientation: alert and oriented x 3 Affect: + flat affect Results & Data ([facility]) Vital Signs (Past 12 Hours) Vital Signs Temp Pulse Resp BP Pulse Ox 11/01/19 07:18 37.2 C 57 L 20 153/76 H 100 10/31/19 23:41 36.7 C 61 16 154/70 H 98 Laboratory Results - last 24 hr 10/31/19 10/31/19 10/31/19 17:32 Unknown Unknown WBC 7.58 RBC 2.84 L Hgb 8.9 L Hct 27.7 L MCV 97.5 MCH 31.3 MCHC 32.1 RDW Std Deviation 57.0 H RDW Coeff of Clyde 16.2 H Plt Count 197 MPV 9.6 Absolute Nucleated RBC 0.02 H Nucleated RBC % (auto) 0.3 Sodium Potassium Chloride Carbon Dioxide Anion Gap BUN Creatinine Est Cr Clr Drug Dosing Est GFR ( Amer) Est GFR (Non-Af Amer) BUN/Creatinine Ratio Glucose Calcium Total Bilirubin AST ALT Alkaline Phosphatase Total Protein Albumin Globulin Albumin/Globulin Ratio COVID-19 [facility] SARS-CoV-2, RNA, NAAT NEGATIVE 11/01/19 06:35 WBC RBC Hgb Hct MCV MCH MCHC RDW Std Deviation RDW Coeff of Clyde Plt Count MPV Absolute Nucleated RBC Nucleated RBC % (auto) Sodium 139 Potassium 4.1 Chloride 111 H Carbon Dioxide 19 L Anion Gap 9.0 BUN 13 Creatinine 1.72 H Est Cr Clr Drug Dosing 47.5 Est GFR ( Amer) 47.6 Est GFR (Non-Af Amer) 41.1 BUN/Creatinine Ratio 7.4 L Glucose 100 H Calcium 8.9 Total Bilirubin 0.7 AST 41 H ALT 25 Alkaline Phosphatase 81 Total Protein 6.9 Albumin 3.0 L Globulin 3.9 Albumin/Globulin Ratio 0.8 L COVID-19 Eval Order SARS-CoV-2, RNA, NAAT
[2019-11-01] MEDS: SUCRALFATE 1 GM/10 ML UDC PO SCH ×3 (09:43→14:04)
[2019-11-01] MEDS: FLUTICASONE PROPIONATE NA SPR 16 GM BTL NAE SCH (09:43)
[2019-11-01] MEDS: allopurinoL 100 MG TAB PO SCH (09:43)
[2019-11-01] MEDS: PANTOprazole 40 MG TAB PO SCH (09:43)
[2019-11-01] MEDS ORDERED: IRON SUCROSE 200 MG in 0.9 % SODIUM CHLORIDE 100 ML IV ONE (12:00)
--- NOTE | 2019-11-01 12:23 | Discharge Summary ---
Date of Service November 01, 2019 Admission HPI Per Admitting Provider 63 yo male with PMH listed below presents with a 5-7 day history of loose, watery, sticky, dark tarry stool. Patient had no symptoms but was told to come to ER when mentioning this tohis outpatient provider. Patient denies any dizziness, fatigue, low energy, SOB on exertion, SOB at rest. Principal Diagnosis GI bleed Discharge Exam Constitutional WD/WN, vitals as above Respiratory normal respiratory effort, lungs clear to auscultation Cardiovascular Rate/Rhythm: regular rate and regular rhythm right > left edema Gastrointestinal (Abdomen) normal bowel sounds, soft, nontender, no hepatosplenomegaly Musculoskeletal no cyanosis or clubbing, extremities motor strength 5/5 Skin no rashes, warm and dry Neurologic moves all extremities and awake Psychiatric A+Ox3, euthymic affect Discharge Data Allergies Allergy/AdvReac Type Severity Reaction Status Date / Time lactose AdvReac Unknown Unknown Verified 10/31/19 16:23 Consultations 10/28/19 14:15 ED Decision to Admit Stat 10/28/19 14:56 Consult Gastroenterology Routine Procedures Performed Operation Date: 10/31/19 16:40 Actual Procedures p EGD Hemostasis(Not Applicable) - Zelalem Diaz Ordered Studies 10/31/19 14:00 US venous doppler LE RT Routine Hospital Course (1) Acute upper gastrointestinal bleeding: Patient had at least 5 days of dark tarry stool prior to admission, asymptomatic, not hypotensive Hgb dropped from 11.0 baseline to 7.1 - s/p 1 unit PRBCs on 10/27 -continue protonix drip -appreciate GI consult- EGD showing non bleeding angioectasias which were treated during the endoscopy. 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 no new symptoms at this time uses walker (7) Pressure ulcer, heel, left, unstageable: as above (8) Paroxysmal atrial fibrillation: had lone Afib during hospitalization for critical illness in 11/2018, no indication for AC on tele here, in sinus (9) Cirrhosis: likely secondary to EtOH EGD without varices needs outpt GI f/u continue thiamine and folate supplementation (10) Edema: with chronic peripheral edema due to CKD, possibly worsened by nifedipine; is much improved from Oct Weight is down 9 kg since that time also (11) Diabetes: Last HgbA1C in 03/2019 was normal at 5.5% some hyperglycemia here on BMP 151-186 Pt having a lot of issues with blood draws and even fingersticks difficult-will hold off on accuchecks - A1c 5.0 here (12) Hypomagnesemia: due to diarrhea/GI losses replaced with IV magnesium and now improved (13) Metabolic acidosis: as above, with CKD stage 3-4 can't amanda po Na+HCO3 (14) DVT prophylaxis: SCD Dispo-continued stay, EGD today Total Time Total Time Spent Total Time Spent (In Minutes): greater than 30 minutes Discharge Plan Discharge Items Patient Disposition: Home - Home Health Services Reason For Visit: BLOOD IN STOOL Discharge Diagnosis: Gastrointestinal bleed Activity: Resume your previous activity Non-emergency contact: Primary Care Provider Call non-emergency contact if: you have any medication questions and your symptoms worsen Follow-up/Referrals: Donavan Vera MD [Primary Care Provider] - 11/04/19 2:00 pm (follow up in one week ) Diet: Low Fiber and Low Fat Addtl Attending Provider Instructions: (1) Acute upper gastrointestinal bleeding: Your bleeding was caused by angioectasias which are malformed blood vessels. These were treated by Dr. Diaz during your endoscopy. You will received a dose of IV iron before you leave to help your body build your blood level back up. Yo u received 1 unit of blood while you were here. - Discontinue your Plavix to help prevent further bleeding. - Take pantoprazole once per day - Continue taking sucralfate 1g four times per day before meals and before bed - Eat a bland diet for two weeks - Please work with your doctor to discontinue drinking alcohol - Dr. Diaz's office will call you to schedule a follow up visit Pending Studies at Discharge: No Stand-Alone Forms: My [facility], Smoking Cessation Medications and DC Order Prescriptions: New pantoprazole 40 mg Tablet,Delayed Release (Dr/Ec) 40 mg PO DAILY Qty: 30 RF: 1 sucralfate 1 gram tablet 1 g PO ACHS Qty: 120 RF: 1 Continued magnesium oxide 400 mg magnesium Tablet 400 mg PO HS RF: 0 thiamine HCl (vitamin B1) 100 mg Tablet 100 mg PO HS RF: 0 vitamin B complex Tablet 1 tab PO HS RF: 0 allopurinol 100 mg Tablet 100 mg PO QAM RF: 0 folic acid 1 mg Tablet 1 mg PO HS RF: 0 cyanocobalamin (vitamin B-12) 5,000 mcg Tablet, Sublingual 5,000 mcg SUBLINGUAL HS RF: 0 zinc 50 mg Tablet 50 mg PO HS RF: 0 nifedipine 30 mg Tablet Extended Release 30 mg PO QAM RF: 0 fluticasone propionate [Flonase Allergy Relief] 50 mcg/actuation [place],Suspension 1 spray INTRANASAL DAILY RF: 0 sodium chloride [Deep Sea Nasal] 0.65 % Aerosol,[place] 1 spray INTRANASAL BID RF: 0 lactase [Lactaid] 3,000 unit Tablet 3,000 unit PO Q8 PRN (Reason: Lactose Intolerance) RF: 0 sodium bicarbonate 650 mg Tablet 650 mg PO DAILY Qty: 30 RF: 0 omega-3 acid ethyl esters 1 gram Capsule 1 cap PO DAILY RF: 0 Discontinued clopidogrel [Plavix] 75 mg Tablet 75 mg PO QAM RF: 0 Discharge Orders: Discharge Order (Routine); Ordered 11/01/19 Ordered By: Lesa Pretty Admission Data Admit Date/Time: 10/28/19 14:50 Attending Provider: Dhaval Barbosa Admit Provider: Emile Novak Primary Care Provider: Donavan Vera Other Providers: Emile Novak ; Zelalem Diaz ; [place] Other Interventions: Discharge Summary Assessment (RN) Last Done: 11/01/19 14:59 Supervising Physician Co-Signing Physician Notes Patient seen and examined on the day of discharge. I agree with the discharge summary by Lesa SHARMA. I have reviewed the chart including labs, imaging and plans for discharge. patient feeling better, eating well, no abdominal pain, no dark stools Hb is stable after EGD and treatment of angioectasia - GI bleed, acute blood loss anemia, iron deficiency EGD with angioectasia, no active bleeding treated with protonix drip, discharge on Protonix PO stop Plavix treat iron deficiency, given Venofer Coding Level of Care Code D/C Day Management >30 mins Diagnoses Acute upper gastrointestinal bleeding K92.2 Acute anemia D64.9 Diabetic ulcer of left heel associated with type 2 diabetes mellitus, with fat layer exposed E11.621; L97.422 Chronic kidney disease, stage 3a N18.3 Hypertension I10 Hypertension type: essential hypertension Lumbar spinal stenosis M48.061 Neurogenic claudication status: unspecified Pressure ulcer, heel, left, unstageable L89.620 Paroxysmal atrial fibrillation I48.0 Cirrhosis K74.60 Edema R60.9 Diabetes E11.22; N18.3 Chronic kidney disease stage: stage 3 (moderate) Diabetes mellitus complication detail: with chronic kidney disease Diabetes mellitus complication status: with kidney complications 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
== END 2019-11-01 17:00 | disposition home health service (06) | DRG 392 ==
LOC: ED 11:10 → SUATTDRO 14:50 → 2S 14:50 → 3N 10-30 18:28